=== PATIENT | male | born 1945 | race Caucasian/White ===

== ENCOUNTER 2017-04-04 13:41 | Inpatient (IN) | payer OTHER ==
[~2017-04-04] VITALS: Ht 160 cm; Wt 93.4 kg
--- NOTE | 2017-04-04 14:42 | EMERGENCY ROOM VISIT NOTE ---
History Report prepared by Vishibe: Iris Pal Under the Supervision of: Dr. Chad Hodge D.O. First contact with patient: 14:29 Chief Complaint: WOUND INFECTION Stated Complaint: INFECTION History of Present Illness The patient is a 69 year old male who presents to the Emergency Room with complaints of bilateral foot pain and ulcers. The patient states that he lives alone in [place]. He denies any fever, chest pain, shortness of breath, weakness or abdominal pain. The patient states he does not wear oxygen normally. He denies having a PCP or anyone who checks in on him. He has not been seen by a doctors in over 10 years. The patient has a history of cerebral palsy. Per nursing note, the patient arrived to ED with his pants and underwear soaked with urine and stool. Source of History: patient Position: foot (bilateral) Quality: other (ulers and pain) Modifying Factors (Relieving): other (none) Associated Symptoms: No fevers, No chest pain, No SOB, No abdominal pain, No weakness Review of Systems As above. All other systems reviewed were negative unless otherwise stated in history. At least 10 were reviewed Past Medical & Surgical Medical Problems: (1) Cerebral palsy Old medical records were attempted to be reviewed but there are no old records at this hospital. Nurse's notes were reviewed and I agree with. Social History Housing Status: lives alone Occupation Status: unemployed Current/Historical Medications No Active Prescriptions or Reported Meds Allergies Coded Allergies: No Known Allergies (Unverified , 04/04/17) Physical Exam Vital Signs Date Time Temp Pulse Resp B/P (MAP) Pulse Ox O2 Delivery O2 Flow Rate FiO2 04/04/17 16:03 78 20 133/84 92 Room Air 04/04/17 13:45 37.1 88 20 161/88 98 Room Air Physical Exam General: Non-ill, disheveled appearing older male, on nasal cannula oxygen, in no acute distress. Answers questions appropriately. HEENT: Normal cephalic atraumatic. Baseline disconjugate gaze in right eye. Pupils are equal round and reactive to light. Extraocular movements are intact. Oropharynx is pink with moist mucous membranes. No swelling of the mouth lips or tongue. Neck: Supple with a midline trachea. No meningeal signs or stiffness, no JVD or bruits. No Stridor. Chest: Clear to auscultation bilaterally. No wheezes or rhonchi. No increased work of breathing. Heart: regular rate and rhythm. : Yeast in groin area. Abdomen: Soft nontender, nondistended without rebound guarding or rigidity. Extremities: Significant chronic changes as well as redness and cellulitis to lower extremities. Spine/Back. Non tender to palpation. No CVA tenderness Skin: Good turgor without rashes. Neurologic exam: Cranial nerves two through 12 are intact. Motor and sensation are intact and symmetrical throughout. Medical Decision & Procedures ER Provider Diagnostic Interpretation: Radiology results as stated below per my review and radiologist interpretation: CHEST ONE VIEW PORTABLE FINDINGS: Large hiatus hernia. The heart is borderline enlarged. The lungs are clear. No pleural effusions. No pneumothorax. IMPRESSION: 1. No acute process within the chest. 2. Large hiatus hernia. Electronically signed by: Ted Locke M.D. LEFT FOOT 4 VIEWS CLINICAL HISTORY: Left foot swelling. FINDINGS: 4 portable views of the left foot are obtained. No prior studies are available for comparison at the time of dictation. The examination is degraded by suboptimal positioning. The skeletal structures are osteopenic. No fracture is seen. No bony erosion or periostitis is identified. There is pes planus. A mild hallux valgus is identified with minimal arthritic change at the first metatarsophalangeal joint. Hammertoes are suggested in the second through fifth toes. Soft tissue edema is present throughout the foot, greatest along the dorsal aspect. No subcutaneous gas or radiodense foreign body is seen. IMPRESSION: 1. Diffuse soft tissue swelling with no acute bony abnormality seen in the left foot. 2. Osteopenia, pes planus, mild hallux valgus, and degenerative change as above. Electronically signed by: Wali Hurtado M.D. R FOOT MIN 3 VIEWS ROUTINE CLINICAL HISTORY: Bilateral foot swelling. Redness. COMPARISON STUDY: None. FINDINGS: The bones are osteopenic. This results in suboptimal evaluation. No definite areas of cortical destruction to suggest osteomyelitis. Diffuse soft tissue swelling. No fracture or dislocation. Hallux valgus deformity. Mild osteoarthritis at the first MTP joint. Multiple flexion deformities seen within the second through fifth toes. IMPRESSION: Diffuse soft tissue swelling within the right foot. No definite cortical destruction to suggest osteomyelitis. Electronically signed by: Ted Locke M.D. Laboratory Results 04/04/17 13:45 Red Blood Count 4.46, Mean Corpuscular Volume 92.8, Mean Corpuscular Hemoglobin 29.6, Mean Corpuscular Hemoglobin Concent 31.9, Mean Platelet Volume 10.7, Neutrophils (%) (Auto) 67.5, Lymphocytes (%) (Auto) 13.3, Monocytes (%) (Auto) 11.4, Eosinophils (%) (Auto) 7.4, Basophils (%) (Auto) 0.1, Neutrophils # (Auto ) 6.11, Lymphocytes # (Auto) 1.20, Monocytes # (Auto) 1.03, Eosinophils # (Auto ) 0.67, Basophils # (Auto) 0.01 04/04/17 13:45 Test 04/04/17 13:45 04/04/17 14:10 04/04/17 14:56 04/04/17 15:33 White Blood Count 9.05 K/uL (4.8-10.8) Red Blood Count 4.46 M/uL (4.7-6.1) Hemoglobin 13.2 g/dL (14.0-18.0) Hematocrit 41.4 % (42-52) Mean Corpuscular Volume 92.8 fL (80-100) Mean Corpuscular Hemoglobin 29.6 pg (25-34) Mean Corpuscular Hemoglobin Concent 31.9 g/dl (32-36) Platelet Count 238 K/uL (130-400) Mean Platelet Volume 10.7 fL (7.4-10.4) Neutrophils (%) (Auto) 67.5 % Lymphocytes (%) (Auto) 13.3 % Monocytes (%) (Auto) 11.4 % Eosinophils (%) (Auto) 7.4 % Basophils (%) (Auto) 0.1 % Neutrophils # (Auto) 6.11 K/uL (1.4-6.5) Lymphocytes # (Auto) 1.20 K/uL (1.2-3.4) Monocytes # (Auto) 1.03 K/uL (0.11-0.59) Eosinophils # (Auto) 0.67 K/uL (0-0.5) Basophils # (Auto) 0.01 K/uL (0-0.2) RDW Standard Deviation 50.3 fL (36.4-46.3) RDW Coefficient of Variation 14.9 % (11.5-14.5) Immature Granulocyte % (Auto) 0.3 % Immature Granulocyte # (Auto) 0.03 K/uL (0.00-0.02) Anion Gap 8.0 mmol/L (3-11) Est Creatinine Clear Calc Drug Dose 71.8 ml/min Estimated GFR () 93.5 Estimated GFR (Non- 80.7 BUN/Creatinine Ratio 19.9 (10-20) Calcium Level 9.1 mg/dl (8.5-10.1) Total Bilirubin 0.4 mg/dl (0.2-1) Direct Bilirubin 0.1 mg/dl (0-0.2) Aspartate Amino Transf (AST/SGOT) 16 U/L (15-37) Alanine Aminotransferase (ALT/SGPT) 23 U/L (12-78) Alkaline Phosphatase 137 U/L (45-117) Total Protein 7.5 gm/dl (6.4-8.2) Albumin 3.6 gm/dl (3.4-5.0) Lipase 174 U/L (73-393) Urine Color YELLOW Urine Appearance CLOUDY (CLEAR) Urine pH 5.0 (4.5-7.5) Urine Specific [place] 1.036 (1.000-1.030) Urine Protein NEG (NEG) Urine Glucose (UA) 3+ (NEG) Urine Ketones NEG (NEG) Urine Occult Blood NEG (NEG) Urine Nitrite NEG (NEG) Urine Bilirubin NEG (NEG) Urine Urobilinogen NEG (NEG) Urine Leukocyte Esterase NEG (NEG) Urine WBC (Auto) 1-5 /hpf (0-5) Urine RBC (Auto) 0-4 /hpf (0-4) Urine Hyaline Casts (Auto) 1-5 /lpf (0-5) Urine Epithelial Cells (Auto) 20-30 /lpf (0-5) Urine Bacteria (Auto) NEG (NEG) Urine Crystals CALCIUM OXALATE (NONE Bedside Troponin I < 0.030 ng/ml (0-0.045) Bedside Lactic Acid Venous 1.55 mmol/L (0.90-1.70) Laboratory studies as stated above per my review. Medications Administered Medications (Trade) Dose Ordered Sig/Lee Route Start Time Stop Time Status Last Admin Dose Admin Piperacillin Sod/ Tazobactam Sod (Zosyn Iv) 4.5 gm NOW STAT IV 11/9/17 15:40 04/04/17 15:42 DC 04/04/17 16:05 4.5 GM ECG Indication: other (infection) Rate (beats per minute): 82 Rhythm: normal sinus Findings: no acute ischemic change, no ectopy Comparison ECG Date: no prior available ED Course 1430: Past medical records reviewed. The patient was evaluated in room C8, and a complete history and physical examination were performed. 1540: Zosyn IV 4.5 gm IV. 1542: The patient is resting comfortably. We are going to do a portable x-ray. 1608: Discussed the patient's case with Myrtle Leary. The patient will be evaluated for further management. Medical Decision Differential diagnosis: Cellulitis, osteomyelitis, sepsis, electrolyte or metabolic abnormality. This patient comes in as described above. He is here for evaluation of wounds on his feet. He lives by himself and has not seen a doctor in many years. He has some significant calluses and wound infections of both feet and they look necrotic on the toes. He is very disheveled looking. IV access was established and blood cultures were obtained. X-rays obtained of both feet . chest x-ray, EKG, and an extensive workup was obtained. He was reassessed frequently. He has no white count or elevations lactic acid to suggest severe sepsis. He has no acute electrolyte or abnormalities. EKG does not suggest acute coronary syndrome or arrhythmia. He does not appear to be in overt CHF. X-rays of the feet do not show any definite osteomyelitis however these are limited. I do think he needs to be admitted for IV antibiotics wound care and geriatric social work professor. The office of aging has been contacted is and has been following him apparently as well. I have consulted the [facility] hospitalist to see him in the ER for these measures. Medication Reconcilliation Current Medication List: was personally reviewed by me Blood Pressure Screening Patient's blood pressure: Elevated blood pressure Blood pressure disposition: Referred to PCP (evaluated by hospitalist) Consults Time Called: 1600 Consulting Physician: Myrtle Leary Returned Call: 1608 Discussed the patient's case with Myrtle Leary. The patient will be evaluated for further management. Impression Primary Impression: Lower extremity cellulitis Additional Impression: Total self-care deficit Scribe Attestation The scribe's documentation has been prepared under my direction and personally reviewed by me in its entirety. I confirm that the note above accurately reflects all work, treatment, procedures, and medical decision making performed by me. Departure Information Dispostion Being Evaluated By Hospitalist Prescriptions No Active Prescriptions or Reported Meds Patient Instructions My [facility] Problem Qualifiers
[2017-04-04 14:48] LABS: BASO % 0.1 %; BASO ABS # 0.01 K/uL (0-0.2); COMPLETE YES; EOS % 7.4 %; HEMATOCRIT 41.4 % (42-52); IG% 0.3 %; LYMPH % 13.3 %; MEAN CELL VOLUME 92.8 fL (80-100); MEAN CORPUSCULAR HEMOGLOBIN 29.6 pg (25-34); MEAN CORPUSCULAR HGB CONC 31.9 g/dl (32-36); MEAN PLATELET VOLUME 10.7 fL (7.4-10.4); MONO % 11.4 %; NEUT % 67.5 %; PLATELET COUNT 238 K/uL (130-400); RED BLOOD COUNT 4.46 M/uL (4.7-6.1); WHITE BLOOD COUNT 9.05 K/uL (4.8-10.8)
[2017-04-04 15:09] LABS: BUN/CREATININE RATIO 19.9 (10-20); CALCIUM 9.1 mg/dl (8.5-10.1); CREATININE 0.94 mg/dl (0.60-1.40); POTASSIUM 3.7 mmol/L (3.5-5.1)
[2017-04-04] MEDS ORDERED: PIPERACILLIN/TAZOBACTAM 4.5 GM/100ML D5W IV STA (15:40)
[2017-04-04 15:51] LABS: URINE APPEARANCE CLOUDY (CLEAR); URINE BILIRUBIN NEG (NEG); URINE COLOR YELLOW; URINE EPITHELIAL CELL AUTO 20-30 /lpf (0-5); URINE NITRITE NEG (NEG); URINE SPECIFIC GRAVITY 1.036 (1.000-1.030); UROBILINOGEN NEG (NEG)
[2017-04-04 15:53] LABS: MANUAL MICROSCOPIC REQUIRED? NO; REVIEW REQ? YES
--- NOTE | 2017-04-04 16:08 | DIAGNOSTIC IMAGING REPORT ---
CHEST ONE VIEW PORTABLE HISTORY: Atypical CHEST PAIN COMPARISON: None. FINDINGS: Large hiatus hernia. The heart is borderline enlarged. The lungs are clear. No pleural effusions. No pneumothorax. IMPRESSION: 1. No acute process within the chest. 2. Large hiatus hernia. Electronically signed by: Ted Locke M.D. 04/04/2017 4:07 PM Dictated Date/Time: 04/04/2017 4:06 PM
--- NOTE | 2017-04-04 16:11 | DIAGNOSTIC IMAGING REPORT ---
LEFT FOOT 4 VIEWS CLINICAL HISTORY: Left foot swelling. FINDINGS: 4 portable views of the left foot are obtained. No prior studies are available for comparison at the time of dictation. The examination is degraded by suboptimal positioning. The skeletal structures are osteopenic. No fracture is seen. No bony erosion or periostitis is identified. There is pes planus. A mild hallux valgus is identified with minimal arthritic change at the first metatarsophalangeal joint. Hammertoes are suggested in the second through fifth toes. Soft tissue edema is present throughout the foot, greatest along the dorsal aspect. No subcutaneous gas or radiodense foreign body is seen. IMPRESSION: 1. Diffuse soft tissue swelling with no acute bony abnormality seen in the left foot. 2. Osteopenia, pes planus, mild hallux valgus, and degenerative change as above. Electronically signed by: Wali Hurtado M.D. 04/04/2017 4:09 PM Dictated Date/Time: 04/04/2017 4:07 PM
--- NOTE | 2017-04-04 16:14 | DIAGNOSTIC IMAGING REPORT ---
R FOOT MIN 3 VIEWS ROUTINE CLINICAL HISTORY: Bilateral foot swelling. Redness. COMPARISON STUDY: None. FINDINGS: The bones are osteopenic. This results in suboptimal evaluation. No definite areas of cortical destruction to suggest osteomyelitis. Diffuse soft tissue swelling. No fracture or dislocation. Hallux valgus deformity. Mild osteoarthritis at the first MTP joint. Multiple flexion deformities seen within the second through fifth toes. IMPRESSION: Diffuse soft tissue swelling within the right foot. No definite cortical destruction to suggest osteomyelitis. Electronically signed by: Ted Locke M.D. 04/04/2017 4:13 PM Dictated Date/Time: 04/04/2017 4:10 PM
[2017-04-04] MEDS ORDERED: ONDANSETRON INJ 2 MG/ML 2 ML VIAL IV PRN (17:15)
[2017-04-04] MEDS ORDERED: ACETAMINOPHEN 325 MG TAB PO PRN (17:15)
[2017-04-04] MEDS ORDERED: VANCOMYCIN INJ 2,250 MG in SODIUM CHLORIDE 0.9% 500ML 500 ML IV SCH ×2 (17:30→20:00)
[2017-04-04 17:33] VITALS: BMI 36.5
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
[2017-04-04 20:10] VITALS: O2SAT 94
--- NOTE | 2017-04-04 20:21 | DIAGNOSTIC IMAGING REPORT ---
VENOUS DOPPLER LWR EXT BILA CLINICAL HISTORY: 71 years-old Male presenting with bilat. lower ext cellulitis, wound, necrosis. TECHNIQUE: Real-time grayscale and color and spectral Doppler ultrasound imaging of the veins of the bilateral lower extremities was performed. Compression and augmentation were also utilized. COMPARISON: None. FINDINGS: Right: Common femoral vein: Patent. Femoral vein: Patent. Greater saphenous vein: Patent. Popliteal vein: Patent. Calf veins: Limited visualization. Left: Common femoral vein: Patent. Femoral vein: Patent. Greater saphenous vein: Patent. Popliteal vein: Patent. Calf veins: Limited visualization secondary to subcutaneous edema. Other: None. IMPRESSION: No evidence of deep venous thrombosis. Electronically signed by: Juaquin Gonsalez M.D. 04/04/2017 8:20 PM Dictated Date/Time: 04/04/2017 8:18 PM
--- NOTE | 2017-04-04 20:29 | DIAGNOSTIC IMAGING REPORT ---
ART DOP LOWER EXT BILAT CLINICAL HISTORY: 71 years-old Male presenting with bilat. lower ext cellulitis, wound, necrosis. TECHNIQUE: Real-time grayscale and color and spectral Doppler ultrasound imaging of the bilateral lower extremity arteries was performed. Measurements calculated based on NASCET criteria. COMPARISON: None. FINDINGS: Right: Common femoral artery: Patent. Peak systolic velocity 64 cm/s. Superficial femoral artery: Patent. Waveforms demonstrate a slightly slowed early rise. Peak systolic velocity 96 cm/s. Popliteal artery: Patent although with slowed early rise. Peak systolic velocity 83 cm/s. Anterior tibial artery: Patent. Peak systolic velocity 36 cm/s. Posterior tibial artery: Patent. Peak systolic velocity 39 cm/s. Dorsalis pedis: Patent. Peak systolic velocity 34 cm/s. Peroneal artery: Patent. Peak systolic velocity 41 cm/s. Left: Common femoral artery: Patent. Peak systolic velocity 119 cm/s. Superficial femoral artery: Patent although focal elevated velocity with aliasing of color Doppler flow in the distal SFA. Peak systolic velocity in the distal SFA measures 333 cm/s although more proximally peak systolic velocity measures 113 cm/s. Popliteal artery: Patent although with slowed early rise. Peak systolic velocity 76 cm/s. Anterior tibial artery: Patent. Peak systolic velocity 55 cm/s. Posterior tibial artery: Patent. Peak systolic velocity 61 cm/s. Dorsalis pedis: Patent. Peak systolic velocity 42 cm/s. Peroneal artery: Patent. Peak systolic velocity 35 cm/s. PRESLEY Not performed secondary to lower extremity wounds. IMPRESSION: 1. 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 Electronically signed by: Juaquin Gonsalez M.D. 04/04/2017 8:28 PM Dictated Date/Time: 04/04/2017 8:21 PM
[2017-04-04] MEDS ORDERED: PIPERACILL/TAZOBAC CONSULT ACTIVE PRN (20:45)
[2017-04-04] MEDS ORDERED: VANCOMYCIN CONSULT ACTIVE PRN (20:45)
--- NOTE | 2017-04-04 21:29 | Pharmacy Progress Note ---
Pharmacy Antibiotic Consult Date of Service: Apr 04, 2017. Pharmacy Dosing Scope Pharmacy is consulted to initiate vancomycin and Zosyn IV dosing therapy, order appropriate labs and adjust drug dose/frequency. Subjective The patient is a 71 year old male admitted on Apr 04, 2017 at 17:05. History of cerebral palsy, difficulty walking. Now with bilateral foot pain and ulcers. Objective Height (Feet): 5 Height (Inches): 3.00 Weight (Kilograms): 93.400 Lab Results (24hrs): Test 04/04/17 13:45 04/04/17 14:10 04/04/17 14:56 04/04/17 15:33 White Blood Count 9.05 K/uL (4.8-10.8) Red Blood Count 4.46 M/uL (4.7-6.1) Hemoglobin 13.2 g/dL (14.0-18.0) Hematocrit 41.4 % (42-52) Mean Corpuscular Volume 92.8 fL (80-100) Mean Corpuscular Hemoglobin 29.6 pg (25-34) Mean Corpuscular Hemoglobin Concent 31.9 g/dl (32-36) Platelet Count 238 K/uL (130-400) Mean Platelet Volume 10.7 fL (7.4-10.4) Neutrophils (%) (Auto) 67.5 % Lymphocytes (%) (Auto) 13.3 % Monocytes (%) (Auto) 11.4 % Eosinophils (%) (Auto) 7.4 % Basophils (%) (Auto) 0.1 % Neutrophils # (Auto) 6.11 K/uL (1.4-6.5) Lymphocytes # (Auto) 1.20 K/uL (1.2-3.4) Monocytes # (Auto) 1.03 K/uL (0.11-0.59) Eosinophils # (Auto) 0.67 K/uL (0-0.5) Basophils # (Auto) 0.01 K/uL (0-0.2) RDW Standard Deviation 50.3 fL (36.4-46.3) RDW Coefficient of Variation 14.9 % (11.5-14.5) Immature Granulocyte % (Auto) 0.3 % Immature Granulocyte # (Auto) 0.03 K/uL (0.00-0.02) Sodium Level 141 mmol/L (136-145) Potassium Level 3.7 mmol/L (3.5-5.1) Chloride Level 108 mmol/L (98-107) Carbon Dioxide Level 25 mmol/L (21-32) Anion Gap 8.0 mmol/L (3-11) Blood Urea Nitrogen 19 mg/dl (7-18) Creatinine 0.94 mg/dl (0.60-1.40) Est Creatinine Clear Calc Drug Dose 71.8 ml/min Estimated GFR () 93.5 Estimated GFR (Non- 80.7 BUN/Creatinine Ratio 19.9 (10-20) Random Glucose 190 mg/dl (70-99) Calcium Level 9.1 mg/dl (8.5-10.1) Total Bilirubin 0.4 mg/dl (0.2-1) Direct Bilirubin 0.1 mg/dl (0-0.2) Aspartate Amino Transf (AST/SGOT) 16 U/L (15-37) Alanine Aminotransferase (ALT/SGPT) 23 U/L (12-78) Alkaline Phosphatase 137 U/L (45-117) Total Protein 7.5 gm/dl (6.4-8.2) Albumin 3.6 gm/dl (3.4-5.0) Lipase 174 U/L (73-393) Urine Color YELLOW Urine Appearance CLOUDY (CLEAR) Urine pH 5.0 (4.5-7.5) Urine Specific [place] 1.036 (1.000-1.030) Urine Protein NEG (NEG) Urine Glucose (UA) 3+ (NEG) Urine Ketones NEG (NEG) Urine Occult Blood NEG (NEG) Urine Nitrite NEG (NEG) Urine Bilirubin NEG (NEG) Urine Urobilinogen NEG (NEG) Urine Leukocyte Esterase NEG (NEG) Urine WBC (Auto) 1-5 /hpf (0-5) Urine RBC (Auto) 0-4 /hpf (0-4) Urine Hyaline Casts (Auto) 1-5 /lpf (0-5) Urine Epithelial Cells (Auto) 20-30 /lpf (0-5) Urine Bacteria (Auto) NEG (NEG) Urine Crystals CALCIUM OXALATE (NONE Bedside Troponin I < 0.030 ng/ml (0-0.045) Bedside Lactic Acid Venous 1.55 mmol/L (0.90-1.70) Test 04/04/17 20:47 Micro Results: 04/04 blood x2 pending 04/04 clean catch urine pending Recent Pertinent Medications Item Value Date Time Piperacillin Sod/ 4.5 gm 04/04/17 1540 Tazobactam Sod NOW STAT/IV 04/04/17 1605 (Zosyn Iv) Vancomycin HCl 545 ml @ 200 mls/hr 04/04/17 2000 2250 mg/Sodium TODAY@2000/IV 04/04/17 2101 Chloride Piperacillin Sod/ 120 ml @ 30 mls/hr 04/04/17 2200 Tazobactam Sod Q8/IV 4.5 gm/Dextrose Vancomycin HCl 275 ml @ 125 mls/hr 04/05/17 0400 1250 mg/Sodium Q12H/IV Chloride Assessment & Plan Loading dose: vancomycin 2250 mg IV X 1 dose (~24 mg/kg) then: vancomycin 1250 mg IV every 12 hours. Goal peak level estimate: between 25-40 mcg/mL. Goal trough level estimate: between 15-20 mcg/mL. Trough has been ordered for: 04/06 before 0400 dose. Zosyn 4.5 Gm infused over 30 min loading dose, then 4.5 Gm infused over 4 hr every 8 hr. Pharmacy will continue to follow and will adjust dose/frequency as necessary. Thank you
[2017-04-04 22:25] LABS: PARTIAL THROMBOPLASTIN RATIO 1.1; PROTHROMBIN TIME (PATIENT) 10.4 SECONDS (9.0-12.0)
[2017-04-04 22:50] VITALS: BP 131/69; PULSE 72; TEMP 36.8; O2SAT 94
[2017-04-04] MEDS: PIPERACILL/TAZOBAC IV 4.5 GM in DEXTROSE 5% 100ML 100 ML IV SCH (23:25)
[2017-04-04 23:41] VITALS: BP 130/72; PULSE 74; TEMP 36.8; O2SAT 90
[2017-04-05] MEDS: ENOXAPARIN 40 MG/0.4 ML SYR SC SCH ×2 (00:09→20:17)
[2017-04-05] MEDS: VANCOMYCIN INJ 1,250 MG in SODIUM CHLORIDE 0.9% 250ML 250 ML IV SCH ×2 (03:36→17:04)
[2017-04-05] MEDS: PIPERACILL/TAZOBAC IV 4.5 GM in DEXTROSE 5% 100ML 100 ML IV SCH ×3 (06:17→21:25)
[2017-04-05 07:43] LABS: HEMATOCRIT 37.8 % (42-52); MEAN CELL VOLUME 92.4 fL (80-100); MEAN CORPUSCULAR HEMOGLOBIN 30.3 pg (25-34); MEAN CORPUSCULAR HGB CONC 32.8 g/dl (32-36); MEAN PLATELET VOLUME 10.5 fL (7.4-10.4); PLATELET COUNT 196 K/uL (130-400); RED BLOOD COUNT 4.09 M/uL (4.7-6.1); WHITE BLOOD COUNT 6.77 K/uL (4.8-10.8)
[2017-04-05 08:05] VITALS: BP 141/66; PULSE 69; TEMP 36.8; O2SAT 90
[2017-04-05 08:18] LABS: BUN/CREATININE RATIO 16.3 (10-20); CALCIUM 8.5 mg/dl (8.5-10.1); CREATININE 0.8 mg/dl (0.60-1.40); POTASSIUM 3.7 mmol/L (3.5-5.1)
[2017-04-05 08:25] LABS: CHOLESTEROL/HDL RATIO 4.6; THYROID STIMULATING HORMONE 0.763 uIu/ml (0.300-4.500)
[2017-04-05 08:38] LABS: ESTIMATED AVERAGE GLUCOSE 146 mg/dl; HA1C FLAG Normal (Normal)
--- NOTE | 2017-04-05 11:49 | Surgery Consultation ---
Consultation Date of Service Apr 05, 2017. Chief Complaint BLE PAD with cellulitis History of Present Illness The patient is a 71 year old male with hx of cerebral palsy and no other known medical problems per pt, admitted with BLE cellulitis/ulcerations, seen in consultation today for PAD noted on arterial US. Pt found at home by area agency on aging, soiled with feces and urine, and sent to [facility] for eval of BLE wounds. Pt states unsure when he noticed the redness and ulcers, but feet have been hurting and legs pruritic for past 2 weeks. Pt lives at home and is independent, but does use crutches/walker for ambulation d/t hx of multiple surgeries on BLE as a child from his cerebral palsy. States he ambulates very little outside his apartment, but denies any claudication. Denies SY, fever, chills, chest pain, SOB, abd pain, N/V, rest pain, other complaints. Pt poor historian. Vitals Vital Signs Past 12 Hours Date Time Temp Pulse Resp B/P (MAP) Pulse Ox O2 Delivery O2 Flow Rate FiO2 04/05/17 08:05 36.8 69 20 141/66 (91) 90 04/04/17 23:45 Room Air 04/04/17 23:41 36.8 74 18 130/72 (91) 90 Room Air Allergies Coded Allergies: No Known Allergies (Unverified , 04/04/17) Home Medications No Active Prescriptions or Reported Meds Problem List Medical Problems: (1) Cerebral palsy Surgical / Medical History Hx Cardiac Surgery: No Hx Abdominal Surgery: No Hx Cancer Surgery: No Hx Thoracic Surgery: No Hx Orthopedic: Yes (X 7 on BLE d/t CP) Hx Urinary Tract Surgery: No HX Other Surgery: No Past Medical/Surgical History: Other (cerebral palsy) Family History Diabetes mellitus MOTHER Social History Smoking Status: Former Smoker Hx Tobacco Use In Past Year?: No Hx Alcohol Use - Type & Amnt: No Hx Substance Use -Type & Amnt: No Review of Systems Constitutional: No chills, No fever, No malaise Skin: + change in color Eyes: No visual changes ENMT: No sore throat Respiratory: No cough, No MACKAY, No short of breath Cardiovascular: + edema, No chest pain, No palpitations, No syncope, No intermittent claudication Gastrointestinal: No abdominal pain, No nausea, No vomiting Neurologic: No dizziness, No weakness, No headache, No numbness, No tingling Physical Exam Constitutional: General Apperance: well-nourished, well-developed Level of Distress: NAD, chronically ill Psychiatric: Mental Status: active & alert, normal mood, normal affect Orientation: oriented except where noted, to time, to place, to person Memory: recent memory normal, remote memory normal Head: normocephalic, atraumatic Eyes: EOM: EOMI ENMT: normal ENT inspection, hearing grossly normal Neck: supple, trachea midline Lungs: Respiratory effort: no dyspnea Auscultation: no rales/crackles, no rhonchi, decreased breath sounds Cardiovascular: Apical Impulse: not displaced Heart Auscultation: RRR, no rubs, no gallops Peripheral Pulses: Pulses: full and equal, in all extremities except if noted Bruits: none appreciated Carotid Pulse: normal on the left, normal on the right Brachial Pulses: normal on the left, normal on the right Radial Pulse: normal on the left, normal on the right Femoral Pulse: normal on the left, decreased on the right Posterior Tibialis Pulse: pertinent finding (Nonpalpable, but present with doppler) Dorsalis Pedis Pulse: pertinent finding (Nonpalpable, but present with doppler) Abdomen: Bowel Sounds: normal Inspection & Palpation: soft, non-distended, no tenderness, guarding & rebound Musculoskeletal: normal strength (5/5 throughout), normal tone Extremities: Upper Right: no cyanosis, no edema, no varicosities Upper Left: no cyanosis, no edema, no varicosities Lower Right: no cyanosis, edema, ulcers, pertinent finding (Thickened skin/ lichenification noted of distal leg and foot, with deformed foot/toes and extremely long toenails, yellow crusting.) Lower Left: no cyanosis, edema, ulcers, pertinent finding (Thickened skin/ lichenification noted of distal leg and foot, with deformed foot/toes and extremely long toenails, yellow crusting. Distal leg with erythema and ulcerations, warmth noted, foul odor) Neurologic: Cranial Nerves: grossly intact Sensation: grossly intact Assessment and Plan ASSESSMENT and PLAN: BLE cellulitis/ulcerations PAD Imaging indicates possible proximal disease, so recommend aortoiliac US to be done. Arterial US does not demonstrate occlusions concerning for acute ischemia. Recommend local wound care and abx in meantime. Will reevaluate next week after obtaining aortoiliac US.
--- NOTE | 2017-04-05 14:13 | Wound Consultation: Inpatient ---
Wound Consultation Date of Consultation: Apr 05, 2017. Attending Physician: Karena Vilchis D.O. Reason for Consultation: Multiple ulcerations bilateral feet History of Present Illness Patient was recently admitted for evaluation of ulcerations to both his feet as well as associated cellulitis of the lower extremities. Patient states he does not know when the specific time for these ulcerations to begin. Patient has had chronic problems with his feet being driving cracking. Patient currently denies any increased pain. Patient denies any fever chills or night sweats. Patient denies any chest pain shortness of breath abdominal discomfort nausea or vomiting. As any other systemic complaints at this time. Family History Diabetes mellitus MOTHER Social History Smoking Status: Former Smoker Alcohol Use: none Housing Status: lives alone Occupation Status: unemployed Allergies Coded Allergies: No Known Allergies (Unverified , 04/04/17) Home Medications No Active Prescriptions or Reported Meds Inpatient Medications Current Inpatient Medications Medications (Trade) Dose Ordered Sig/Lee Route Start Time Stop Time Status Last Admin Dose Admin Acetaminophen (Tylenol Tab) 650 mg Q4H PRN PO 04/04/17 17:15 05/04/17 17:14 Ondansetron HCl (Zofran Inj) 4 mg Q6H PRN IV 04/04/17 17:15 05/04/17 17:14 Piperacillin Sod/ Tazobactam Sod 4.5 gm/Dextrose 120 ml @ 30 mls/hr Q8 IV 04/04/17 22:00 04/18/17 21:59 04/05/17 06:17 30 MLS/HR Vancomycin HCl 1250 mg/Sodium Chloride 275 ml @ 125 mls/hr Q12H IV 04/05/17 04:00 04/18/17 20:59 04/05/17 03:36 125 MLS/HR Enoxaparin Sodium (Lovenox Inj) 40 mg DAILY@2200 SC 04/04/17 23:07 05/04/17 23:06 04/05/17 00:09 40 MG Vancomycin HCl (Consult) 1 ea UD PRN N/A 04/04/17 20:45 05/04/17 20:44 Piperacillin Sod/ Tazobactam Sod (Consult) 1 ea UD PRN N/A 04/04/17 20:45 05/04/17 20:44 Physical Exam Date Time Temp Pulse Resp B/P (MAP) Pulse Ox O2 Delivery O2 Flow Rate FiO2 04/05/17 08:05 36.8 69 20 141/66 (91) 90 04/05/17 08:00 Room Air 04/04/17 23:45 Room Air 04/04/17 23:41 36.8 74 18 130/72 (91) 90 Room Air 04/04/17 22:50 36.8 72 18 131/69 (89) 94 Nasal Cannula 2.0 04/04/17 20:10 94 Nasal Cannula 2.0 04/04/17 18:32 77 18 148/67 97 04/04/17 18:00 77 18 148/67 97 Nasal Cannula 2.0 04/04/17 17:33 Nasal Cannula 2.0 04/04/17 16:03 78 20 133/84 92 Room Air General: The patient is lying in a hospital bed in no distress. Alert, cooperative and appropriate to all questions. HEENT: Pupils equal and reactive to light. Sclera clear, EOM intact. Neck: Supple, No JVD noted Chest: CTA in all gonzales. No deformity Heart: RRR without murmurs, S3, S4, thrills, rubs or heaves Extremities: Severe scattered eschar formation on the right foot as well as the ankle region. There are also scattered ulcerations at the dislocation. The area of involvement measures 10 x 4.5 x 0.1 cm. There is no active drainage noted. There is some proximal periwound erythema in the lower extremity proximal to the ankle region. Operable pain or fluctuance present. The left foot shows a few scattered eschar formations on the digits and dorsal aspect of the foot. There is an active eschar formation with ulceration noted measuring 3.4 x 1.6 x 0.1 cm on the lower extremity. No active drainage periwound erythema or odor noted. Neurological: Alert and oriented x3. Laboratory Results Last 24 Hours Test 04/04/17 14:10 04/04/17 14:56 04/04/17 15:33 04/04/17 21:44 Urine Color YELLOW Urine Appearance CLOUDY Urine pH 5.0 Urine Specific [place] 1.036 Urine Protein NEG Urine Glucose (UA) 3+ Urine Ketones NEG Urine Occult Blood NEG Urine Nitrite NEG Urine Bilirubin NEG Urine Urobilinogen NEG Urine Leukocyte Esterase NEG Urine WBC (Auto) 1-5 /hpf Urine RBC (Auto) 0-4 /hpf Urine Hyaline Casts (Auto) 1-5 /lpf Urine Epithelial Cells (Auto) 20-30 /lpf Urine Bacteria (Auto) NEG Urine Crystals CALCIUM OXALATE Bedside Troponin I < 0.030 ng/ml Bedside Lactic Acid Venous 1.55 mmol/L Prothrombin Time 10.4 SECONDS Prothromb Time International Ratio 1.0 Activated Partial Thromboplast Time 29.6 SECONDS Partial Thromboplastin Ratio 1.1 Test 04/05/17 07:10 White Blood Count 6.77 K/uL Red Blood Count 4.09 M/uL Hemoglobin 12.4 g/dL Hematocrit 37.8 % Mean Corpuscular Volume 92.4 fL Mean Corpuscular Hemoglobin 30.3 pg Mean Corpuscular Hemoglobin Concent 32.8 g/dl RDW Standard Deviation 49.8 fL RDW Coefficient of Variation 14.7 % Platelet Count 196 K/uL Mean Platelet Volume 10.5 fL Sodium Level 144 mmol/L Potassium Level 3.7 mmol/L Chloride Level 112 mmol/L Carbon Dioxide Level 25 mmol/L Anion Gap 7.0 mmol/L Blood Urea Nitrogen 13 mg/dl Creatinine 0.80 mg/dl Est Creatinine Clear Calc Drug Dose 84.4 ml/min Estimated GFR () 103.4 Estimated GFR (Non- 89.2 BUN/Creatinine Ratio 16.3 Random Glucose 124 mg/dl Estimated Average Glucose 146 mg/dl Hemoglobin A1c 6.7 % Calcium Level 8.5 mg/dl Triglycerides Level 182 mg/dl Cholesterol Level 180 mg/dl HDL Cholesterol 39 mg/dl LDL Cholesterol, Calculated 105 mg/dl VLDL Cholesterol, Calculated 36 mg/dl Cholesterol/HDL Ratio 4.6 Thyroid Stimulating Hormone (TSH) 0.763 uIu/ml Assessment & Plan Assessment: Cellulitis right lower extremity Multiple scattered ulcerations and eschar formation both feet Ulceration left lower extremity Plan: The sites on the right foot and digits as well as the left lower extremity require debridement with the patient's permission and this was performed with forceps and a #5 curette. Topical Xylocaine 4% was applied to the ulceration left lower extremity prior to debridement. No significant bleeding occurred. Left lower extremity site will be dressed with Aquacel Ag and gauze. Continued application of moisturizing cream will be performed to both feet on a daily basis. Patient will be reevaluated as needed during hospital course and can be following outpatient clinic upon discharge. This represented a non-excisional debridement of both the right foot and left lower extremity of approximately 50 cm. It is also recommended that the patient have a podiatric consultation to manage his nails.
[2017-04-05 15:05] VITALS: BP 147/81; PULSE 71; TEMP 36.7; O2SAT 94
--- NOTE | 2017-04-05 15:38 | DIAGNOSTIC IMAGING REPORT ---
DUPLEX AORTA/IVC/ILIACS COMP CLINICAL HISTORY: 71 years-old Male presenting with aortoiliac disease. TECHNIQUE: Real-time grayscale and color and spectral Doppler ultrasound imaging of the abdominal aorta and iliac arteries was performed. COMPARISON: None. FINDINGS: Proximal aorta: Patent. Peak systolic velocity 132 cm/s. Transverse dimension 1.7 cm. Mid aorta: Patent. Peak systolic velocity 146 cm/s. Transverse dimension 1.6 cm. Distal aorta: Not visualized. Right iliac artery: Patent. Peak systolic velocity 113 cm/s. Transverse dimension 0.6 cm. Left iliac artery: Patent. Peak systolic velocity 124 cm/s. Transverse dimension 0.7 cm. IMPRESSION: 1. No evidence of abdominal aortic aneurysm. Electronically signed by: Juaquin Gonsalez M.D. 04/05/2017 3:37 PM Dictated Date/Time: 04/05/2017 3:35 PM
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
[2017-04-05] MEDS: AMMONIUM LACTATE 12% LOTION 225 GM BTL EXT SCH (21:00)
[2017-04-06] VITALS: O2SAT 94
[2017-04-06 00:41] VITALS: BP 134/71; PULSE 74; TEMP 36.5; O2SAT 94
[2017-04-06] MEDS ORDERED: VANCOMYCIN TROUGH ONE (03:30)
[2017-04-06] MEDS: VANCOMYCIN INJ 1,250 MG in SODIUM CHLORIDE 0.9% 250ML 250 ML IV SCH ×2 (04:51→15:49)
[2017-04-06 07:32] VITALS: BP 161/94; PULSE 62; TEMP 36.7; O2SAT 94
[2017-04-06] MEDS: AMMONIUM LACTATE 12% LOTION 225 GM BTL EXT SCH ×3 (08:42→22:11)
[2017-04-06] MEDS: PIPERACILL/TAZOBAC IV 4.5 GM in DEXTROSE 5% 100ML 100 ML IV SCH ×3 (10:14→22:12)
--- NOTE | 2017-04-06 12:20 | Pharmacy Progress Note ---
Pharmacy Abx Dose Progress Nt Date of Service Apr 06, 2017. Pharmacy Dosing Scope The patient is currently receiving the following antimicrobial agents per Pharmacy consult: Vancomycin 1250 mg IV every 12 hours Zosyn 4.5g IV Q8H extended interval infusion Objective Height (Feet): 5 Height (Inches): 3.00 Weight (Kilograms): 93.400 Vital Signs (Past 12Hrs) Vital Signs Past 12 Hours Date Time Temp Pulse Resp B/P (MAP) Pulse Ox O2 Delivery O2 Flow Rate FiO2 04/06/17 08:30 Room Air 04/06/17 07:32 36.7 62 18 161/94 (116) 94 Room Air 04/06/17 00:41 36.5 74 20 134/71 (92) 94 Room Air Lab Results (24Hrs) Item Value Date Time Vancomycin Level Trough 17.3 mcg/ml 04/06/17 0338 Micro Results Date/Time Source Procedure Growth Status 04/04/17 15:18 Blood Blood Culture - Preliminary NO GROWTH TO DATE. Resulted 04/04/17 15:10 Blood Blood Culture - Preliminary NO GROWTH TO DATE. Resulted 04/04/17 14:10 Urine , Clean Catch Urine Culture - Final THREE TYPES OF ORGANSIMS PRESENT, ALL... Complete Assessment & Plan Assessment 71 year old male receiving IV Vancomycin and Zosyn for treatment of Cellulitis of RLE, multiple scattered ulcerations of LEs, Ulceration of LLE Day # 3 of antimicrobial therapy Plan Vancomycin IV * Trough level of 17.3 mcg/mL is therapeutic * Continue dose of 1250 mg IV every 12 hours * Goal trough level for Cellulitis and ulcerations : 15 to 20 mcg/mL * Trough level ordered for: 04/08/17 * Less than traditional dose selected due to likelihood of drug accumulation in obese patient. Piperacillin/tazobactam * Continue 4.5 g IV extended infusion every 8 hours for CrCl greater than 20 mL/ min Pharmacy will continue to follow and will adjust dose/frequency as necessary. Thank you.
[2017-04-06 15:10] VITALS: BP 143/72; PULSE 74; TEMP 36.8; O2SAT 91
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
[2017-04-06] MEDS: ENOXAPARIN 40 MG/0.4 ML SYR SC SCH (22:13)
[2017-04-07] VITALS: O2SAT 94
[2017-04-07 00:28] VITALS: BP 147/73; PULSE 71; TEMP 36.5; O2SAT 92
[2017-04-07] MEDS: VANCOMYCIN INJ 1,250 MG in SODIUM CHLORIDE 0.9% 250ML 250 ML IV SCH ×2 (05:29→15:39)
[2017-04-07] MEDS: AMMONIUM LACTATE 12% LOTION 225 GM BTL EXT SCH ×3 (07:35→21:10)
[2017-04-07 07:42] VITALS: BP 177/83; PULSE 70; TEMP 36.8; O2SAT 94
[2017-04-07 08:02] LABS: CREATININE 0.92 mg/dl (0.60-1.40)
[2017-04-07] MEDS: PIPERACILL/TAZOBAC IV 4.5 GM in DEXTROSE 5% 100ML 100 ML IV SCH ×3 (08:22→21:09)
[2017-04-07 15:11] VITALS: BP 155/79; PULSE 73; TEMP 36.6; O2SAT 94
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
[2017-04-07] MEDS: NEOMYCIN/POLYMYX/BACITR OINT 15 GM TUBE EXT SCH (21:09)
[2017-04-07] MEDS: ENOXAPARIN 40 MG/0.4 ML SYR SC SCH (21:10)
[2017-04-08] VITALS: BP 132/77; PULSE 68; TEMP 36.8; O2SAT 91
[2017-04-08] MEDS: VANCOMYCIN INJ 1,250 MG in SODIUM CHLORIDE 0.9% 250ML 250 ML IV SCH ×2 (03:21→16:04)
[2017-04-08 03:41] LABS: HEMATOCRIT 42.2 % (42-52); MEAN CELL VOLUME 91.5 fL (80-100); MEAN CORPUSCULAR HEMOGLOBIN 29.9 pg (25-34); MEAN CORPUSCULAR HGB CONC 32.7 g/dl (32-36); MEAN PLATELET VOLUME 9.8 fL (7.4-10.4); PLATELET COUNT 207 K/uL (130-400); RED BLOOD COUNT 4.61 M/uL (4.7-6.1); WHITE BLOOD COUNT 7.88 K/uL (4.8-10.8)
[2017-04-08 04:01] LABS: BUN/CREATININE RATIO 12.2 (10-20); CALCIUM 8.5 mg/dl (8.5-10.1); CREATININE 1.18 mg/dl (0.60-1.40)
[2017-04-08] MEDS: PIPERACILL/TAZOBAC IV 4.5 GM in DEXTROSE 5% 100ML 100 ML IV SCH ×3 (06:06→21:39)
--- NOTE | 2017-04-08 07:13 | CONSULTATION REPORT ---
DATE OF CONSULTATION: 04/07/2017 My office received an answering machine message on Saturday regarding a consultation for this patient. All hospital records have been reviewed including the history and physical, signed on 04/04/2017 by Maggy Adorno as well as consultation of Serena Grady PA-C for Dr. Bowman's service as well as a consultation from Dr. Aldo Allan in the wound clinic. All relevant information has been reviewed and added to this visit as part of data and decision making. HISTORY OF PRESENT ILLNESS: As is well documented in the chart, this patient has lived alone and for the past 20 years, he is in the [facility] unit in [place] (he states he was recently told he is the longest living resident in that facility in terms of years being there). 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 His closest living relative is his brother, whose has recently returned just for this weekend from [place] on a temporary hospital discharge for her illness. The patient states he does not know why currently he "suddenly" developed an infection that he states started on his left lower leg, although hospital records indicate of course bilateral issues being present. He has apparently never been to a teacher adventure education for any care. Around the home, he is usually in socks because otherwise he says his feet would slip more. He states he has a pair of soft sneakers; however, those were bought by a friend from a [employer] store. When he is not in the house, he uses a wheelchair. CHIEF COMPLAINT: Patient's foot care is generally nonexistent from his self-awareness and self-care and is at the very best considered neglected. Consultation has been requested for obvious deformities of skin, nails and callus tissue present, in the presence of his otherwise at risk medical and lower extremity status. VASCULAR EXAM: I am unable to palpate either DP or PT pulses and I am not able to palpate it because of edema present, but rather, they are simply not palpable. Capillary filling time is decreased. There is absent hair on all digits and the dorsum of the foot. NEUROLOGICAL FINDINGS: The patient is actually quite sensate to light touch and is quite ticklish. He also feels pressure or sensitivity during care that is provided today. It would seem that some of his deformities are merely so long-term present that they do not present as an acute problem from his perspective. ORTHOPEDIC FINDINGS: On the very briefest surveys, he has extensive loqwe extremity ( especially knee ) stitches from procedures that began in about the mid 1950s and went through the for his Cerebral Palsey and Lower Extremity sequele. He said he had 7 surgeries, all done at [facility] which included hamstring release and patellar procedures, all of which he deemed as "experimental." The patient is not examined weightbearing as that is a difficult task and he uses crutches for that. 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 DERMATOLOGY: In addition to those documented from wound and admission diagnoses, being cared for otherwise by [facility] staff during this admission, from a specific podiatric consultation perspective, there are calluses on the distal aspects of the left second, third and fourth digits ( due to rigid hammertoes / curled deformities ) ; and right second PIP jointdorsally, left third and fourth digits. There is some general peeling skin ( as edema is resolving ) and lack of good foot hygiene. The right great deformed ingrown nail is over 1.5 cm longer than the extending pulp of the digit; it is deformed in thickness, color , shape and ingrown, but there does not appear to be a localized abscess or infection. All nails are to varying degrees dystrophic and fungal as well as dirty. The nursing staff has been helpful by my call prior to arrival and although unable to immersion soak the feet they were able to put wet cloths on to help soften somewhat the nails; that is not entirely possible however with the right great toe. ASSESSMENT: I spent time chatting with him regarding that, just as someone comes to his [facility]-rise facility to provide cho and other type of care, certainly it is likely there is podiatric care service available in those settings too. I am reminding him that in a general way, this type of palliative care is covered by insurance even on a routine basis on a schedule as defined by Medicare, but which he would surely meet based on the growth pattern that would be anticipated following today's care. I also reviewed that today taking a culture ( fungal ) of the nails ( right hallux ) does not mean he must have treatment. We would all assume clinically that fungus is present; I just felt in this setting being able to identify the organism for the future might be helpful. It does not appear fungus is the pathogen for his cellulitis based on his improvement, but because these nails could have created some iatrogenic lacerations or otherwise introduced fungus into the bloodstream, I think it is useful or at least should always be an awareness of consideration. It certainly would be an option of his primary care provider (if he becomes established with someone) to consider an appropriate course of terbinafine just to make an attempt at clearing some of the nail pathology; that would not necessarily change the dystrophy component, but it would certainly make it easier for all others providing care in the future. TREATMENT AND PLAN: 1. Right great nail removed in toto. 2. All other nails debrided. 3. All distal calluses and dorsal hyperkeratoses debrided as warranted. ORDERS: 1. Fungal culture right great toe, which would be represented of all nails. 2. Order for topical Neosporin applied liberally to all nail beds, distal toes and debrided areas twice a day starting today (I have applied one application) to continue through 04/10/2017. 3. I would ask for photodocumentation of the "after" appearance of care today. I am assuming wound management, on followup can do that or if not someone please contact me. I have post-care pictures that we could arrange to get into the record. Issac Aceves does not appear to have any acute podiatric direct contribution to his admission. X-rays do not show any intra-vessel calcification; nor soft tissue changes. There is osteopenia as well as great and lesser toe deformities with even in a nonweightbearing decreased arch appearance, but no fracture or sign of osteomyelitis. MTDD
[2017-04-08 08:03] VITALS: BP 138/77; PULSE 70; TEMP 36.6; O2SAT 94
[2017-04-08] MEDS: NEOMYCIN/POLYMYX/BACITR OINT 15 GM TUBE EXT SCH ×2 (09:00→21:01)
[2017-04-08] MEDS: AMMONIUM LACTATE 12% LOTION 225 GM BTL EXT SCH ×3 (09:00→21:01)
--- NOTE | 2017-04-08 09:14 | Pharmacy Progress Note ---
Pharmacy Abx Dose Progress Nt Date of Service Apr 08, 2017. Pharmacy Dosing Scope The patient is currently receiving the following antimicrobial agents per Pharmacy consult: Vancomycin and Zosyn 1250 mg IV every 12 hours & extended interval 4.5gm IV every 8 hours respectively. Objective Height (Feet): 5 Height (Inches): 3.00 Weight (Kilograms): 93.400 Vital Signs (Past 12Hrs) Vital Signs Past 12 Hours Date Time Temp Pulse Resp B/P (MAP) Pulse Ox O2 Delivery O2 Flow Rate FiO2 04/08/17 08:03 36.6 70 18 138/77 (97) 94 Room Air 04/08/17 07:45 Room Air 04/08/17 00:00 36.8 68 20 132/77 (95) 91 Room Air 04/08/17 00:00 Room Air Lab Results (24Hrs) Laboratory Tests (24 Hours) Test 04/08/17 03:35 White Blood Count 7.88 K/uL (4.8-10.8) Item Value Date Time Vancomycin Level Trough 17.0 mcg/ml 04/08/17 0335 Micro Results Date/Time Source Procedure Growth Status 04/04/17 15:18 Blood Blood Culture - Preliminary NO GROWTH TO DATE. Resulted 04/04/17 15:10 Blood Blood Culture - Preliminary NO GROWTH TO DATE. Resulted 04/04/17 14:10 Urine , Clean Catch Urine Culture - Final THREE TYPES OF ORGANSIMS PRESENT, ALL... Complete 04/07/17 14:45 Nail Foot Right JOSÉ MANUEL Preparation - Final Resulted 04/07/17 14:45 Nail Foot Right Fungal Culture Pending Resulted Assessment & Plan Assessment 71 year old male receiving Vancomycin and Zosyn for treatment of foot ulcers Day # 5 of antimicrobial therapy Plan Vancomycin IV * Trough level of 17.0 mcg/mL is therapeutic * Continue dose of 1250 mg IV every 12 hours * Goal trough level: 15 to 20 mcg/mL * Patients renal function has declined somewhat in the past 24 hours. Will monitor and possibly reduce concentration if he does not return baseline tomorrow. The combination of Zosyn and Vancomycin could be contributing to this. Piperacillin/tazobactam * Continue 4.5 g IV extended infusion every 8 hours for CrCl greater than 20 mL/ min Pharmacy will continue to follow and will adjust dose/frequency as necessary. Thank you.
--- NOTE | 2017-04-08 09:48 | Progress Note ---
Progress Note Date of Service: Apr 08, 2017. Subjective 71 yo m with hx cerebral palsy, seen in f/u today. Pt denies any new complaints. Problem List Medical Problems: (1) Lower extremity cellulitis Status: Acute (2) Total self-care deficit Status: Acute Objective Vital Signs Vital Signs Past 12 Hours Date Time Temp Pulse Resp B/P (MAP) Pulse Ox O2 Delivery O2 Flow Rate FiO2 04/08/17 08:03 36.6 70 18 138/77 (97) 94 Room Air 04/08/17 07:45 Room Air 04/08/17 00:00 36.8 68 20 132/77 (95) 91 Room Air 04/08/17 00:00 Room Air Exam CONST: A&O x 3, NAD, chronically ill appearing male EXT: BLE edema and erythema improved. Ulcers appear similar. Odor improved. Laboratory and Microbiology Results Past 24 Hours Test 04/07/17 11:14 04/07/17 15:55 04/07/17 20:28 04/08/17 03:35 Range/Units Bedside Glucose 142 133 169 70-99 mg/dl White Blood Count 7.88 4.8-10.8 K/uL Red Blood Count 4.61 4.7-6.1 M/uL Hemoglobin 13.8 14.0-18.0 g/dL Hematocrit 42.2 42-52 % Mean Corpuscular Volume 91.5 80-100 fL Mean Corpuscular Hemoglobin 29.9 25-34 pg Mean Corpuscular Hemoglobin Concent 32.7 32-36 g/dl RDW Standard Deviation 49.0 36.4-46.3 fL RDW Coefficient of Variation 14.7 11.5-14.5 % Platelet Count 207 130-400 K/uL Mean Platelet Volume 9.8 7.4-10.4 fL Sodium Level 141 136-145 mmol/L Potassium Level 4.0 3.5-5.1 mmol/L Chloride Level 107 98-107 mmol/L Carbon Dioxide Level 25 21-32 mmol/L Anion Gap 9.0 3-11 mmol/L Blood Urea Nitrogen 14 7-18 mg/dl Creatinine 1.18 0.60-1.40 mg/dl Est Creatinine Clear Calc Drug Dose 57.2 ml/min Estimated GFR () 71.0 Estimated GFR (Non- 61.3 BUN/Creatinine Ratio 12.2 10-20 Random Glucose 138 70-99 mg/dl Calcium Level 8.5 8.5-10.1 mg/dl Vancomycin Level Trough 17.0 SEE COMMENT mcg/ml Test 04/08/17 07:00 Range/Units Bedside Glucose 126 70-99 mg/dl Microbiology Results 04/07/17 JOSÉ MANUEL Preparation - Final, Resulted 04/07/17 Fungal Culture, Resulted Pending ASSESSMENT and PLAN: BLE ulcers and cellulitis PAD Pt aortoiliac us indicates some proximal disease, however, would not recommend surgical intervention unless wounds are nonhealing with regular care. Will see in office in 1 month to reevaluate. Dressings per wound care instructions. Please call if needed otherwise.
[2017-04-08 11:49] VITALS: Ht 160 cm; Wt 93.4 kg
--- NOTE | 2017-04-08 12:41 | Clinical Documentation Query ---
CLINICAL DOCUMENTATION QUERY Dr. REED, In your clinical opinion is this patient being managed for: ( ) Bilateral LE venous stasis ulcers ( ) Not Agree ( ) Other explanation of clinical findings (Please Explain) ( ) Unable to determine (Please Define) ( ) Need to Discuss The medical record reflects the following clinical findings, treatment, and risk factors. Clinical Indicators: 69 yo male presenting with bilateral foot pain and ulcers. Documentation reflects multiple ulcerations and ulcer LLE. WOCN documentation notes L anterior wood ulcer is a venous leg ulcer. Treatment: WOCN and wound provider consult, nonexcisional debridement, Vascular surgery consult, IV vancomycin, IV zosyn, podiatry consult, Risk Factors: newly diagnosed DM, pt unable to care for self, lives alone Please clarify and document your clinical opinion in the progress notes and discharge summary. Terms such as "probable", "suspected", "likely", "questionable", "possible", or "still to be ruled out" are acceptable. IF IN AGREEMENT, YOU MUST DOCUMENT ABOVE DIAGNOSTIC STATEMENT IN DAILY PROGRESS NOTES AND DISCHARGE SUMMARY. This document is not part of the patient's record. Thank You, Jaquelin Nur RN [phone]
[2017-04-08 15:37] VITALS: BP 164/56; PULSE 64; TEMP 36.7; O2SAT 94
[2017-04-08 16:00] VITALS: O2SAT 94
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
[2017-04-08 18:01] VITALS: BP 143/76; PULSE 71
[2017-04-08] MEDS: hydrOXYzine HCL 25 MG TAB PO PRN (21:15)
[2017-04-08] MEDS: ENOXAPARIN 40 MG/0.4 ML SYR SC SCH (21:39)
[2017-04-08 23:16] VITALS: BP 155/62; PULSE 65; TEMP 36.3; O2SAT 91
[2017-04-09] MEDS: VANCOMYCIN INJ 1,250 MG in SODIUM CHLORIDE 0.9% 250ML 250 ML IV SCH ×2 (04:25→15:48)
[2017-04-09] MEDS: PIPERACILL/TAZOBAC IV 4.5 GM in DEXTROSE 5% 100ML 100 ML IV SCH ×3 (05:56→21:49)
[2017-04-09 07:28] LABS: CREATININE 0.99 mg/dl (0.60-1.40)
[2017-04-09 07:33] VITALS: BP 158/80; PULSE 71; TEMP 36.3; O2SAT 93
[2017-04-09 08:00] VITALS: O2SAT 93
[2017-04-09] MEDS: AMMONIUM LACTATE 12% LOTION 225 GM BTL EXT SCH ×3 (09:00→21:00)
[2017-04-09] MEDS: NEOMYCIN/POLYMYX/BACITR OINT 15 GM TUBE EXT SCH ×2 (13:36→21:48)
--- NOTE | 2017-04-09 14:02 | Progress Note ---
Subjective Date of Service: Apr 09, 2017. Subjective Pt evaluation today including: conversation w/ patient, physical exam, lab review, review of studies, review of inpatient medication list Saw/examined the patient in room 254 He feels pretty good, denies pain +weakness denies any other complaints at this time Problem List Medical Problems: (1) Lower extremity cellulitis Status: Acute (2) Total self-care deficit Status: Acute Review of Systems Constitutional: + weakness, No fever, No chills Respiratory: No shortness of breath Cardiac: No chest pain Abdomen: No pain, No nausea, No vomiting, No diarrhea Musculoskeletal: No joint pain (pain controlled) Objective Vital Signs Date Time Temp Pulse Resp B/P (MAP) Pulse Ox O2 Delivery O2 Flow Rate FiO2 04/09/17 08:00 93 Room Air 2.0 04/09/17 07:33 36.3 71 22 158/80 (106) 93 04/09/17 00:00 Room Air 04/08/17 23:16 36.3 65 18 155/62 (93) 91 Room Air 04/08/17 18:01 71 143/76 (98) 04/08/17 16:00 94 Room Air 04/08/17 15:37 36.7 64 16 164/56 (92) 94 Room Air Physical Exam General Appearance: no apparent distress Respiratory/Chest: lungs clear, normal breath sounds, no respiratory distress, no accessory muscle use Cardiovascular: regular rate, rhythm, no edema, no murmur Abdomen: normal bowel sounds, non tender, soft Extremities: + pertinent finding (+healing wounds on LE b/l, chronic changes of feet anatomy) Laboratory Results Last 24 Hours Test 04/08/17 16:24 04/08/17 20:23 04/09/17 06:47 04/09/17 07:25 Bedside Glucose 103 mg/dl 146 mg/dl 119 mg/dl Creatinine 0.99 mg/dl Est Creatinine Clear Calc Drug Dose 68.2 ml/min Estimated GFR () 87.8 Estimated GFR (Non- 75.8 Test 04/09/17 11:19 Bedside Glucose 168 mg/dl Assessment and Plan This is a 71yo M with a PMH of cerebral palsy presents with bilateral foot pain and ulcers. 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 Allan performed bedside debridement as well -Podiatry consulted, appreciate intervention -Vascular surgery consulted, recommend outpatient follow up in 1 month, no urgent surgical intervention required, monitor for poor wound healing Newly discovered Diabetes: -HbA1C: 6.7%, random BSG 190 on admission -consult diabetes education -check BSG while in hospital -patient agreeable to attempt lifestyle changes upon discharge but would not want medication at this point human services case manager/disposition: -Patient lives alone, concern for neglect -Evaluation at home by [facility]ging instructed the patient to come to hospital for evaluation -Ability to care for himself severely limited by physical stature; self care and hygiene are poor as evidenced by patient condition -human services case manager consult -PT/OT consulted, recommend SNF with ongoing therapy
[2017-04-09 15:59] VITALS: BP 169/81; PULSE 69; TEMP 36.3; O2SAT 90
[2017-04-09 16:00] VITALS: O2SAT 90
[2017-04-09] MEDS: ENOXAPARIN 40 MG/0.4 ML SYR SC SCH (21:49)
[2017-04-09 23:04] VITALS: BP 149/73; PULSE 68; TEMP 36.3; O2SAT 92
[2017-04-10] MEDS: VANCOMYCIN INJ 1,250 MG in SODIUM CHLORIDE 0.9% 250ML 250 ML IV SCH (04:08)
[2017-04-10] MEDS: PIPERACILL/TAZOBAC IV 4.5 GM in DEXTROSE 5% 100ML 100 ML IV SCH (05:44)
[2017-04-10 07:48] VITALS: BP 140/72; PULSE 74; TEMP 36.6; O2SAT 94
[2017-04-10 08:00] VITALS: O2SAT 94
[2017-04-10 09:01] LABS: HEMATOCRIT 42.5 % (42-52); MEAN CELL VOLUME 92.6 fL (80-100); MEAN CORPUSCULAR HEMOGLOBIN 29.8 pg (25-34); MEAN CORPUSCULAR HGB CONC 32.2 g/dl (32-36); MEAN PLATELET VOLUME 10.1 fL (7.4-10.4); PLATELET COUNT 201 K/uL (130-400); RED BLOOD COUNT 4.59 M/uL (4.7-6.1); WHITE BLOOD COUNT 7.48 K/uL (4.8-10.8)
--- NOTE | 2017-04-10 09:14 | Progress Note ---
Subjective Date of Service: Apr 10, 2017. Subjective Pt evaluation today including: conversation w/ patient, physical exam, lab review, review of studies, review of inpatient medication list Saw/examined the patient in room 254 No problems/issues to note - he feels fine, just weak Good PO intake intermittent diarrhea, no nausea/vomiting, no abdominal pain, no GI bleed Problem List Medical Problems: (1) Lower extremity cellulitis Status: Acute (2) Total self-care deficit Status: Acute Review of Systems Constitutional: + weakness, No fever, No chills Respiratory: No cough, No sputum, No shortness of breath Cardiac: No chest pain Abdomen: + diarrhea, No pain, No nausea, No vomiting, No constipation, No GI bleeding Medications Current Inpatient Medications Medications (Trade) Dose Ordered Sig/Lee Route Start Time Stop Time Status Last Admin Dose Admin Acetaminophen (Tylenol Tab) 650 mg Q4H PRN PO 04/04/17 17:15 05/04/17 17:14 Ondansetron HCl (Zofran Inj) 4 mg Q6H PRN IV 04/04/17 17:15 05/04/17 17:14 Enoxaparin Sodium (Lovenox Inj) 40 mg DAILY@2200 SC 04/04/17 23:07 05/04/17 23:06 04/09/17 21:49 40 MG Ammonium Lactate (Lac-Hydrin) 1 appl TID EXT 04/05/17 21:00 05/05/17 20:59 04/09/17 21:00 1 APPL Neomycin/ Polymyxin/ Bacitracin (Neosporin Oint) 1 appln BID EXT 04/07/17 21:00 04/10/17 23:59 04/09/17 21:48 1 APPLN Hydroxyzine HCl (Vistaril Tab) 25 mg Q8 PRN PO 04/08/17 18:00 05/08/17 17:59 04/08/17 21:15 25 MG Doxycycline Hyclate (Vibramycin Cap) 100 mg BID PO 04/10/17 09:00 04/20/17 08:59 UNV Objective Vital Signs Date Time Temp Pulse Resp B/P (MAP) Pulse Ox O2 Delivery O2 Flow Rate FiO2 04/10/17 07:48 36.6 74 16 140/72 (94) 94 Room Air 04/10/17 00:00 Room Air 04/09/17 23:04 36.3 68 18 149/73 (98) 92 Room Air 04/09/17 16:00 90 Room Air 04/09/17 15:59 36.3 69 20 169/81 (110) 90 Room Air Physical Exam General Appearance: no apparent distress Respiratory/Chest: lungs clear, normal breath sounds, no respiratory distress, no accessory muscle use Cardiovascular: regular rate, rhythm, no edema, no murmur Laboratory Results Last 24 Hours Test 04/09/17 11:19 04/09/17 16:20 04/09/17 20:14 04/10/17 07:35 Bedside Glucose 168 mg/dl 115 mg/dl 155 mg/dl 122 mg/dl Test 04/10/17 08:43 White Blood Count 7.48 K/uL Red Blood Count 4.59 M/uL Hemoglobin 13.7 g/dL Hematocrit 42.5 % Mean Corpuscular Volume 92.6 fL Mean Corpuscular Hemoglobin 29.8 pg Mean Corpuscular Hemoglobin Concent 32.2 g/dl RDW Standard Deviation 50.5 fL RDW Coefficient of Variation 14.9 % Platelet Count 201 K/uL Mean Platelet Volume 10.1 fL Assessment and Plan This is a 71yo M with a PMH of cerebral palsy presents with bilateral foot pain and ulcers. 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 Allan performed bedside debridement as well -Podiatry consulted, appreciate intervention -Vascular surgery consulted, recommend outpatient follow up in 1 month, no urgent surgical intervention required, monitor for poor wound healing Newly discovered Diabetes: -HbA1C: 6.7%, random BSG 190 on admission -consult diabetes education -check BSG while in hospital -patient agreeable to attempt lifestyle changes upon discharge but would not want medication at this point business services associate/disposition: -Patient lives alone, concern for neglect -Evaluation at home by [facility]ging instructed the patient to come to hospital for evaluation -Ability to care for himself severely limited by physical stature; self care and hygiene are poor as evidenced by patient condition -business services associate consult -PT/OT consulted, recommend SNF with ongoing therapy
[2017-04-10] MEDS: NEOMYCIN/POLYMYX/BACITR OINT 15 GM TUBE EXT SCH ×2 (09:19→21:22)
[2017-04-10] MEDS: AMMONIUM LACTATE 12% LOTION 225 GM BTL EXT SCH ×3 (09:21→21:22)
[2017-04-10 09:26] LABS: BUN/CREATININE RATIO 9.9 (10-20); CALCIUM 8.7 mg/dl (8.5-10.1); CREATININE 1.22 mg/dl (0.60-1.40); POTASSIUM 3.7 mmol/L (3.5-5.1)
[2017-04-10] MEDS: DOXYCYCLINE HYCLATE 100 MG CAP PO SCH ×2 (09:41→21:22)
[2017-04-10 15:16] VITALS: BP 146/74; PULSE 74; TEMP 36.9; O2SAT 92
[2017-04-10 16:00] VITALS: O2SAT 92
[2017-04-10] MEDS: ENOXAPARIN 40 MG/0.4 ML SYR SC SCH (21:23)
[2017-04-10 23:10] VITALS: BP 147/85; PULSE 71; TEMP 37.1; O2SAT 95
[2017-04-11] VITALS (7 sets, daily range): BP systolic 100–178; BP diastolic 64–80; PULSE 65–75; TEMP 36.3–37; O2SAT 90–96
[2017-04-11 07:36] LABS: CREATININE 1.02 mg/dl (0.60-1.40)
[2017-04-11] MEDS: DOXYCYCLINE HYCLATE 100 MG CAP PO SCH ×2 (08:25→20:51)
[2017-04-11] MEDS: AMMONIUM LACTATE 12% LOTION 225 GM BTL EXT SCH ×3 (08:26→20:51)
--- NOTE | 2017-04-11 15:03 | Progress Note ---
Subjective Date of Service: Apr 11, 2017. Subjective Pt evaluation today including: conversation w/ patient, physical exam, lab review, review of studies, review of inpatient medication list Saw/examined the patient in room 254 He's agitated this morning due to not being discharged yet After speaking with him, he calmed down No other issues to note at this time. Problem List Medical Problems: (1) Lower extremity cellulitis Status: Acute (2) Total self-care deficit Status: Acute Review of Systems Constitutional: No fever, No chills, No weakness Eyes: No worsening of vision Respiratory: No cough, No sputum, No shortness of breath Cardiac: No chest pain, No edema Abdomen: No pain, No nausea, No vomiting, No diarrhea Psychiatric: No depression symptoms Heme: No abnormal bleeding/bruising Objective Vital Signs Date Time Temp Pulse Resp B/P (MAP) Pulse Ox O2 Delivery O2 Flow Rate FiO2 04/11/17 08:00 90 Room Air 04/11/17 07:03 37.0 65 18 152/77 (102) 90 Room Air 04/11/17 00:00 Room Air 04/10/17 23:10 37.1 71 18 147/85 (105) 95 Room Air 04/10/17 16:00 92 Room Air 04/10/17 15:16 36.9 74 16 146/74 (98) 92 Room Air Physical Exam Respiratory/Chest: lungs clear, normal breath sounds, no respiratory distress, no accessory muscle use Cardiovascular: regular rate, rhythm, no edema, no gallop, no JVD, no murmur Extremities: + pertinent finding (healing ulcerations, no longer erythematous) Laboratory Results Last 24 Hours Test 04/10/17 16:04 04/10/17 19:44 04/11/17 06:49 04/11/17 07:06 Bedside Glucose 121 mg/dl 138 mg/dl 111 mg/dl Creatinine 1.02 mg/dl Est Creatinine Clear Calc Drug Dose 66.2 ml/min Estimated GFR () 84.7 Estimated GFR (Non- 73.1 Test 04/11/17 11:20 Bedside Glucose 331 mg/dl Assessment and Plan This is a 71yo M with a PMH of cerebral palsy presents with bilateral foot pain and ulcers. 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 Allan performed bedside debridement as well -Podiatry consulted, appreciate intervention -Vascular surgery consulted, recommend outpatient follow up in 1 month, no urgent surgical intervention required, monitor for poor wound healing Newly discovered Diabetes: 04/11 sugars are >300 states he is stress and anxious monitor does not want any medications on discharge; will try lifestyle modifications -HbA1C: 6.7%, random BSG 190 on admission -consult diabetes education -check BSG while in hospital -patient agreeable to attempt lifestyle changes upon discharge but would not want medication at this point mountain services manager/disposition: -Patient lives alone, concern for neglect -Evaluation at home by [facility] Aging instructed the patient to come to hospital for evaluation -Ability to care for himself severely limited by physical stature; self care and hygiene are poor as evidenced by patient condition -mountain services manager consult -PT/OT consulted, recommend SNF with ongoing therapy
[2017-04-11] MEDS: ENOXAPARIN 40 MG/0.4 ML SYR SC SCH (20:52)
[2017-04-12] MEDS: hydrOXYzine HCL 25 MG TAB PO PRN (01:13)
[2017-04-12 07:02] VITALS: BP 157/77; PULSE 69; TEMP 36.5; O2SAT 91
[2017-04-12 07:24] LABS: HEMATOCRIT 42.1 % (42-52); MEAN CELL VOLUME 92.5 fL (80-100); MEAN CORPUSCULAR HEMOGLOBIN 30.1 pg (25-34); MEAN CORPUSCULAR HGB CONC 32.5 g/dl (32-36); MEAN PLATELET VOLUME 10.3 fL (7.4-10.4); PLATELET COUNT 205 K/uL (130-400); RED BLOOD COUNT 4.55 M/uL (4.7-6.1); WHITE BLOOD COUNT 7.11 K/uL (4.8-10.8)
[2017-04-12 07:54] LABS: BUN/CREATININE RATIO 20.2 (10-20); CALCIUM 9.1 mg/dl (8.5-10.1); CREATININE 0.98 mg/dl (0.60-1.40); POTASSIUM 3.8 mmol/L (3.5-5.1)
[2017-04-12 08:00] VITALS: O2SAT 91
[2017-04-12] MEDS: DOXYCYCLINE HYCLATE 100 MG CAP PO SCH ×2 (08:29→21:31)
[2017-04-12] MEDS: AMMONIUM LACTATE 12% LOTION 225 GM BTL EXT SCH ×3 (08:30→21:00)
[2017-04-12 14:40] VITALS: BP 135/74; PULSE 88; TEMP 36.7; O2SAT 96
[2017-04-12 16:00] VITALS: O2SAT 96
--- NOTE | 2017-04-12 18:26 | Progress Note ---
Medicine Progress Note Date & Time of Visit: Apr 12, 2017 at 18:12. Subjective Pt was seen and examined Lying in bed with no distress Pt said that he feels fine He said that the wound in his leg look better Denies any chest pain palpitation, dizziness and SOB Objective Last 8 Hrs Date Time Temp Pulse Resp B/P (MAP) Pulse Ox O2 Delivery O2 Flow Rate FiO2 04/12/17 14:40 36.7 88 20 135/74 (94) 96 Physical Exam: General- No acute distress Head- atraumatic Eyes- PERRL, EOMI ENT- oropharynx clear Neck- supple, no JVD Lungs- clear to auscultation Heart- regular rhythm; no murmur Abdomen- normal bowel sounds, soft Extremities- no calf tenderness, healing legs ulcer Neuro- alert, oriented, PERRL, EOMI Skin- warm & dry Laboratory Results: Last 24 Hours Test 04/11/17 20:15 04/12/17 07:00 04/12/17 07:46 04/12/17 11:01 Bedside Glucose 126 mg/dl 173 mg/dl 125 mg/dl White Blood Count 7.11 K/uL Red Blood Count 4.55 M/uL Hemoglobin 13.7 g/dL Hematocrit 42.1 % Mean Corpuscular Volume 92.5 fL Mean Corpuscular Hemoglobin 30.1 pg Mean Corpuscular Hemoglobin Concent 32.5 g/dl RDW Standard Deviation 50.7 fL RDW Coefficient of Variation 15.0 % Platelet Count 205 K/uL Mean Platelet Volume 10.3 fL Sodium Level 142 mmol/L Potassium Level 3.8 mmol/L Chloride Level 108 mmol/L Carbon Dioxide Level 25 mmol/L Anion Gap 9.0 mmol/L Blood Urea Nitrogen 20 mg/dl Creatinine 0.98 mg/dl Est Creatinine Clear Calc Drug Dose 68.9 ml/min Estimated GFR () 88.9 Estimated GFR (Non- 76.7 BUN/Creatinine Ratio 20.2 Random Glucose 115 mg/dl Calcium Level 9.1 mg/dl Test 04/12/17 16:37 Bedside Glucose 157 mg/dl Assessment & Plan This is a 71yo M with a PMH of cerebral palsy presents with bilateral foot pain and ulcers. Bilateral lower extremity cellulitis/with multiple wounds Received 5 days course of IV Vanco and Zosyn Abx changed to PO Doxy Blood cx negative Wound care on board Had bedside debridement by wound care physician Vascular surgery consulted, recommend outpatient follow up in 1 month, No urgent surgical intervention required, monitor for poor wound healing Continue daily wound care stable New Onset Diabetes Glucose on admission 190 HbA1C: 6.7% does not want any medications on discharge agree to try lifestyle modifications Continue monitor BS Diabetic education consulted DVT px on Lovenox subq CODE STATUS FULL CODE family services specialist/disposition Evaluation at home by Office of Aging instructed the patient to come to hospital for evaluation Ability to care for himself severely limited by physical stature; self care and hygiene are poor as evidenced by patient condition Waiting for approval to discharge to [facility] Consultants: Wound care vascular surgery Podiatry Current Inpatient Medications: Current Inpatient Medications Medications (Trade) Dose Ordered Sig/Lee Route Start Time Stop Time Status Last Admin Dose Admin Acetaminophen (Tylenol Tab) 650 mg Q4H PRN PO 04/04/17 17:15 05/04/17 17:14 Ondansetron HCl (Zofran Inj) 4 mg Q6H PRN IV 04/04/17 17:15 05/04/17 17:14 Enoxaparin Sodium (Lovenox Inj) 40 mg DAILY@2200 SC 04/04/17 23:07 05/04/17 23:06 04/11/17 20:52 40 MG Ammonium Lactate (Lac-Hydrin) 1 appl TID EXT 04/05/17 21:00 05/05/17 20:59 04/12/17 14:00 1 APPL Hydroxyzine HCl (Vistaril Tab) 25 mg Q8 PRN PO 04/08/17 18:00 05/08/17 17:59 04/12/17 01:13 25 MG Doxycycline Hyclate (Vibramycin Cap) 100 mg BID PO 04/10/17 09:45 04/20/17 09:44 04/12/17 08:29 100 MG
[2017-04-12] MEDS: ENOXAPARIN 40 MG/0.4 ML SYR SC SCH (21:32)
[2017-04-12 23:27] VITALS: BP 133/61; PULSE 64; TEMP 36.6; O2SAT 92
[2017-04-13 07:07] VITALS: BP 179/70; PULSE 64; TEMP 36.8; O2SAT 94
[2017-04-13] MEDS: AMMONIUM LACTATE 12% LOTION 225 GM BTL EXT SCH ×3 (09:26→21:30)
[2017-04-13] MEDS: DOXYCYCLINE HYCLATE 100 MG CAP PO SCH ×2 (09:26→21:30)
[2017-04-13 15:19] VITALS: BP 129/74; PULSE 79; TEMP 36.3; O2SAT 92
[2017-04-13] MEDS: ENOXAPARIN 40 MG/0.4 ML SYR SC SCH (21:30)
[2017-04-13 23:30] VITALS: BP 113/66; PULSE 75; TEMP 36.9; O2SAT 95
[2017-04-14 07:04] VITALS: BP 121/75; PULSE 64; TEMP 36.4; O2SAT 91
[2017-04-14] MEDS: DOXYCYCLINE HYCLATE 100 MG CAP PO SCH ×2 (08:29→20:57)
[2017-04-14] MEDS: AMMONIUM LACTATE 12% LOTION 225 GM BTL EXT SCH ×3 (08:31→20:56)
[2017-04-14 14:38] VITALS: BP 160/73; PULSE 70; TEMP 36.7; O2SAT 92
--- NOTE | 2017-04-14 16:40 | Progress Note ---
Medicine Progress Note Date & Time of Visit: Apr 13, 2017 at 09:00. Subjective Late entry Pt was seen yesterday Lying in bed with no distress Pt said that he feels fine He said that the leg starting to look better Denies any chest pain, palpitation, dizziness and SOB Objective Last 8 Hrs Date Time Temp Pulse Resp B/P (MAP) Pulse Ox O2 Delivery O2 Flow Rate FiO2 04/14/17 14:38 36.7 70 18 160/73 (102) 92 Room Air Physical Exam: General- No acute distress Head- atraumatic Eyes- PERRL, EOMI ENT- oropharynx clear Neck- supple, no JVD Lungs- clear to auscultation Heart- regular rhythm; no murmur Abdomen- normal bowel sounds, soft Extremities- no calf tenderness, healing legs ulcer Neuro- alert, oriented, PERRL, EOMI Skin- warm & dry Laboratory Results: Last 24 Hours Test 04/13/17 20:04 04/14/17 07:07 04/14/17 11:18 04/14/17 16:10 Bedside Glucose 183 mg/dl 124 mg/dl 102 mg/dl 97 mg/dl Assessment & Plan This is a 71yo M with a PMH of cerebral palsy presents with bilateral foot pain and ulcers. Bilateral lower extremity cellulitis/with multiple wounds Received 5 days course of IV Vanco and Zosyn Abx changed to PO Doxy Blood cx negative Wound care on board Had bedside debridement by wound care physician Vascular surgery consulted, recommend outpatient follow up in 1 month, No urgent surgical intervention required, monitor for poor wound healing Continue daily wound care stable New Onset Diabetes Glucose on admission 190 HbA1C: 6.7% does not want any medications on discharge agree to try lifestyle modifications Continue monitor BS Diabetic education consulted Stable DVT px on Lovenox subq CODE STATUS FULL CODE guest services associate/disposition Evaluation at home by Office of Aging instructed the patient to come to hospital for evaluation Ability to care for himself severely limited by physical stature; self care and hygiene are poor as evidenced by patient condition Waiting for approval to discharge to [facility] Consultants: Wound care vascular surgery Podiatry Current Inpatient Medications: Current Inpatient Medications Medications (Trade) Dose Ordered Sig/Lee Route Start Time Stop Time Status Last Admin Dose Admin Acetaminophen (Tylenol Tab) 650 mg Q4H PRN PO 04/04/17 17:15 05/04/17 17:14 Ondansetron HCl (Zofran Inj) 4 mg Q6H PRN IV 04/04/17 17:15 05/04/17 17:14 Enoxaparin Sodium (Lovenox Inj) 40 mg DAILY@2200 SC 04/04/17 23:07 05/04/17 23:06 04/13/17 21:30 40 MG Ammonium Lactate (Lac-Hydrin) 1 appl TID EXT 04/05/17 21:00 05/05/17 20:59 04/14/17 14:33 1 APPL Hydroxyzine HCl (Vistaril Tab) 25 mg Q8 PRN PO 04/08/17 18:00 05/08/17 17:59 04/12/17 01:13 25 MG Doxycycline Hyclate (Vibramycin Cap) 100 mg BID PO 04/10/17 09:45 04/20/17 09:44 04/14/17 08:29 100 MG
--- NOTE | 2017-04-14 18:12 | Progress Note ---
Medicine Progress Note Date & Time of Visit: Apr 14, 2017 at 11:47. Subjective Pt was seen and examined Lying in bed with no distress denies any chest pain, palpitation, dizziness and SOB Objective Last 8 Hrs Date Time Temp Pulse Resp B/P (MAP) Pulse Ox O2 Delivery O2 Flow Rate FiO2 04/14/17 14:38 36.7 70 18 160/73 (102) 92 Room Air Physical Exam: General- No acute distress Head- atraumatic Eyes- PERRL, EOMI ENT- oropharynx clear Neck- supple, no JVD Lungs- clear to auscultation Heart- regular rhythm; no murmur Abdomen- normal bowel sounds, soft Extremities- no calf tenderness, healing legs ulcer Neuro- alert, oriented, PERRL, EOMI Skin- warm & dry Laboratory Results: Last 24 Hours Test 04/13/17 20:04 04/14/17 07:07 04/14/17 11:18 04/14/17 16:10 Bedside Glucose 183 mg/dl 124 mg/dl 102 mg/dl 97 mg/dl Assessment & Plan This is a 71yo M with a PMH of cerebral palsy presents with bilateral foot pain and ulcers. Bilateral lower extremity cellulitis/with multiple wounds Received 5 days course of IV Vanco and Zosyn Abx changed to PO Doxy Blood cx negative Wound care on board Had bedside debridement by wound care physician Vascular surgery consulted, recommend outpatient follow up in 1 month, No urgent surgical intervention required, monitor for poor wound healing Continue daily wound care Waiting for approval to transfer to SNF stable New Onset Diabetes Glucose on admission 190 HbA1C: 6.7% does not want any medications on discharge agree to try lifestyle modifications Continue monitor BS Diabetic education consulted Stable DVT px on Lovenox subq CODE STATUS FULL CODE legal services manager/disposition Evaluation at home by [facility] instructed the patient to come to hospital for evaluation Ability to care for himself severely limited by physical stature; self care and hygiene are poor as evidenced by patient condition Waiting for approval to discharge to [facility] Consultants: Wound care vascular surgery Podiatry Current Inpatient Medications: Current Inpatient Medications Medications (Trade) Dose Ordered Sig/Lee Route Start Time Stop Time Status Last Admin Dose Admin Acetaminophen (Tylenol Tab) 650 mg Q4H PRN PO 04/04/17 17:15 05/04/17 17:14 Ondansetron HCl (Zofran Inj) 4 mg Q6H PRN IV 04/04/17 17:15 05/04/17 17:14 Enoxaparin Sodium (Lovenox Inj) 40 mg DAILY@2200 SC 04/04/17 23:07 05/04/17 23:06 04/13/17 21:30 40 MG Ammonium Lactate (Lac-Hydrin) 1 appl TID EXT 04/05/17 21:00 05/05/17 20:59 04/14/17 14:33 1 APPL Hydroxyzine HCl (Vistaril Tab) 25 mg Q8 PRN PO 04/08/17 18:00 05/08/17 17:59 04/12/17 01:13 25 MG Doxycycline Hyclate (Vibramycin Cap) 100 mg BID PO 04/10/17 09:45 04/20/17 09:44 04/14/17 08:29 100 MG
[2017-04-14] MEDS: ENOXAPARIN 40 MG/0.4 ML SYR SC SCH (20:57)
[2017-04-14] MEDS: hydrOXYzine HCL 25 MG TAB PO PRN (23:04)
[2017-04-14 23:37] VITALS: BP 138/86; PULSE 67; TEMP 36.5; O2SAT 91
[2017-04-15 07:33] VITALS: BP 171/76; PULSE 62; TEMP 36.9; O2SAT 93
[2017-04-15] MEDS: AMMONIUM LACTATE 12% LOTION 225 GM BTL EXT SCH ×3 (08:07→21:39)
[2017-04-15] MEDS: DOXYCYCLINE HYCLATE 100 MG CAP PO SCH ×2 (09:47→21:40)
[2017-04-15 15:08] VITALS: BP 148/73; PULSE 72; TEMP 36.8; O2SAT 92
--- NOTE | 2017-04-15 17:22 | Progress Note ---
Medicine Progress Note Date & Time of Visit: Apr 15, 2017 at 17:07. Subjective Pt was seen and examined Lying in bed comfortable with no distress Pt said that he feels bored He would like be discharged before thanksgiving Denies any chest pain, palpitation, dizziness and SOB Objective Last 8 Hrs Date Time Temp Pulse Resp B/P (MAP) Pulse Ox O2 Delivery O2 Flow Rate FiO2 04/15/17 15:08 36.8 72 20 148/73 (98) 92 Room Air Physical Exam: General- No acute distress Head- atraumatic Eyes- PERRL, EOMI ENT- oropharynx clear Neck- supple, no JVD Lungs- clear to auscultation Heart- regular rhythm; no murmur Abdomen- normal bowel sounds, soft Extremities- no calf tenderness, healing legs ulcer Neuro- alert, oriented, PERRL, EOMI Skin- warm & dry Laboratory Results: Last 24 Hours Test 04/14/17 20:21 04/15/17 07:06 04/15/17 11:32 04/15/17 16:20 Bedside Glucose 137 mg/dl 101 mg/dl 101 mg/dl 95 mg/dl Assessment & Plan This is a 71yo M with a PMH of cerebral palsy presents with bilateral foot pain and ulcers. Bilateral lower extremity cellulitis/with multiple wounds Received 5 days course of IV Vanco and Zosyn Abx changed to PO Doxy Blood cx negative Wound care on board Had bedside debridement by wound care physician Vascular surgery consulted, recommend outpatient follow up in 1 month, No urgent surgical intervention required, monitor for poor wound healing Continue daily wound care Waiting for approval to transfer to SNF Continue PO doxycycline day #6 stable New Onset Diabetes Glucose on admission 190 HbA1C: 6.7% does not want any medications on discharge agree to try lifestyle modifications Continue monitor BS Diabetic education consulted Stable DVT px on Lovenox subq CODE STATUS FULL CODE volunteer services coordinator/disposition Evaluation at home by [facility] instructed the patient to come to hospital for evaluation Ability to care for himself severely limited by physical stature; self care and hygiene are poor as evidenced by patient condition Waiting for approval to discharge to [facility] Consultants: Wound care vascular surgery Podiatry Current Inpatient Medications: Current Inpatient Medications Medications (Trade) Dose Ordered Sig/Lee Route Start Time Stop Time Status Last Admin Dose Admin Acetaminophen (Tylenol Tab) 650 mg Q4H PRN PO 04/04/17 17:15 12/9/17 17:14 Ondansetron HCl (Zofran Inj) 4 mg Q6H PRN IV 04/04/17 17:15 05/04/17 17:14 Enoxaparin Sodium (Lovenox Inj) 40 mg DAILY@2200 SC 04/04/17 23:07 05/04/17 23:06 04/14/17 20:57 40 MG Ammonium Lactate (Lac-Hydrin) 1 appl TID EXT 04/05/17 21:00 05/05/17 20:59 04/15/17 13:26 1 APPL Hydroxyzine HCl (Vistaril Tab) 25 mg Q8 PRN PO 04/08/17 18:00 05/08/17 17:59 04/14/17 23:04 25 MG Doxycycline Hyclate (Vibramycin Cap) 100 mg BID PO 04/10/17 09:45 04/20/17 09:44 04/15/17 09:47 100 MG
[2017-04-15] MEDS: ENOXAPARIN 40 MG/0.4 ML SYR SC SCH (21:40)
[2017-04-15 23:50] VITALS: BP 144/74; PULSE 66; TEMP 36.9; O2SAT 90
[2017-04-16] MEDS: hydrOXYzine HCL 25 MG TAB PO PRN ×2 (03:04→21:52)
[2017-04-16 07:55] VITALS: BP 147/76; PULSE 62; TEMP 36.5; O2SAT 91
[2017-04-16] MEDS: DOXYCYCLINE HYCLATE 100 MG CAP PO SCH ×2 (08:21→20:28)
[2017-04-16] MEDS: AMMONIUM LACTATE 12% LOTION 225 GM BTL EXT SCH ×3 (08:22→20:28)
[2017-04-16 15:42] VITALS: BP 127/82; PULSE 76; TEMP 36.6; O2SAT 93
--- NOTE | 2017-04-16 19:43 | Progress Note ---
Medicine Progress Note Date & Time of Visit: Apr 16, 2017 at 15:41. Subjective Pt was seen and examined Still waiting for target to go to [facility] Denies any chest pain, palpitation Objective Last 8 Hrs Date Time Temp Pulse Resp B/P (MAP) Pulse Ox O2 Delivery O2 Flow Rate FiO2 04/16/17 16:05 Room Air 04/16/17 15:42 36.6 76 18 127/82 (97) 93 Room Air Physical Exam: General- No acute distress Head- atraumatic Eyes- PERRL, EOMI ENT- oropharynx clear Neck- supple, no JVD Lungs- clear to auscultation Heart- regular rhythm; no murmur Abdomen- normal bowel sounds, soft Extremities- no calf tenderness, healing legs ulcer Neuro- alert, oriented, PERRL, EOMI Skin- warm & dry Laboratory Results: Last 24 Hours Test 04/15/17 20:08 04/16/17 07:35 04/16/17 11:32 04/16/17 16:22 Bedside Glucose 111 mg/dl 106 mg/dl 107 mg/dl 101 mg/dl Assessment & Plan This is a 71yo M with a PMH of cerebral palsy presents with bilateral foot pain and ulcers. Bilateral lower extremity cellulitis/with multiple wounds Received 5 days course of IV Vanco and Zosyn Abx changed to PO Doxy Blood cx negative Wound care on board Had bedside debridement by wound care physician Vascular surgery consulted, recommend outpatient follow up in 1 month, No urgent surgical intervention required, monitor for poor wound healing Continue daily wound care Waiting for approval to transfer to SNF Continue PO doxycycline day #6 stable New Onset Diabetes Glucose on admission 190 HbA1C: 6.7% does not want any medications on discharge agree to try lifestyle modifications Continue monitor BS Diabetic education consulted Stable DVT px on Lovenox subq CODE STATUS FULL CODE phlebotomy services technician/disposition Evaluation at home by [facility] instructed the patient to come to hospital for evaluation Ability to care for himself severely limited by physical stature; self care and hygiene are poor as evidenced by patient condition Waiting for approval to discharge to [facility] Consultants: Wound care vascular surgery Podiatry Current Inpatient Medications: Current Inpatient Medications Medications (Trade) Dose Ordered Sig/Lee Route Start Time Stop Time Status Last Admin Dose Admin Acetaminophen (Tylenol Tab) 650 mg Q4H PRN PO 04/04/17 17:15 05/04/17 17:14 Ondansetron HCl (Zofran Inj) 4 mg Q6H PRN IV 04/04/17 17:15 05/04/17 17:14 Enoxaparin Sodium (Lovenox Inj) 40 mg DAILY@2200 SC 04/04/17 23:07 05/04/17 23:06 04/15/17 21:40 40 MG Ammonium Lactate (Lac-Hydrin) 1 appl TID EXT 04/05/17 21:00 05/05/17 20:59 04/16/17 13:28 1 APPL Hydroxyzine HCl (Vistaril Tab) 25 mg Q8 PRN PO 04/08/17 18:00 05/08/17 17:59 04/16/17 03:04 25 MG Doxycycline Hyclate (Vibramycin Cap) 100 mg BID PO 04/10/17 09:45 04/20/17 09:44 04/16/17 08:21 100 MG
[2017-04-16] MEDS: ENOXAPARIN 40 MG/0.4 ML SYR SC SCH (21:46)
[2017-04-16 23:45] VITALS: BP 120/73; PULSE 73; TEMP 37.2; O2SAT 97
[2017-04-17 07:34] VITALS: BP 138/80; PULSE 67; TEMP 36.4; O2SAT 92
[2017-04-17] MEDS: DOXYCYCLINE HYCLATE 100 MG CAP PO SCH ×2 (08:25→21:40)
[2017-04-17] MEDS: AMMONIUM LACTATE 12% LOTION 225 GM BTL EXT SCH ×3 (08:25→21:40)
[2017-04-17 15:37] VITALS: BP 125/73; PULSE 76; TEMP 36.4; O2SAT 96
--- NOTE | 2017-04-17 19:51 | Progress Note ---
Medicine Progress Note Date & Time of Visit: Apr 17, 2017 at 16:49. Subjective Pt was seen and examined Lying in bed with no distress Denies any chest pain, palpitation, dizziness and SOB Objective Last 8 Hrs Date Time Temp Pulse Resp B/P (MAP) Pulse Ox O2 Delivery O2 Flow Rate FiO2 04/17/17 15:50 Room Air 04/17/17 15:37 36.4 76 18 125/73 (90) 96 Room Air Physical Exam: General- No acute distress Head- atraumatic Eyes- PERRL, EOMI ENT- oropharynx clear Neck- supple, no JVD Lungs- clear to auscultation Heart- regular rhythm; no murmur Abdomen- normal bowel sounds, soft Extremities- no calf tenderness, healing legs ulcer Neuro- alert, oriented, PERRL, EOMI Skin- warm & dry Laboratory Results: Last 24 Hours Test 04/16/17 20:21 04/17/17 07:27 04/17/17 11:10 04/17/17 16:22 Bedside Glucose 131 mg/dl 107 mg/dl 134 mg/dl 210 mg/dl Assessment & Plan This is a 71yo M with a PMH of cerebral palsy presents with bilateral foot pain and ulcers. Bilateral lower extremity cellulitis/with multiple wounds Received 5 days course of IV Vanco and Zosyn Abx changed to PO Doxy Blood cx negative Wound care on board Had bedside debridement by wound care physician Vascular surgery consulted, recommend outpatient follow up in 1 month, No urgent surgical intervention required, monitor for poor wound healing Continue daily wound care Waiting for approval to transfer to SNF Continue PO doxycycline day #7 stable New Onset Diabetes Glucose on admission 190 HbA1C: 6.7% does not want any medications on discharge agree to try lifestyle modifications Continue monitor BS Diabetic education consulted Stable DVT px on Lovenox subq CODE STATUS FULL CODE social services director/disposition Evaluation at home by [facility] instructed the patient to come to hospital for evaluation Ability to care for himself severely limited by physical stature; self care and hygiene are poor as evidenced by patient condition Waiting for approval to discharge to [facility] Consultants: Wound care vascular surgery Podiatry Current Inpatient Medications: Current Inpatient Medications Medications (Trade) Dose Ordered Sig/Lee Route Start Time Stop Time Status Last Admin Dose Admin Acetaminophen (Tylenol Tab) 650 mg Q4H PRN PO 04/04/17 17:15 05/04/17 17:14 Ondansetron HCl (Zofran Inj) 4 mg Q6H PRN IV 04/04/17 17:15 05/04/17 17:14 Enoxaparin Sodium (Lovenox Inj) 40 mg DAILY@2200 SC 04/04/17 23:07 05/04/17 23:06 04/16/17 21:46 40 MG Ammonium Lactate (Lac-Hydrin) 1 appl TID EXT 04/05/17 21:00 05/05/17 20:59 04/17/17 13:26 1 APPL Hydroxyzine HCl (Vistaril Tab) 25 mg Q8 PRN PO 04/08/17 18:00 05/08/17 17:59 04/16/17 21:52 25 MG Doxycycline Hyclate (Vibramycin Cap) 100 mg BID PO 04/10/17 09:45 04/20/17 09:44 04/17/17 08:25 100 MG
[2017-04-17] MEDS: ENOXAPARIN 40 MG/0.4 ML SYR SC SCH (21:41)
[2017-04-18] MEDS: hydrOXYzine HCL 25 MG TAB PO PRN (00:13)
[2017-04-18 01:12] VITALS: BP 116/72; PULSE 78; TEMP 36.7; O2SAT 93
[2017-04-18 07:59] VITALS: BP 113/73; PULSE 64; TEMP 36.6; O2SAT 96
[2017-04-18] MEDS: DOXYCYCLINE HYCLATE 100 MG CAP PO SCH ×2 (08:10→21:38)
[2017-04-18] MEDS: AMMONIUM LACTATE 12% LOTION 225 GM BTL EXT SCH ×3 (08:12→21:00)
[2017-04-18 16:00] VITALS: O2SAT 96
[2017-04-18 16:09] VITALS: BP 123/73; PULSE 73; TEMP 36.5; O2SAT 91
--- NOTE | 2017-04-18 18:45 | Progress Note ---
Medicine Progress Note Date & Time of Visit: Apr 18, 2017 at 15:44. Subjective Pt was seen and examined Lying in bed with no distress Pt said that he feels fine continue waiting for target Denies any chest pain, palpitation, dizziness and SOB Objective Last 8 Hrs Date Time Temp Pulse Resp B/P (MAP) Pulse Ox O2 Delivery O2 Flow Rate FiO2 04/18/17 16:09 36.5 73 18 123/73 (90) 91 Room Air 04/18/17 16:00 96 Room Air Physical Exam: General- No acute distress Head- atraumatic Eyes- PERRL, EOMI ENT- oropharynx clear Neck- supple, no JVD Lungs- clear to auscultation Heart- regular rhythm; no murmur Abdomen- normal bowel sounds, soft Extremities- no calf tenderness, healing legs ulcer Neuro- alert, oriented, PERRL, EOMI Skin- warm & dry Laboratory Results: Last 24 Hours Test 04/17/17 19:49 04/18/17 07:46 04/18/17 11:22 04/18/17 16:47 Bedside Glucose 152 mg/dl 115 mg/dl 270 mg/dl 104 mg/dl Assessment & Plan This is a 71yo M with a PMH of cerebral palsy presents with bilateral foot pain and ulcers. Bilateral lower extremity cellulitis/with multiple wounds Received 5 days course of IV Vanco and Zosyn Abx changed to PO Doxy Blood cx negative Wound care on board Had bedside debridement by wound care physician Vascular surgery consulted, recommend outpatient follow up in 1 month, No urgent surgical intervention required, monitor for poor wound healing Continue daily wound care Waiting for approval to transfer to SNF Continue PO doxycycline day #8 stable New Onset Diabetes Glucose on admission 190 HbA1C: 6.7% does not want any medications on discharge agree to try lifestyle modifications Continue monitor BS Diabetic education consulted Stable DVT px on Lovenox subq CODE STATUS FULL CODE government services professional/disposition Evaluation at home by [facility]ging instructed the patient to come to hospital for evaluation Ability to care for himself severely limited by physical stature; self care and hygiene are poor as evidenced by patient condition Waiting for approval to discharge to [facility] Consultants: Wound care vascular surgery Podiatry Current Inpatient Medications: Current Inpatient Medications Medications (Trade) Dose Ordered Sig/Lee Route Start Time Stop Time Status Last Admin Dose Admin Acetaminophen (Tylenol Tab) 650 mg Q4H PRN PO 04/04/17 17:15 05/04/17 17:14 Ondansetron HCl (Zofran Inj) 4 mg Q6H PRN IV 04/04/17 17:15 05/04/17 17:14 Enoxaparin Sodium (Lovenox Inj) 40 mg DAILY@2200 SC 04/04/17 23:07 05/04/17 23:06 04/17/17 21:41 40 MG Ammonium Lactate (Lac-Hydrin) 1 appl TID EXT 04/05/17 21:00 05/05/17 20:59 04/18/17 14:13 1 APPL Hydroxyzine HCl (Vistaril Tab) 25 mg Q8 PRN PO 04/08/17 18:00 05/08/17 17:59 04/18/17 00:13 25 MG Doxycycline Hyclate (Vibramycin Cap) 100 mg BID PO 04/10/17 09:45 04/20/17 09:44 04/18/17 08:10 100 MG
[2017-04-18] MEDS: ENOXAPARIN 40 MG/0.4 ML SYR SC SCH (21:38)
[2017-04-19 00:26] VITALS: BP 123/78; PULSE 71; TEMP 36.8; O2SAT 91
[2017-04-19] MEDS: DOXYCYCLINE HYCLATE 100 MG CAP PO SCH ×2 (07:45→21:04)
[2017-04-19] MEDS: AMMONIUM LACTATE 12% LOTION 225 GM BTL EXT SCH ×3 (07:45→21:04)
[2017-04-19 07:55] VITALS: BP 109/74; PULSE 64; TEMP 36.9; O2SAT 90
[2017-04-19 15:10] VITALS: BP 145/93; PULSE 83; TEMP 36.6; O2SAT 94
--- NOTE | 2017-04-19 19:13 | Progress Note ---
Medicine Progress Note Date & Time of Visit: Apr 19, 2017 at 14:11. Subjective Pt was seen and examined Lying in bed with no distress Pt said that he feels fine He is get annoyed for being in the hospital Denies any chest pain, palpitation, dizziness and SOB Objective Last 8 Hrs Date Time Temp Pulse Resp B/P (MAP) Pulse Ox O2 Delivery O2 Flow Rate FiO2 04/19/17 16:26 Room Air 04/19/17 15:10 36.6 83 18 145/93 (110) 94 Physical Exam: General- No acute distress Head- atraumatic Eyes- PERRL, EOMI ENT- oropharynx clear Neck- supple, no JVD Lungs- clear to auscultation Heart- regular rhythm; no murmur Abdomen- normal bowel sounds, soft Extremities- no calf tenderness, healing legs ulcer Neuro- alert, oriented, PERRL, EOMI Skin- warm & dry Laboratory Results: Last 24 Hours Test 04/18/17 20:06 04/19/17 11:38 04/19/17 16:26 Bedside Glucose 224 mg/dl 109 mg/dl 112 mg/dl Assessment & Plan This is a 71yo M with a PMH of cerebral palsy presents with bilateral foot pain and ulcers. Bilateral lower extremity cellulitis/with multiple wounds Received 5 days course of IV Vanco and Zosyn Abx changed to PO Doxy Blood cx negative Wound care on board Had bedside debridement by wound care physician Vascular surgery consulted, recommend outpatient follow up in 1 month, No urgent surgical intervention required, monitor for poor wound healing Continue daily wound care Waiting for approval to transfer to SNF Continue PO doxycycline day #9 stable New Onset Diabetes Glucose on admission 190 HbA1C: 6.7% does not want any medications on discharge agree to try lifestyle modifications Continue monitor BS Diabetic education consulted Stable DVT px on Lovenox subq CODE STATUS FULL CODE clinical services professional/disposition Evaluation at home by [facility] of Aging instructed the patient to come to hospital for evaluation Ability to care for himself severely limited by physical stature; self care and hygiene are poor as evidenced by patient condition Waiting for approval to discharge to [facility] Consultants: Wound care vascular surgery Podiatry Current Inpatient Medications: Current Inpatient Medications Medications (Trade) Dose Ordered Sig/Lee Route Start Time Stop Time Status Last Admin Dose Admin Acetaminophen (Tylenol Tab) 650 mg Q4H PRN PO 04/04/17 17:15 05/04/17 17:14 Ondansetron HCl (Zofran Inj) 4 mg Q6H PRN IV 04/04/17 17:15 05/04/17 17:14 Enoxaparin Sodium (Lovenox Inj) 40 mg DAILY@2200 SC 04/04/17 23:07 05/04/17 23:06 04/18/17 21:38 40 MG Ammonium Lactate (Lac-Hydrin) 1 appl TID EXT 04/05/17 21:00 05/05/17 20:59 04/19/17 13:53 1 APPL Hydroxyzine HCl (Vistaril Tab) 25 mg Q8 PRN PO 04/08/17 18:00 05/08/17 17:59 04/18/17 00:13 25 MG Doxycycline Hyclate (Vibramycin Cap) 100 mg BID PO 04/10/17 09:45 04/20/17 09:44 04/19/17 07:45 100 MG
[2017-04-19] MEDS: ENOXAPARIN 40 MG/0.4 ML SYR SC SCH (21:05)
[2017-04-19 23:13] VITALS: BP 130/73; PULSE 74; TEMP 37; O2SAT 91
[2017-04-20 08:00] VITALS: O2SAT 91
[2017-04-20 08:43] VITALS: BP 151/80; PULSE 61; TEMP 37.1; O2SAT 93
[2017-04-20] MEDS: DOXYCYCLINE HYCLATE 100 MG CAP PO SCH (08:52)
[2017-04-20] MEDS: AMMONIUM LACTATE 12% LOTION 225 GM BTL EXT SCH ×3 (08:52→20:52)
[2017-04-20 15:48] VITALS: BP 126/76; PULSE 80; TEMP 36.5; O2SAT 96
[2017-04-20 16:08] VITALS: O2SAT 96
--- NOTE | 2017-04-20 19:54 | Progress Note ---
Medicine Progress Note Date & Time of Visit: Apr 20, 2017 at 16:52. Subjective Pt was seen and examined Lying in bed comfortable with no distress denies any chest pain, palpitation dizziness and SOB Objective Last 8 Hrs Date Time Temp Pulse Resp B/P (MAP) Pulse Ox O2 Delivery O2 Flow Rate FiO2 04/20/17 15:48 36.5 80 18 126/76 (93) 96 Room Air Physical Exam: General- No acute distress Head- atraumatic Eyes- PERRL, EOMI ENT- oropharynx clear Neck- supple, no JVD Lungs- clear to auscultation Heart- regular rhythm; no murmur Abdomen- normal bowel sounds, soft Extremities- no calf tenderness, healing legs ulcer Neuro- alert, oriented, PERRL, EOMI Skin- warm & dry Assessment & Plan This is a 71yo M with a PMH of cerebral palsy presents with bilateral foot pain and ulcers. Bilateral lower extremity cellulitis/with multiple wounds Received 5 days course of IV Vanco and Zosyn Abx changed to PO Doxy Blood cx negative Wound care on board Had bedside debridement by wound care physician Vascular surgery consulted, recommend outpatient follow up in 1 month, No urgent surgical intervention required, monitor for poor wound healing Continue daily wound care Waiting for approval to transfer to SNF Completed doxycycline d10 days course stable New Onset Diabetes Glucose on admission 190 HbA1C: 6.7% does not want any medications on discharge agree to try lifestyle modifications Continue monitor BS Diabetic education consulted Stable DVT px on Lovenox subq CODE STATUS FULL CODE career services director/disposition Evaluation at home by [facility]ging instructed the patient to come to hospital for evaluation Ability to care for himself severely limited by physical stature; self care and hygiene are poor as evidenced by patient condition Waiting for approval to discharge to [facility] Consultants: Wound care vascular surgery Podiatry Current Inpatient Medications: Current Inpatient Medications Medications (Trade) Dose Ordered Sig/Lee Route Start Time Stop Time Status Last Admin Dose Admin Acetaminophen (Tylenol Tab) 650 mg Q4H PRN PO 04/04/17 17:15 05/04/17 17:14 Ondansetron HCl (Zofran Inj) 4 mg Q6H PRN IV 04/04/17 17:15 05/04/17 17:14 Enoxaparin Sodium (Lovenox Inj) 40 mg DAILY@2200 SC 04/04/17 23:07 05/04/17 23:06 04/19/17 21:05 40 MG Ammonium Lactate (Lac-Hydrin) 1 appl TID EXT 04/05/17 21:00 05/05/17 20:59 04/20/17 13:58 1 APPL Hydroxyzine HCl (Vistaril Tab) 25 mg Q8 PRN PO 04/08/17 18:00 05/08/17 17:59 04/18/17 00:13 25 MG
[2017-04-20] MEDS: ENOXAPARIN 40 MG/0.4 ML SYR SC SCH (20:52)
[2017-04-20 23:42] VITALS: BP 119/66; PULSE 79; TEMP 36.7; O2SAT 90
[2017-04-21 07:04] VITALS: BP 138/74; PULSE 67; TEMP 36.7; O2SAT 90
[2017-04-21 08:00] VITALS: O2SAT 90
[2017-04-21] MEDS: AMMONIUM LACTATE 12% LOTION 225 GM BTL EXT SCH ×3 (09:00→21:45)
[2017-04-21 15:26] VITALS: BP 135/80; PULSE 77; TEMP 36.4; O2SAT 90
[2017-04-21 16:00] VITALS: O2SAT 90
--- NOTE | 2017-04-21 17:43 | Progress Note ---
Medicine Progress Note Date & Time of Visit: Apr 21, 2017 at 14:42. Subjective Pt was seen and examined Lying in bed with no distress Pt wants to be discharge from the hospital denies any chest pain, palpitation, dizziness and sob Objective Last 8 Hrs Date Time Temp Pulse Resp B/P (MAP) Pulse Ox O2 Delivery O2 Flow Rate FiO2 04/21/17 15:26 36.4 77 20 135/80 (98) 90 Room Air Physical Exam: General- No acute distress Head- atraumatic Eyes- PERRL, EOMI ENT- oropharynx clear Neck- supple, no JVD Lungs- clear to auscultation Heart- regular rhythm; no murmur Abdomen- normal bowel sounds, soft Extremities- no calf tenderness, healing legs ulcer Neuro- alert, oriented, PERRL, EOMI Skin- warm & dry Assessment & Plan This is a 71yo M with a PMH of cerebral palsy presents with bilateral foot pain and ulcers. Bilateral lower extremity cellulitis/with multiple wounds Received 5 days course of IV Vanco and Zosyn Abx changed to PO Doxy Blood cx negative Wound care on board Had bedside debridement by wound care physician Vascular surgery consulted, recommend outpatient follow up in 1 month, No urgent surgical intervention required, monitor for poor wound healing Continue daily wound care Waiting for approval to transfer to SNF Completed doxycycline 10 days course stable New Onset Diabetes Glucose on admission 190 HbA1C: 6.7% does not want any medications on discharge agree to try lifestyle modifications Continue monitor BS Diabetic education consulted Stable DVT px on Lovenox subq CODE STATUS FULL CODE rn patient services/disposition Evaluation at home by [facility] of Aging instructed the patient to come to hospital for evaluation Ability to care for himself severely limited by physical stature; self care and hygiene are poor as evidenced by patient condition Waiting for approval to discharge to [facility] Consultants: Wound care vascular surgery Podiatry Current Inpatient Medications: Current Inpatient Medications Medications (Trade) Dose Ordered Sig/Lee Route Start Time Stop Time Status Last Admin Dose Admin Acetaminophen (Tylenol Tab) 650 mg Q4H PRN PO 04/04/17 17:15 05/04/17 17:14 Ondansetron HCl (Zofran Inj) 4 mg Q6H PRN IV 04/04/17 17:15 05/04/17 17:14 Enoxaparin Sodium (Lovenox Inj) 40 mg DAILY@2200 SC 04/04/17 23:07 05/04/17 23:06 04/20/17 20:52 40 MG Ammonium Lactate (Lac-Hydrin) 1 appl TID EXT 04/05/17 21:00 05/05/17 20:59 04/21/17 13:49 1 APPL Hydroxyzine HCl (Vistaril Tab) 25 mg Q8 PRN PO 04/08/17 18:00 05/08/17 17:59 04/18/17 00:13 25 MG
[2017-04-21 19:22] VITALS: O2SAT 96
[2017-04-21] MEDS: ENOXAPARIN 40 MG/0.4 ML SYR SC SCH (21:45)
[2017-04-21 23:10] VITALS: BP 131/52; PULSE 83; TEMP 36.6; O2SAT 92
[2017-04-22 07:31] VITALS: BP 116/69; PULSE 58; TEMP 36.6; O2SAT 92
[2017-04-22] MEDS: AMMONIUM LACTATE 12% LOTION 225 GM BTL EXT SCH ×3 (09:43→21:08)
[2017-04-22 15:39] VITALS: BP 146/82; PULSE 84; TEMP 37; O2SAT 94
[2017-04-22 16:00] VITALS: O2SAT 94
--- NOTE | 2017-04-22 18:20 | Progress Note ---
Medicine Progress Note Date & Time of Visit: Apr 22, 2017 at 11:17. Subjective Pt was seen and examined Lying in bed with no distress Pt is getting agitated because he is being waiting for target He denies any complaint Objective Last 8 Hrs Date Time Temp Pulse Resp B/P (MAP) Pulse Ox O2 Delivery O2 Flow Rate FiO2 04/22/17 16:00 94 Room Air 04/22/17 15:39 37.0 84 20 146/82 (103) 94 Room Air Physical Exam: General- No acute distress Head- atraumatic Eyes- PERRL, EOMI ENT- oropharynx clear Neck- supple, no JVD Lungs- clear to auscultation Heart- regular rhythm; no murmur Abdomen- normal bowel sounds, soft Extremities- no calf tenderness, healing legs ulcer Neuro- alert, oriented, PERRL, EOMI Skin- warm & dry Assessment & Plan This is a 71yo M with a PMH of cerebral palsy presents with bilateral foot pain and ulcers. Bilateral lower extremity cellulitis/with multiple wounds Received 5 days course of IV Vanco and Zosyn Abx changed to PO Doxy Blood cx negative Wound care on board Had bedside debridement by wound care physician Vascular surgery consulted, recommend outpatient follow up in 1 month, No urgent surgical intervention required, monitor for poor wound healing Continue daily wound care Waiting for approval to transfer to [facility] Completed doxycycline 10 days course stable New Onset Diabetes Glucose on admission 190 HbA1C: 6.7% does not want any medications on discharge agree to try lifestyle modifications Continue monitor BS Diabetic education consulted Stable DVT px on Lovenox subq CODE STATUS FULL CODE technical services coordinator/disposition Evaluation at home by Office of Aging instructed the patient to come to hospital for evaluation Ability to care for himself severely limited by physical stature; self care and hygiene are poor as evidenced by patient condition Waiting for approval to discharge to [facility] Will encourage the nurse to help him move in the hallway with a wheelchair Consultants: Wound care vascular surgery Podiatry Current Inpatient Medications: Current Inpatient Medications Medications (Trade) Dose Ordered Sig/Lee Route Start Time Stop Time Status Last Admin Dose Admin Acetaminophen (Tylenol Tab) 650 mg Q4H PRN PO 04/04/17 17:15 05/04/17 17:14 Ondansetron HCl (Zofran Inj) 4 mg Q6H PRN IV 04/04/17 17:15 05/04/17 17:14 Enoxaparin Sodium (Lovenox Inj) 40 mg DAILY@2200 SC 04/04/17 23:07 05/04/17 23:06 04/21/17 21:45 40 MG Ammonium Lactate (Lac-Hydrin) 1 appl TID EXT 04/05/17 21:00 05/05/17 20:59 04/22/17 14:28 1 APPL Hydroxyzine HCl (Vistaril Tab) 25 mg Q8 PRN PO 04/08/17 18:00 05/08/17 17:59 04/18/17 00:13 25 MG
[2017-04-22] MEDS: ENOXAPARIN 40 MG/0.4 ML SYR SC SCH (21:08)
[2017-04-22 23:00] VITALS: BP 135/76; PULSE 67; TEMP 36.6; O2SAT 95
[2017-04-23 07:12] VITALS: BP 135/79; PULSE 61; TEMP 36.6; O2SAT 90
[2017-04-23 08:00] VITALS: O2SAT 90
[2017-04-23] MEDS: AMMONIUM LACTATE 12% LOTION 225 GM BTL EXT SCH ×3 (08:59→21:04)
[2017-04-23] MEDS ORDERED: LACT1LOT3 EXT (10:09)
[2017-04-23] MEDS ORDERED: ATR25 PO (10:09)
[2017-04-23] MEDS ORDERED: ACET-1047 PO (10:09)
--- NOTE | 2017-04-23 13:15 | Discharge Instructions ---
Discharge Instructions Date of Service Apr 23, 2017. Admission Reason for Admission: Lower Extremity Cellulitis,Total Self Care Deficit Discharge Discharge Diagnosis / Problem: BILATERAL LOWER EXTREMITY CELLULITIS WITH MULTIPLE WOUNDS Discharge Goals Goal(s): Decrease discomfort, Improve function, Increase independence, Improve disease control, Diagnostic testing, Therapeutic intervention Activity Recommendations Activity Level: Assistance Required Therapies: Physical Therapy, Occupational Therapy . Additional Information Patient informed of condition: Yes Advance Directives: No DNR: No Level of Care: Skilled Communicable Disease: No Prognosis: Stable Harrington Catheter: No Instructions / Follow-Up Instructions / Follow-Up CONTINUE LOCAL SKIN CARE -APPLY AMMONIUM LACTATE LOTION TWICE DAILY OFF LOAD HEELS NEEDS SPACED BETWEEN TOES TO BE CLEANED ONCE A WEEK OR EARLIER IF NEEDED TO PREVENT INFECTION Current Hospital Diet Patient's current hospital diet: Regular Diet Discharge Diet Recommended Diet: Regular Diet Pending Studies Studies pending at discharge: no Laboratory Results Hemoglobin A1c Test 04/05/17 07:10 Range/Units Estimated Average Glucose 146 mg/dl Hemoglobin A1c 6.7 H 4.5-5.6 % Lipid Panel Test 04/05/17 07:10 Range/Units Triglycerides Level 182 H 0-150 mg/dl Cholesterol Level 180 0-200 mg/dl HDL Cholesterol 39 mg/dl Cholesterol/HDL Ratio 4.6 LDL Cholesterol, Calculated 105 mg/dl Medical Emergencies . Who to Call and When: Medical Emergencies: If at any time you feel your situation is an emergency, please call 911 immediately. . Non-Emergent Contact Non-Emergency issues call your: Primary Care Provider . . "Provider Documentation" section prepared by Batool Jesus. . Core Measure Problem Core Measures: None
[2017-04-23 14:00] VITALS: BP 135/79; PULSE 61; TEMP 36.6; O2SAT 90
--- NOTE | 2017-04-23 14:01 | Progress Note ---
Internal Med Progress Note Date of Service: Apr 23, 2017. Provider Documentation: SUBJECTIVE: offers no complain, no fever or chills eager to be discharged form hospital OBJECTIVE: Vital Signs-as noted below Exam: General-no sign of distress , chronically ill appearing Eyes-sclera non icteric , PERRLA/EOMI ENT-moist oral mucosa Neck-no thyromegaly , trachea midline Lungs-clear to auscultate ,no wheeze or rales Heart-regular S1/S2 Abdomen-soft, non tender Extremities-bilateral lower ext atrophic, chronic skin changes noted on both lower leg , no open wound noted, toes are contracted in both feet , with foul smelling drainage Neuro-no focal deficit , AAO X3 Lab data as noted below. ASSESSMENT & PLAN: This is a 71yo M with a PMH of cerebral palsy presents with bilateral foot pain and ulcers. Bilateral lower extremity cellulitis/with multiple wounds Received 5 days course of IV Vanco and Zosyn Abx changed to PO Doxy-Completed doxycycline 10 days course Blood cx negative Wound care on board-appreciate input Had bedside debridement by wound care physician-Dr Allan marked improvement of lower ext wounds no further debridement of dressing changed required Vascular surgery consulted, for PVD /poor wound healing No urgent surgical intervention required,recommend outpatient follow up in 1 month, DVT px on Lovenox subq CODE STATUS FULL CODE DISPOSITION will need Rehab referral placed to [facility] for rehab Vital Signs: Date Time Temp Pulse Resp B/P (MAP) Pulse Ox O2 Delivery O2 Flow Rate FiO2 04/23/17 16:00 93 Room Air 04/23/17 15:33 36.3 77 20 163/79 (107) 93 Room Air 04/23/17 14:00 36.6 61 18 90 Room Air 04/23/17 08:00 90 Room Air 04/23/17 07:12 36.6 61 18 135/79 (97) 90 04/23/17 00:00 Room Air 04/22/17 23:00 36.6 67 18 135/76 (95) 95 Room Air Lab Results:
[2017-04-23 15:33] VITALS: BP 163/79; PULSE 77; TEMP 36.3; O2SAT 93
[2017-04-23 16:00] VITALS: O2SAT 93
[2017-04-23] MEDS: ENOXAPARIN 40 MG/0.4 ML SYR SC SCH (21:05)
[2017-04-24 00:01] VITALS: BP 130/76; PULSE 77; TEMP 36.5; O2SAT 90
[2017-04-24 07:46] VITALS: BP 129/85; PULSE 71; TEMP 35.6; O2SAT 96
[2017-04-24 08:00] VITALS: O2SAT 96
[2017-04-24] MEDS: AMMONIUM LACTATE 12% LOTION 225 GM BTL EXT SCH ×2 (09:21→14:11)
--- NOTE | 2017-04-24 13:53 | Progress Note ---
Internal Med Progress Note Date of Service: Apr 24, 2017. Provider Documentation: SUBJECTIVE: offers no complain, no fever or chills eager to be discharged form hospital OBJECTIVE: Vital Signs-as noted below Exam: General-no sign of distress , chronically ill appearing Eyes-sclera non icteric , PERRLA/EOMI ENT-moist oral mucosa Neck-no thyromegaly , trachea midline Lungs-clear to auscultate ,no wheeze or rales Heart-regular S1/S2 Abdomen-soft, non tender Extremities-bilateral lower ext atrophic, chronic skin changes noted on both lower leg , no open wound noted, toes are contracted in both feet , with foul smelling drainage Neuro-no focal deficit , AAO X3 Lab data as noted below. ASSESSMENT & PLAN: This is a 71yo M with a PMH of cerebral palsy presents with bilateral foot pain and ulcers. Bilateral lower extremity cellulitis/with multiple wounds Received 5 days course of IV Vanco and Zosyn Abx changed to PO Doxy-Completed doxycycline 10 days course Blood cx negative Wound care on board-appreciate input Had bedside debridement by wound care physician-Dr Allan marked improvement of lower ext wounds no further debridement of dressing changed required Vascular surgery consulted, for PVD /poor wound healing No urgent surgical intervention required,recommend outpatient follow up in 1 month, DVT px on Lovenox subq CODE STATUS FULL CODE DISPOSITION will need Rehab referral placed to [facility] for rehab Vital Signs: Date Time Temp Pulse Resp B/P (MAP) Pulse Ox O2 Delivery O2 Flow Rate FiO2 04/24/17 08:00 96 Room Air 04/24/17 07:46 35.6 71 18 129/85 (100) 96 Room Air 04/24/17 00:01 36.5 77 20 130/76 (94) 90 Room Air 04/24/17 00:00 Room Air 04/23/17 16:00 93 Room Air 04/23/17 15:33 36.3 77 20 163/79 (107) 93 Room Air
--- NOTE | 2017-04-24 14:43 | Discharge Summary ---
Discharge Summary Date of Service Apr 24, 2017. Discharge Summary Admission Date: Apr 04, 2017 at 17:05 Discharge Date: Apr 24, 2017 Discharge Disposition: Rehab Principal Diagnosis: BILATERAL LOWER EXTREMITY CELLULITIS WITH MULTIPLE WOUNDS Procedures: AORTIC USG : IMPRESSION: 1. No evidence of abdominal aortic aneurysm. Consultations: Wound care vascular surgery Podiatry Medication Reconciliation New Medications: Acetaminophen (Mapap) 325 Mg Tab 650 MG PO Q4H PRN for Pain or Fever, #30 TAB Hydroxyzine HCl (Hydroxyzine HCl) 25 Mg Tab 25 MG PO Q8 PRN for Itching, #30 TAB Lactic Acid (Ammonium Lactate) (Amlactin) 12 % Lot 1 APPL EXT TID for 30 Days Admission Information HPI (per Admitting provider): This is a 71yo M with a PMH of cerebral palsy presents with bilateral foot pain and ulcers. This patient lives alone in [place] and was evaluated by [facility] this week. It was determined that the patient required medical evaluation of his feet, which he reluctantly agreed to and presented to the ER by ambulance. Patient has had multiple surgeries on his legs since childhood and ambulates with crutches and wheelchair. States that he is able to cook, bathe and toilet himself without help. Patient has not seen a physician in over 6 years. Denies any other medical problems besides cerebral palsy. Is unsure when the skin on his feet started to loly and develop wounds, but knows that they have hurt "for a long time". States that he has full feeling in them and is able to wear sneakers. Admits to not changing his socks very often due to his physical limitations. Denies fever , chills, lightheadedness, cough, sore throat, nasal congestion, CP, SOB, abdominal pain, dysuria, constipation/diarrhea. Per nursing note, patient's underwear and pants were soaked in urine and feces upon arrival. Presence of feces on his shoes as well. When asked about urinary or fecal incontinence, patient said that he does not have a problem controlling his bowel or bladder but struggles to transfer/ambulate to the toilet sometimes. Physical Exam (per Admitting): General Appearance: WD/WN, no apparent distress Head: normocephalic, atraumatic Eyes: sclerae normal, + pertinent finding (disconjugate R gaze ) ENT: hearing grossly normal, pharynx normal, + pertinent finding (Poor dentition. Has lost all upper teeth and has a few remaining bottom teeth.) Neck: supple, no JVD, trachea midline Respiratory/Chest: chest non-tender, lungs clear, normal breath sounds, no respiratory distress, no accessory muscle use Cardiovascular: regular rate, rhythm, no murmur Abdomen/GI: normal bowel sounds, non tender, soft, no organomegaly Genitourinary - Male: + pertinent finding (Redness in gluteal skin folds, groin area. No skin breakdown.) Extremities/Musculoskelatal: no calf tenderness, non-tender, + pertinent finding (Chronic deformities to feet and toes bilaterally. Erythema and edema bilaterally to knee with thickened, scaly yellow skin from ankle to toes. Presence of black, malodorous tissue on L toes. Ulcerated skin present on bilateral feet and shins. Sensation intact. Difficult to assess DP/PT pulses 2/ 2 thickened skin. Decreased ROM bilaterally.) Neurologic/Psych: alert, normal mood/affect, oriented x 3 Skin: normal color, warm/dry, no rash Hospital Course This is a 71yo M with a PMH of cerebral palsy presents with bilateral foot pain and ulcers. Bilateral lower extremity cellulitis/with multiple wounds Received 5 days course of IV Vanco and Zosyn Abx changed to PO Doxy-Completed doxycycline 10 days course Blood cx negative Wound care on board-appreciate input Had bedside debridement by wound care physician-Dr Allan marked improvement of lower ext wounds no further debridement of dressing changed required Vascular surgery consulted, for PVD /poor wound healing No urgent surgical intervention required,recommend outpatient follow up in 1 month, DVT px on Lovenox subq CODE STATUS FULL CODE DISPOSITION will need Rehab referral placed to [facility] for rehab Total time spent on discharge = 40 MINS This includes examination of the patient, discharge planning, medication reconciliation, and communication with other providers. Discharge Instructions Discharge Instructions Date of Service Apr 23, 2017. Admission Reason for Admission: Lower Extremity Cellulitis,Total Self Care Deficit Discharge Discharge Diagnosis / Problem: BILATERAL LOWER EXTREMITY CELLULITIS WITH MULTIPLE WOUNDS Discharge Goals Goal(s): Decrease discomfort, Improve function, Increase independence, Improve disease control, Diagnostic testing, Therapeutic intervention Activity Recommendations Activity Level: Assistance Required Therapies: Physical Therapy, Occupational Therapy . Additional Information Patient informed of condition: Yes Advance Directives: No DNR: No Level of Care: Skilled Communicable Disease: No Prognosis: Stable Harrington Catheter: No Instructions / Follow-Up Instructions / Follow-Up CONTINUE LOCAL SKIN CARE -APPLY AMMONIUM LACTATE LOTION TWICE DAILY OFF LOAD HEELS NEEDS SPACED BETWEEN TOES TO BE CLEANED ONCE A WEEK OR EARLIER IF NEEDED TO PREVENT INFECTION Current Hospital Diet Patient's current hospital diet: Regular Diet Discharge Diet Recommended Diet: Regular Diet Pending Studies Studies pending at discharge: no Laboratory Results Hemoglobin A1c Test 04/05/17 07:10 Range/Units Estimated Average Glucose 146 mg/dl Hemoglobin A1c 6.7 H 4.5-5.6 % Lipid Panel Test 04/05/17 07:10 Range/Units Triglycerides Level 182 H 0-150 mg/dl Cholesterol Level 180 0-200 mg/dl HDL Cholesterol 39 mg/dl Cholesterol/HDL Ratio 4.6 LDL Cholesterol, Calculated 105 mg/dl Medical Emergencies . Who to Call and When: Medical Emergencies: If at any time you feel your situation is an emergency, please call 911 immediately. . Non-Emergent Contact Non-Emergency issues call your: Primary Care Provider . . "Provider Documentation" section prepared by Batool Jesus. . Core Measure Problem Core Measures: None
[2017-04-24 15:42] VITALS: BP 129/81; PULSE 70; TEMP 36.6; O2SAT 97
[2017-04-24 15:44] VITALS: O2SAT 97
== END 2017-04-24 17:30 | DRG 300 ==
LOC: EDBD 13:44 → C.EDC 13:44 → C.MS2W 17:05 → EDBEDREQ 17:10 → ENRESERV 17:22 → CANRESERV 17:45 → ENRESERV 17:45
PROVIDERS: ADMIT Family Medicine; ATTEND Hospitalist
PROC: 0HDNXZZ Extraction of Left Foot Skin, External Approach (ICD-10-PCS; principal; 2017-04-05)
PROC: 0HDMXZZ Extraction of Right Foot Skin, External Approach (ICD-10-PCS; principal; 2017-04-05)
PROC: 0HTRXZZ Resection of Toe Nail, External Approach (ICD-10-PCS; 2017-04-07)
PROC: 0HDMXZZ Extraction of Right Foot Skin, External Approach (ICD-10-PCS; 2017-04-07)
PROC: 0HDRXZZ Extraction of Toe Nail, External Approach (ICD-10-PCS; 2017-04-07)
PROC: 0HDNXZZ Extraction of Left Foot Skin, External Approach (ICD-10-PCS; 2017-04-07)
DX: I73.9 Peripheral vascular disease, unspecified (principal); L03.115 Cellulitis of right lower limb; L03.116 Cellulitis of left lower limb; L97.819 Non-pressure chronic ulcer of other part of right lower leg with unspecified severity; L97.829 Non-pressure chronic ulcer of other part of left lower leg with unspecified severity; E11.621 Type 2 diabetes mellitus with foot ulcer; E11.622 Type 2 diabetes mellitus with other skin ulcer; L97.519 Non-pressure chronic ulcer of other part of right foot with unspecified severity; L97.529 Non-pressure chronic ulcer of other part of left foot with unspecified severity; M20.42 Other hammer toe(s) (acquired), left foot; M20.11 Hallux valgus (acquired), right foot; L84 Corns and callosities; L60.0 Ingrowing nail; L60.3 Nail dystrophy; B37.2 Candidiasis of skin and nail; G80.9 Cerebral palsy, unspecified; R46.0 Very low level of personal hygiene; Z87.891 Personal history of nicotine dependence; Z83.3 Family history of diabetes mellitus

== ENCOUNTER 2018-08-19 11:25 | Inpatient (IN) ==
[2018-08-19] MEDS ORDERED: ONDANSETRON INJ 2 MG/ML 2 ML VIAL IV STA (11:32)
[2018-08-19] MEDS ORDERED: BUPIVACAINE 0.25% 30 ML VIAL INFIL ONE (11:32)
--- NOTE | 2018-08-19 12:01 | Emergency Department Note ---
Entered by Compa Alonzo acting as a scribe for Jluis Medrano DO History of Present Illness General Chief complaint: Leg Injury/Pain Stated complaint: fall/ L leg pain Time Seen by Provider: 08/19/18 11:28 Source: patient and EMS Limitations: no limitations History of Present Illness Provider complaint: Fall from toilet, left leg pain Onset (ago): minute(s) Location: lower extremity and left Pain Consistency: + constant and + other (single fall) Quality: + other (fall, left leg pain) Treatments prior to arrival: none The patient is a 72 year old male who presents to the Emergency Room via EMS following a falling episode that occurred shortly prior to arrival. EMS state that the patient was attempting to use the restroom when he fell from the toilet to the ground. He hit his left hip/leg off of the toilet and fell to the ground. The patient is now complaining of pain to the left lower extremity. He has no other complains. The patient notes that his left ankle is rotated and shortened at baseline. Home Medications Home Medications Medication Instructions Recorded Confirmed Type atorvastatin 10 mg PO DAILY 08/19/18 08/19/18 History clopidogrel 75 mg PO DAILY 08/19/18 08/19/18 History Allergies Allergy/AdvReac Type Severity Reaction Status Date / Time No Known Allergies Allergy Unverified 08/20/18 12:52 Past Med/Surg History Medical History History of tobacco abuse (Chronic) Cerebral palsy (Chronic) T2DM (type 2 diabetes mellitus) (Chronic) Peripheral vascular disease (Chronic) b/l SFA > 70%, follows Dr. 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 and A total of 10 systems reviewed and were otherwise negative Physical Exam Vital Signs Vital Signs - 24 hr 08/20/18 12:54 08/20/18 13:04 08/20/18 16:40 Temperature 36.8 C 36.0 C L Temperature Source Oral Temporal Artery Scan Pulse Rate Pulse Rate [Apical] 81 Pulse Rate [Right Finger] 75 73 Pulse Rhythm [Apical] Regular Pulse Rhythm [Right Finger] Regular Pulse Strength [Right Finger] Normal Respiratory Rate 20 18 16 Respiratory Effort / Characteristics Non-Labored Spontaneous Spontaneous Non-Labored Spontaneous Respiratory Depth Normal Normal Respiratory Pattern Regular Regular Blood Pressure [Left Arm] 144/80 H Blood Pressure [Left Radial Artery] Blood Pressure [Right Arm] 183/81 H Blood Pressure Mean [Left Arm] 101 Blood Pressure Mean [Left Radial Artery] Blood Pressure Mean [Right Arm] 115 Blood Pressure Position [Left Arm] Sitting Blood Pressure Position [Left Radial Artery] Blood Pressure Position [Right Arm] Pulse Oximetry 90 92 95 Oxygen Delivery Method Room Air Nasal Cannula Oxymask Oxygen Flow Rate 2 10 08/20/18 16:50 08/20/18 17:00 08/20/18 17:10 Temperature Temperature Source Pulse Rate Pulse Rate [Apical] 69 78 71 Pulse Rate [Right Finger] Pulse Rhythm [Apical] Regular Regular Regular Pulse Rhythm [Right Finger] Pulse Strength [Right Finger] Respiratory Rate 18 17 12 Respiratory Effort / Characteristics Non-Labored Spontaneous Non-Labored Spontaneous Non-Labored Spontaneous Respiratory Depth Normal Normal Normal Respiratory Pattern Regular Regular Regular Blood Pressure [Left Arm] Blood Pressure [Left Radial Artery] Blood Pressure [Right Arm] 170/79 H 185/88 H 137/87 Blood Pressure Mean [Left Arm] Blood Pressure Mean [Left Radial Artery] Blood Pressure Mean [Right Arm] 109 120 103 Blood Pressure Position [Left Arm] Blood Pressure Position [Left Radial Artery] Blood Pressure Position [Right Arm] Pulse Oximetry 90 95 96 Oxygen Delivery Method Oxymask Oxymask Oxymask Oxygen Flow Rate 10 10 10 08/20/18 17:20 08/20/18 17:30 08/20/18 17:40 Temperature 37.1 C Temperature Source Temporal Artery Scan Pulse Rate Pulse Rate [Apical] 75 82 84 Pulse Rate [Right Finger] Pulse Rhythm [Apical] Regular Regular Regular Pulse Rhythm [Right Finger] Pulse Strength [Right Finger] Respiratory Rate 15 14 18 Respiratory Effort / Characteristics Non-Labored Spontaneous Non-Labored Spontaneous Non-Labored Spontaneous Respiratory Depth Normal Normal Normal Respiratory Pattern Regular Regular Regular Blood Pressure [Left Arm] Blood Pressure [Left Radial Artery] Blood Pressure [Right Arm] 163/86 H 139/96 129/69 Blood Pressure Mean [Left Arm] Blood Pressure Mean [Left Radial Artery] Blood Pressure Mean [Right Arm] 111 110 89 Blood Pressure Position [Left Arm] Blood Pressure Position [Left Radial Artery] Blood Pressure Position [Right Arm] Pulse Oximetry 92 93 94 Oxygen Delivery Method Nasal Cannula Nasal Cannula Nasal Cannula Oxygen Flow Rate 3 3 3 08/20/18 17:50 08/20/18 18:14 08/20/18 19:00 Temperature 36.7 C Temperature Source Oral Pulse Rate 95 H Pulse Rate [Apical] 72 75 Pulse Rate [Right Finger] Pulse Rhythm [Apical] Regular Pulse Rhythm [Right Finger] Pulse Strength [Right Finger] Respiratory Rate 16 18 Respiratory Effort / Characteristics Non-Labored Spontaneous Respiratory Depth Normal Respiratory Pattern Regular Blood Pressure [Left Arm] Blood Pressure [Left Radial Artery] Blood Pressure [Right Arm] 127/66 136/75 Blood Pressure Mean [Left Arm] Blood Pressure Mean [Left Radial Artery] Blood Pressure Mean [Right Arm] 86 95 Blood Pressure Position [Left Arm] Blood Pressure Position [Left Radial Artery] Blood Pressure Position [Right Arm] Lying Pulse Oximetry 97 93 Oxygen Delivery Method Nasal Cannula Nasal Cannula Oxygen Flow Rate 3 3 08/20/18 19:23 08/20/18 20:00 08/20/18 23:05 Temperature 36.6 C 36.4 C L Temperature Source Oral Oral Pulse Rate Pulse Rate [Apical] 86 80 Pulse Rate [Right Finger] Pulse Rhythm [Apical] Pulse Rhythm [Right Finger] Pulse Strength [Right Finger] Respiratory Rate 18 20 Respiratory Effort / Characteristics Respiratory Depth Respiratory Pattern Blood Pressure [Left Arm] Blood Pressure [Left Radial Artery] Blood Pressure [Right Arm] 126/76 121/74 Blood Pressure Mean [Left Arm] Blood Pressure Mean [Left Radial Artery] Blood Pressure Mean [Right Arm] 92 89 Blood Pressure Position [Left Arm] Blood Pressure Position [Left Radial Artery] Blood Pressure Position [Right Arm] Lying Pulse Oximetry 93 94 Oxygen Delivery Method Nasal Cannula Nasal Cannula Oxygen Flow Rate 3 4 08/20/18 23:30 08/21/18 04:00 08/21/18 07:29 Temperature 36.4 C L 36.4 C L Temperature Source Oral Oral Pulse Rate Pulse Rate [Apical] 74 72 Pulse Rate [Right Finger] Pulse Rhythm [Apical] Pulse Rhythm [Right Finger] Pulse Strength [Right Finger] Respiratory Rate 20 20 Respiratory Effort / Characteristics Respiratory Depth Normal Respiratory Pattern Regular Blood Pressure [Left Arm] Blood Pressure [Left Radial Artery] 135/70 114/65 Blood Pressure [Right Arm] Blood Pressure Mean [Left Arm] Blood Pressure Mean [Left Radial Artery] 91 81 Blood Pressure Mean [Right Arm] Blood Pressure Position [Left Arm] Blood Pressure Position [Left Radial Artery] Lying Blood Pressure Position [Right Arm] Pulse Oximetry 96 92 Oxygen Delivery Method Nasal Cannula Nasal Cannula Nasal Cannula Oxygen Flow Rate 3 4 GENERAL: Patient is awake and alert. He is very anxious and uncomfortable appearing. He appears to be in significant pain. EYES: The conjunctivae are clear. The pupils are round and reactive. EARS, NOSE, MOUTH AND THROAT: The nose is without any evidence of any deformity. Mucous membranes are moist tongue is midline NECK: The neck is nontender and supple. RESPIRATORY: Normal respiratory effort is noted there is no evidence of wheezing rhonchi or rales CARDIOVASCULAR: Regular rate and rhythm noted there no murmurs rubs or gallops normal S1 normal S2 GASTROINTESTINAL: The abdomen is soft. Bowel sounds are present in all quadr ants. Abdomen is nontender MUSCULOSKELETAL/EXTREMITIES: There is chronic deformity to the left ankle which is not tender. There is severe tenderness to the left upper thigh with deformity and pain to palpation as well as range of motion testing. SKIN: There is no obvious evidence of any rash. There are no petechiae, pallor or cyanosis noted. NEUROLOGIC: Patient is awake alert and oriented x3 Procedures Nerve Block Nerve Block 1: Time out performed: Yes Local Anesthetic: bupivacaine 0.25% Amount of anesthesia used (mL): 25 Side: left Nerve Blocks: femoral (Left femoral nerve sheath) Procedure Successful: Yes Patient Tolerated Procedure: well Complications: none Course 1127: Past medical records reviewed. The patient was evaluated in room A10, and a complete history and physical examination were performed. 1326: I reviewed the patient's case with Katrin Leary Hospitalist DANA. She will evaluate the patient for further management. 1406: I discussed the case with [facility]. They will see the patient in consult. Administered Medications Acetaminophen (Tylenol) 500 mg PO Q8 [facility] Stop: 09/19/18 21:59 Last Admin: 08/21/18 05:44 Dose: 500 mg Documented by: [id number] Admin: 08/20/18 21:14 Dose: 500 mg Documented by: [id number] Dextrose/Sodium Chloride (D5w And Nss) 1,000 mls @ 80 mls/hr IV .[id number] [facility] Stop: 09/19/18 00:00 Last Admin: 08/21/18 06:22 Dose: 80 mls/hr Documented by: [id number] Infusion: 08/21/18 00:08 Dose: 80 mls/hr Documented by: [id number] Admin: 08/20/18 11:38 Dose: 80 mls/hr Documented by: [id number] Infusion: 08/20/18 11:38 Dose: 80 mls/hr Documented by: [id number] Admin: 08/19/18 23:27 Dose: 80 mls/hr Documented by: [id number] Ceftriaxone Sodium 1,000 mg/ (Dextrose) 60 mls @ 100 mls/hr IV DAILY@1800 [facility] Stop: 08/24/18 17:59 Last Infusion: 08/20/18 19:29 Dose: 0 mls/hr Documented by: [id number] Admin: 08/20/18 18:44 Dose: 100 mls/hr Documented by: [id number] Infusion: 08/19/18 18:39 Dose: 0 mls/hr Documented by: [id number] Admin: 08/19/18 18:03 Dose: 100 mls/hr Documented by: [id number] Insulin Aspart (Novolog Flexpen) 0 units SC ACHS [facility] Stop: 09/19/18 17:59 Last Admin: 08/21/18 08:50 Dose: 3 units Documented by: [id number] Cosigned by: [id number] Admin: 08/20/18 21:15 Dose: 3 units Documented by: [id number] Cosigned by: [id number] Admin: 08/20/18 18:42 Dose: Not Given Documented by: [id number] Cosigned by: [id number] Insulin Glargine (Lantus Solostar Pen) 0 units SC Q12 [facility]; Protocol Stop: 09/19/18 20:59 Last Admin: 08/21/18 08:51 Dose: 10 units Documented by: [id number] Cosigned by: [id number] Admin: 08/20/18 21:14 Dose: 15 units Documented by: [id number] Cosigned by: [id number] Ioversol (Optiray 320 125ml) 100 ml IV ONCE PRN PRN Reason: Interaction Checking Stop: 08/23/18 16:43 Last Admin: 08/19/18 16:44 Dose: 100 ml Documented by: [id number] Morphine Sulfate (Morphine Sulfate) 2 mg IV Q2H PRN PRN Reason: moderate pain (scale 4-6) Stop: 09/02/18 16:54 Last Admin: 08/21/18 08:55 Dose: 2 mg Documented by: [id number] Admin: 08/20/18 23:32 Dose: 2 mg Documented by: [id number] Admin: 08/20/18 12:18 Dose: 2 mg Documented by: [id number] Admin: 08/20/18 08:02 Dose: 2 mg Documented by: [id number] Admin: 08/19/18 18:29 Dose: 2 mg Documented by: [id number] Oxycodone HCl (Roxicodone Immediate Rel) 5 mg PO Q4H PRN PRN Reason: Moderate Pain (Scale 4,5,6) Stop: 09/03/18 18:12 Last Admin: 08/20/18 20:21 Dose: 5 mg Documented by: [id number] Senna/Docusate Sodium (Senokot S) 2 tab PO HS KEVIN Stop: 09/18/18 20:59 Last Admin: 08/20/18 20:22 Dose: Not Given Documented by: [id number] Admin: 08/19/18 19:57 Dose: Not Given Documented by: [id number] Discontinued Medications Albuterol (Duoneb) 3 ml NEB NOW STA Stop: 08/20/18 12:49 Last Admin: 08/20/18 13:03 Dose: 3 ml Documented by: [id number] Bupivacaine HCl (Sensorcaine 0.25% Inj) 30 ml INFIL NOW ONE Stop: 08/19/18 11:33 Last Admin: 08/19/18 15:17 Dose: 25 ml Documented by: [id number] Bupivacaine HCl (Sensorcaine 0.25% Inj) Confirm Administered Dose 30 ml .ROUTE .STK-MED ONE Stop: 08/19/18 15:02 Last Admin: 08/19/18 15:18 Dose: Not Given Documented by: [id number] Bupivacaine HCl/Epinephrine Bitart (Sensorcaine/Epinephrine 0.5% Mpf 1:200,000) Confirm Administered Dose 30 ml .ROUTE .STK-MED ONE Stop: 08/20/18 15:03 Last Admin: 08/20/18 16:07 Dose: 30 ml Documented by: [id number] Fentanyl Citrate (Fentanyl Citrate) 25 mcg IV Q5M PRN PRN Reason: PACU Use Only-Pain Stop: 08/20/18 18:04 Last Admin: 08/20/18 17:25 Dose: 25 mcg Documented by: [id number] Admin: 08/20/18 17:17 Dose: 25 mcg Documented by: [id number] Admin: 08/20/18 17:15 Dose: 25 mcg Documented by: [id number] Admin: 08/20/18 17:05 Dose: 25 mcg Documented by: [id number] Heparin Sodium (Porcine) (Heparin Sodium (Porcine)) 5,000 units SQ Q8 [facility] Stop: 09/18/18 21:59 Last Admin: 08/20/18 14:31 Dose: Not Given Documented by: [id number] Admin: 08/19/18 23:58 Dose: Not Given Documented by: [id number] Admin: 08/19/18 21:11 Dose: 5,000 units Documented by: [id number] Cosigned by: [id number] Dextrose/Sodium Chloride (D5w And Nss) 1,000 mls @ 80 mls/hr IV .[id number] [facility] Stop: 09/18/18 14:19 Last Admin: 08/19/18 16:58 Dose: Not Given Documented by: [id number] Cefazolin Sodium (Ancef 2000mg) 2,000 mg in 15 mls @ 3.75 mls/min IV PREOP KEVIN; Protocol Stop: 08/21/18 05:59 Last Admin: 08/20/18 14:05 Dose: 3.75 mls/min Documented by: [id number] Sodium Chloride (Nss) 500 mls @ 80 mls/hr IV .[id number] [facility] Stop: 08/19/18 23:09 Last Infusion: 08/19/18 23:28 Dose: 0 mls/hr Documented by: [id number] Admin: 08/19/18 17:53 Dose: 80 mls/hr Documented by: [id number] Lactated Ringer's (Lr) 1,000 mls @ 60 mls/hr IV .[id number] [facility] Stop: 08/20/18 23:59 Last Infusion: 08/20/18 14:04 Dose: 0 mls/hr Documented by: [id number] Admin: 08/20/18 13:11 Dose: 60 mls/hr Documented by: [id number] Insulin Aspart (Novolog Flexpen) 0 units SC ACHS [facility] Stop: 09/18/18 17:29 Last Admin: 08/20/18 08:52 Dose: Not Given Documented by: [id number] Cosigned by: [id number] Admin: 08/19/18 21:09 Dose: Not Given Documented by: [id number] Cosigned by: [id number] Admin: 08/19/18 18:28 Dose: 3 units Documented by: [id number] Cosigned by: [id number] Insulin Aspart (Novolog Flexpen) 0 units SC Q6 [facility] Stop: 09/19/18 07:29 Last Admin: 08/20/18 12:19 Dose: Not Given Documented by: [id number] Cosigned by: [id number] Admin: 08/20/18 07:53 Dose: Not Given Documented by: [id number] Cosigned by: [id number] Insulin Glargine (Lantus Solostar Pen) 10 units SC Q12 [facility] Stop: 09/18/18 20:59 Last Admin: 08/19/18 21:10 Dose: 10 units Documented by: [id number] Cosigned by: [id number] Insulin Glargine (Lantus Solostar Pen) 5 units SC QAM [facility] Stop: 08/20/18 11:00 Last Admin: 08/20/18 07:53 Dose: 5 units Documented by: [id number] Cosigned by: [id number] Miscellaneous Information (Consult Glycemic Management Pharmacy) 1 ea N/A NOW STA; Protocol Stop: 08/19/18 14:21 Last Admin: 08/19/18 16:57 Dose: Not Given Documented by: [id number] Morphine Sulfate (Morphine Sulfate) 4 mg IV Q15M PRN PRN Reason: Pain Stop: 09/02/18 11:31 Last Admin: 08/19/18 14:05 Dose: 4 mg Documented by: [id number] Admin: 08/19/18 12:19 Dose: 4 mg Documented by: [id number] Ondansetron HCl (Zofran) 4 mg IV NOW STA Stop: 08/19/18 11:33 Last Admin: 08/19/18 12:19 Dose: 4 mg Documented by: [id number] Medical Decision Making Differential Diagnosis Differential diagnosis: Etiologies such as fracture, dislocation, neurovascular compromise, compartment syndrome, soft tissue injury, as well as others were entertained. Medical Records Attestation: I reviewed the patient's medical records. Home Medications Current Medication List: was personally reviewed by me Laboratory Data Attestation: I reviewed the patient's lab results. Result diagrams: 08/21/18 07:10 08/21/18 07:10 Lab Results 08/19/18 08/19/18 08/19/18 Range/Units 12:02 12:15 12:15 WBC 6.06 (4.8-10.8) K/uL RBC 4.91 (4.7-6.1) M/uL Hgb 15.6 (14.0-18.0) g/dL Hct 45.4 (42-52) % MCV 92.5 (80-100) fL MCH 31.8 (25-34) pg MCHC 34.4 (32-36) g/dL RDW Std Deviation 47.5 H (36.4-46.3) fL RDW Coeff of Suraj 14.0 (11.5-14.5) % Plt Count 162 (130-400) K/uL MPV 10.2 (7.4-10.4) fL Immature Gran % (Auto) 0.2 % Neut % (Auto) 87.8 % Lymph % (Auto) 7.4 % Crawford % (Auto) 4.6 % Eos % (Auto) 0.0 % Baso % (Auto) 0.0 % Immature Gran # (Auto) 0.01 (0.00-0.02) K/uL Neut # (Auto) 5.32 (1.4-6.5) K/uL Lymph # (Auto) 0.45 L (1.2-3.4) K/uL Crawford # (Auto) 0.28 (0.11-0.59) K/uL Eos # (Auto) 0.00 (0-0.5) K/uL Baso # (Auto) 0.00 (0-0.2) K/uL PT 10.7 (9.0-12.0) Seconds INR 1.0 (0.9-1.1) APTT 26.9 (21.0-31.0) Seconds PTT Ratio 1.0 Sodium (136-145) mmol/L Potassium (3.5-5.1) mmol/L Chloride (98-107) mmol/L Carbon Dioxide (21-32) mmol/L Anion Gap (3-11) BUN (7-18) mg/dl Creatinine (0.6-1.4) mg/dl Est Cr Clr Drug Dosing ml/min Est GFR ( Amer) Est GFR (Non-Af Amer) BUN/Creatinine Ratio (10-20) Glucose (70-99) mg/dl POC Glucose (70-99) Estimat Average Glucose mg/dl Hemoglobin A1c (4.5-5.6) % Calcium (8.5-10.1) mg/dl Magnesium (1.8-2.4) mg/dl Total Bilirubin (0.2-1) mg/dl Direct Bilirubin (0-0.2) mg/dl AST (15-37) U/L ALT (12-78) U/L Alkaline Phosphatase (45-117) U/L Troponin I (0-0.045) ng/ml Total Protein (6.4-8.2) gm/dl Albumin (3.4-5.0) gm/dl 25-OH Vitamin D Total (30-100) ng/ml Urine Color Urine Appearance (Clear) Urine pH (4.5-7.5) Ur Specific [place] (1.000-1.030) Urine Protein (Negative) Urine Glucose (UA) (Negative) Urine Ketones (Negative) Urine Blood (Negative) Urine Nitrite (Negative) Urine Bilirubin (Negative) Urine Urobilinogen (Negative) Ur Leukocyte Esterase (Negative) Urine WBC (Auto) (0-5) /hpf Urine RBC (Auto) (0-4) /hpf U Hyaline Cast (Auto) (0-5) /lpf U Epithel Cells (Auto) (0-5) /lpf Urine Bacteria (Auto) (Negative) Nasal Screen MRSA (PCR) (Negative) Blood Type O Positive Antibody Screen NEGATIVE 08/19/18 08/19/18 08/19/18 Range/Units 12:15 14:20 16:58 WBC (4.8-10.8) K/uL RBC (4.7-6.1) M/uL Hgb (14.0-18.0) g/dL Hct (42-52) % MCV (80-100) fL MCH (25-34) pg MCHC (32-36) g/dL RDW Std Deviation (36.4-46.3) fL RDW Coeff of Suraj (11.5-14.5) % Plt Count (130-400) K/uL MPV (7.4-10.4) fL Immature Gran % (Auto) % Neut % (Auto) % Lymph % (Auto) % Crawford % (Auto) % Eos % (Auto) % Baso % (Auto) % Immature Gran # (Auto) (0.00-0.02) K/uL Neut # (Auto) (1.4-6.5) K/uL Lymph # (Auto) (1.2-3.4) K/uL Crawford # (Auto) (0.11-0.59) K/uL Eos # (Auto) (0-0.5) K/uL Baso # (Auto) (0-0.2) K/uL PT (9.0-12.0) Seconds INR (0.9-1.1) APTT (21.0-31.0) Seconds PTT Ratio Sodium 139 (136-145) mmol/L Potassium 3.6 (3.5-5.1) mmol/L Chloride 108 H (98-107) mmol/L Carbon Dioxide 23 (21-32) mmol/L Anion Gap 8.0 (3-11) BUN 24 H (7-18) mg/dl Creatinine 1.20 (0.6-1.4) mg/dl Est Cr Clr Drug Dosing 59.9 ml/min Est GFR ( Amer) 69.1 Est GFR (Non-Af Amer) 59.6 BUN/Creatinine Ratio 20.1 H (10-20) Glucose 215 H (70-99) mg/dl POC Glucose 165 H (70-99) Estimat Average Glucose mg/dl Hemoglobin A1c (4.5-5.6) % Calcium 8.3 L (8.5-10.1) mg/dl Magnesium (1.8-2.4) mg/dl Total Bilirubin 1.2 H (0.2-1) mg/dl Direct Bilirubin 0.3 H (0-0.2) mg/dl AST 17 (15-37) U/L ALT 20 (12-78) U/L Alkaline Phosphatase 123 H (45-117) U/L Troponin I < 0.015 (0-0.045) ng/ml Total Protein 7.1 (6.4-8.2) gm/dl Albumin 3.5 (3.4-5.0) gm/dl 25-OH Vitamin D Total (30-100) ng/ml Urine Color Dark Yellow Urine Appearance Clear (Clear) Urine pH 5.0 (4.5-7.5) Ur Specific [place] 1.029 (1.000-1.030) Urine Protein 1+ H (Negative) Urine Glucose (UA) 1+ H (Negative) Urine Ketones 1+ H (Negative) Urine Blood Trace H (Negative) Urine Nitrite Negative (Negative) Urine Bilirubin Negative (Negative) Urine Urobilinogen Negative (Negative) Ur Leukocyte Esterase Negative (Negative) Urine WBC (Auto) 1-5 (0-5) /hpf Urine RBC (Auto) 5-10 H (0-4) /hpf U Hyaline Cast (Auto) 10-30 H (0-5) /lpf U Epithel Cells (Auto) 20-30 H (0-5) /lpf Urine Bacteria (Auto) Negative (Negative) Nasal Screen MRSA (PCR) (Negative) Blood Type Antibody Screen 08/19/18 08/19/18 08/20/18 Range/Units 20:10 23:36 01:56 WBC (4.8-10.8) K/uL RBC (4.7-6.1) M/uL Hgb (14.0-18.0) g/dL Hct (42-52) % MCV (80-100) fL MCH (25-34) pg MCHC (32-36) g/dL RDW Std Deviation (36.4-46.3) fL RDW Coeff of Suraj (11.5-14.5) % Plt Count (130-400) K/uL MPV (7.4-10.4) fL Immature Gran % (Auto) % Neut % (Auto) % Lymph % (Auto) % Crawford % (Auto) % Eos % (Auto) % Baso % (Auto) % Immature Gran # (Auto) (0.00-0.02) K/uL Neut # (Auto) (1.4-6.5) K/uL Lymph # (Auto) (1.2-3.4) K/uL Crawford # (Auto) (0.11-0.59) K/uL Eos # (Auto) (0-0.5) K/uL Baso # (Auto) (0-0.2) K/uL PT (9.0-12.0) Seconds INR (0.9-1.1) APTT (21.0-31.0) Seconds PTT Ratio Sodium (136-145) mmol/L Potassium (3.5-5.1) mmol/L Chloride (98-107) mmol/L Carbon Dioxide (21-32) mmol/L Anion Gap (3-11) BUN (7-18) mg/dl Creatinine (0.6-1.4) mg/dl Est Cr Clr Drug Dosing ml/min Est GFR ( Amer) Est GFR (Non-Af Amer) BUN/Creatinine Ratio (10-20) Glucose (70-99) mg/dl POC Glucose 147 H 136 H (70-99) Estimat Average Glucose mg/dl Hemoglobin A1c (4.5-5.6) % Calcium (8.5-10.1) mg/dl Magnesium (1.8-2.4) mg/dl Total Bilirubin (0.2-1) mg/dl Direct Bilirubin (0-0.2) mg/dl AST (15-37) U/L ALT (12-78) U/L Alkaline Phosphatase (45-117) U/L Troponin I (0-0.045) ng/ml Total Protein (6.4-8.2) gm/dl Albumin (3.4-5.0) gm/dl 25-OH Vitamin D Total (30-100) ng/ml Urine Color Urine Appearance (Clear) Urine pH (4.5-7.5) Ur Specific [place] (1.000-1.030) Urine Protein (Negative) Urine Glucose (UA) (Negative) Urine Ketones (Negative) Urine Blood (Negative) Urine Nitrite (Negative) Urine Bilirubin (Negative) Urine Urobilinogen (Negative) Ur Leukocyte Esterase (Negative) Urine WBC (Auto) (0-5) /hpf Urine RBC (Auto) (0-4) /hpf U Hyaline Cast (Auto) (0-5) /lpf U Epithel Cells (Auto) (0-5) /lpf Urine Bacteria (Auto) (Negative) Nasal Screen MRSA (PCR) Negative (Negative) Blood Type Antibody Screen 08/20/18 08/20/18 08/20/18 Range/Units 05:55 05:55 05:55 WBC 5.66 (4.8-10.8) K/uL RBC 4.33 L (4.7-6.1) M/uL Hgb 13.4 L (14.0-18.0) g/dL Hct 39.3 L (42-52) % MCV 90.8 (80-100) fL MCH 30.9 (25-34) pg MCHC 34.1 (32-36) g/dL RDW Std Deviation 48.1 H (36.4-46.3) fL RDW Coeff of Suraj 14.4 (11.5-14.5) % Plt Count 144 (130-400) K/uL MPV 10.0 (7.4-10.4) fL Immature Gran % (Auto) 0.2 % Neut % (Auto) 71.3 % Lymph % (Auto) 13.8 % Crawford % (Auto) 14.3 % Eos % (Auto) 0.2 % Baso % (Auto) 0.2 % Immature Gran # (Auto) 0.01 (0.00-0.02) K/uL Neut # (Auto) 4.04 (1.4-6.5) K/uL Lymph # (Auto) 0.78 L (1.2-3.4) K/uL Crawford # (Auto) 0.81 H (0.11-0.59) K/uL Eos # (Auto) 0.01 (0-0.5) K/uL Baso # (Auto) 0.01 (0-0.2) K/uL PT (9.0-12.0) Seconds INR (0.9-1.1) APTT (21.0-31.0) Seconds PTT Ratio Sodium 136 (136-145) mmol/L Potassium 3.6 (3.5-5.1) mmol/L Chloride 107 (98-107) mmol/L Carbon Dioxide 23 (21-32) mmol/L Anion Gap 6.0 (3-11) BUN 23 H (7-18) mg/dl Creatinine 0.91 (0.6-1.4) mg/dl Est Cr Clr Drug Dosing 79.0 ml/min Est GFR ( Amer) 96.6 Est GFR (Non-Af Amer) 83.3 BUN/Creatinine Ratio 25.1 H (10-20) Glucose 137 H (70-99) mg/dl POC Glucose (70-99) Estimat Average Glucose 137 mg/dl Hemoglobin A1c 6.4 H (4.5-5.6) % Calcium 7.9 L (8.5-10.1) mg/dl Magnesium (1.8-2.4) mg/dl Total Bilirubin (0.2-1) mg/dl Direct Bilirubin (0-0.2) mg/dl AST (15-37) U/L ALT (12-78) U/L Alkaline Phosphatase (45-117) U/L Troponin I (0-0.045) ng/ml Total Protein (6.4-8.2) gm/dl Albumin (3.4-5.0) gm/dl 25-OH Vitamin D Total (30-100) ng/ml Urine Color Urine Appearance (Clear) Urine pH (4.5-7.5) Ur Specific [place] (1.000-1.030) Urine Protein (Negative) Urine Glucose (UA) (Negative) Urine Ketones (Negative) Urine Blood (Negative) Urine Nitrite (Negative) Urine Bilirubin (Negative) Urine Urobilinogen (Negative) Ur Leukocyte Esterase (Negative) Urine WBC (Auto) (0-5) /hpf Urine RBC (Auto) (0-4) /hpf U Hyaline Cast (Auto) (0-5) /lpf U Epithel Cells (Auto) (0-5) /lpf Urine Bacteria (Auto) (Negative) Nasal Screen MRSA (PCR) (Negative) Blood Type Antibody Screen 08/20/18 08/20/18 08/20/18 Range/Units 05:55 07:38 11:54 WBC (4.8-10.8) K/uL RBC (4.7-6.1) M/uL Hgb (14.0-18.0) g/dL Hct (42-52) % MCV (80-100) fL MCH (25-34) pg MCHC (32-36) g/dL RDW Std Deviation (36.4-46.3) fL RDW Coeff of Suraj (11.5-14.5) % Plt Count (130-400) K/uL MPV (7.4-10.4) fL Immature Gran % (Auto) % Neut % (Auto) % Lymph % (Auto) % Crawford % (Auto) % Eos % (Auto) % Baso % (Auto) % Immature Gran # (Auto) (0.00-0.02) K/uL Neut # (Auto) (1.4-6.5) K/uL Lymph # (Auto) (1.2-3.4) K/uL [place] # (Auto) (0.11-0.59) K/uL Eos # (Auto) (0-0.5) K/uL Baso # (Auto) (0-0.2) K/uL PT (9.0-12.0) Seconds INR (0.9-1.1) APTT (21.0-31.0) Seconds PTT Ratio Sodium (136-145) mmol/L Potassium (3.5-5.1) mmol/L Chloride (98-107) mmol/L Carbon Dioxide (21-32) mmol/L Anion Gap (3-11) BUN (7-18) mg/dl Creatinine (0.6-1.4) mg/dl Est Cr Clr Drug Dosing ml/min Est GFR ( Amer) Est GFR (Non-Af Amer) BUN/Creatinine Ratio (10-20) Glucose (70-99) mg/dl POC Glucose 124 H 128 H (70-99) Estimat Average Glucose mg/dl Hemoglobin A1c (4.5-5.6) % Calcium (8.5-10.1) mg/dl Magnesium (1.8-2.4) mg/dl Total Bilirubin (0.2-1) mg/dl Direct Bilirubin (0-0.2) mg/dl AST (15-37) U/L ALT (12-78) U/L Alkaline Phosphatase (45-117) U/L Troponin I (0-0.045) ng/ml Total Protein (6.4-8.2) gm/dl Albumin (3.4-5.0) gm/dl 25-OH Vitamin D Total 9.8 L (30-100) ng/ml Urine Color Urine Appearance (Clear) Urine pH (4.5-7.5) Ur Specific [place] (1.000-1.030) Urine Protein (Negative) Urine Glucose (UA) (Negative) Urine Ketones (Negative) Urine Blood (Negative) Urine Nitrite (Negative) Urine Bilirubin (Negative) Urine Urobilinogen (Negative) Ur Leukocyte Esterase (Negative) Urine WBC (Auto) (0-5) /hpf Urine RBC (Auto) (0-4) /hpf U Hyaline Cast (Auto) (0-5) /lpf U Epithel Cells (Auto) (0-5) /lpf Urine Bacteria (Auto) (Negative) Nasal Screen MRSA (PCR) (Negative) Blood Type Antibody Screen 08/20/18 08/20/18 08/21/18 Range/Units 16:47 20:06 07:10 WBC 5.27 (4.8-10.8) K/uL RBC 3.65 L (4.7-6.1) M/uL Hgb 11.3 L (14.0-18.0) g/dL Hct 33.2 L (42-52) % MCV 91.0 (80-100) fL MCH 31.0 (25-34) pg MCHC 34.0 (32-36) g/dL RDW Std Deviation 47.7 H (36.4-46.3) fL RDW Coeff of Suraj 14.3 (11.5-14.5) % Plt Count 143 (130-400) K/uL MPV 10.2 (7.4-10.4) fL Immature Gran % (Auto) 0.4 % Neut % (Auto) 68.9 % Lymph % (Auto) 14.0 % Crawford % (Auto) 16.3 % Eos % (Auto) 0.4 % Baso % (Auto) 0.0 % Immature Gran # (Auto) 0.02 (0.00-0.02) K/uL Neut # (Auto) 3.63 (1.4-6.5) K/uL Lymph # (Auto) 0.74 L (1.2-3.4) K/uL Crawford # (Auto) 0.86 H (0.11-0.59) K/uL Eos # (Auto) 0.02 (0-0.5) K/uL Baso # (Auto) 0.00 (0-0.2) K/uL PT (9.0-12.0) Seconds INR (0.9-1.1) APTT (21.0-31.0) Seconds PTT Ratio Sodium (136-145) mmol/L Potassium (3.5-5.1) mmol/L Chloride (98-107) mmol/L Carbon Dioxide (21-32) mmol/L Anion Gap (3-11) BUN (7-18) mg/dl Creatinine (0.6-1.4) mg/dl Est Cr Clr Drug Dosing ml/min Est GFR ( Amer) Est GFR (Non-Af Amer) BUN/Creatinine Ratio (10-20) Glucose (70-99) mg/dl POC Glucose 104 H 194 H (70-99) Estimat Average Glucose mg/dl Hemoglobin A1c (4.5-5.6) % Calcium (8.5-10.1) mg/dl Magnesium (1.8-2.4) mg/dl Total Bilirubin (0.2-1) mg/dl Direct Bilirubin (0-0.2) mg/dl AST (15-37) U/L ALT (12-78) U/L Alkaline Phosphatase (45-117) U/L Troponin I (0-0.045) ng/ml Total Protein (6.4-8.2) gm/dl Albumin (3.4-5.0) gm/dl 25-OH Vitamin D Total (30-100) ng/ml Urine Color Urine Appearance (Clear) Urine pH (4.5-7.5) Ur Specific [place] (1.000-1.030) Urine Protein (Negative) Urine Glucose (UA) (Negative) Urine Ketones (Negative) Urine Blood (Negative) Urine Nitrite (Negative) Urine Bilirubin (Negative) Urine Urobilinogen (Negative) Ur Leukocyte Esterase (Negative) Urine WBC (Auto) (0-5) /hpf Urine RBC (Auto) (0-4) /hpf U Hyaline Cast (Auto) (0-5) /lpf U Epithel Cells (Auto) (0-5) /lpf Urine Bacteria (Auto) (Negative) Nasal Screen MRSA (PCR) (Negative) Blood Type Antibody Screen 08/21/18 08/21/18 Range/Units 07:10 07:57 WBC (4.8-10.8) K/uL RBC (4.7-6.1) M/uL Hgb (14.0-18.0) g/dL Hct (42-52) % MCV (80-100) fL MCH (25-34) pg MCHC (32-36) g/dL RDW Std Deviation (36.4-46.3) fL RDW Coeff of Suraj (11.5-14.5) % Plt Count (130-400) K/uL MPV (7.4-10.4) fL Immature Gran % (Auto) % Neut % (Auto) % Lymph % (Auto) % Crawford % (Auto) % Eos % (Auto) % Baso % (Auto) % Immature Gran # (Auto) (0.00-0.02) K/uL Neut # (Auto) (1.4-6.5) K/uL Lymph # (Auto) (1.2-3.4) K/uL Crawford # (Auto) (0.11-0.59) K/uL Eos # (Auto) (0-0.5) K/uL Baso # (Auto) (0-0.2) K/uL PT (9.0-12.0) Seconds INR (0.9-1.1) APTT (21.0-31.0) Seconds PTT Ratio Sodium 138 (136-145) mmol/L Potassium 3.5 (3.5-5.1) mmol/L Chloride 108 H (98-107) mmol/L Carbon Dioxide 25 (21-32) mmol/L Anion Gap 5.0 (3-11) BUN 15 (7-18) mg/dl Creatinine 0.81 (0.6-1.4) mg/dl Est Cr Clr Drug Dosing 92.8 ml/min Est GFR ( Amer) 102.2 Est GFR (Non-Af Amer) 88.2 BUN/Creatinine Ratio 18.1 (10-20) Glucose 157 H (70-99) mg/dl POC Glucose 160 H (70-99) Estimat Average Glucose mg/dl Hemoglobin A1c (4.5-5.6) % Calcium 7.9 L (8.5-10.1) mg/dl Magnesium 2.0 (1.8-2.4) mg/dl Total Bilirubin (0.2-1) mg/dl Direct Bilirubin (0-0.2) mg/dl AST (15-37) U/L ALT (12-78) U/L Alkaline Phosphatase (45-117) U/L Troponin I (0-0.045) ng/ml Total Protein (6.4-8.2) gm/dl Albumin (3.4-5.0) gm/dl 25-OH Vitamin D Total (30-100) ng/ml Urine Color Urine Appearance (Clear) Urine pH (4.5-7.5) Ur Specific [place] (1.000-1.030) Urine Protein (Negative) Urine Glucose (UA) (Negative) Urine Ketones (Negative) Urine Blood (Negative) Urine Nitrite (Negative) Urine Bilirubin (Negative) Urine Urobilinogen (Negative) Ur Leukocyte Esterase (Negative) Urine WBC (Auto) (0-5) /hpf Urine RBC (Auto) (0-4) /hpf U Hyaline Cast (Auto) (0-5) /lpf U Epithel Cells (Auto) (0-5) /lpf Urine Bacteria (Auto) (Negative) Nasal Screen MRSA (PCR) (Negative) Blood Type Antibody Screen Imaging Data Attestation: I personally reviewed and interpreted this imaging study as follows: Radiologist's Impression: XR hip LT 2-3V w pelvis HISTORY: 72 years-old Male fall acute left hip and thigh pain status post fall COMPARISON: None available TECHNIQUE: Single AP view of the pelvis with 2 views of the left hip FINDINGS: 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 No acute pelvic fracture identified. There is an acute obliquely oriented complete fracture of the proximal diaphyseal left femur which demonstrates 4.9 cm foreshortening, 3.9 cm lateral displacement, 13 degrees apex medial and 13 degrees apex volar angulation. 12 mm posterior displacement. Moderate associated soft tissue swelling of the thigh. IMPRESSION: Acute displaced, foreshortened and angulated fracture of the proximal diaphyseal left femur with moderate associated soft tissue swelling. The above report was generated using voice recognition software. It may contain grammatical, syntax or spelling errors. Electronically signed by: Jay Cavazos M.D. 08/19/2018 12:53 PM XR chest 1V portable CLINICAL HISTORY: fall trauma COMPARISON STUDY: 04/04/2017 FINDINGS: The bones soft tissues and hemidiaphragms are normal. The cardi omediastinal silhouette is normal. The lungs are clear. The pulmonary vasculature is normal. IMPRESSION: Negative chest. The above report was generated using voice recognition software. It may contain grammatical, syntax or spelling errors. Electronically signed by: Aldo Henderson M.D. 08/19/2018 12:49 PM ECG Data Attestation: I personally reviewed and interpreted this ECG as follows: Indication: other (trauma) Rate (beats per minute): 101 Rhythm: sinus tachycardia Findings: no ST depression, no ST elevation and no ectopy Comparison ECG Date: from (04/04/2017) Change: the following changes noted (increased rate) Blood Pressure Blood Pressure Findings: Elevated blood pressure Blood Pressure Disposition: further management by hospitalist MDM Narrative The patient is a 72-year-old male who presented to the emergency department for an evaluation after a fall. The patient had severe left leg pain upon arrival. The patient was treated with IV pain medication in the emergency department. He was reevaluated multiple times. The patient had a fracture of his left hip on physical exam as well as radiographically. I discussed his case with the on- call [facility] hospitalist group. I also discussed his case with the on-call orthopedic group. They have agreed to evaluate the patient in the emergency department for further management and disposition. The patient is a history of COPD and had multiple episodes of hypoxia after receiving narcotics. For this reason a femoral nerve block was done. The patient was reevaluated after the block and had some degree of improvement of his symptoms and required less narcotics. The patient will also require extensive medical clearance prior to surgical intervention. He was agreeable to inpatient management. Impression & Plan Closed left hip fracture, Fall Discharge Plan Visit Data *Final* Discharge Date/Time: 08/19/18 17:25 Chief Complaint: Leg Injury/Pain Stated Complaint: fall/ L leg pain ED Provider: Jluis Medrano Discharge Problem: Closed left hip fracture, Fall Patient Disposition: Admitted As Inpatient Discharge Instructions Interventions: ED Discharge Assessment Last Done: 08/19/18 17:25 Discharge Problem: Closed left hip fracture Qualifiers: Encounter type: initial encounter Qualified Code(s): S72.002A - Fracture of unspecified part of neck of left femur, initial encounter for closed fracture Fall Qualifiers: Encounter type: initial encounter Qualified Code(s): W19.XXXA - Unspecified fall, initial encounter The scribe's documentation has been prepared under my direction and personally reviewed by me in its entirety. I confirm that the note above accurately reflects all work, treatment, procedures, and medical decision making performed by me.
[2018-08-19 12:17] LABS: Hematocrit (blood only) 45.4 % (42-52); Hemoglobin 15.6 g/dL (14.0-18.0); Immature Granulocytes # (auto) 0.01 K/uL (0.00-0.02); Immature Granulocytes % (auto) 0.2 %; Lymphocytes # (auto) 0.45 K/uL (1.2-3.4); Lymphocytes % (auto) 7.4 %; Mean Corpuscular Hgb Conc 34.4 g/dL (32-36); Mean Corpuscular Volume 92.5 fL (80-100); Mean Platelet Volume 10.2 fL (7.4-10.4); Monocytes # (auto) 0.28 K/uL (0.11-0.59); Monocytes % (auto) 4.6 %; Neutrophils # (auto) 5.32 K/uL (1.4-6.5); Neutrophils % (auto) 87.8 %; Platelet Count 162 K/uL (130-400); RDW Standard Deviation 47.5 fL (36.4-46.3); Red Blood Count 4.91 M/uL (4.7-6.1); White Blood Count 6.06 K/uL (4.8-10.8)
[2018-08-19] MEDS: MoRPHine SULFATE 4 MG/ML 1 ML CARP\\VIAL IV PRN ×2 (12:19→14:05)
[2018-08-19 12:32] LABS: Alanine Aminotransferase 20 U/L (12-78); Albumin Level 3.5 gm/dl (3.4-5.0); Aspartate Aminotransferase 17 U/L (15-37); BUN Creatinine Ratio 20.1 (10-20); Bilirubin Direct 0.3 mg/dl (0-0.2); Blood Urea Nitrogen 24 mg/dl (7-18); Calcium 8.3 mg/dl (8.5-10.1); Carbon Dioxide 23 mmol/L (21-32); Chloride 108 mmol/L (98-107); Creatinine Clr Calc Pharmacy 59.9 ml/min; Est GFR (African American) 69.1; Est GFR (Non-African American) 59.6; Glucose 215 mg/dl (70-99); Partial Thromboplastin Time 26.9 Seconds (21.0-31.0); Potassium 3.6 mmol/L (3.5-5.1); Prothrombin Time 10.7 Seconds (9.0-12.0); Sodium 139 mmol/L (136-145)
[2018-08-19 12:37] LABS: Alkaline Phosphatase 123 U/L (45-117); Bilirubin,Total 1.2 mg/dl (0.2-1); Total Protein 7.1 gm/dl (6.4-8.2); Troponin I < 0.015 ng/ml (0-0.045)
--- NOTE | 2018-08-19 12:50 | XRay Report ---
XR chest 1V portable CLINICAL HISTORY: fall trauma COMPARISON STUDY: 04/04/2017 FINDINGS: The bones soft tissues and hemidiaphragms are normal. The cardiomediastinal silhouette is n ormal. The lungs are clear. The pulmonary vasculature is normal. IMPRESSION: Negative chest. The above report was generated using voice recognition software. It may contain grammatical, syntax or spelling errors. Electronically signed by: Aldo Henderson M.D. 08/19/2018 12:49 PM
--- NOTE | 2018-08-19 12:54 | XRay Report ---
XR hip LT 2-3V w pelvis HISTORY: 72 years-old Male fall acute left hip and thigh pain status post fall COMPARISON: None available TECHNIQUE: Single AP view of the pelvis with 2 views of the left hip FINDINGS: 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 No acute pelvic fracture identifie d. There is an acute obliquely oriented complete fracture of the proximal diaphyseal left femur which demonstrates 4.9 cm foreshortening, 3.9 cm lateral displacement, 13 degrees apex medial and 13 degre es apex volar angulation. 12 mm posterior displacement. Moderate associated soft tissue swelling of t he thigh. IMPRESSION: Acute displaced, foreshortened and angulated fracture of the proximal diaphyseal left fem ur with moderate associated soft tissue swelling. The above report was generated using voice recognition software. It may contain grammatical, syntax o r spelling errors. Electronically signed by: Jay Cavazos M.D. 08/19/2018 12:53 PM
[2018-08-19] MEDS ORDERED: D5W AND NSS 1,000 ML IV SCH (14:20)
[2018-08-19] MEDS ORDERED: PHARMACY GLYCEMIC MGMT CONSULT STA (14:20)
[2018-08-19 14:32] LABS: Appearance Urine Clear (Clear); Bacteria Urine Automated Negative (Negative); Blood Urine Trace (Negative); Color Urine Dark Yellow; Epithelial Cell Urine Auto 20-30 /lpf (0-5); Glucose Urine UA 1+ (Negative); Ketones Urine 1+ (Negative); Leukocyte Esterase Urine Negative (Negative); Nitrite Urine Negative (Negative); Protein Urine 1+ (Negative); Specific Gravity Urine 1.029 (1.000-1.030); Urobilinogen Urine Negative (Negative)
[2018-08-19 14:36] LABS: Bilirubin Urine Negative (Negative); Ictotest Urine Negative (Negative)
[2018-08-19] MEDS ORDERED: BUPIVACAINE 0.25% 30 ML VIAL ONE (15:01)
--- NOTE | 2018-08-19 15:07 | History & Physical Report ---
Date of Service August 19, 2018 Assessment & Plan (1) Fall: (2) Closed left hip fracture: This is a 72-year-old male who has a significant past medical history of cerebral palsy, peripheral arterial disease, history of tobacco abuse, T2 DM who presents to [facility] secondary to mechanical fall he suffered earlier this morning. In ED L hip/pelvis Xray noted Acute displaced, foreshortened and angulated fracture of the proximal diaphyseal left femur with moderate associated soft tissue swelling. Further work up revealed Acute Hypoxia, CXR negative for active disease, troponin WNL. Placed on supplemental O2 to maintain o2 saturation ECG revealed new t wave inversions anterolateral compared to prior tracing in 2017 -admit to med/surg telemetry for pre op clearance to likely undergo surgical intervention -consult orthopedics Dr. Lord -orthopedic order set -Stat CT for PE given hypoxia to r/o embolism -continue supplemental O2 -echocardiogram given new t wave inversions -consult cardiology for further assistance in cardiac clearance, especially given patient on plavix and statin -Diabetic Diet and NPO after midnight -500ml IVF 80 cc/hr x 1 bag given slight renal insufficiency and dry on examination -NPO after midnight so will place on IV D5 1/2ns while NPO -1g Rocephin q24hrs given cellulitis appearance to RLE (3) Acute respiratory failure with hypoxia: -plan as above, etiology unclear at this point but will need further work up prior to undergoing surgical fixation -CT for PE to r/o embolism -continue supplemental o2 -echocardiogram (4) Cellulitis of right lower extremity: -mild RLE cellulitis -1g rocephin daily -MRSA screen -consult wound nurse skin skin tear to RLE -monitor cbc (5) Renal insufficiency, mild: -no hx of CKD per records -baseline cr 0.9-1.0 -Cr today 1.20, mild pre renal -IVF NS 80cc/hr x 500ml -repeat lab in a.m. (6) T2DM (type 2 diabetes mellitus): -last A1C noted to be 9.2 10/02/17 -not on any oral hypoglycemics -check A1C in a.m. -place on Lantus/novolg per protocol -consult glycemic pharmacist for further assistance, appreciate their input (7) Peripheral vascular disease: - > 70% stenosis to SFA b/l -on plavix and statin -follows Dr Bowman, no need for surgical intervention at this time (8) Cerebral palsy: -supportive measures (9) DVT prophylaxis: -heparin 5,000 units SQ q8 hrs, will need to discontinue prior to surgery -avoid scds for now given PVD/PAD and concurrent RLE mild cellulitis Disposition: to be determined Follow up: PCP SOILA Sagastume Patient was seen and examined in collaboration with Dr. Bell, please see addendum Starting 08/20/18 patient will be under the care of Dr. Morrow History of Present Illness Chief Complaint: Mechanical Fall Primary Care Provider: Marivel Mayer This is a 72-year-old male who has a significant past medical history of cerebral palsy, peripheral arterial disease, history of tobacco abuse, T2 DM who presents to [facility] secondary to mechanical fall he smith ffered earlier this morning. Patient states he was going into bathroom, legs and feet got very heavy, "got into the wrong position and could not move feet." He states feet were sticking to floor and ended up falling on left lower extremity. Was unable to get up and caregiver was unable to assist him therefore EMS was summoned. He complained of immediate left lower extremity pain in the region of hip. He denies any current fever, chills, sweats, lightheadedness, dizziness, syncope or presyncope, chest pain, shortness of breath, hemoptysis, nausea, vomiting, diarrhea, change in bowel or bladder habits. Appetite has otherwise been stable. According to nursing staff on arrival patient was noted to be significantly hypoxic at 80% for about 20 minutes. They were able to improve him to 89% on room air but ultimately required O2 for oxygen supplementation. He was also noted to be covered in stool. Patient states he has no prior history of coronary artery disease, NH, CHF, PE, diabetes. Records indicate he does have diabetes as well as peripheral arterial disease specifically bilateral lower extremity SFA greater than 70%. He is currently on Plavix and statin. He states he has had numerous prior surgeries in the past specifically his bilateral lower extremities secondary to cerebral palsy. He recognizes approximately 7 surgeries to help improve function of lower extremities. He denies any prior cardiac or GI procedures. He lives alone at home but does have a caregiver that comes in to help him. He denies any current smoking or alcohol use but does elicit to prior tobacco use in the past. He follows with PCP SOILA Sagastume in [place]. Allergies Allergy/AdvReac Type Severity Reaction Status Date / Time No Known Allergies Allergy Unverified 08/19/18 12:25 Home Medications Home Medications Medication Instructions Recorded Confirmed Type atorvastatin 10 mg PO DAILY 08/19/18 08/19/18 History clopidogrel 75 mg PO DAILY 08/19/18 08/19/18 History Past Med/Surg History Medical History History of tobacco abuse (Chronic) Cerebral palsy (Chronic) T2DM (type 2 diabetes mellitus) (Chronic) Peripheral vascular disease (Chronic) b/l SFA > 70%, follows Dr. Bowman, not surgical candidate at this point Surgical History History of surgery on extremity (Chronic) history of multiple lower extremity surgerys due to Cerebral palsy Family History Other Family history non-contributory Social History Preferred Language: Portuguese Communication Ability: Effective Optical Glass Silverer Required: No Beliefs That Will Affect Care: None Current Living Situation: Alone Current Living Situation Comment: Lives at home alone but has size tester current occupational status: retired Other Information That Helps Us Care for You: No Feels Safe at Home: Yes Safety Concerns: Feels Safe At This Time Smoking Status: Former smoker Hx Alcohol Use: No Hx Substance Use: No Review of Systems All systems reviewed & are unremarkable except as noted in HPI & below Physical Exam Vital Signs (Past 24 Hours): Last Vital Signs Temp 36.6 C 08/19/18 11:35 Pulse 91 H 08/19/18 14:01 Resp 16 08/19/18 14:01 BP 142/77 H 08/19/18 14:01 Pulse Ox 93 08/19/18 14:01 Physical Exam: Gen: WD/WN, unkempt, M, NAD, lying flat in bed, pleasant, conversing easily Head: Normocephalic, Atraumatic Eyes: Sclera normal, no conjunctival injection, PERRLA, EOMI ENT: Gross hearing intact, normal pharynx, mucous membranes dry, poor dentition Neck: supple, no adenopathy, No JVD, no bruit, Resp: Clear to auscultation b/l, no wheeze, rales, rhonchi. Normal insp/exp effort, no accessory muscle use CV: Regular rate, regular rhythm, no murmur, rub, gallop, or ectopy Abd: +BS x 4, soft, nontender, nondistended Musculoskeletal: moves extremities active rom x 3, did not assess LLE given acute fracture, +leg length discrepancy with LLE inversion, good chief technician x ray strength Extremities: Trace RLE edema, b/l venous stasis changes, RLE lateral tibal skin tear with surrounding soft tissue erythema and warmth, palpable pedal pulses +1 and equal b/l. Skin: warm, moist, mild turgor, cap refill < 2sec Neuro: Alert and oriented x 3, speech normal, good mood/affect, cran nerve 2-12 intact grossly : deferred Results & Data Laboratory Results Short CBC 08/19/18 Range/Units 12:15 WBC 6.06 (4.8-10.8) K/uL Hgb 15.6 (14.0-18.0) g/dL Hct 45.4 (42-52) % Plt Count 162 (130-400) K/uL BMP 08/19/18 12:15 Sodium 139 Potassium 3.6 Chloride 108 H Carbon Dioxide 23 BUN 24 H Creatinine 1.20 Glucose 215 H Calcium 8.3 L Cardiac Enzymes 08/19/18 Range/Units 12:15 Troponin I < 0.015 (0-0.045) ng/ml Liver Function 08/19/18 Range/Units 12:15 Total Bilirubin 1.2 H (0.2-1) mg/dl Direct Bilirubin 0.3 H (0-0.2) mg/dl AST 17 (15-37) U/L ALT 20 (12-78) U/L Alkaline Phosphatase 123 H (45-117) U/L Albumin 3.5 (3.4-5.0) gm/dl Urine 08/19/18 Range/Units 14:20 Urine Color Dark Yellow Urine Appearance Clear (Clear) Urine pH 5.0 (4.5-7.5) Ur Specific [place] 1.029 (1.000-1.030) Urine Protein 1+ H (Negative) Urine Glucose (UA) 1+ H (Negative) Diagnostic Findings CXR: FINDINGS: The bones soft tissues and hemidiaphragms are normal. The cardiomediastinal silhouette is normal. The lungs are clear. The pulmonary vasculature is normal. IMPRESSION: Negative chest. Hip/Pelvis Xray: FINDINGS: 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 No acute pelvic fracture identified. There is an acute obliquely oriented complete fracture of the proximal diaphyseal left femur which demonstrates 4.9 cm foreshortening, 3.9 cm lateral displacement, 13 degrees apex medial and 13 degrees apex volar angulation. 12 mm posterior displacement. Moderate associated soft tissue swelling of the thigh. IMPRESSION: Acute displaced, foreshortened and angulated fracture of the proximal diaphyseal left femur with moderate associated soft tissue swelling. Medications Administered Morphine Sulfate (Morphine Sulfate) 4 mg IV Q15M PRN PRN Reason: Pain Stop: 09/02/18 11:31 Last Admin: 08/19/18 14:05 Dose: 4 mg Documented by: [id number] Admin: 08/19/18 12:19 Dose: 4 mg Documented by: [id number] Discontinued Medications Ondansetron HCl (Zofran) 4 mg IV NOW STA Stop: 08/19/18 11:33 Last Admin: 08/19/18 12:19 Dose: 4 mg Documented by: [id number] ECG Rate (beats per minute): 101 Rhythm: sinus tachycardia Findings: + nonspecific-ST abn Change: the following changes noted Additional Comments: Anterolateral t wave inversions Code Status & VTE Plan Code Status DNR VTE Prophylaxis Plan VTE Prophylaxis will be ordered: Yes Supervising Physician Co-Signing Physician Notes I have seen and examined the patient and have discussed the case with the provider above. I agree with the assessment and plan as stated. 72 yo M with fall at home and no LOC. Currently mentating well and denies recently illnesses, issues with chest pain or SOB despite the need for supplemental oxygen today. CT PE is negative for thromboembolism. Fat embolism less likely in the absence of acute respiratory failure but is possible. Atelectasis seen on CT imaging today, more likely related. Echo pending. ACS not present. Appreciate both Cardiology and Pulmonary recommendations pre-operatively. Pt reports only supplement use is Osteo BiFlex on occasion. No known CO exposure. No tachypnea or conversational dyspnea on exam. Lungs are CTAB with good air movement to the bases. Heart exan WNL. Abdomen soft and nontender. Agree with acute area consistent with cellulitis around a small wound on lateral lower right leg. Consult wound care and cont Rocephin empirically. DO Ray (1) T2DM (type 2 diabetes mellitus) Diabetes mellitus complication detail: with peripheral angiopathy without gangrene Diabetes mellitus complication status: with circulatory complication Diabetes mellitus alf insulin use: without alf use Qualified Code(s): E11.51 - Type 2 diabetes mellitus 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 (3) Fall Encounter type: initial encounter Qualified Code(s): W19.XXXA - Unspecified fall, initial encounter (4) Closed left hip fracture Encounter type: initial encounter Qualified Code(s): S72.002A - Fracture of unspecified part of neck of left femur, initial encounter for closed fracture
--- NOTE | 2018-08-19 15:42 | Cardiology Consultation ---
Date of Consultation August 19, 2018 Assessment & Plan (1) Closed left hip fracture: (2) Cerebral palsy: (3) T2DM (type 2 diabetes mellitus): (4) Cellulitis of right lower extremity: (5) Acute respiratory failure with hypoxia: The patient will have a work-up including CT of the chest to rule out pulmonary emboli. (6) Fall: (7) Renal insufficiency, mild: (8) Preop cardiovascular exam: By the Mike criteria this patient should be low risk for this surgery. He is hemodynamically stable. He has a cellulitis of the extremity that will be treated with antibiotics. CT of the chest will be performed to rule out a pulmonary emboli. He is not a current smoker. I will also review his echocardiogram when it is complete and have further recommendations. History of Present Illness History of Present Illness This is a 72-year-old male patient with a history of diabetes, peripheral vascular disease, and cerebral palsy. He sustained a mechanical fall today fracturing his hip. He has had no recent significant past medical history but on presentation to the emergency department he was noted to be hypoxic. According to our records through [facility], the hospital as well as the patient he has no prior history of heart disease. He denies chest pain or progressive shortness of breath. He has had no heart palpitations or tachycardia. Allergies Allergy/AdvReac Type Severity Reaction Status Date / Time No Known Allergies Allergy Unverified 08/19/18 12:25 Home Medications Home Medications Medication Instructions Recorded Confirmed Type atorvastatin 10 mg PO DAILY 08/19/18 08/19/18 History clopidogrel 75 mg PO DAILY 08/19/18 08/19/18 History Patient History Medical History History of tobacco abuse (Chronic) Cerebral palsy (Chronic) T2DM (type 2 diabetes mellitus) (Chronic) Peripheral vascular disease (Chronic) b/l SFA > 70%, follows Dr. 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 All other 10 point review of systems are negative. Physical Exam Vital Signs (Past 24 Hours): Last Vital Signs Temp 36.6 C 08/19/18 11:35 Pulse 94 H 08/19/18 15:01 Resp 16 08/19/18 15:01 BP 121/68 08/19/18 15:01 Pulse Ox 93 08/19/18 15:01 Physical Exam: General: no acute distress and stated age Head: normocephalic, no masses, lesions, tenderness or abnormalities Eyes: conjunctiva are pink and non-injected, sclera clear Neck: supple, no adenopathy, no bruits, normal jugular venous pulse, no hepatojugular reflux Chest: normal shape and normal respiratory effort Lungs: clear to auscultation and percussion Cardiac Exam: - regular rate & rhythm, no murmurs gallops or rubs - normal S1, normal S2 Pulses: 2(+) throughout Abdomen: abdomen soft, non-tender, no abnormal masses and no hepatosplenomegaly Musculoskeletal: no gait disturbance, no joint inflammation, no deforming arthr itis Extremities: Lower extremities are underdeveloped due to cerebral palsy Neuro: grossly normal exam Results & Data Laboratory Results Laboratory Results - last 24 hr 08/19/18 08/19/18 08/19/18 12:02 12:15 12:15 WBC 6.06 RBC 4.91 Hgb 15.6 Hct 45.4 MCV 92.5 MCH 31.8 MCHC 34.4 RDW Std Deviation 47.5 H RDW Coeff of Suraj 14.0 Plt Count 162 MPV 10.2 Immature Gran % (Auto) 0.2 Neut % (Auto) 87.8 Lymph % (Auto) 7.4 [place] % (Auto) 4.6 Eos % (Auto) 0.0 Baso % (Auto) 0.0 Immature Gran # (Auto) 0.01 Neut # (Auto) 5.32 Lymph # (Auto) 0.45 L [place] # (Auto) 0.28 Eos # (Auto) 0.00 Baso # (Auto) 0.00 PT 10.7 INR 1.0 APTT 26.9 PTT Ratio 1.0 Sodium Potassium Chloride Carbon Dioxide Anion Gap BUN Creatinine Est Cr Clr Drug Dosing Est GFR ( Amer) Est GFR (Non-Af Amer) BUN/Creatinine Ratio Glucose Calcium Total Bilirubin Direct Bilirubin AST ALT Alkaline Phosphatase Troponin I Total Protein Albumin Urine Color Urine Appearance Urine pH Ur Specific [place] Urine Protein Urine Glucose (UA) Urine Ketones Urine Blood Urine Nitrite Urine Bilirubin Urine Urobilinogen Ur Leukocyte Esterase Urine WBC (Auto) Urine RBC (Auto) U Hyaline Cast (Auto) U Epithel Cells (Auto) Urine Bacteria (Auto) Blood Type O Positive Antibody Screen NEGATIVE 08/19/18 08/19/18 12:15 14:20 WBC RBC Hgb Hct MCV MCH MCHC RDW Std Deviation RDW Coeff of Suraj Plt Count MPV Immature Gran % (Auto) Neut % (Auto) Lymph % (Auto) [place] % (Auto) Eos % (Auto) Baso % (Auto) Immature Gran # (Auto) Neut # (Auto) Lymph # (Auto) [place] # (Auto) Eos # (Auto) Baso # (Auto) PT INR APTT PTT Ratio Sodium 139 Potassium 3.6 Chloride 108 H Carbon Dioxide 23 Anion Gap 8.0 BUN 24 H Creatinine 1.20 Est Cr Clr Drug Dosing 59.9 Est GFR ( Amer) 69.1 Est GFR (Non-Af Amer) 59.6 BUN/Creatinine Ratio 20.1 H Glucose 215 H Calcium 8.3 L Total Bilirubin 1.2 H Direct Bilirubin 0.3 H AST 17 ALT 20 Alkaline Phosphatase 123 H Troponin I < 0.015 Total Protein 7.1 Albumin 3.5 Urine Color Dark Yellow Urine Appearance Clear Urine pH 5.0 Ur Specific [place] 1.029 Urine Protein 1+ H Urine Glucose (UA) 1+ H Urine Ketones 1+ H Urine Blood Trace H Urine Nitrite Negative Urine Bilirubin Negative Urine Urobilinogen Negative Ur Leukocyte Esterase Negative Urine WBC (Auto) 1-5 Urine RBC (Auto) 5-10 H U Hyaline Cast (Auto) 10-30 H U Epithel Cells (Auto) 20-30 H Urine Bacteria (Auto) Negative Blood Type Antibody Screen Medications Administered Current Inpatient Medications Morphine Sulfate (Morphine Sulfate) 4 mg IV Q15M PRN PRN Reason: Pain Stop: 09/02/18 11:31 Last Admin: 08/19/18 14:05 Dose: 4 mg Documented by: (1) T2DM (type 2 diabetes mellitus) Diabetes mellitus complication detail: with peripheral angiopathy without gangrene Diabetes mellitus complication status: with circulatory complication Diabetes mellitus half-way insulin use: without half-way use Qualified Code(s): E11.51 - Type 2 diabetes mellitus 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 (3) Fall Encounter type: initial encounter Qualified Code(s): W19.XXXA - Unspecified fall, initial encounter (4) Closed left hip fracture Encounter type: initial encounter Qualified Code(s): S72.002A - Fracture of unspecified part of neck of left femur, initial encounter for closed fracture
--- NOTE | 2018-08-19 15:53 | Orthopedic Consultation ---
Date of Consultation August 19, 2018 Assessment & Plan (1) Closed left subtrochanteric femur fracture: Patient is being admitted by [facility] service. They are currently doing a workup and no clearance has been given yet for surgery. Patient will require IM rodding of the femur fracture. He is currently on Plavix which has been held. Medicine service will continue heparin subq 3 times daily until nearing the time of surgery. Heparin will need to be discontinued 6-8 hours prior to procedure time. I will discussed the case with the on-call physician and plan for surgery accordingly in the near future. History of Present Illness Reason for Consultation: Left Subtrochanteric Femur Fracture History of Present Illness Patient is a 72-year-old white male who states that while using his restroom, he lost his footing and fell to the floor. Patient states that he does have a caregiver trying to help him. He apparently got into a bad position on the to ilet and as he tried to adjust his position and stand up he ended up going down onto his left side. He tried to get back up on his own but was unable to and could not get back up with the help of his caregiver. When trying to move the left lower extremity he did have discomfort and noticed that something was different. They called for an ambulance and he was brought to the emergency room. X-rays were taken and found that he had a subtrochanteric left femur fracture. He denies any loss of consciousness at the time and denies any shortness of breath or chest pain or lightheadedness prior to or after the fall. We have been asked to see him for this fracture. Allergies Allergy/AdvReac Type Severity Reaction Status Date / Time No Known Allergies Allergy Unverified 08/20/18 12:52 Home Medications Home Medications Medication Instructions Recorded Confirmed Type atorvastatin 10 mg PO DAILY 08/19/18 08/19/18 History clopidogrel 75 mg PO DAILY 08/19/18 08/19/18 History Patient History Medical History History of tobacco abuse (Chronic) Cerebral palsy (Chronic) T2DM (type 2 diabetes mellitus) (Chronic) Peripheral vascular disease (Chronic) b/l SFA > 70%, follows Dr. 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 No flu or cold-like symptoms. No increased cough or sputum production, no increased shortness of breath on exertion or at rest. No chest pain, chest pressure, irregular heartbeat. Denies hemoptysis. Denies abdominal pain, nausea, vomiting, diarrhea, melena. He states he is urinating normally at home and denies any hematuria ,pyuria, dysuria. History of cerebral palsy. Denies history of CVA, migraine headache. Physical Exam Vital Signs (Past 24 Hours): Last Vital Signs Temp 36.6 C 08/19/18 11:35 Pulse 94 H 08/19/18 15:01 Resp 16 08/19/18 15:01 BP 121/68 08/19/18 15:01 Pulse Ox 93 08/19/18 15:01 Physical Exam: Focusing exam of the left lower extremity, the left lower extremity is placed on a pillow that is positioned lengthwise under the extremity centered at the knee. This is the most comfortable position for the patient. He is able to move his left ankle somewhat without discomfort. Left knee range of motion is deferred due to femur fracture. He has no pain on palpation of the left knee and has multiple scars from previous surgeries. Scars are noted on the right knee as well. He states he has had multiple orthopedic surgeries on his legs due to his cerebral palsy. He has swelling in the mid to proximal thigh on the left lower extremity. He has mild pain on palpation. There is a mild deformity noted. He denies pain in the right lower extremity or the upper extremities at this time. Noted scars on the right knee from previous surgeries as well. He does have an area on the right lower extremity just proximal to the ankle that is erythematous. He has a small Band- Aid over the area that covers 2 small open wounds. No foul odor. Minuscule amount of drainage. Upper extremities are benign and are nontender at the shoulders elbows and wrists. He denies any neck pain on palpation and has decent range of motion at this time. Denies pain in the thoracic or low back area. Venous stasis changes noted on the lower extremities. Capillary refill is less than 2 seconds. Results & Data Laboratory Results 08/19/18 08/19/18 08/19/18 Range/Units 14:20 12:15 12:15 WBC (4.8-10.8) K/uL RBC (4.7-6.1) M/uL Hgb (14.0-18.0) g/dL Hct (42-52) % MCV (80-100) fL MCH (25-34) pg MCHC (32-36) g/dL RDW Std Deviation (36.4-46.3) fL RDW Coeff of Suraj (11.5-14.5) % Plt Count (130-400) K/uL MPV (7.4-10.4) fL Immature Gran % (Auto) % Neut % (Auto) % Lymph % (Auto) % [place] % (Auto) % Eos % (Auto) % Baso % (Auto) % Immature Gran # (Auto) (0.00-0.02) K/uL Neut # (Auto) (1.4-6.5) K/uL Lymph # (Auto) (1.2-3.4) K/uL [place] # (Auto) (0.11-0.59) K/uL Eos # (Auto) (0-0.5) K/uL Baso # (Auto) (0-0.2) K/uL PT 10.7 (9.0-12.0) Seconds INR 1.0 (0.9-1.1) APTT 26.9 (21.0-31.0) Seconds PTT Ratio 1.0 Sodium 139 (136-145) mmol/L Potassium 3.6 (3.5-5.1) mmol/L Chloride 108 H (98-107) mmol/L Carbon Dioxide 23 (21-32) mmol/L Anion Gap 8.0 (3-11) BUN 24 H (7-18) mg/dl Creatinine 1.20 (0.6-1.4) mg/dl Est Cr Clr Drug Dosing 59.9 ml/min Est GFR ( Amer) 69.1 Est GFR (Non-Af Amer) 59.6 BUN/Creatinine Ratio 20.1 H (10-20) Glucose 215 H (70-99) mg/dl Calcium 8.3 L (8.5-10.1) mg/dl Total Bilirubin 1.2 H (0.2-1) mg/dl Direct Bilirubin 0.3 H (0-0.2) mg/dl AST 17 (15-37) U/L ALT 20 (12-78) U/L Alkaline Phosphatase 123 H (45-117) U/L Troponin I < 0.015 (0-0.045) ng/ml Total Protein 7.1 (6.4-8.2) gm/dl Albumin 3.5 (3.4-5.0) gm/dl Urine Color Dark Yellow Urine Appearance Clear (Clear) Urine pH 5.0 (4.5-7.5) Ur Specific [place] 1.029 (1.000-1.030) Urine Protein 1+ H (Negative) Urine Glucose (UA) 1+ H (Negative) Urine Ketones 1+ H (Negative) Urine Blood Trace H (Negative) Urine Nitrite Negative (Negative) Urine Bilirubin Negative (Negative) Urine Urobilinogen Negative (Negative) Ur Leukocyte Esterase Negative (Negative) Urine WBC (Auto) 1-5 (0-5) /hpf Urine RBC (Auto) 5-10 H (0-4) /hpf U Hyaline Cast (Auto) 10-30 H (0-5) /lpf U Epithel Cells (Auto) 20-30 H (0-5) /lpf Urine Bacteria (Auto) Negative (Negative) Blood Type Antibody Screen 08/19/18 08/19/18 Range/Units 12:15 12:02 WBC 6.06 (4.8-10.8) K/uL RBC 4.91 (4.7-6.1) M/uL Hgb 15.6 (14.0-18.0) g/dL Hct 45.4 (42-52) % MCV 92.5 (80-100) fL MCH 31.8 (25-34) pg MCHC 34.4 (32-36) g/dL RDW Std Deviation 47.5 H (36.4-46.3) fL RDW Coeff of Suraj 14.0 (11.5-14.5) % Plt Count 162 (130-400) K/uL MPV 10.2 (7.4-10.4) fL Immature Gran % (Auto) 0.2 % Neut % (Auto) 87.8 % Lymph % (Auto) 7.4 % [place] % (Auto) 4.6 % Eos % (Auto) 0.0 % Baso % (Auto) 0.0 % Immature Gran # (Auto) 0.01 (0.00-0.02) K/uL Neut # (Auto) 5.32 (1.4-6.5) K/uL Lymph # (Auto) 0.45 L (1.2-3.4) K/uL [place] # (Auto) 0.28 (0.11-0.59) K/uL Eos # (Auto) 0.00 (0-0.5) K/uL Baso # (Auto) 0.00 (0-0.2) K/uL PT (9.0-12.0) Seconds INR (0.9-1.1) APTT (21.0-31.0) Seconds PTT Ratio Sodium (136-145) mmol/L Potassium (3.5-5.1) mmol/L Chloride (98-107) mmol/L Carbon Dioxide (21-32) mmol/L Anion Gap (3-11) BUN (7-18) mg/dl Creatinine (0.6-1.4) mg/dl Est Cr Clr Drug Dosing ml/min Est GFR ( Amer) Est GFR (Non-Af Amer) BUN/Creatinine Ratio (10-20) Glucose (70-99) mg/dl Calcium (8.5-10.1) mg/dl Total Bilirubin (0.2-1) mg/dl Direct Bilirubin (0-0.2) mg/dl AST (15-37) U/L ALT (12-78) U/L Alkaline Phosphatase (45-117) U/L Troponin I (0-0.045) ng/ml Total Protein (6.4-8.2) gm/dl Albumin (3.4-5.0) gm/dl Urine Color Urine Appearance (Clear) Urine pH (4.5-7.5) Ur Specific [place] (1.000-1.030) Urine Protein (Negative) Urine Glucose (UA) (Negative) Urine Ketones (Negative) Urine Blood (Negative) Urine Nitrite (Negative) Urine Bilirubin (Negative) Urine Urobilinogen (Negative) Ur Leukocyte Esterase (Negative) Urine WBC (Auto) (0-5) /hpf Urine RBC (Auto) (0-4) /hpf U Hyaline Cast (Auto) (0-5) /lpf U Epithel Cells (Auto) (0-5) /lpf Urine Bacteria (Auto) (Negative) Blood Type O Positive Antibody Screen NEGATIVE Diagnostic Findings [place], [place] [phone] XRay Report Patient: Christian CANELA Date: 08/19/18 MR#: [id number]: [address] Acct ID:[id number]: Date: [address] [place] [address] Zip: [place] [address] Age: 72Location: ED Sex: M Room/Bed: Att Phy: Diagnosis: fall/ L leg pain Mariama Phy: Marivel MayerService Date: 08/19/18 Fam Phy: Interpreting Phy: Erick Cavazos Admit Phy: Ordering Phy: Jluis Medrano DO cc: ~ XR hip LT 2-3V w pelvis HISTORY: 72 years-old Male fall acute left hip and thigh pain status post fall COMPARISON: None available TECHNIQUE: Single AP view of the pelvis with 2 views of the left hip FINDINGS: 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 No acute pelvic fracture identified. There is an acute obliquely oriented complete fracture of the proximal diaphyseal left femur which demonstrates 4.9 cm foreshortening, 3.9 cm lateral displacement, 13 degrees apex medial and 13 degrees apex volar angulation. 12 mm posterior displacement. Moderate associated soft tissue swelling of the thigh. IMPRESSION: Acute displaced, foreshortened and angulated fracture of the proximal diaphyseal left femur with moderate associated soft tissue swelling.
[2018-08-19] MEDS ORDERED: OPTIRAY 320 125ml IV PRN (16:44)
[2018-08-19] MEDS ORDERED: GLUCOSE 10 TABS/TUBE PO PRN (16:55)
[2018-08-19] MEDS ORDERED: ALUMINUM/MAGNESIUM SUSP 30 ML UDC PO PRN (16:55)
[2018-08-19] MEDS ORDERED: BISACODYL 10 MG SUPP PR PRN (16:55)
[2018-08-19] MEDS ORDERED: ACETAMINOPHEN 325 MG TAB PO PRN (16:55)
[2018-08-19] MEDS ORDERED: NALOXONE HCL 0.4 MG/1 ML VIAL/CARP IV PRN (16:55)
[2018-08-19] MEDS ORDERED: GLUCAGON FOR INJ 1 MG VIAL SQ PRN (16:55)
[2018-08-19] MEDS ORDERED: MAGNESIUM HYDROXIDE SUSP 30 ML UDC PO PRN ×2 (16:55)
[2018-08-19] MEDS ORDERED: CARBOHYDRATES FOR HYPOGLYCEMIA PO PRN (16:55)
[2018-08-19] MEDS ORDERED: ONDANSETRON INJ 2 MG/ML 2 ML VIAL IV PRN (16:55)
[2018-08-19] MEDS ORDERED: SOD PHOSPHATE/SOD BIPHOSPHATE ENEMA 132 ML BTL PR PRN (16:55)
[2018-08-19] MEDS ORDERED: POLYETHYLENE (MIRALAX) 17 GM PACK PO PRN (16:55)
[2018-08-19] MEDS ORDERED: GLUCOSE 40% GEL 15 GM TUBE PO PRN (16:55)
[2018-08-19] MEDS ORDERED: DEXTROSE 50% 50 ML SYRINGE IV PRN (16:55)
[2018-08-19] MEDS ORDERED: SODIUM CHLORIDE 0.9% 500 ML IV SCH (16:55)
--- NOTE | 2018-08-19 17:03 | CT Scan Report ---
CHEST CTA for PULMONARY ARTERIES CT DOSE: 439.70 mGy.cm HISTORY: Short of breath. TECHNIQUE: Multiaxial CT images of the chest were performed following the intravenous administration of contrast to evaluate the pulmonary arteries. Maximal intensity projection images were also obtaine d. A dose lowering technique was utilized adhering to the principles of ALARA. COMPARISON STUDY: None. FINDINGS: Normal caliber thoracic aorta with no evidence for dissection. Respiratory motion artifact results in suboptimal evaluation of the segmental and subsegmental pulmonary arteries. However, no de finite filling defects within the pulmonary arteries to suggest pulmonary embolus. No mediastinal or hilar lymphadenopathy. The heart is normal in size. A 2.1 cm hypodense lesion within the liver favors a cyst. Spleen is unremarkable. Large hiatus hernia containing the majority of the stomach and the p ancreatic tail. No suspicious lytic or blastic osseous lesions. The central airways appear patent. No pneumothorax. Patchy and linear densities within the lungs posteriorly favor atelectasis. Otherwise, no focal lung consolidations to suggest pneumonia. IMPRESSION: 1. No definite evidence for pulmonary embolus with limitations as described above. 2. Large hiatus hernia. 3. Patchy and linear densities within the lung bases posteriorly favor atelectasis. Electronically signed by: Ted Locke M.D. 08/19/2018 5:02 PM
[2018-08-19] MEDS ORDERED: PHARMACY GLYCEMIC MGMT CONSULT PRN (17:23)
[2018-08-19] MEDS: cefTRIAXone SODIUM 1,000 MG in DEXTROSE 5% 50 ML IV SCH (18:03)
[2018-08-19] MEDS: INSULIN ASPART 100 UNITS/ML 3 ML PEN SC SCH ×2 (18:28→21:09)
[2018-08-19] MEDS: MoRPHine SULFATE 2 MG/ML CARP IV PRN (18:29)
--- NOTE | 2018-08-19 18:47 | Pharmacy Report ---
PHA: Glycemic Control AP - Date of Service August 19, 2018 - Assessment & Plan Pharmacy glycemic service consulted to manage a type 2 diabetic not on any antidiabetes meds at home. Ordered: * Basal insulin: Lantus 10 units every 12 hours * Correctional Insulin: Novolog Correction per scale ACHS Goal Range: Low 120 mg/dL - High 160 mg/dL Correction Factor: 30 mg/dL/unit * Prandial insulin: Per carb ratio of 1 unit per 10 grams CHO consumed Pharmacy will continue to monitor patient daily and write orders per [facility] inpatient glycemic control protocol. Thanks. * Please note that the plan above was derived based on current level of insulin resistance and hospital stress. These recommendations are appropriate for inpatient admission only. Plan of care upon discharge will need to be reassessed to avoid potential outpatient hypo/hyperglycemia.
--- NOTE | 2018-08-19 18:50 | Anesthesiology Consultation ---
Date of Service August 19, 2018 Assessment & Plan (1) Encounter for pre-operative examination: Chart Review Chart Review: Pending: Refer to Additional Notes / Consult section (Patient is pending clearance from medicine/cardiology, echo results pending) History Surgery Operation Date: 08/20/18 08:20 Proposed Procedures p Left Troch Nail - Robbie Lord DO Height/Weight Height: 5 ft 9 in Weight: 87 kg Allergies Allergy/AdvReac Type Severity Reaction Status Date / Time No Known Allergies Allergy Unverified 08/19/18 12:25 Medications Home Medications Medication Instructions Recorded Confirmed Last Taken atorvastatin 10 mg PO DAILY 08/19/18 08/19/18 Unknown clopidogrel 75 mg PO DAILY 08/19/18 08/19/18 Unknown Active Medications Generic Name Dose Route Start Last Admin Trade Name Freq PRN Reason Stop Dose Admin Ceftriaxone Sodium 1,000 mg/ 60 mls @ 100 mls/hr 08/19/18 18:00 08/19/18 18:03 Dextrose IV 08/24/18 17:59 100 mls/hr DAILY@1800 KEVIN Administration Sodium Chloride 500 mls @ 80 mls/hr 08/19/18 16:55 08/19/18 17:53 Nss IV 08/19/18 23:09 80 mls/hr .[id number] KEVIN Administration Insulin Aspart 0 units 08/19/18 17:30 08/19/18 18:28 Novolog Flexpen SC 09/18/18 17:29 3 units ACHS KEVIN Administration Ioversol 100 ml 08/19/18 16:44 08/19/18 16:44 Optiray 320 125ml IV 08/23/18 16:43 100 ml ONCE PRN Administration Interaction Checking Morphine Sulfate 2 mg 08/19/18 16:55 08/19/18 18:29 Morphine Sulfate IV 09/02/18 16:54 2 mg Q2H PRN Administration moderate pain (scale 4-6) Past Medical History Medical History History of tobacco abuse (Chronic) Cerebral palsy (Chronic) T2DM (type 2 diabetes mellitus) (Chronic) Peripheral vascular disease (Chronic) b/l SFA > 70%, follows Dr. Bowman, not surgical candidate at this point Past Family History Family History Other Family history non-contributory Past Surgical History Surgical History History of surgery on extremity (Chronic) history of multiple lower extremity surgerys due to Cerebral palsy Social History Smoking Status: Former smoker tobacco type: cigarettes Do You Dip or Chew Tobacco: No Hx Alcohol Use: No Hx Substance Use: No Exercise / Class Metabolic Activity III < 4 Walking/Shop/Light housework (With crutches) Physical Exam Vital Signs Last Vital Signs Temp 98.8 F 08/19/18 16:59 Pulse 87 08/19/18 17:58 Resp 20 08/19/18 16:59 BP 159/81 H 08/19/18 16:59 Pulse Ox 94 08/19/18 16:59 ENMT Mouth: no dentition abnormality Thyromental Distance: > or= 3.5 Finger Breadths Mallampati Class: I Respiratory normal respiratory effort Auscultation: lungs clear to auscultation bilaterally Cardiovascular Rate/Rhythm: regular rate and regular rhythm Testing Electrocardiogram Date: 08/19/18 Sinus tachycardia, rate 101 bpm Nonspecific T wave abnormality When compared with ECG of 04-APR-2017 15:17, Nonspecific T wave abnormality now evident in Anterolateral leads Other Testing Chest CTA 08/19/18 IMPRESSION: 1. No definite evidence for pulmonary embolus with limitations as described above. 2. Large hiatus hernia. 3. Patchy and linear densities within the lung bases posteriorly favor atelectasis. Laboratory Results 08/19/18 12:15 08/19/18 12:15 Blood Type O Positive 08/19/18 12:02 Antibody Screen NEGATIVE 08/19/18 12:02 PT 10.7 Seconds (9.0-12.0) 08/19/18 12:15 INR 1.0 (0.9-1.1) 08/19/18 12:15 APTT 26.9 Seconds (21.0-31.0) 08/19/18 12:15 Urine Color Dark Yellow 08/19/18 14:20 Urine Appearance Clear (Clear) 08/19/18 14:20 Urine pH 5.0 (4.5-7.5) 08/19/18 14:20 Ur Specific [place] 1.029 (1.000-1.030) 08/19/18 14:20 Urine Protein 1+ (Negative) H 08/19/18 14:20 Urine Glucose (UA) 1+ (Negative) H 08/19/18 14:20 Urine Ketones 1+ (Negative) H 08/19/18 14:20 Urine Nitrite Negative (Negative) 08/19/18 14:20 Ur Leukocyte Esterase Negative (Negative) 08/19/18 14:20 Urine WBC (Auto) 1-5 /hpf (0-5) 08/19/18 14:20 Urine RBC (Auto) 5-10 /hpf (0-4) H 08/19/18 14:20 U Hyaline Cast (Auto) 10-30 /lpf (0-5) H 08/19/18 14:20 U Epithel Cells (Auto) 20-30 /lpf (0-5) H 08/19/18 14:20 Urine Bacteria (Auto) Negative (Negative) 08/19/18 14:20 08/19/18 16:58 POC Glucose 165 H
[2018-08-19] MEDS: DOCUSATE SODIUM/SENNA 50/8.6MG TAB PO SCH (19:57)
[2018-08-19] MEDS ORDERED: INSULIN GLARGINE SOLOSTAR 100 UNITS/ML 3 ML PEN SC SCH (21:00)
[2018-08-19] MEDS: HEPARIN SOD 5,000 UNIT/0.5 ML VIAL SQ SCH ×2 (21:11→23:58)
[2018-08-19] MEDS: D5W AND NSS 1,000 ML IV SCH (23:27)
--- NOTE | 2018-08-20 01:49 | Consultation Report ---
DATE OF CONSULTATION: 08/19/2018 REPORT OF CONSULTATION: The patient was seen in room 288, bed #2. He is a 72-year-old male who is being seen because of hypoxia. The patient lives alone, but he has a caregiver. Early this morning, he apparently suffered a fall and fractured his left femur. The patient tells me that he did not actually fall, but that he could get his feet straightened out. He was in the bathroom and trying to get turned around. Apparently, he had had some diarrhea overnight time. He states his caregiver was not strong enough to help support him up. He would say that he sat down, but he must have fallen in order to create the fracture. The patient admits to having some shortness of breath when it first happened, but he states that he thought it was normal to be short of breath at that time. He states the shortness of breath lasted very transiently. Ultimately, 911 was called and he was transported to the Emergency Room. Reportedly, his oxygen saturations initially were 80% on room air. It was unknown if this was in the Emergency Room or perhaps during transport. He has been on some low-flow oxygen since that time. The patient denies any shortness of breath at present. He denies any cough or sputum production and he states he does not usually cough. He denies any chest pains, chills, fevers or sweats. I am not entirely certain that he is a good historian. The patient denies as noted ever having had asthma, emphysema, pneumonia, pleurisy or COPD. He is a former smoker. He smoked from age 15 until age 63, approximately 1 pack per day. This would be 48-pack years. He did quit smoking 9 years ago. He states he does not drink alcohol. 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 PAST SURGICAL HISTORY: He had a total of 7 surgeries on his lower extremities secondary to cerebral palsy. He denies other surgeries. PAST MEDICAL HISTORY: 1. Cerebral palsy. 2. Type 2 diabetes -- this was noted in his chart, although patient denies diabetes. 3. Peripheral vascular disease. FAMILY HISTORY: Both parents at an older age from Alzheimer disease. Mother was 79. The patient did not know all that much about his father. REVIEW OF SYSTEMS: The patient denies any loss of consciousness. He denies headache or dizziness. Denies difficulty swallowing. Denies heartburn. This is despite the fact he has a huge hiatal hernia, found on CAT scan. He admits to having some loose stools last evening. Denies any weight loss. He does have difficulty ambulating. He states he uses crutches. Denies difficulty urinating, though he currently has a Harrington catheter in place. Remainder of review of systems is negative. Ten systems reviewed. MEDICATIONS: As an outpatient, 1. Atorvastatin 10 mg daily. 2. Clopidogrel 75 mg daily. PHYSICAL EXAMINATION: GENERAL: The patient is a 72-year-old male who was cooperative, alert and oriented. He did not appear in distress. Weight is listed at 87 kg with a BMI of 28.3. HEENT: There was disconjugate gaze. I could not tell with certainty if the patient could see with both eyes. He states he can, but he has strabismus. It seemed to me that he likely had difficulty with the right eye. Mouth exam shows a large tongue. Pharynx was a Mallampati grade 3. The patient has no idea if he snores. NECK: Palpation of the neck reveals no lymph nodes. HEART: Cardiac rate was 73 per minute. Rhythm was regular. Blood pressure 148/87. Temperature was 36.5. Lung gonzales were clear bilaterally. Breath sounds were well heard. Saturation was 96% on 2 L nasal cannula at the time of my exam. ABDOMEN: Seems mildly distended. Bowel sounds were present. There was mild tympany to percussion. No masses palpable. EXTREMITIES: The patient has some erythema in the right lower extremity, which apparently is a cellulitis. The pulses seem diminished. His fingers were cool to touch, especially on the left. There were scars in the lower extremities from prior surgeries. LABORATORY DATA: Chest x-ray was clear. CT angio of the chest showed no evidence of pulmonary embolism. There was a very large hiatal hernia with the majority of the stomach and the pancreatic tail in the chest area. There was increased opacities at the lung bases that would appear to be due to atelectasis. White count was 6.06, hemoglobin 15.6, platelets 162,000. Coags were normal. Electrolytes show sodium 139, potassium 3.6, chloride 108, bicarbonate 23. BUN 24 with a creatinine of 1.2. Glucose was elevated at 215. Bilirubin was slightly elevated at 1.2. Alkaline phosphatase slightly elevated at 123 with normal AST and ALT. Troponins were negative. Urinalysis showed +1 protein, +1 glucose, +1 ketones, 5-10 rbc's and 10-30 hyalin casts. EKG showed a sinus rhythm at 100. Nonspecific T-wave changes were seen especially in the anterolateral leads. IMPRESSION: 1. Left hip fracture. 2. Hypoxia. 3. Atelectasis both lung bases. 4. Hiatal hernia -- large. 5. Probable chronic obstructive pulmonary disease -- suggested by subtle changes on CAT scan. RECOMMENDATIONS: The patient would be cleared for surgery from a pulmonary perspective. He has good oxygenation with minimal supplemental oxygen. Lungs are clear. CAT scan shows mild atelectasis. He should have incentive spirometry pre and post op. The timing of the procedure will be deferred to ortho. It is notable the patient had been on clopidogrel. If the patient would have any postoperative hypoxia, more aggressive pulmonary toilet would be indicated. Aspiration precautions are advised in light of the very large hiatal hernia. As of now, however, he seems very stable. Thank you for asking me to assist in his care. VINCENZO
[2018-08-20] MEDS ORDERED: CEFAZOLIN 2000MG 2,000 MG/15 ML SYR IV SCH (06:00)
[2018-08-20 06:10] LABS: Basophils # (auto) 0.01 K/uL (0-0.2); Basophils % (auto) 0.2 %; Eosinophils # (auto) 0.01 K/uL (0-0.5); Eosinophils % (auto) 0.2 %; Hematocrit (blood only) 39.3 % (42-52); Hemoglobin 13.4 g/dL (14.0-18.0); Immature Granulocytes # (auto) 0.01 K/uL (0.00-0.02); Immature Granulocytes % (auto) 0.2 %; Lymphocytes # (auto) 0.78 K/uL (1.2-3.4); Lymphocytes % (auto) 13.8 %; Mean Corpuscular Hgb Conc 34.1 g/dL (32-36); Mean Corpuscular Volume 90.8 fL (80-100); Monocytes # (auto) 0.81 K/uL (0.11-0.59); Monocytes % (auto) 14.3 %; Neutrophils # (auto) 4.04 K/uL (1.4-6.5); Neutrophils % (auto) 71.3 %; Platelet Count 144 K/uL (130-400); RDW Coefficient of Variation 14.4 % (11.5-14.5); RDW Standard Deviation 48.1 fL (36.4-46.3); Red Blood Count 4.33 M/uL (4.7-6.1); White Blood Count 5.66 K/uL (4.8-10.8)
[2018-08-20 06:42] LABS: Estimated Average Glucose 137 mg/dl; Hemoglobin A1C 6.4 % (4.5-5.6)
[2018-08-20 06:46] LABS: BUN Creatinine Ratio 25.1 (10-20); Calcium 7.9 mg/dl (8.5-10.1); Est GFR (African American) 96.6; Est GFR (Non-African American) 83.3; Potassium 3.6 mmol/L (3.5-5.1)
[2018-08-20] MEDS: INSULIN ASPART 100 UNITS/ML 3 ML PEN SC SCH ×5 (07:53→21:15)
[2018-08-20] MEDS: MoRPHine SULFATE 2 MG/ML CARP IV PRN ×3 (08:02→23:32)
--- NOTE | 2018-08-20 08:30 | XRay Report ---
XR femur LT 2V routine CLINICAL HISTORY: Fracture fracture COMPARISON: The 2018 DISCUSSION: Increase in overlap and fracture distraction compared to the prior study. Angulation has also increased to 22 degrees. IMPRESSION: Moderate increase in overlap and fracture distraction. The fracture of the proximal femor al shaft is again noted. Angulation has increased to 22 degrees. The above report was generated using voice recognition software. It may contain grammatical, syntax or spelling errors. Electronically signed by: Aldo Henderson M.D. 08/20/2018 8:29 AM
[2018-08-20] MEDS ORDERED: INSULIN GLARGINE SOLOSTAR 100 UNITS/ML 3 ML PEN SC SCH (09:00)
--- NOTE | 2018-08-20 09:36 | Pharmacy Report ---
Pharmacy Glycemic Short Note 2 - Date of Service August 20, 2018 - Glycemic Short BSG Results (Last 24 hours): 08/19/18 08/19/18 08/19/18 12:15 16:58 20:10 Glucose 215 H POC Glucose 165 H 147 H 08/20/18 08/20/18 08/20/18 01:56 05:55 07:38 Glucose 137 H POC Glucose 136 H 124 H OUTPATIENT ANTIDIABETIC REGIMEN: * n/a * A1c 6.4% (08/20/18) ASSESSMENT: * 72 yr old T2DM male admitted with left hip fracture. He is not on any antidiabetic agents as an outpatient. * Patient is NPO for upcoming surgery. He is currently on D5NS @ 80 ml/hr. * He was given a dose of Lantus 10 units last evening and started on Novolog per CF/CR. * I will decrease Lantus dose by 50% this AM due to NPO status. PLAN FOR INPATIENT GLYCEMIC CONTROL: * Basal insulin * Lantus 5 units SQ this am, then per scale BID: * 0 units for BSG < 120 * 5 units for BSG 120-180 * 10 units for BSG > 180 * Bolus insulin * NovoLog per scale ACHS or Q6hrs while NPO * Goal Range: Low 120 mg/dL - High 160 mg/dL * Correction Factor: 30 mg/dL/unit * Nutritional / Prandial insulin per carb ratio of 1 unit per 10 grams CHO consumed Patient may go to the OR this afternoon for hip fracture repair -> if given intra-operative steroids, doses will require adjustment: * recommend changing Novolog CF/CR to 20/7 * Lantus 17 units SQ x [address] of above scale PLAN FOR DISCHARGE: * A1c meets diagnosis of pre-diabetes * Consider lifestyle/dietary modification and the addition of metformin 500 mg ER daily with dinner
[2018-08-20] MEDS: D5W AND NSS 1,000 ML IV SCH (11:38)
--- NOTE | 2018-08-20 11:49 | Orthopedic Progress Note ---
Date of Service August 20, 2018 Assessment & Plan (1) Closed left subtrochanteric femur fracture: Cleared by Med service/Pulm/Cards for surgery. Plan for Trochanteric nail for L femur fx today. I personally saw the patient, I have indicated them for left long cephalo- medullary nail, open versus closed for left displaced sub-trochanteric femur fracture. The risk benefits and comp occasions the procedure were explained to the patient detail which include however not limited to infections, blood clots, acute blood loss, injury to surrounding nerves, bone, vessels, soft tissue, arthrofibrosis, chronic pain, failure of the implants, malunion, nonunion, need for additional surgery, cardiac and pulmonary events and . The patient wished to proceed with surgical intervention at this time and informed consent was obtained. Subjective Lying in bed, awake, alert. Having some muscle spasms off and on. Otherwise, pain is controlled. No new complaints. Physical Exam Vital Signs (Past 24 Hours): Last Vital Signs Temp 36.8 C 08/20/18 07:53 Pulse 76 08/20/18 07:53 Resp 18 08/20/18 07:53 BP 121/72 08/20/18 07:53 Pulse Ox 91 08/20/18 07:53 Physical Exam: [place] txn in place. Erythema lessened on the RLE. L thigh with swelling but soft. Calves soft,NT. Toes mobile. Patient has limited range of motion active and passive to left lower extremity, ankle and toes secondary to history of cerebral palsy. Sensory intact grossly. Compartment soft nontender. Constitutional: WD/WN, vitals as above
[2018-08-20] MEDS ORDERED: fentaNYL citrate 100 MCG/2 ML VIAL ONE ×2 (11:56→14:59)
--- NOTE | 2018-08-20 12:07 | Hospitalist Progress Note ---
Date of Service August 20, 2018 Assessment & Plan (1) Fall: (2) Closed left hip fracture: This is a 72-year-old male who has a significant past medical history of cerebral palsy, peripheral arterial disease, history of tobacco abuse, T2 DM who presents to [facility] secondary to mechanical fall he suffered earlier this morning. -Complaints of some pain in the left hip -Appreciate Ortho input and recommendation. He will be taken to or this morning -Appreciate cardiology input and recommendation -NPO after midnight so will place on IV D5 1/2ns while NPO -1g Rocephin q24hrs given cellulitis appearance to RLE -No contraindication for proposed surgery (3) Acute respiratory failure with hypoxia: -plan as above, etiology unclear at this point but will need further work up prior to undergoing surgical fixation -No evidence of pulmonary embolism -continue supplemental o2 -echocardiogram ; mild concentric left medical hypertrophy, EF is 65-70%, right ventricular systolic function is normal, no significant valvular pathology -Denies any cardiac symptoms (4) Cellulitis of right lower extremity: -mild RLE cellulitis -1g rocephin daily -MRSA screen -consult wound nurse skin skin tear to RLE (5) Renal insufficiency, mild: -no hx of CKD per records -baseline cr 0.9-1.0 -Cr today 1.20, mild pre renal -IVF NS 80cc/hr x 500ml -Renal function is normal (6) T2DM (type 2 diabetes mellitus): -last A1C noted to be 9.2 10/02/17 -not on any oral hypoglycemics -check A1C in a.m.-6.4 on 08/20 -place on Lantus/novolg per protocol -consult glycemic pharmacist for further assistance, appreciate their input (7) Peripheral vascular disease: - > 70% stenosis to SFA b/l -on plavix and statin -follows Dr Bowman, no need for surgical intervention at this time (8) Cerebral palsy: -supportive measures (9) DVT prophylaxis: -heparin 5,000 units SQ q8 hrs, will need to discontinue prior to surgery -avoid scds for now given PVD/PAD and concurrent RLE mild cellulitis Disposition: to be determined Follow up: PCP SOILA Sagastume Subjective 08/20 The patient was seen and examined the medical telemetry unit This is a 72-year-old male who has a significant past medical history of cerebral palsy, peripheral arterial disease, history of tobacco abuse, T2 DM who presents to [facility] secondary to mechanical fall he suffered earlier this morning Denies any symptoms of chest pain, palpitation or shortness of breath He complains today of some pain in the left leg at the fracture site Physical Exam Vital Signs (Past 24 Hours): Last Vital Signs Temp 36.8 C 08/20/18 07:53 Pulse 76 08/20/18 07:53 Resp 18 08/20/18 07:53 BP 121/72 08/20/18 07:53 Pulse Ox 91 08/20/18 07:53 Physical Exam: No apparent distress at rest and lying in bed comfortably Constitutional: WD/WN, vitals as above Eyes: PERRL, conjunctivae normal, anicteric sclerae ENMT: external ear and nose normal, oropharynx normal Mouth: no dentition abnormality Mallampati Class: I Respiratory: normal respiratory effort Auscultation: lungs clear to auscultation bilaterally Cardiovascular: Rate/Rhythm: regular rate and regular rhythm Gastrointestinal (Abdomen): Inspection/Auscultation: abdomen normal to inspection and normal bowel sounds Neurologic: Alert awake and oriented. No focal neuro deficit Results & Data Laboratory Results Short CBC 08/19/18 08/20/18 Range/Units 12:15 05:55 WBC 6.06 5.66 (4.8-10.8) K/uL Hgb 15.6 13.4 L (14.0-18.0) g/dL Hct 45.4 39.3 L (42-52) % Plt Count 162 144 (130-400) K/uL BMP 08/19/18 08/20/18 12:15 05:55 Sodium 139 136 Potassium 3.6 3.6 Chloride 108 H 107 Carbon Dioxide 23 23 BUN 24 H 23 H Creatinine 1.20 0.91 Glucose 215 H 137 H Calcium 8.3 L 7.9 L Cardiac Enzymes 08/19/18 Range/Units 12:15 Troponin I < 0.015 (0-0.045) ng/ml Liver Function 08/19/18 Range/Units 12:15 Total Bilirubin 1.2 H (0.2-1) mg/dl Direct Bilirubin 0.3 H (0-0.2) mg/dl AST 17 (15-37) U/L ALT 20 (12-78) U/L Alkaline Phosphatase 123 H (45-117) U/L Albumin 3.5 (3.4-5.0) gm/dl Urine 08/19/18 Range/Units 14:20 Urine Color Dark Yellow Urine Appearance Clear (Clear) Urine pH 5.0 (4.5-7.5) Ur Specific [place] 1.029 (1.000-1.030) Urine Protein 1+ H (Negative) Urine Glucose (UA) 1+ H (Negative) Medications Administered Current Inpatient Medications Acetaminophen (Tylenol) 650 mg PO Q4H PRN PRN Reason: Pain or Fever Stop: 09/18/18 16:54 Al Hydrox/Mg Hydrox/Simethicone (Maalox) 15 ml PO Q4H PRN PRN Reason: Dyspepsia Stop: 09/18/18 16:54 Bisacodyl (Dulcolax) 10 mg DC DAILY PRN PRN Reason: Constipation Stop: 09/18/18 16:54 Dextrose (Dextrose 50%) 25 - 50 ml IV UD PRN; Protocol PRN Reason: Hypoglycemia Protocol Stop: 09/18/18 16:54 Glucagon (Glucagen) 1 mg SQ UD PRN; Protocol PRN Reason: Hypoglycemia Protocol Stop: 09/18/18 16:54 Glucose (Glucose 40%) 15 - 30 gm PO UD PRN; Protocol PRN Reason: Hypoglycemia Protocol Stop: 09/18/18 16:54 Glucose (Dex4 Glucose) 4 - 8 tabs PO UD PRN; Protocol PRN Reason: Hypoglycemia Protocol Stop: 09/18/18 16:54 Heparin Sodium (Porcine) (Heparin Sodium (Porcine)) 5,000 units SQ Q8 KEVIN Stop: 09/18/18 21:59 Last Admin: 08/19/18 23:58 Dose: Not Given Documented by: Cefazolin Sodium (Ancef 2000mg) 2,000 mg in 15 mls @ 3.75 mls/min IV PREOP KEVIN; Protocol Stop: 08/21/18 05:59 Dextrose/Sodium Chloride (D5w And Nss) 1,000 mls @ 80 mls/hr IV .[id number] KEVIN Stop: 09/19/18 00:00 Last Admin: 08/20/18 11:38 Dose: 80 mls/hr Documented by: Ceftriaxone Sodium 1,000 mg/ (Dextrose) 60 mls @ 100 mls/hr IV DAILY@1800 [facility] Stop: 08/24/18 17:59 Last Infusion: 08/19/18 18:39 Dose: Infused Documented by: Insulin Aspart (Novolog Flexpen) 0 units SC Q6 KEVIN Stop: 09/19/18 07:29 Last Admin: 08/20/18 07:53 Dose: Not Given Documented by: Insulin Glargine (Lantus Solostar Pen) 10 units SC Q12 KEVIN Stop: 09/18/18 20:59 Last Admin: 08/19/18 21:10 Dose: 10 units Documented by: Ioversol (Optiray 320 125ml) 100 ml IV ONCE PRN PRN Reason: Interaction Checking Stop: 08/23/18 16:43 Last Admin: 08/19/18 16:44 Dose: 100 ml Documented by: Magnesium Hydroxide (Milk Of Magnesia) 30 ml PO Q12H PRN PRN Reason: Constipation Stop: 09/18/18 16:54 Miscellaneous (Carbohydrates For Hypoglycemia) 15 - 30 gm PO UD PRN PRN Reason: Hypoglycemia Treatment Stop: 09/18/18 16:54 Miscellaneous Information (Consult Glycemic Management Pharmacy) 1 ea N/A UD PRN; Protocol PRN Reason: Consult Stop: 09/18/18 17:22 Morphine Sulfate (Morphine Sulfate) 2 mg IV Q2H PRN PRN Reason: moderate pain (scale 4-6) Stop: 09/02/18 16:54 Last Admin: 08/20/18 08:02 Dose: 2 mg Documented by: Naloxone HCl (Narcan) 0.1 mg IV UD PRN PRN Reason: opiate overdose Stop: 09/18/18 16:54 Ondansetron HCl (Zofran) 4 mg IV Q6H PRN PRN Reason: Nausea Stop: 09/18/18 16:54 Polyethylene Glycol (Miralax Powder Packet) 17 gm PO DAILY PRN PRN Reason: Constipation Stop: 09/18/18 16:54 Senna/Docusate Sodium (Senokot S) 2 tab PO HS [facility] Stop: 09/18/18 20:59 Last Admin: 08/19/18 19:57 Dose: Not Given Documented by: Sodium Biphosphate/Sodium Phosphate (Fleet Enema) 132 ml DC DAILY PRN PRN Reason: Constipation Stop: 09/18/18 16:54 (1) Fall Encounter type: initial encounter Qualified Code(s): W19.XXXA - Unspecified fall, initial encounter (2) Closed left hip fracture Encounter type: initial encounter Qualified Code(s): S72.002A - Fracture of unspecified part of neck of left femur, initial encounter for closed fracture (3) T2DM (type 2 diabetes mellitus) Diabetes mellitus penitentiary insulin use: without penitentiary use Diabetes mellitus complication status: with circulatory complication Diabetes mellitus complication detail: with peripheral angiopathy without gangrene Qualified Code(s): E11.51 - Type 2 diabetes mellitus with diabetic peripheral angiopathy without gangrene (4) Cerebral palsy Cerebral palsy type: other type Qualified Code(s): G80.8 - Other cerebral palsy
[2018-08-20] MEDS ORDERED: fentaNYL citrate 100 MCG/2 ML VIAL IV PRN (12:48)
[2018-08-20] MEDS ORDERED: ALBUT/IPRATROP 3MG/0.5MG NEB 3 ML VIAL NEB STA (12:48)
[2018-08-20] MEDS ORDERED: ONDANSETRON INJ 2 MG/ML 2 ML VIAL IV PRN ×2 (12:48→13:04)
[2018-08-20] MEDS ORDERED: ATROPINE SULFATE 0.1 MG/ML 10ML SYR IV PRN ×2 (12:48→13:04)
[2018-08-20] MEDS ORDERED: ePHEDrine sulfate 50 MG/ML AMP IV PRN ×2 (12:48→13:04)
[2018-08-20] MEDS ORDERED: LACTATED RINGER'S 1,000 ML IV SCH (13:15)
--- NOTE | 2018-08-20 13:52 | History & Physical Bridge Note ---
Date of Service August 20, 2018 History & Physical Bridge Note I have examined the patient, reviewed the History & Physical and in the interval since the performance of the History & Physical I have noted the following changes of clinical significance: no changes noted
[2018-08-20] MEDS: HEPARIN SOD 5,000 UNIT/0.5 ML VIAL SQ SCH (14:31)
[2018-08-20] MEDS ORDERED: ONDANSETRON INJ 2 MG/ML 2 ML VIAL ONE (14:46)
[2018-08-20] MEDS ORDERED: DEXAMETHASONE SOD INJ 4 MG/ML VIAL ONE (14:46)
[2018-08-20] MEDS ORDERED: PROPOFOL IV EMULSION 10 MG/ML 20 ML VIAL IV ONE (14:46)
[2018-08-20] MEDS ORDERED: LIDOCAINE HCL 2% 2 ML VIAL/AMP(20MG/ML) INFIL ONE (14:46)
[2018-08-20] MEDS ORDERED: ROCURONIUM BROMIDE 10 MG/ML 5 ML VIAL ONE (14:46)
[2018-08-20] MEDS ORDERED: BUPIVACAINE/EPINEPHRINE 0.5% MPF 1:200,000 30 ML VIAL ONE (15:02)
--- NOTE | 2018-08-20 16:29 | Fluoroscopy Report ---
FL femur LT 2V CLINICAL HISTORY: LT TROCH NAIL COMPARISON STUDY: Left femur 08/20/2018. FLUOROSCOPY TIME: 3 minutes and 14 seconds. FINDINGS: 6 fluoroscopic spot images of the left femur demonstrate an intramedullary rip and interloc lamont femoral neck pin traversing the proximal femoral fracture. The hardware appears intact. The alig nment is near-anatomic. IMPRESSION: Fluoroscopy provided for internal fixation of a left femoral fracture. The hardware appea rs intact. Electronically signed by: Ted Locke M.D. 08/20/2018 4:28 PM
--- NOTE | 2018-08-20 16:29 | Post Operative Brief Note ---
Immediate Post Op Note v1 Date of Surgery August 20, 2018 Pre & Post Diagnosis Operation Date: 08/20/18 08:20 Pre-Op Diagnosis: Left Hip Fracture Post-Op Diagnosis: Left Hip Fracture Procedure Operation Date: 08/20/18 08:20 Actual Procedures p Left femur long cephalomedullary nail(Left) - Oli Mcmanus DO Surgeon Oli Mcmanus DO Accessories Repairer none Estimated Blood Loss 75 Findings Consistent with Post-Op Diagnosis Fluids 1000 cc LR Anesthesia Type General Complications none Disposition Disposition: Recovery Room Overlapping Procedure I was present for: the critical portions of procedure. I was immediately available: during the entire case. Back up surgeon: was not required during procedure.
[2018-08-20] MEDS ORDERED: GLYCOPYRROLATE 0.2 MG/ML VIAL ONE (16:47)
[2018-08-20] MEDS ORDERED: NEOSTIGMINE METHYLSULFATE 5 MG/5 ML SYR ONE (16:47)
[2018-08-20] MEDS: fentaNYL citrate 100 MCG/2 ML VIAL IV PRN ×4 (17:05→17:25)
--- NOTE | 2018-08-20 17:05 | Orthopedic Progress Note ---
Date of Service August 20, 2018 Assessment & Plan (1) Closed left subtrochanteric femur fracture: Status post left femur long cephalo-medullary nail -Ancef x24 -DVT prophylaxis will restart heparin on postoperative day #1, will defer to medical service -Partial weightbearing left lower extremely -PT/OT when medically stable -Postoperative x-rays pending -A.m. labs Subjective Patient seen in PACU, comfortable, still awakening from general anesthesia. Pain well controlled no complaints at this time. Physical Exam Vital Signs (Past 24 Hours): Last Vital Signs Temp 36.0 C L 08/20/18 16:40 Pulse 81 08/20/18 16:40 Resp 16 08/20/18 16:40 BP 183/81 H 08/20/18 16:40 Pulse Ox 95 08/20/18 16:40 Physical Exam: Physical exam limited, patient spontaneously wiggling left ankle. At baseline does not move toes. Has a history of cerebral palsy. +2 dorsalis pedis pulse, compartment soft nontender, dressing clean dry and intact.
--- NOTE | 2018-08-20 17:11 | Operative Report ---
Post Operative Report Pre & Post Diagnosis Operation Date: 08/20/18 08:20 Pre-Op Diagnosis: Left Hip Fracture Post-Op Diagnosis: Left Hip Fracture Procedure Operation Date: 08/20/18 08:20 Actual Procedures p Left femur long cephalomedullary nail(Left) - Oli Mcmanus DO Surgeon Oli Mcmanus DO Manufacturing Technology Analyst none Estimated Blood Loss 75 Findings Consistent with Post-Op Diagnosis Specimens None Anesthesia Type General Complications none Disposition Disposition: Recovery Room Indications The patient is a 72 yo male with displaced sub-trochanteric hip fracture sustained after a fall from standing height. The patient was medically stabilized on 08/20/18. I indicated the patient for left hip long cephalomedullary nail. The patient was informed of the risks and benefits of surgery, which include but not limited to infection, bleeding, blood clots, damage to nerves, vessels, bone and soft tissue, dislocation, leg length discrepancy, malunion, nonunion, failure of the implants, need for additional surgery and . The patient chose to proceed with surgical intervention and informed consent was obtained. Description of Procedure Following induction of adequate general anesthesia, the patient was placed on the fracture table. The right leg was placed in the well leg jang and the left leg in the traction leg jang. All bony prominences were protected. Utilizing c-arm fluoroscopy closed reduction of the fracture was performed utilizing tension and internal/external rotation. Once satisfied with fracture reduction the left hip and thigh was prepped and draped in the usual sterile manner. A time out was performed, patient identified and site montez confirmed. The incision was made from the tip of the greater trochanter proximally. Subcutaneous tissue was sharply dissected to the tip of the greater trochanter, electrocautery used for hemostasis. Under fluoroscopic guidance the drill tipped guidewire was inserted at the tip of the greater trochanter and advanced into the intramedullary canal. Utilizing the intramedullary drill the guidewire was overdrilled with tissue protector attached. All instruments were removed. Next a long ball-tipped guidewire was passed through the proximal opening intramedullary beyond the fracture site to the proximal pole of the patella. Guidewire position was confirmed utilizing C-arm fluoroscopy. Guidewire was measured at this time to determine length of the nail at 380 mm. An x-ray approximately was performed to verify ruler was found to bone. Next utilizing flexible reamers sequental reaming was performed in .5mm increments, a final 12.5 mm reamer was passed the length of the canal. Care was taken to protect soft tissue proximally. A 11 by 360 mm long Synthes TFN was inserted and impacted into position and confirmed by c-arm fluoroscopy. Next the aiming arm was attached to the insertion handle. A incision was made and carried down through subcutaneous tissues to bone. The blade guide sleeve was inserted and secured down to bone. The guide wire was passed across the fracture site to the tip of the femoral head, position was confirmed in the AP and lateral planes utilizing c-arm fluoroscopy. The guide pin was measured and the 11.0mm drill bit passed over the guide pin to open lateral cortex followed by a 6.0mm/10.0mm cannulated reamer to a depth of 95 mm. Next the helical blade was inserted and locked proximally. Confirmation of helical plate positioning was performed at this time with C-arm fluoroscopy. We did note comminution and mild displacement of the lateral cortex between the entry site of the helical blade and the fracture. This did not have any bearing on implant positioning, fracture reduction or alignment. Next position the C arm in anticipation for perfect three affiliated technique, care was taken to insure sterility was maintained. Distally a stab incision was made in the skin and carried down to bone. Utilizing the radiolucent drill with a 4.0mm drill bit, both cortices were drilled through the proximal static hole. The nail was locked distally using a single 4.9mm x 38 mm locking bolt. Next utilizing perfect three affiliated technique a distal stab incision was made overlying the dynamic hole. Blunt dissection was carried down to bone. Utilizing the radiolucent drill with a 4.0 mm drill bit both cortices were drilled through the distal aspect of the dynamic hole. A s doc 4.9 mm x 46 mm locking bolt was placed through the dynamic hole. The aiming guide was removed at this time and final radiographs were obtained utilizing c-arm fluoroscopy to confirm overall position and fracture reduction. Incisions were irrigated with copious amounts of sterile saline solution. Subcutaneous tissue were injected utilizing 0.5% Marcaine with epi. Deep closure was performed using #1 Vicryl followed by 2-0 Vicryl for subcutaneous tissues and jennifer in the skin. Sterile dressing, Xeroform gauze, 4x4s and Tegaderm were applied. The patient tolerated the procedure well and was transported to the PACU in stable condition. I attest to the content of the Intraoperative Record and any orders documented therein. Any exceptions are noted below.
--- NOTE | 2018-08-20 17:14 | XRay Report ---
XR femur LT 2V routine CLINICAL HISTORY: Post op films in PACU COMPARISON STUDY: Left femur 08/20/2018. FINDINGS: Status post internal fixation of a proximal left femoral fracture with an intramedullary ro d, interlocking femoral neck pin, and distal screws. The hardware appears intact. The alignment is ne ar-anatomic. Skin jennifer are noted. There appears be a small bony fragment adjacent to the greater t rochanter at the entry site of the femoral neck pin. This is concerning for a small fracture. This is new from the prior study. IMPRESSION: 1. Status post internal fixation of a left femoral proximal shaft fracture. The hardware appears inta ct. Alignment is near-anatomic. 2. There appears be a small bony fragment adjacent to the greater trochanter at the entry site of the femoral neck pin. This is concerning for a small fracture. This is new from the prior study.. 3. These findings were called/faxed to the referring physician following dictation. Electronically signed by: Ted Locke M.D. 08/20/2018 5:12 PM
--- NOTE | 2018-08-20 17:55 | Anesthesiology Progress Note ---
Date of Service August 20, 2018 Anesthesia Post Procedure Vital Signs Vital Signs: Temp Pulse Pulse Pulse Pulse Pulse Resp 08/20/18 17:40 84 18 08/20/18 17:30 37.1 C 82 14 08/20/18 17:20 75 15 08/20/18 17:10 71 12 08/20/18 17:00 78 17 08/20/18 16:50 69 18 08/20/18 16:40 36.0 C L 81 16 08/20/18 13:04 73 18 08/20/18 12:54 36.8 C 75 20 08/20/18 07:53 36.8 C 76 18 08/20/18 04:00 37 C 78 18 08/20/18 00:00 87 08/19/18 23:06 36.7 C 85 19 08/19/18 19:19 36.5 C 73 16 08/19/18 17:58 87 BP BP Pulse Ox Pulse Ox 08/20/18 17:40 129/69 94 08/20/18 17:30 139/96 93 08/20/18 17:20 163/86 H 92 08/20/18 17:10 137/87 96 08/20/18 17:00 185/88 H 95 08/20/18 16:50 170/79 H 90 08/20/18 16:40 183/81 H 95 08/20/18 13:04 92 08/20/18 12:54 144/80 H 90 08/20/18 07:53 121/72 91 08/20/18 04:00 141/78 H 94 94 08/20/18 00:00 08/19/18 23:06 152/81 H 93 08/19/18 19:19 148/87 H 95 08/19/18 17:58 Pain Intensity Left Leg: Pain Intensity: 4 Notes Mental Status: alert / awake / arousable and participated in evaluation Nausea / Vomiting: adequately controlled Pain: adequately controlled Airway Patency, RR, SpO2: stable & adequate BP & HR: stable & adequate Hydration State: stable & adequate Anesthetic Complications: no major complications apparent and Pt Satisfied with anesthetic care
[2018-08-20] MEDS ORDERED: Nursing to Pharmacy Communication ONE (18:32)
[2018-08-20] MEDS: cefTRIAXone SODIUM 1,000 MG in DEXTROSE 5% 50 ML IV SCH (18:44)
[2018-08-20] MEDS: OXYCODONE HCL IR 5 MG TAB (IMMEDIATE RELEASE) PO PRN (20:21)
[2018-08-20] MEDS: DOCUSATE SODIUM/SENNA 50/8.6MG TAB PO SCH (20:22)
[2018-08-20] MEDS: ACETAMINOPHEN 500 MG TAB PO SCH (21:14)
[2018-08-20] MEDS: INSULIN GLARGINE SOLOSTAR 100 UNITS/ML 3 ML PEN SC SCH (21:14)
[2018-08-21] MEDS ORDERED: Nursing to Pharmacy Communication ONE (01:54)
[2018-08-21] MEDS: ACETAMINOPHEN 500 MG TAB PO SCH ×3 (05:44→21:18)
[2018-08-21] MEDS: D5W AND NSS 1,000 ML IV SCH (06:22)
[2018-08-21 07:33] LABS: Eosinophils # (auto) 0.02 K/uL (0-0.5); Eosinophils % (auto) 0.4 %; Hematocrit (blood only) 33.2 % (42-52); Hemoglobin 11.3 g/dL (14.0-18.0); Immature Granulocytes # (auto) 0.02 K/uL (0.00-0.02); Immature Granulocytes % (auto) 0.4 %; Lymphocytes # (auto) 0.74 K/uL (1.2-3.4); Mean Platelet Volume 10.2 fL (7.4-10.4); Monocytes # (auto) 0.86 K/uL (0.11-0.59); Monocytes % (auto) 16.3 %; Neutrophils # (auto) 3.63 K/uL (1.4-6.5); Neutrophils % (auto) 68.9 %; Platelet Count 143 K/uL (130-400); RDW Coefficient of Variation 14.3 % (11.5-14.5); RDW Standard Deviation 47.7 fL (36.4-46.3); Red Blood Count 3.65 M/uL (4.7-6.1); White Blood Count 5.27 K/uL (4.8-10.8)
[2018-08-21 08:09] LABS: BUN Creatinine Ratio 18.1 (10-20); Calcium 7.9 mg/dl (8.5-10.1); Creatinine Clr Calc Pharmacy 92.8 ml/min; Est GFR (African American) 102.2; Est GFR (Non-African American) 88.2; Potassium 3.5 mmol/L (3.5-5.1)
--- NOTE | 2018-08-21 08:45 | Orthopedic Progress Note ---
Date of Service August 21, 2018 Assessment & Plan (1) Closed left subtrochanteric femur fracture: Status post left femur long cephalo-medullary nail POD#1 -Ancef x24 -DVT prophylaxis x 4 weeks will restart heparin on postoperative day #1, will defer to medical service -Partial weightbearing left lower extremely -PT/OT when medically stable -Postoperative x-rays well aligned well fixed orthopedic implants, anatomic alignment fracture site, lateral wall comminution noted at the location of the helical blade extending to the fracture site. -A.m. labs - 11.3 Subjective Post Operative Progress Note Patient seen sitting up in bed, comfortable, denies complaints, pain well controlled, no acute issues. Physical Exam Vital Signs (Past 24 Hours): Last Vital Signs Temp 36.4 C L 08/21/18 07:29 Pulse 72 08/21/18 07:29 Resp 20 08/21/18 07:29 BP 114/65 08/21/18 07:29 Pulse Ox 92 08/21/18 07:29 Physical Exam: LLE NVSI patient has minimal motion of toes and ankle at baseline secondary to history of CP. comartments soft NT, dressing CDI Constitutional: WD/WN, vitals as above
[2018-08-21] MEDS: INSULIN ASPART 100 UNITS/ML 3 ML PEN SC SCH ×4 (08:50→21:19)
[2018-08-21] MEDS: INSULIN GLARGINE SOLOSTAR 100 UNITS/ML 3 ML PEN SC SCH (08:51)
[2018-08-21] MEDS: MoRPHine SULFATE 2 MG/ML CARP IV PRN (08:55)
--- NOTE | 2018-08-21 12:19 | Hospitalist Progress Note ---
Date of Service August 21, 2018 Assessment & Plan (1) Fall: (2) Closed left hip fracture: This is a 72-year-old male who has a significant past medical history of cerebral palsy, peripheral arterial disease, history of tobacco abuse, T2 DM who presents to [facility] secondary to mechanical fall he suffered earlier this morning. -Complaints of some pain in the left hip -Appreciate Ortho input and recommendation. He will be taken to or this morning -Appreciate cardiology input and recommendation -NPO after midnight so will place on IV D5 1/2ns while NPO -1g Rocephin q24hrs given cellulitis appearance to RLE -No contraindication for proposed surgery -Status post left femur long cephalo-medullary nail POD#1 Appreciate Ortho input and recommendation Likely will need rehab Acute blood loss anemia Hemoglobin dropped from 15 to around 11 No blood transfusion indicated (3) Acute respiratory failure with hypoxia: -plan as above, etiology unclear at this point but will need further work up prior to undergoing surgical fixation -No evidence of pulmonary embolism -continue supplemental o2 -echocardiogram ; mild concentric left medical hypertrophy, EF is 65-70%, right ventricular systolic function is normal, no significant valvular pathology -Denies any cardiac symptoms -Symptomatically a lot better and denies any shortness of breath at rest (4) Cellulitis of right lower extremity: -mild RLE cellulitis -1g rocephin daily -MRSA screen -consult wound nurse skin skin tear to RLE -Rocephin will cover possible UTI as well (5) Renal insufficiency, mild: -no hx of CKD per records -baseline cr 0.9-1.0 -Cr today 1.20, mild pre renal -IVF NS 80cc/hr x 500ml -Renal function is normal (6) T2DM (type 2 diabetes mellitus): -last A1C noted to be 9.2 10/02/17 -not on any oral hypoglycemics -check A1C in a.m.-6.4 on 08/20 -place on Lantus/novolg per protocol -consult glycemic pharmacist for further assistance, appreciate their input (7) Peripheral vascular disease: - > 70% stenosis to SFA b/l -on plavix and statin -follows Dr Bowman, no need for surgical intervention at this time (8) Cerebral palsy: -supportive measures (9) DVT prophylaxis: -heparin 5,000 units SQ q8 hrs, will need to discontinue prior to surgery -avoid scds for now given PVD/PAD and concurrent RLE mild cellulitis Disposition: to be determined Follow up: PCP SOILA Sagastume Subjective 08/20 The patient was seen and examined the medical telemetry unit This is a 72-year-old male who has a significant past medical history of cerebral palsy, peripheral arterial disease, history of tobacco abuse, T2 DM who presents to [facility] secondary to mechanical fall he suffered earlier this morning Denies any symptoms of chest pain, palpitation or shortness of breath He complains today of some pain in the left leg at the fracture site 08/21 Denies any symptoms except pain at the operation site Denies any chest pain, shortness of breath, palpitation, any abdominal pain nausea and/or vomiting Physical Exam Vital Signs (Past 24 Hours): Last Vital Signs Temp 36.8 C 08/21/18 11:28 Pulse 77 08/21/18 11:28 Resp 20 08/21/18 11:28 BP 137/80 08/21/18 11:28 Pulse Ox 96 08/21/18 11:28 Physical Exam: No apparent distress at rest Constitutional: WD/WN, vitals as above Eyes: PERRL, conjunctivae normal, anicteric sclerae ENMT: external ear and nose normal, oropharynx normal Mouth: no dentition abnormality Mallampati Class: I Respiratory: normal respiratory effort Auscultation: lungs clear to auscultation bilaterally Cardiovascular: Rate/Rhythm: regular rate and regular rhythm Gastrointestinal (Abdomen): Inspection/Auscultation: abdomen normal to inspection and normal bowel sounds Neurologic: Alert, awake and oriented x3 Results & Data Laboratory Results Short CBC 08/21/18 Range/Units 07:10 WBC 5.27 (4.8-10.8) K/uL Hgb 11.3 L (14.0-18.0) g/dL Hct 33.2 L (42-52) % Plt Count 143 (130-400) K/uL BMP 08/21/18 07:10 Sodium 138 Potassium 3.5 Chloride 108 H Carbon Dioxide 25 BUN 15 Creatinine 0.81 Glucose 157 H Calcium 7.9 L Medications Administered Current Inpatient Medications Acetaminophen (Tylenol) 500 mg PO Q8 KEVIN Stop: 09/19/18 21:59 Last Admin: 08/21/18 13:37 Dose: Not Given Documented by: Al Hydrox/Mg Hydrox/Simethicone (Maalox) 15 ml PO Q4H PRN PRN Reason: Dyspepsia Stop: 09/18/18 16:54 Bisacodyl (Dulcolax) 10 mg ME DAILY PRN PRN Reason: Constipation Stop: 09/18/18 16:54 Dextrose (Dextrose 50%) 25 - 50 ml IV UD PRN; Protocol PRN Reason: Hypoglycemia Protocol Stop: 09/18/18 16:54 Glucagon (Glucagen) 1 mg SQ UD PRN; Protocol PRN Reason: Hypoglycemia Protocol Stop: 09/18/18 16:54 Glucose (Glucose 40%) 15 - 30 gm PO UD PRN; Protocol PRN Reason: Hypoglycemia Protocol Stop: 09/18/18 16:54 Glucose (Dex4 Glucose) 4 - 8 tabs PO UD PRN; Protocol PRN Reason: Hypoglycemia Protocol Stop: 09/18/18 16:54 Heparin Sodium (Porcine) (Heparin Sodium (Porcine)) 5,000 units SQ Q8 KEVIN Stop: 09/20/18 16:59 Dextrose/Sodium Chloride (D5w And Nss) 1,000 mls @ 80 mls/hr IV .[id number] KEVIN Stop: 09/19/18 00:00 Last Admin: 08/21/18 06:22 Dose: 80 mls/hr Documented by: Ceftriaxone Sodium 1,000 mg/ (Dextrose) 60 mls @ 100 mls/hr IV DAILY@1800 KEVIN Stop: 08/24/18 17:59 Last Infusion: 08/20/18 19:29 Dose: Infused Documented by: Insulin Aspart (Novolog Flexpen) 0 units SC ACHS KEVIN Stop: 09/19/18 17:59 Last Admin: 08/21/18 12:48 Dose: 2 units Documented by: Insulin Glargine (Lantus Solostar Pen) 0 units SC Q12 KEVIN; Protocol Stop: 09/19/18 20:59 Last Admin: 08/21/18 08:51 Dose: 10 units Documented by: Ioversol (Optiray 320 125ml) 100 ml IV ONCE PRN PRN Reason: Interaction Checking Stop: 08/23/18 16:43 Last Admin: 08/19/18 16:44 Dose: 100 ml Documented by: Magnesium Hydroxide (Milk Of Magnesia) 30 ml PO Q12H PRN PRN Reason: Constipation Stop: 09/18/18 16:54 Miscellaneous (Carbohydrates For Hypoglycemia) 15 - 30 gm PO UD PRN PRN Reason: Hypoglycemia Treatment Stop: 09/18/18 16:54 Miscellaneous Information (Consult Glycemic Management Pharmacy) 1 ea N/A UD PRN; Protocol PRN Reason: Consult Stop: 09/18/18 17:22 Morphine Sulfate (Morphine Sulfate) 2 mg IV Q2H PRN PRN Reason: moderate pain (scale 4-6) Stop: 09/02/18 16:54 Last Admin: 08/21/18 08:55 Dose: 2 mg Documented by: Naloxone HCl (Narcan) 0.1 mg IV UD PRN PRN Reason: opiate overdose Stop: 09/18/18 16:54 Ondansetron HCl (Zofran) 4 mg IV Q6H PRN PRN Reason: Nausea Stop: 09/18/18 16:54 Oxycodone HCl (Roxicodone Immediate Rel) 5 mg PO Q4H PRN PRN Reason: Moderate Pain (Scale 4,5,6) Stop: 09/03/18 18:12 Last Admin: 08/21/18 13:28 Dose: 5 mg Documented by: Polyethylene Glycol (Miralax Powder Packet) 17 gm PO DAILY PRN PRN Reason: Constipation Stop: 09/18/18 16:54 Senna/Docusate Sodium (Senokot S) 2 tab PO HS KEVIN Stop: 09/18/18 20:59 Last Admin: 08/20/18 20:22 Dose: Not Given Documented by: Sodium Biphosphate/Sodium Phosphate (Fleet Enema) 132 ml ME DAILY PRN PRN Reason: Constipation Stop: 09/18/18 16:54 (1) T2DM (type 2 diabetes mellitus) Diabetes mellitus complication detail: with peripheral angiopathy without gangrene Diabetes mellitus complication status: with circulatory complication Diabetes mellitus fpc insulin use: without fpc use Qualified Code(s): E11.51 - Type 2 diabetes mellitus 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 (3) Fall Encounter type: initial encounter Qualified Code(s): W19.XXXA - Unspecified fall, initial encounter (4) Closed left hip fracture Encounter type: initial encounter Qualified Code(s): S72.002A - Fracture of unspecified part of neck of left femur, initial encounter for closed fracture
[2018-08-21] MEDS: OXYCODONE HCL IR 5 MG TAB (IMMEDIATE RELEASE) PO PRN ×2 (13:28→17:28)
--- NOTE | 2018-08-21 14:17 | Pharmacy Report ---
Pharmacy Glycemic Short Note 2 - Date of Service August 21, 2018 - Glycemic Short BSG Results (Last 24 hours): 08/20/18 08/20/18 08/21/18 16:47 20:06 07:10 Glucose 157 H POC Glucose 104 H 194 H 08/21/18 08/21/18 07:57 11:59 Glucose POC Glucose 160 H 134 H OUTPATIENT ANTIDIABETIC REGIMEN: * n/a * A1c 6.4% (08/20/18) ASSESSMENT: * Patient received a total of 23 units of insulin yesterday, of which 20 units were basal (Lantus). * All of patient's BSGs were within goal except for the bedtime value at 194 but this is most likely d/t the Dexamethasone 4 mg IV x 1 he received in the OR. * Fasting BSG this AM was 160. * Dexamethasone dose from yesterday should be wearing off tonight. I expect BSGs to be again within goal. So Lantus is no longer ordered for tonight. * CF and CR were loosened with lunch today in anticipation of better BSGs tonight. PLAN FOR INPATIENT GLYCEMIC CONTROL: * Basal insulin: decreased * Lantus 10 units SQ given this am, then stopped. * Bolus insulin: loosened * NovoLog per scale ACHS or Q6hrs while NPO * Goal Range: Low 110 mg/dL - High 140 mg/dL * Correction Factor: 30 mg/dL/unit * Nutritional / Prandial insulin per carb ratio of 1 unit per 10 grams CHO consumed PLAN FOR DISCHARGE: * A1c meets diagnosis of pre-diabetes * Consider lifestyle/dietary modification and the addition of metformin 500 mg ER daily with dinner
[2018-08-21] MEDS: HEPARIN SOD 5,000 UNIT/0.5 ML VIAL SQ SCH (17:30)
[2018-08-21] MEDS: cefTRIAXone SODIUM 1,000 MG in DEXTROSE 5% 50 ML IV SCH (17:33)
[2018-08-21] MEDS: DOCUSATE SODIUM/SENNA 50/8.6MG TAB PO SCH (21:14)
[2018-08-22] MEDS: HEPARIN SOD 5,000 UNIT/0.5 ML VIAL SQ SCH ×4 (00:11→20:35)
[2018-08-22] MEDS: OXYCODONE HCL IR 5 MG TAB (IMMEDIATE RELEASE) PO PRN ×3 (00:17→20:31)
[2018-08-22] MEDS: ACETAMINOPHEN 500 MG TAB PO SCH ×3 (05:36→20:31)
[2018-08-22 06:28] LABS: Basophils # (auto) 0.01 K/uL (0-0.2); Basophils % (auto) 0.2 %; Eosinophils % (auto) 1.9 %; Hematocrit (blood only) 30.2 % (42-52); Hemoglobin 10.4 g/dL (14.0-18.0); Immature Granulocytes # (auto) 0.01 K/uL (0.00-0.02); Immature Granulocytes % (auto) 0.2 %; Lymphocytes # (auto) 0.92 K/uL (1.2-3.4); Lymphocytes % (auto) 17.7 %; Mean Corpuscular Hgb Conc 34.4 g/dL (32-36); Mean Corpuscular Volume 91.2 fL (80-100); Monocytes # (auto) 0.91 K/uL (0.11-0.59); Monocytes % (auto) 17.5 %; Neutrophils # (auto) 3.26 K/uL (1.4-6.5); Neutrophils % (auto) 62.5 %; Platelet Count 137 K/uL (130-400); RDW Coefficient of Variation 14.2 % (11.5-14.5); RDW Standard Deviation 47.2 fL (36.4-46.3); Red Blood Count 3.31 M/uL (4.7-6.1); White Blood Count 5.21 K/uL (4.8-10.8)
[2018-08-22 06:55] LABS: BUN Creatinine Ratio 15.1 (10-20); Est GFR (African American) 106.7; Magnesium 1.8 mg/dl (1.8-2.4); Potassium 3.2 mmol/L (3.5-5.1)
[2018-08-22] MEDS: INSULIN ASPART 100 UNITS/ML 3 ML PEN SC SCH ×4 (08:28→20:36)
[2018-08-22] MEDS ORDERED: POTASSIUM CHLORIDE 20 MEQ TABCR PO ONE (10:00)
--- NOTE | 2018-08-22 12:43 | Orthopedic Progress Note ---
Date of Service August 22, 2018 Assessment & Plan (1) Closed left subtrochanteric femur fracture: Status post left femur long cephalo-medullary nail POD#2 -DVT prophylaxis x 4 weeks will restart heparin on postoperative day #1, will defer to medical service -Partial weightbearing left lower extremely -PT/OT when medically stable -Postoperative x-rays well aligned well fixed orthopedic implants, anatomic alignment fracture site, lateral wall comminution noted at the location of the helical blade extending to the fracture site. -D/C planning--[facility] vs. [facility] when medically stable and accepted to the facility. Subjective Post Operative Progress Note Patient lying in bed, comfortable, denies complaints, pain well controlled, no acute issues. Physical Exam Vital Signs (Past 24 Hours): Last Vital Signs Temp 36.6 C 08/22/18 12:31 Pulse 70 08/22/18 12:31 Resp 18 08/22/18 12:31 BP 120/73 08/22/18 12:31 Pulse Ox 95 08/22/18 12:31 Constitutional: WD/WN, vitals as above well developed and well nourished; no acute distress Musculoskeletal: Hip: + ecchymosis (mild left hip ecchymosis. Thigh and lat eral hip soft.) and + surgical incision (left hip and upper leg: dressings clean/dry/intact.); hip normal to inspection, no deformity, no skin erythema and log roll test negative
[2018-08-22] MEDS: cefTRIAXone SODIUM 1,000 MG in DEXTROSE 5% 50 ML IV SCH (17:33)
--- NOTE | 2018-08-22 18:29 | Hospitalist Progress Note ---
Date of Service August 22, 2018 Assessment & Plan (1) Fall: (2) Closed left hip fracture: This is a 72-year-old male who has a significant past medical history of cerebral palsy, peripheral arterial disease, history of tobacco abuse, T2 DM who presents to [facility] secondary to mechanical fall he suffered earlier this morning. -Complaints of some pain in the left hip -Appreciate Ortho input and recommendation. He will be taken to or this morning -Appreciate cardiology input and recommendation -NPO after midnight so will place on IV D5 1/2ns while NPO -1g Rocephin q24hrs given cellulitis appearance to RLE -No contraindication for proposed surgery -Status post left femur long cephalo-medullary nail POD#2 Appreciate Ortho input and recommendation Remains stable with some pain at the left hip joint Awaiting placement for short-term rehab Likely will need rehab Acute blood loss anemia Hemoglobin dropped from 15 to around 11 No blood transfusion indicated (3) Acute respiratory failure with hypoxia: -plan as above, etiology unclear at this point but will need further work up prior to undergoing surgical fixation -No evidence of pulmonary embolism -continue supplemental o2 -echocardiogram ; mild concentric left medical hypertrophy, EF is 65-70%, right ventricular systolic function is normal, no significant valvular pathology -Denies any cardiac symptoms -Symptomatically a lot better and denies any shortness of breath at rest (4) Cellulitis of right lower extremity: -mild RLE cellulitis -1g rocephin daily -MRSA screen -consult wound nurse skin skin tear to RLE -Rocephin will cover possible UTI as well -Urine culture was not sent -Can be given Keflex for cellulitis total of 7-10 days (5) Renal insufficiency, mild: -no hx of CKD per records -baseline cr 0.9-1.0 -Cr today 1.20, mild pre renal -IVF NS 80cc/hr x 500ml -Renal function is normal (6) T2DM (type 2 diabetes mellitus): -last A1C noted to be 9.2 10/02/17 -not on any oral hypoglycemics -check A1C in a.m.-6.4 on 08/20 -place on Lantus/novolg per protocol -consult glycemic pharmacist for further assistance, appreciate their input (7) Peripheral vascular disease: - > 70% stenosis to SFA b/l -on plavix and statin -follows Dr Bowman, no need for surgical intervention at this time (8) Cerebral palsy: -supportive measures (9) DVT prophylaxis: -heparin 5,000 units SQ q8 hrs, will need to discontinue prior to surgery -avoid scds for now given PVD/PAD and concurrent RLE mild cellulitis Heparin 5000 units subcu q. 8 hourly restarted Most likely to have Lovenox on discharge for a total of 4 weeks as per Ortho Disposition: to be determined Follow up: PCP SOILA Sagastume Subjective 08/20 The patient was seen and examined the medical telemetry unit This is a 72-year-old male who has a significant past medical history of cerebral palsy, peripheral arterial disease, history of tobacco abuse, T2 DM who presents to [facility] secondary to mechanical fall he suffered earlier this morning Denies any symptoms of chest pain, palpitation or shortness of breath He complains today of some pain in the left leg at the fracture site 08/21 Denies any symptoms except pain at the operation site Denies any chest pain, shortness of breath, palpitation, any abdominal pain nausea and/or vomiting 08/22 The patient was seen and examined in medical telemetry unit He has been feeling a lot better and the pain in the left leg is improved Eyes any other symptoms Physical Exam Vital Signs (Past 24 Hours): Last Vital Signs Temp 36.6 C 08/22/18 15:31 Pulse 75 08/22/18 16:09 Resp 22 08/22/18 15:31 BP 110/60 08/22/18 15:31 Pulse Ox 91 08/22/18 15:31 Physical Exam: No apparent distress at rest Constitutional: WD/WN, vitals as above Eyes: PERRL, conjunctivae normal, anicteric sclerae ENMT: external ear and nose normal, oropharynx normal Mouth: no dentition abnormality Mallampati Class: I Respiratory: normal respiratory effort Auscultation: lungs clear to auscultation bilaterally Cardiovascular: Rate/Rhythm: regular rate and regular rhythm Gastrointestinal (Abdomen): Inspection/Auscultation: abdomen normal to inspection and normal bowel sounds Musculoskeletal: Extremities: + lower leg abnormality (Left lower extremity pain on movement especially the hip) Left Neurologic: Alert, awake and oriented x3. Generally weak Results & Data Laboratory Results Short CBC 08/22/18 Range/Units 06:13 WBC 5.21 (4.8-10.8) K/uL Hgb 10.4 L (14.0-18.0) g/dL Hct 30.2 L (42-52) % Plt Count 137 (130-400) K/uL BMP 08/22/18 06:13 Sodium 141 Potassium 3.2 L Chloride 108 H Carbon Dioxide 28 BUN 11 Creatinine 0.73 Glucose 114 H Calcium 8.0 L Medications Administered Current Inpatient Medications Acetaminophen (Tylenol) 500 mg PO Q8 KEVIN Stop: 09/19/18 21:59 Last Admin: 08/22/18 13:45 Dose: 500 mg Documented by: Al Hydrox/Mg Hydrox/Simethicone (Maalox) 15 ml PO Q4H PRN PRN Reason: Dyspepsia Stop: 09/18/18 16:54 Bisacodyl (Dulcolax) 10 mg WA DAILY PRN PRN Reason: Constipation Stop: 09/18/18 16:54 Dextrose (Dextrose 50%) 25 - 50 ml IV UD PRN; Protocol PRN Reason: Hypoglycemia Protocol Stop: 09/18/18 16:54 Glucagon (Glucagen) 1 mg SQ UD PRN; Protocol PRN Reason: Hypoglycemia Protocol Stop: 09/18/18 16:54 Glucose (Glucose 40%) 15 - 30 gm PO UD PRN; Protocol PRN Reason: Hypoglycemia Protocol Stop: 09/18/18 16:54 Glucose (Dex4 Glucose) 4 - 8 tabs PO UD PRN; Protocol PRN Reason: Hypoglycemia Protocol Stop: 09/18/18 16:54 Heparin Sodium (Porcine) (Heparin Sodium (Porcine)) 5,000 units SQ Q8 KEVIN Stop: 09/20/18 16:59 Last Admin: 08/22/18 13:45 Dose: 5,000 units Documented by: Ceftriaxone Sodium 1,000 mg/ (Dextrose) 60 mls @ 100 mls/hr IV DAILY@1800 KEVIN Stop: 08/24/18 17:59 Last Infusion: 08/22/18 18:11 Dose: Infused Documented by: Insulin Aspart (Novolog Flexpen) 0 units SC ACHS KEVIN Stop: 09/19/18 17:59 Last Admin: 08/22/18 17:35 Dose: 3 units Documented by: Ioversol (Optiray 320 125ml) 100 ml IV ONCE PRN PRN Reason: Interaction Checking Stop: 08/23/18 16:43 Last Admin: 08/19/18 16:44 Dose: 100 ml Documented by: Magnesium Hydroxide (Milk Of Magnesia) 30 ml PO Q12H PRN PRN Reason: Constipation Stop: 09/18/18 16:54 Miscellaneous (Carbohydrates For Hypoglycemia) 15 - 30 gm PO UD PRN PRN Reason: Hypoglycemia Treatment Stop: 09/18/18 16:54 Miscellaneous Information (Consult Glycemic Management Pharmacy) 1 ea N/A UD PRN; Protocol PRN Reason: Consult Stop: 09/18/18 17:22 Morphine Sulfate (Morphine Sulfate) 2 mg IV Q2H PRN PRN Reason: moderate pain (scale 4-6) Stop: 09/02/18 16:54 Last Admin: 08/21/18 08:55 Dose: 2 mg Documented by: Naloxone HCl (Narcan) 0.1 mg IV UD PRN PRN Reason: opiate overdose Stop: 09/18/18 16:54 Ondansetron HCl (Zofran) 4 mg IV Q6H PRN PRN Reason: Nausea Stop: 09/18/18 16:54 Oxycodone HCl (Roxicodone Immediate Rel) 5 mg PO Q4H PRN PRN Reason: Moderate Pain (Scale 4,5,6) Stop: 09/03/18 18:12 Last Admin: 08/22/18 08:29 Dose: 5 mg Documented by: Polyethylene Glycol (Miralax Powder Packet) 17 gm PO DAILY PRN PRN Reason: Constipation Stop: 09/18/18 16:54 Senna/Docusate Sodium (Senokot S) 2 tab PO HS KEVIN Stop: 09/18/18 20:59 Last Admin: 08/21/18 21:14 Dose: 1 tab Documented by: Sodium Biphosphate/Sodium Phosphate (Fleet Enema) 132 ml WA DAILY PRN PRN Reason: Constipation Stop: 09/18/18 16:54 (1) Fall Encounter type: initial encounter Qualified Code(s): W19.XXXA - Unspecified fall, initial encounter (2) Closed left hip fracture Encounter type: initial encounter Qualified Code(s): S72.002A - Fracture of unspecified part of neck of left femur, initial encounter for closed fracture (3) T2DM (type 2 diabetes mellitus) Diabetes mellitus group home insulin use: without predatory animal exterminator use Diabetes mellitus complication status: with circulatory complication Diabetes mellitus complication detail: with peripheral angiopathy without gangrene Qualified Code(s): E11.51 - Type 2 diabetes mellitus with diabetic peripheral angiopathy without gangrene (4) Cerebral palsy Cerebral palsy type: other type Qualified Code(s): G80.8 - Other cerebral palsy
[2018-08-22] MEDS: DOCUSATE SODIUM/SENNA 50/8.6MG TAB PO SCH (20:31)
[2018-08-23] MEDS: ACETAMINOPHEN 500 MG TAB PO SCH ×3 (06:04→20:25)
[2018-08-23] MEDS: HEPARIN SOD 5,000 UNIT/0.5 ML VIAL SQ SCH ×3 (06:04→20:25)
--- NOTE | 2018-08-23 07:17 | Orthopedic Progress Note ---
Date of Service August 23, 2018 Assessment & Plan (1) Closed left subtrochanteric femur fracture: Status post left femur long cephalo-medullary nail POD#3 -DVT prophylaxis x 4 weeks will restart heparin on postoperative day #1, will defer to medical service -Partial weightbearing left lower extremely -PT/OT when medically stable -Postoperative x-rays well aligned well fixed orthopedic implants, anatomic alignment fracture site, lateral wall comminution noted at the location of the helical blade extending to the fracture site. -D/C planning--[facility] when medically stable and accepted to the facility. -Ortho to sign off today. Follow up with Dr. Mcmanus as in the discharge instructions. Subjective Post Operative Progress Note Patient lying in bed, comfortable, denies complaints, pain well controlled, no acute issues. States he didn't sleep well last night so he is feeling exhausted this morning. States pain is better today than it has been each day. Physical Exam Vital Signs (Past 24 Hours): Last Vital Signs Temp 36.9 C 08/23/18 03:35 Pulse 76 08/23/18 03:35 Resp 18 08/23/18 03:35 BP 158/79 H 08/23/18 03:35 Pulse Ox 94 08/23/18 03:35 Constitutional: WD/WN, vitals as above well developed and well nourished; no acute distress Musculoskeletal: Hip: + ecchymosis (mild left hip ecchymosis. Thigh and lateral hip soft.) and + surgical incision (left hip and upper leg: dressings clean/dry/intact.); hip normal to inspection, no deformity, no skin erythema and log roll test negative
[2018-08-23] MEDS: INSULIN ASPART 100 UNITS/ML 3 ML PEN SC SCH ×4 (08:54→20:24)
[2018-08-23] MEDS: OXYCODONE HCL IR 5 MG TAB (IMMEDIATE RELEASE) PO PRN ×2 (08:57→20:27)
--- NOTE | 2018-08-23 13:52 | Hospitalist Progress Note ---
Date of Service August 23, 2018 Assessment & Plan (1) Fall: (2) Closed left hip fracture: stable overall continue pain management PT/OT awaiting to transition to Rehab Acute blood loss anemia Hg stable (3) Acute respiratory failure with hypoxia: -plan as above, etiology unclear at this point -No evidence of pulmonary embolism -echocardiogram ; mild concentric left medical hypertrophy, EF is 65-70%, right ventricular systolic function is normal, no significant valvular pathology - resolved continue incentive spirometry (4) Cellulitis of right lower extremity: on Ceftriaxone plan to transition to Keflex ondischarge (5) Renal insufficiency, mild: -no hx of CKD per records -baseline cr 0.9-1.0 crea stable (6) T2DM (type 2 diabetes mellitus): -last A1C noted to be 9.2 10/02/17 -not on any oral hypoglycemics -check A1C in a.m.-6.4 on 08/20 -place on Lantus/novolg per protocol -consult glycemic pharmacist for further assistance, appreciate their input (7) Peripheral vascular disease: - > 70% stenosis to SFA b/l -on plavix and statin -follows Dr Bowman, no need for surgical intervention at this time (8) Cerebral palsy: -supportive measures (9) DVT prophylaxis: Heparin SC Disposition: to be determined Follow up: PCP SOILA Sagastume Subjective ff up for s/p hip surgery seen resting in bed, comfortable states he feels fine overall except for discomfort on the left hip surgical site- improving denies chest pain, dyspnea no other symptoms Physical Exam Vital Signs (Past 24 Hours): Last Vital Signs Temp 36.8 C 08/23/18 12:00 Pulse 70 08/23/18 12:00 Resp 18 08/23/18 12:00 BP 134/72 08/23/18 12:00 Pulse Ox 93 08/23/18 12:00 Physical Exam: General- oriented x 3, not in distress, speaks in sentences with no effort or accessory muscle use Eyes- anicteric Neck- no JVD Lungs- clear breath sounds bilaterally, no rales/wheezes Heart- normal rate, regular rhythm; no murmurs Abdomen- normal bowel sounds, nondistended, soft, nontender Extremities-left hip: dressing in place, no bleeding no pretibial edema, no calf tenderness Neuro- alert, oriented x 3; no gross focal neurologic deficits Skin- warm & dry Results & Data Laboratory Results Laboratory Results - last 24 hr 08/22/18 08/23/18 08/23/18 20:05 07:20 11:38 Sodium Potassium Chloride Carbon Dioxide Anion Gap BUN Creatinine Est Cr Clr Drug Dosing Est GFR ( Amer) Est GFR (Non-Af Amer) BUN/Creatinine Ratio Glucose POC Glucose 119 H 111 H 95 Calcium 08/23/18 08/23/18 14:12 16:49 Sodium 141 Potassium 3.2 L Chloride 106 Carbon Dioxide 30 Anion Gap 5.0 BUN 12 Creatinine 0.70 Est Cr Clr Drug Dosing 106.6 Est GFR ( Amer) 108.5 Est GFR (Non-Af Amer) 93.6 BUN/Creatinine Ratio 16.8 Glucose 126 H POC Glucose 144 H Calcium 8.3 L (1) T2DM (type 2 diabetes mellitus) Diabetes mellitus complication detail: with peripheral angiopathy without gangrene Diabetes mellitus complication status: with circulatory complication Diabetes mellitus nursing home insulin use: without terminal operations manager use Qualified Code(s): E11.51 - Type 2 diabetes mellitus 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 (3) Fall Encounter type: initial encounter Qualified Code(s): W19.XXXA - Unspecified fall, initial encounter (4) Closed left hip fracture Encounter type: initial encounter Qualified Code(s): S72.002A - Fracture of unspecified part of neck of left femur, initial encounter for closed fracture
[2018-08-23 14:45] LABS: BUN Creatinine Ratio 16.8 (10-20); Calcium 8.3 mg/dl (8.5-10.1); Creatinine Clr Calc Pharmacy 106.6 ml/min; Est GFR (African American) 108.5; Est GFR (Non-African American) 93.6; Potassium 3.2 mmol/L (3.5-5.1)
[2018-08-23] MEDS ORDERED: POTASSIUM CHLORIDE 10 MEQ TABCR PO STA (16:10)
[2018-08-23] MEDS: cefTRIAXone SODIUM 1,000 MG in DEXTROSE 5% 50 ML IV SCH (17:18)
[2018-08-23] MEDS: DOCUSATE SODIUM/SENNA 50/8.6MG TAB PO SCH (20:26)
[2018-08-24] MEDS: ACETAMINOPHEN 500 MG TAB PO SCH ×3 (05:35→21:19)
[2018-08-24] MEDS: HEPARIN SOD 5,000 UNIT/0.5 ML VIAL SQ SCH ×3 (05:35→21:19)
[2018-08-24] MEDS: INSULIN ASPART 100 UNITS/ML 3 ML PEN SC SCH ×4 (08:40→21:19)
[2018-08-24] MEDS: OXYCODONE HCL IR 5 MG TAB (IMMEDIATE RELEASE) PO PRN ×2 (08:40→22:01)
--- NOTE | 2018-08-24 09:48 | Pharmacy Report ---
Pharmacy Glycemic Short Note 2 - Date of Service August 24, 2018 - Glycemic Short BSG Results (Last 24 hours): 08/23/18 08/23/18 08/23/18 11:38 14:12 16:49 Glucose 126 H POC Glucose 95 144 H 08/23/18 08/24/18 20:21 07:49 Glucose POC Glucose 122 H 112 H OUTPATIENT ANTIDIABETIC REGIMEN: * n/a * A1c 6.4% (08/20/18) ASSESSMENT: * Pt received 11 units of insulin yesterday, 08/23/18. BSGs euglycemic. Continue with standing insulin orders. PLAN FOR INPATIENT GLYCEMIC CONTROL: * Basal insulin: none indicated at this time * Bolus insulin: loosened * NovoLog per scale ACHS or Q6hrs while NPO * Goal Range: Low 110 mg/dL - High 140 mg/dL * Correction Factor: 30 mg/dL/unit * Nutritional / Prandial insulin per carb ratio of 1 unit per 10 grams CHO c onsumed PLAN FOR DISCHARGE: * A1c meets diagnosis of pre-diabetes * Consider lifestyle/dietary modification and the addition of metformin 500 mg ER daily with dinner
[2018-08-24] MEDS: DOCUSATE SODIUM/SENNA 50/8.6MG TAB PO SCH (21:18)
[2018-08-25] MEDS: ACETAMINOPHEN 500 MG TAB PO SCH ×2 (06:07→13:20)
[2018-08-25] MEDS: HEPARIN SOD 5,000 UNIT/0.5 ML VIAL SQ SCH ×2 (06:07→13:20)
--- NOTE | 2018-08-25 07:33 | Hospitalist Progress Note ---
Date of Service August 25, 2018 delayed entry date of service 08/24/18 Assessment & Plan (1) Fall: (2) Closed left hip fracture: remains stable overall continue pain management PT/OT anticipate d/c on Saturday Acute blood loss anemia Hg stable (3) Acute respiratory failure with hypoxia: -No evidence of pulmonary embolism -echocardiogram ; mild concentric left medical hypertrophy, EF is 65-70%, right ventricular systolic function is normal, no significant valvular pathology - resolved - continue incentive spirometry (4) Cellulitis of right lower extremity: on Ceftriaxone plan to transition to Keflex on discharge (5) Renal insufficiency, mild: -no hx of CKD per records -baseline cr 0.9-1.0 crea stable (6) T2DM (type 2 diabetes mellitus): -last A1C noted to be 9.2 10/02/17 -not on any oral hypoglycemics -A1c.-6.4 on 08/20 -place on Lantus/novolg per protocol -consult glycemic pharmacist for further assistance, appreciate their input (7) Peripheral vascular disease: - > 70% stenosis to SFA b/l -on plavix and statin -follows Dr Bowman, no need for surgical intervention at this time (8) Cerebral palsy: -supportive measures (9) DVT prophylaxis: Heparin SC Disposition: anticipate d/c to rehab Saturday Follow up: PCP SOILA Sagastume Subjective ff up for s/p hip surgery resting in bed, comfortable in good spirits hip pain improving no chest pain, dyspnea, palpitaitons, dizziness feels somewhat tired, requesting for d/c Saturday Physical Exam Vital Signs (Past 24 Hours): Last Vital Signs Temp 36.7 C 08/25/18 07:27 Pulse 69 08/25/18 07:27 Resp 16 08/25/18 07:27 BP 147/72 H 08/25/18 07:27 Pulse Ox 91 08/25/18 07:27 Physical Exam: General- oriented x 2, not in distress, speaks in sentences with no effort or accessory muscle use Eyes- anicteric Neck- no JVD Lungs- clear BS BL Heart- normal rate, regular rhythm; no murmurs Abdomen- normal bowel sounds, nondistended, soft, nontender Extremities- left hip: (+) dressing in place- no bleeding, no discharge; no pretibial edema, no calf tenderness Neuro- alert, oriented x 3; no gross focal neurologic deficits Skin- warm & dry Results & Data Laboratory Results noted (1) Fall Encounter type: initial encounter Qualified Code(s): W19.XXXA - Unspecified fall, initial encounter (2) Closed left hip fracture Encounter type: initial encounter Qualified Code(s): S72.002A - Fracture of unspecified part of neck of left femur, initial encounter for closed fracture (3) T2DM (type 2 diabetes mellitus) Diabetes mellitus snf insulin use: without bus assistant use Diabetes mellitus complication status: with circulatory complication Diabetes mellitus complication detail: with peripheral angiopathy without gangrene Qualified Code(s): E11.51 - Type 2 diabetes mellitus with diabetic peripheral angiopathy without gangrene (4) Cerebral palsy Cerebral palsy type: other type Qualified Code(s): G80.8 - Other cerebral palsy
[2018-08-25] MEDS: INSULIN ASPART 100 UNITS/ML 3 ML PEN SC SCH ×2 (09:02→12:36)
--- NOTE | 2018-08-25 14:18 | Hospitalist Progress Note ---
Date of Service August 25, 2018 Assessment & Plan (1) Fall: (2) Closed left hip fracture: Status post left femur long cephalo-medullary nail by Dr. Mcmanus 08/20/18 remained stable post op per Ortho: -DVT prophylaxis x 4 weeks with Heparin SC TID -Partial weightbearing left lower extremely -Postoperative x-rays well aligned well fixed orthopedic implants, anatomic alignment fracture site, lateral wall comminution noted at the location of the helical blade extending to the fracture site. - ff up with Orthopedic [facility] Dr. Mcmanus in 2 weeks Acute blood loss anemia Hg stable around 10 (3) Acute respiratory failure with hypoxia: -No evidence of pulmonary embolism -echocardiogram ; mild concentric left medical hypertrophy, EF is 65-70%, right ventricular systolic function is normal, no significant valvular pathology - resolved - continue incentive spirometry (4) Cellulitis of right lower extremity: improved on Ceftriaxone x 5 days transition to Keflex x 2 more days (5) Renal insufficiency, mild: -no hx of CKD per records -baseline cr 0.9-1.0 crea stable (6) T2DM (type 2 diabetes mellitus): -last A1C noted to be 9.2 10/02/17 -not on any oral hypoglycemics -A1c.-6.4 on 08/20 -place on Lantus/novolg per protocol (7) Peripheral vascular disease: - > 70% stenosis to SFA b/l -on plavix and statin -follows Dr Bowman, no need for surgical intervention at this time (8) Cerebral palsy: -supportive measures (9) DVT prophylaxis: Heparin SC Disposition: d/c to rehab ff up with Ortho Dr. Mcmanus in 2 weeks ff up with PCP 1 week after discharge from Rehab Subjective ff up for s/p hip surgery seen resting in bed, comfortable states he feels fine overall hip pain well controlled denies chest pain, dyspnea, dizziness, nausea states he is ready and is agreeable for discharge Physical Exam Vital Signs (Past 24 Hours): Last Vital Signs Temp 36.8 C 08/25/18 11:23 Pulse 69 08/25/18 11:23 Resp 16 08/25/18 11:23 BP 128/72 08/25/18 11:23 Pulse Ox 91 08/25/18 11:23 Physical Exam: General- oriented x 3, not in distress, speaks in sentences with no effort or accessory muscle use Eyes- anicteric Neck- no JVD Lungs- clear breath sounds bilaterally, no wheezing, no crackles Heart- normal rate, regular rhythm; no murmurs Abdomen- normal bowel sounds, nondistended, soft, nontender Extremities- mild edema of right thigh, dressing in place- no bleeding/discharge right legno pretibial edema, no calf tenderness Neuro- alert, oriented x 3; no gross focal neurologic deficits Skin- warm & dry Results & Data Laboratory Results Laboratory Results - last 24 hr 08/24/18 08/24/18 08/25/18 16:42 20:34 07:38 POC Glucose 134 H 116 H 106 H 08/25/18 11:50 POC Glucose 116 H (1) Fall Encounter type: initial encounter Qualified Code(s): W19.XXXA - Unspecified fall, initial encounter (2) Closed left hip fracture Encounter type: initial encounter Qualified Code(s): S72.002A - Fracture of unspecified part of neck of left femur, initial encounter for closed fracture (3) T2DM (type 2 diabetes mellitus) Diabetes mellitus correction insulin use: without termite control servicer use Diabetes mellitus complication status: with circulatory complication Diabetes mellitus complication detail: with peripheral angiopathy without gangrene Qualified Code(s): E11.51 - Type 2 diabetes mellitus with diabetic peripheral angiopathy without gangrene (4) Cerebral palsy Cerebral palsy type: other type Qualified Code(s): G80.8 - Other cerebral palsy
--- NOTE | 2018-08-25 14:34 | Discharge Summary ---
Date of Service August 25, 2018 Admission HPI Per Admitting Provider This is a 72-year-old male who has a significant past medical history of cerebral palsy, peripheral arterial disease, history of tobacco abuse, T2 DM who presents to [facility] secondary to mechanical fall he suffered earlier this morning. Patient states he was going into bathroom, legs and feet got very heavy, "got into the wrong position and could not move feet." He states feet were sticking to floor and ended up falling on left lower extremity. Was unable to get up and caregiver was unable to assist him therefore EMS was summoned. He complained of immediate left lower extremity pain in the region of hip. He denies any current fever, chills, sweats, lightheadedness, dizziness, syncope or presyncope, chest pain, shortness of breath, hemoptysis, nausea, vomiting, diarrhea, change in bowel or bladder habits. Appetite has otherwise been stable. According to nursing staff on arrival patient was noted to be significantly hypoxic at 80% for about 20 minutes. They were able to improve him to 89% on room air but ultimately required O2 for oxygen supplementation. He was also noted to be covered in stool. Patient states he has no prior history of coronary artery disease, DC, CHF, PE, diabetes. Records indicate he does have diabetes as well as peripheral arterial disease specifically bilateral lower extremity SFA greater than 70%. He is currently on Plavix and statin. He states he has had numerous prior surgeries in the past specifically his bilateral lower extremities secondary to cerebral palsy. He recognizes approximately 7 surgeries to help improve function of lower extremities. He denies any prior cardiac or GI procedures. He lives alone at home but does have a caregiver that comes in to help him. He denies any current smoking or alcohol use but does elicit to prior tobacco use in the past. He follows with PCP SOILA Sagastume in [place]. Admission Exam Per Admitting Provider Vital Signs (Past 24 Hours): Last Vital Signs Temp 36.6 C 08/19/18 11:35 Pulse 91 H 08/19/18 14:01 Resp 16 08/19/18 14:01 BP 142/77 H 08/19/18 14:01 Pulse Ox 93 08/19/18 14:01 Physical Exam: Gen: WD/WN, unkempt, M, NAD, lying flat in bed, pleasant, conversing easily Head: Normocephalic, Atraumatic Eyes: Sclera normal, no conjunctival injection, PERRLA, EOMI ENT: Gross hearing intact, normal pharynx, mucous membranes dry, poor dentition Neck: supple, no adenopathy, No JVD, no bruit, Resp: Clear to auscultation b/l, no wheeze, rales, rhonchi. Normal insp/exp effort, no accessory muscle use CV: Regular rate, regular rhythm, no murmur, rub, gallop, or ectopy Abd: +BS x 4, soft, nontender, nondistended Musculoskeletal: moves extremities active rom x 3, did not assess LLE given acute fracture, +leg length discrepancy with LLE inversion, good floor supervisor strength Extremities: Trace RLE edema, b/l venous stasis changes, RLE lateral tibal skin tear with surrounding soft tissue erythema and warmth, palpable pedal pulses +1 and equal b/l. Skin: warm, moist, mild turgor, cap refill < 2sec Neuro: Alert and oriented x 3, speech normal, good mood/affect, cran nerve 2-12 intact grossly : deferred Principal Diagnosis Closed left subtrochanteric femur fracture: Status post left femur long cephalo- medullary nail Discharge Exam Vital Signs (Past 24 Hours): Last Vital Signs Temp 36.8 C 08/25/18 11:23 Pulse 69 08/25/18 11:23 Resp 16 08/25/18 11:23 BP 128/72 08/25/18 11:23 Pulse Ox 91 08/25/18 11:23 Physical Exam: General- oriented x 3, not in distress, speaks in sentences with no effort or accessory muscle use Eyes- anicteric Neck- no JVD Lungs- clear breath sounds bilaterally, no wheezing, no crackles Heart- normal rate, regular rhythm; no murmurs Abdomen- normal bowel sounds, nondistended, soft, nontender Extremities- mild edema of right thigh, dressing in place- no bleeding/discharge right legno pretibial edema, no calf tenderness Neuro- alert, oriented x 3; no gross focal neurologic deficits Skin- warm & dry Discharge Data Allergies Allergy/AdvReac Type Severity Reaction Status Date / Time No Known Allergies Allergy Unverified 08/20/18 12:52 Consultations 08/19/18 11:33 Consult Case Management - Discharge Planning Routine 08/19/18 13:26 ED Decision to Admit Stat 08/19/18 13:42 Consult Orthopedic Surgery Stat 08/19/18 14:20 Consult Anesthesiology Routine Consult Orthopedic Surgery Routine 08/19/18 14:43 Consult Cardiology Routine 08/19/18 16:55 Consult Case Management - Discharge Planning Routine 08/19/18 17:25 Consult Pulmonology Routine Procedures Performed Operation Date: 08/20/18 08:20 Actual Procedures p Left femur long cephalomedullary nail(Left) - Oli Mcmanus DO Ordered Studies 08/19/18 14:23 CT angio chest PE protocol Stat CHEST CTA for PULMONARY ARTERIES CT DOSE: 439.70 mGy.cm HISTORY: Short of breath. TECHNIQUE: Multiaxial CT images of the chest were performed following the intravenous administration of contrast to evaluate the pulmonary arteries. Maximal intensity projection images were also obtained. A dose lowering technique was utilized adhering to the principles of ALARA. COMPARISON STUDY: None. FINDINGS: Normal caliber thoracic aorta with no evidence for dissection. Respiratory motion artifact results in suboptimal evaluation of the segmental and subsegmental pulmonary arteries. However, no definite filling defects within the pulmonary arteries to suggest pulmonary embolus. No mediastinal or hilar lymphadenopathy. The heart is normal in size. A 2.1 cm hypodense lesion within the liver favors a cyst. Spleen is unremarkable. Large hiatus hernia containing the majority of the stomach and the pancreatic tail. No suspicious lytic or blastic osseous lesions. The central airways appear patent. No pneumothorax. Patchy and linear densities within the lungs posteriorly favor atelectasis. Otherwise, no focal lung consolidations to suggest pneumonia. IMPRESSION: 1. No definite evidence for pulmonary embolus with limitations as described above. 2. Large hiatus hernia. 3. Patchy and linear densities within the lung bases posteriorly favor atelectasis. 08/20/18 16:00 FL femur LT 2V Routine FL fluoroscopy <1hr Routine Hospital Course (1) Fall: (2) Closed left hip fracture: Status post left femur long cephalo-medullary nail by Dr. Mcmanus 08/20/18 remained stable post op continue pain management, PT/OT, Incentive Spirometry per Ortho: -DVT prophylaxis x 4 weeks with Heparin SC TID -Partial weightbearing left lower extremely -Postoperative x-rays well aligned well fixed orthopedic implants, anatomic alignment fracture site, lateral wall comminution noted at the location of the helical blade extending to the fracture site. - ff up with Orthopedic [facility] Dr. Mcmanus in 2 weeks Acute blood loss anemia Hg stable around 10 (3) Acute respiratory failure with hypoxia: -No evidence of pulmonary embolism -echocardiogram ; mild concentric left medical hypertrophy, EF is 65-70%, right ventricular systolic function is normal, no significant valvular pathology - resolved - continue incentive spirometry (4) Cellulitis of right lower extremity: improved on Ceftriaxone x 5 days transition to Keflex x 2 more days (5) Renal insufficiency, mild: -no hx of CKD per records -baseline cr 0.9-1.0 crea stable (6) T2DM (type 2 diabetes mellitus): -last A1C noted to be 9.2 10/02/17 -not on any oral hypoglycemics -A1c.-6.4 on 08/20 -place on Lantus/novolg per protocol monitor BSGs (7) Peripheral vascular disease: - > 70% stenosis to SFA b/l -on plavix and statin -follows Dr Bowman, no need for surgical intervention at this time (8) Cerebral palsy: -supportive measures Large Hiatal Hernia - found in CT chest ff up as outpatient (9) DVT prophylaxis: Heparin SC TID x 3 weeks Disposition: d/c to rehab ff up with Ortho Dr. Mcmanus in 2 weeks ff up with PCP 1 week after discharge from Rehab Total Time Total Time Spent Total Time Spent (In Minutes): 40 minutes Discharge Plan Discharge Items Patient Disposition: Transfer Inpatient Rehab Fac Reason For Visit: LT HIP FRACTURE Discharge Diagnosis: Closed left subtrochanteric femur fracture: Status post left femur long cephalo-medullary nail Condition: Good Discharge Goals: Diagnostic testing and Therapeutic intervention Activity: As commented below Activity Comment: partial weight bearing left leg; fall precautions Lifting: Wait until after follow-up appointment Driving/Machine Use Comment: No driving Weightbearing: Left partial Non-emergency contact: Primary Care Provider and Surgeon Call non-emergency contact if: you have any medication questions, your symptoms worsen, your pain is not controlled, your pain is worsening, your pain is unusual for you, your pain is concerning for you, you have a fever, your wound has increased redness, your wound has increased drainage and your wound pain has increased Follow-up/Referrals: Oli Mcmanus DO [Physician] - (Call to follow up with Dr. Mcmanus in 4 weeks.) Marivel Mayer C.R.N.P. [Primary Care Provider] - Diet: Carb Consistent or DM2 and Heart Healthy Addtl Provider Instructions: PLEASE REFER TO ACCOMPANYING HOSPITAL DISCHARGE SUMMARY FOR FURTHER DETAILS. [facility] DISCHARGE INSTRUCTIONS: HIP FRACTURE SELF CARE INSTRUCTIONS: A. You are to ambulate with a walker or crutches for approximately 6 weeks. B. You are PARTIAL WEIGHT BEARING on your operative lower extremity for at least 6 weeks. C. Wear low heeled shoes with non-slip soles D. Be sure that your floors are free of things that could trip you throw rugs, electrical cords, and small objects. Avoid wet and waxed floors, especially with crutches/walker/cane. E. Try to walk several times a day with rest periods between. F. You may shower 48 hours after surgery and get the incision area wet, but DO NOT soak or submerge incision area in water. (No baths, swimming pools, hot tubs) G. You may have a large, band-aid like dressing over your incision (Aquacel). This will remain on your incision for 7 days, and then can be removed. You CAN shower with this on. If incision is leaking through the dressing, please call the office . H. Do NOT apply soap or any ointment/lotions directly over incision. I. You may use ice as needed to operative site. SPECIAL CARE INSTRUCTIONS: VERY IMPORTANT TO READ AND REVIEW A. You may be at risk for phlebitis or blood clots. a. Wear surgical stockings (SHANTAL hose) for 2 weeks after surgery to improve circulation and reduce swelling. b. Take your home does Clopidogrel and EC Aspirin 325mg twice daily for 4 weeks or as directed. This is your blood thinner. c. If you are on Coumadin- you will have daily/weekly blood work to monitor your levels. This will be done by either your family physician/cooking instructor (if you are on Coumadin chronically) versus your orthopedic surgeon. Expect a phone call the day of or the day after your blood work is drawn to adjust your dose accordingly. B. There are a few signs you need to watch for after you are home. Call [facility] [employer] at [phone] if you experience any of the following: a. If you have a temperature of 101.5 degrees or higher. b. Sudden increase in pain in your hip not relieved by rest or pain medication. c. Any fluid or drainage from the incision; redness of the incision. d. Shortness of breath or chest pain. B. Please call [facility] at [phone] if you have any questions or concerns about your operation or recovery. C. Call your physician if: a. Temperature is greater than 101.5 degrees (F). b. Pain is not relieved by prescribed pain medications. c. Increase drainage or redness from incision. d. Unanswered questions or concerns. D. Pain Medication: a. You will be prescribed pain medication upon discharge that should last till your first post-operative appointment. b. If you experience nausea and/or skin rash, discontinue this medication and contact our office for an alternative medication. c. Caution- narcotic pain medication can cause constip ation. FOLLOW UP VISIT: Please call [facility] at [phone] to schedule a follow up appointment 4 weeks from the date of your surgery date. Prescriptions: New sennosides-docusate sodium [Senna with Docusate Sodium] 8.6-50 mg Tablet 2 tab PO HS 7 Days Qty: 14 RF: 0 acetaminophen [Pain Reliever] 500 mg Tablet 500 mg PO Q8 PRN (Reason: Pain) 7 Days Qty: 21 RF: 0 Novolog Flexpen U-100 Insulin 100 unit/mL (3 mL) Insulin Pen 1 units SC ACHS 14 Days Qty: 0.14 RF: 0 heparin, porcine (PF) 5,000 unit/0.5 mL Syringe 5,000 unit subcut Q8 21 Days Qty: 31.5 RF: 0 cephalexin 500 mg capsule 500 mg PO QID 2 Days Qty: 8 RF: 0 Continued atorvastatin 10 mg tablet 10 mg PO DAILY RF: 0 clopidogrel 75 mg tablet 75 mg PO DAILY RF: 0 Stand-Alone Forms: [facility] Discharge Orders: Discharge Order (Routine); Ordered 08/25/18 Ordered By: Te Grant Skilled Items Patient informed of condition?: Yes DNR: Yes Discharge Level of Care: Acute rehab Communicable Disease: No Discharge Prognosis: Stable Admission Data Admit Date/Time: 08/19/18 14:20 Attending Provider: Te Grant Admit Provider: Kalpana Bell Primary Care Provider: Marivel Mayer Other Providers: Robbie Lord ; Russel Michael ; Cornelius Dinh ; Sander Mckeon ; Kalpana Bell ; Juan David Morrow Service: Telemetry
[2018-08-25] MEDS ORDERED: INSULIN ASPART 100 UNITS/ML 3 ML PEN SC SCH (16:30)
== END 2018-08-25 15:16 | DRG 480 ==
LOC: ED 11:25 → SUATTDRO 14:20 → 2N 14:20
DX: G80.9 Cerebral palsy, unspecified; N28.9 Disorder of kidney and ureter, unspecified; D62 Acute posthemorrhagic anemia; Z87.891 Personal history of nicotine dependence; L03.115 Cellulitis of right lower limb; J44.1 Chronic obstructive pulmonary disease with (acute) exacerbation; W19.XXXA Unspecified fall, initial encounter; K44.9 Diaphragmatic hernia without obstruction or gangrene; S72.22XA Displaced subtrochanteric fracture of left femur, initial encounter for closed fracture; E11.9 Type 2 diabetes mellitus without complications; J96.01 Acute respiratory failure with hypoxia

== ENCOUNTER 2020-05-06 21:31 | Inpatient (IN) ==
--- NOTE | 2020-05-06 22:02 | Emergency Department Note ---
History of Present Illness General Chief complaint: Referred by Doctor Stated complaint: AGITATION Time Seen by Provider: 05/06/20 21:43 Source: patient, EMS, RN notes reviewed and old records reviewed Mode of arrival: ambulatory Limitations: no limitations History of Present Illness Provider complaint: Agitation Onset (ago): hour(s) less than 1 This 74-year-old male sent in by his home health nurse over concerns that the patient became very agitated with home health nursing today. The patient was supposed to start at [facility] today for her rehabilitation stay however when he found out tonight that [facility] was not taking him tonight he became agitated. He then called office of aging who told the patient to come to the emergency department. The patient was picked up by EMS. EMS reports that the patient's agitation became much better when the home health nurse left. Upon a rrival to the emergency department patient has no complaints he just wants a ride to [facility]. Home Medications Medication Instructions Recorded Confirmed Type No Known Home Medications 03/19/20 05/07/20 History Allergies Allergy/AdvReac Type Severity Reaction Status Date / Time No Known Allergies Allergy Unverified 05/07/20 00:30 Past Med/Surg History Medical History (Updated 05/08/20 @ 00:20 by Chad Chen MD) Cerebral palsy History of tobacco abuse Peripheral vascular disease b/l SFA > 70%, follows Dr. Bowman, not surgical candidate at this point T2DM (type 2 diabetes mellitus) Surgical History History of surgery on extremity history of multiple lower extremity surgerys due to Cerebral palsy Family History Other Family history non-contributory Social History Smoking Status: Former smoker Cigarettes Per Day: 0; Smoking End Date: 20 yrs ago; Second Hand Exposure: No; Do You Dip or Chew Tobacco: No; Hx Alcohol Use: No Hx Substance Use: No Preferred Language: Maori Communication Ability: Effective Supervising Librarian Required: No Beliefs That Will Affect Care: None marital status: Single Current Living Situation: Alone Current Living Situation Comment: with paid caregivers current occupational status: retired How many Children do You have: 0 Other Information That Helps Us Care for You: No Feels Safe at Home: Yes Safety Concerns: Feels Safe At This Time Assistive Devices: Wheelchair Review of Systems A total of 10 systems reviewed and were otherwise negative Physical Exam Vital Signs Vital Signs - 24 hr 05/06/20 21:31 Temperature 37.2 C Temperature Source Oral Pulse Rate 94 H Pulse Rhythm Regular Respiratory Rate 18 Respiratory Effort / Characteristics Non-Labored Spontaneous Respiratory Depth Normal Respiratory Pattern Regular Blood Pressure 145/98 H Blood Pressure Mean 113 Pulse Oximetry 94 Oxygen Delivery Method Room Air Sepsis Recent Fever Within 48 Hours No Sepsis New/Unexplained Change in Mental Status No Sepsis Action Taken by Nursing No Action Required VITAL SIGNS - Vital signs and nursing notes were reviewed. GENERAL - 74-year-old male appearing stated age who is in no acute distress. Communicates well with provider and answers questions appropriately. SKIN - Without rashes. HEAD - NC/AT. EYES - PERRL with EOMI bilaterally. Sclera anicteric. Palpebral conjunctiva pin k and moist with no injection noted. EARS - No deformities of external structures noted on gross examination bilaterally. No pain elicited with palpation of the tragus bilaterally. External auditory canals without discharge or otorrhea. Tympanic membranes pearly mckeon without retraction or bulging. No fluid or purulent material visualized behind the TM. Handle of malleus, umbo, cone of light, pars tensa/flaccid all easily visualized. NOSE - Midline and without cyanosis. No epistaxis or purulent drainage noted. Septum midline without deviation or septal hematoma noted. MOUTH/OROPHARYNX - Without perioral cyanosis. Buccal mucosa pink and moist and without leukoplakia. Tongue midline with equal elevation of palate bilaterally. No tonsillar hypertrophy, erythema, or exudates noted. dentition noted. NECK - Neck with FROM. Supple to palpation. lymphadenopathy noted. No nuchal rigidity. LUNGS - Chest wall symmetric without accessory muscle use, intercostals retractions, or central cyanosis. Normal vesicular breath sounds CTA B/L. No wheezes, rales, or rhonchi appreciated. CARDIAC - RRR with S1/S2. No murmur, rubs, or gallops appreciated. ABDOMEN - Abdominal contour without pulsations or visible masses. BS normoactive all four quadrants. No tenderness, palpable masses, hepatosp lenomegaly, or ascites noted. EXTREMITIES - No clubbing or peripheral cyanosis. No pretibial edema present. +3/5 radial, posterior tibial, and dorsalis pedis pulses palpated throughout. +5/5 strength noted in UE/LE bilaterally. NEUROLOGIC - Cranial nerves II through XII grossly intact. Sensory intact to light touch throughout. Patellar reflexes +2/4. PSYCH - A&Ox3 and cooperates fully with examiner. Pt is very pleasant and interacts well with examiner. Course Administered Medications Enoxaparin Sodium (Enoxaparin Inj 40 Mg/0.4 Ml Syr) 40 mg SQ Q24H KEVIN Stop: 06/06/20 08:59 Last Admin: 05/07/20 08:55 Dose: 40 mg Documented by: [id number] Insulin Aspart (Insulin Aspart 100 Units/Ml 3 Ml Pen) 0 units SC ACHS KEVIN Stop: 06/06/20 07:29 Last Admin: 05/07/20 20:52 Dose: Not Given Documented by: [id number] Cosigned by: [id number] Admin: 05/07/20 17:42 Dose: 7 units Documented by: [id number] Cosigned by: [id number] Admin: 05/07/20 12:45 Dose: 8 units Documented by: [id number] Cosigned by: [id number] Admin: 05/07/20 08:51 Dose: 6 units Documented by: [id number] Cosigned by: [id number] Medical Decision Making Differential Diagnosis Infection, dehydration, metabolic abnormality, hypo/hyperglycemia, electrolyte disturbance, anemia, hypoxia, cardiac sources, intracerebral event, toxicologic, neurologic, as well as other pathologies. Medical Records Attestation: I reviewed the patient's medical records. Home Medications Current Medication List: was personally reviewed by me Laboratory Data Attestation: I reviewed the patient's lab results. Result diagrams: 05/06/20 22:21 05/06/20 22:21 Lab Results 05/06/20 05/06/20 05/06/20 Range/Units 22:00 22:00 22:21 WBC 7.66 (4.8-10.8) K/uL RBC 4.94 (4.7-6.1) M/uL Hgb 15.3 (14.0-18.0) g/dL Hct 45.6 (42-52) % MCV 92.3 (80-100) fL MCH 31.0 (25-34) pg MCHC 33.6 (32-36) g/dL RDW Std Deviation 48.0 H (36.4-46.3) fL RDW Coeff of Suraj 14.2 (11.5-14.5) % Plt Count 272 (130-400) K/uL MPV 10.7 H (7.4-10.4) fL Immature Gran % (Auto) 0.1 % Neut % (Auto) 75.3 % Lymph % (Auto) 14.5 % Bennett % (Auto) 8.7 % Eos % (Auto) 1.3 % Baso % (Auto) 0.1 % Neut # (Auto) 5.76 (1.4-6.5) K/uL Lymph # (Auto) 1.11 L (1.2-3.4) K/uL Bennett # (Auto) 0.67 H (0.11-0.59) K/uL Eos # (Auto) 0.10 (0-0.5) K/uL Baso # (Auto) 0.01 (0-0.2) K/uL Immature Gran # (Auto) 0.01 (0.00-0.02) K/uL Sodium (136-145) mmol/L Potassium (3.5-5.1) mmol/L Chloride (98-107) mmol/L Carbon Dioxide (21-32) mmol/L Anion Gap (3-11) BUN (7-18) mg/dl Creatinine (0.6-1.4) mg/dl Est Cr Clr Drug Dosing ml/min Est GFR ( Amer) Est GFR (Non-Af Amer) BUN/Creatinine Ratio (10-20) Glucose (70-99) mg/dl Calcium (8.5-10.1) mg/dl Total Bilirubin (0.2-1) mg/dl AST (15-37) U/L ALT (12-78) U/L Alkaline Phosphatase (45-117) U/L Total Protein (6.4-8.2) gm/dl Albumin (3.4-5.0) gm/dl Globulin (2.5-4.0) gm/dl Albumin/Globulin Ratio (0.9-2) TSH (0.300-4.500) uIu/ml Urine Color Yellow Urine Appearance Clear (Clear) Urine pH 7.5 (4.5-7.5) Ur Specific Derry 1.030 (1.000-1.030) Urine Protein Negative (Negative) Urine Glucose (UA) 3+ H (Negative) Urine Ketones Negative (Negative) Urine Blood Negative (Negative) Urine Nitrite Negative (Negative) Urine Bilirubin Negative (Negative) Urine Urobilinogen Negative (Negative) Ur Leukocyte Esterase Negative (Negative) Salicylates (2.8-20) mg/dl Urine Opiates Screen Neg (Neg) Ur Methadone, Qual Neg (Neg) Acetaminophen (10-30) ug/ml Urine Barbiturates Neg (Neg) Ur Phencyclidine (PCP) Neg (Neg) U Amphetamin/Meth Scrn Neg (Neg) MDMA (Ecstasy) Screen Neg (Neg) U Benzodiazepines Scrn Neg (Neg) Ur Cocaine Metabolite Neg (Neg) U Marijuana (THC) Screen Neg (Neg) Ethyl Alcohol mg/dL (0-3) mg/dl SARS-CoV-2 Ag (Rapid) (Negative) 05/06/20 05/06/20 05/06/20 Range/Units 22:21 22:21 22:21 WBC (4.8-10.8) K/uL RBC (4.7-6.1) M/uL Hgb (14.0-18.0) g/dL Hct (42-52) % MCV (80-100) fL MCH (25-34) pg MCHC (32-36) g/dL RDW Std Deviation (36.4-46.3) fL RDW Coeff of Suraj (11.5-14.5) % Plt Count (130-400) K/uL MPV (7.4-10.4) fL Immature Gran % (Auto) % Neut % (Auto) % Lymph % (Auto) % Bennett % (Auto) % Eos % (Auto) % Baso % (Auto) % Neut # (Auto) (1.4-6.5) K/uL Lymph # (Auto) (1.2-3.4) K/uL Bennett # (Auto) (0.11-0.59) K/uL Eos # (Auto) (0-0.5) K/uL Baso # (Auto) (0-0.2) K/uL Immature Gran # (Auto) (0.00-0.02) K/uL Sodium 141 (136-145) mmol/L Potassium 4.1 (3.5-5.1) mmol/L Chloride 111 H (98-107) mmol/L Carbon Dioxide 25 (21-32) mmol/L Anion Gap 4.0 (3-11) BUN 22 H (7-18) mg/dl Creatinine 0.94 (0.6-1.4) mg/dl Est Cr Clr Drug Dosing 66.8 ml/min Est GFR ( Amer) 91.6 Est GFR (Non-Af Amer) 79.0 BUN/Creatinine Ratio 23.0 H (10-20) Glucose 252 H (70-99) mg/dl Calcium 9.5 (8.5-10.1) mg/dl Total Bilirubin 0.6 (0.2-1) mg/dl AST 11 L (15-37) U/L ALT 19 (12-78) U/L Alkaline Phosphatase 151 H (45-117) U/L Total Protein 7.2 (6.4-8.2) gm/dl Albumin 3.6 (3.4-5.0) gm/dl Globulin 3.6 (2.5-4.0) gm/dl Albumin/Globulin Ratio 1.0 (0.9-2) TSH 1.960 (0.300-4.500) uIu/ml Urine Color Urine Appearance (Clear) Urine pH (4.5-7.5) Ur Specific Derry (1.000-1.030) Urine Protein (Negative) Urine Glucose (UA) (Negative) Urine Ketones (Negative) Urine Blood (Negative) Urine Nitrite (Negative) Urine Bilirubin (Negative) Urine Urobilinogen (Negative) Ur Leukocyte Esterase (Negative) Salicylates < 1.7 L (2.8-20) mg/dl Urine Opiates Screen (Neg) Ur Methadone, Qual (Neg) Acetaminophen < 2 L (10-30) ug/ml Urine Barbiturates (Neg) Ur Phencyclidine (PCP) (Neg) U Amphetamin/Meth Scrn (Neg) MDMA (Ecstasy) Screen (Neg) U Benzodiazepines Scrn (Neg) Ur Cocaine Metabolite (Neg) U Marijuana (THC) Screen (Neg) Ethyl Alcohol mg/dL < 3.0 (0-3) mg/dl SARS-CoV-2 Ag (Rapid) (Negative) 05/06/20 Range/Units Unknown WBC (4.8-10.8) K/uL RBC (4.7-6.1) M/uL Hgb (14.0-18.0) g/dL Hct (42-52) % MCV (80-100) fL MCH (25-34) pg MCHC (32-36) g/dL RDW Std Deviation (36.4-46.3) fL RDW Coeff of Suraj (11.5-14.5) % Plt Count (130-400) K/uL MPV (7.4-10.4) fL Immature Gran % (Auto) % Neut % (Auto) % Lymph % (Auto) % Bennett % (Auto) % Eos % (Auto) % Baso % (Auto) % Neut # (Auto) (1.4-6.5) K/uL Lymph # (Auto) (1.2-3.4) K/uL Bennett # (Auto) (0.11-0.59) K/uL Eos # (Auto) (0-0.5) K/uL Baso # (Auto) (0-0.2) K/uL Immature Gran # (Auto) (0.00-0.02) K/uL Sodium (136-145) mmol/L Potassium (3.5-5.1) mmol/L Chloride (98-107) mmol/L Carbon Dioxide (21-32) mmol/L Anion Gap (3-11) BUN (7-18) mg/dl Creatinine (0.6-1.4) mg/dl Est Cr Clr Drug Dosing ml/min Est GFR ( Amer) Est GFR (Non-Af Amer) BUN/Creatinine Ratio (10-20) Glucose (70-99) mg/dl Calcium (8.5-10.1) mg/dl Total Bilirubin (0.2-1) mg/dl AST (15-37) U/L ALT (12-78) U/L Alkaline Phosphatase (45-117) U/L Total Protein (6.4-8.2) gm/dl Albumin (3.4-5.0) gm/dl Globulin (2.5-4.0) gm/dl Albumin/Globulin Ratio (0.9-2) TSH (0.300-4.500) uIu/ml Urine Color Urine Appearance (Clear) Urine pH (4.5-7.5) Ur Specific Derry (1.000-1.030) Urine Protein (Negative) Urine Glucose (UA) (Negative) Urine Ketones (Negative) Urine Blood (Negative) Urine Nitrite (Negative) Urine Bilirubin (Negative) Urine Urobilinogen (Negative) Ur Leukocyte Esterase (Negative) Salicylates (2.8-20) mg/dl Urine Opiates Screen (Neg) Ur Methadone, Qual (Neg) Acetaminophen (10-30) ug/ml Urine Barbiturates (Neg) Ur Phencyclidine (PCP) (Neg) U Amphetamin/Meth Scrn (Neg) MDMA (Ecstasy) Screen (Neg) U Benzodiazepines Scrn (Neg) Ur Cocaine Metabolite (Neg) U Marijuana (THC) Screen (Neg) Ethyl Alcohol mg/dL (0-3) mg/dl SARS-CoV-2 Ag (Rapid) Negative (Negative) MDM Narrative Patient was seen and evaluated as above in room A5. Review was performed of nursing notes and vital signs. I did review pertinent previous visits and patient history. After obtaining a thorough history and physical examination the above work up was performed. This 74-year-old male who is unable to walk and normally has his care via home health nurse. Due to agency shortages it sounds like the patient has lost his home health nurse. I did discuss the case with case management who felt that the patient should be admitted to the hospital with referral to [facility]. Patient is in agreement with the treatment plan. The patient was evaluated during a period of high volume and high acuity while the hospital was at overcapacity during the global COVID-19 pandemic, and that diagnosis was suspected/considered upon their initial presentation. Their evaluation, treatment and testing was consistent with current guidelines for patients who present with complaints or symptoms that may be related to COVID- 19. Impression & Plan Agitation Discharge Plan Visit Data Chief Complaint: Referred by Doctor Stated Complaint: AGITATION ED Provider: Chad Chen Discharge Problem: Agitation Patient Disposition: Admitted As Inpatient Discharge Instructions Interventions: ED Discharge Assessment Last Done: 05/07/20 01:24
[2020-05-06 22:10] LABS: Appearance Urine Clear (Clear); Bilirubin Urine Negative (Negative); Blood Urine Negative (Negative); Color Urine Yellow; Glucose Urine UA 3+ (Negative); Ketones Urine Negative (Negative); Leukocyte Esterase Urine Negative (Negative); Nitrite Urine Negative (Negative); Protein Urine Negative (Negative); Urobilinogen Urine Negative (Negative); pH Urine 7.5 (4.5-7.5)
[2020-05-06 22:29] LABS: Amphetamines+Metham, Urine Neg (Neg); Barbiturates, Urine Neg (Neg); Benzodiazepine, Urine Neg (Neg); Cocaine, Urine Neg (Neg); MDMA (Ecstacy), Urine Neg (Neg); Methadone, Urine Neg (Neg); Opiate, Urine Neg (Neg); Phencyclidine, Urine Neg (Neg)
[2020-05-06 22:42] LABS: Basophils # (auto) 0.01 K/uL (0-0.2); Basophils % (auto) 0.1 %; Eosinophils % (auto) 1.3 %; Hematocrit (blood only) 45.6 % (42-52); Hemoglobin 15.3 g/dL (14.0-18.0); Immature Granulocytes # (auto) 0.01 K/uL (0.00-0.02); Immature Granulocytes % (auto) 0.1 %; Lymphocytes # (auto) 1.11 K/uL (1.2-3.4); Lymphocytes % (auto) 14.5 %; Mean Corpuscular Hgb Conc 33.6 g/dL (32-36); Mean Corpuscular Volume 92.3 fL (80-100); Mean Platelet Volume 10.7 fL (7.4-10.4); Monocytes # (auto) 0.67 K/uL (0.11-0.59); Monocytes % (auto) 8.7 %; Neutrophils # (auto) 5.76 K/uL (1.4-6.5); Neutrophils % (auto) 75.3 %; Platelet Count 272 K/uL (130-400); RDW Coefficient of Variation 14.2 % (11.5-14.5); Red Blood Count 4.94 M/uL (4.7-6.1); White Blood Count 7.66 K/uL (4.8-10.8)
[2020-05-06 22:58] LABS: Albumin Level 3.6 gm/dl (3.4-5.0); Calcium 9.5 mg/dl (8.5-10.1); Creatinine Clr Calc Pharmacy 66.8 ml/min; Est GFR (African American) 91.6; Potassium 4.1 mmol/L (3.5-5.1)
[2020-05-06 23:09] LABS: Bilirubin,Total 0.6 mg/dl (0.2-1); Globulin 3.6 gm/dl (2.5-4.0); Thyroid Stimulating Hormone 1.96 uIu/ml (0.300-4.500); Total Protein 7.2 gm/dl (6.4-8.2)
[2020-05-06 23:14] LABS: Salicylate < 1.7 mg/dl (2.8-20)
[2020-05-06 23:15] LABS: Acetaminophen < 2 ug/ml (10-30)
--- NOTE | 2020-05-06 23:57 | History & Physical Report ---
Date of Service May 06, 2020 Assessment & Plan (1) Cerebral palsy: Mr. Aceves is a 74 year old man here because his home health services lapsed today and his admission plan to [facility] fell through Placement Patient not safe at home secondary to ambulatory dysfunction from deconditioning and cerebral palsy Will need likely SNF/Rehab placement as his home services have stopped Case management consulted DMII Placed on BSG checks and sliding scale insulin A1C ordered F/E/N: DMII Diet DVT PPx: Lovenox Dispo: Admit to Obs pending placement (2) T2DM (type 2 diabetes mellitus): History of Present Illness Chief Complaint: Unable to cope at home Primary Care Provider: Yousif Fried Get Donovan is a 74 year old man with cerebral palsy who is here today looking for placement. Mr. Aceves had a hip fracture last year and has been getting physical therapy and home health services ever since. Today his home health services have lapsed and he was under the impression from his pillowcase turner that he would be going to [facility] but because he could not get placement should come to the ED to organize transport to [facility]. Unfortunately when the ED here contacted [facility] they had no record or bed reserved for him. He has no current complaints other than the fact that without his home services he cannot manage at home. He denies all acute symptoms on review of systems. Does not take any medications and is unable to tell me any diseases that he has other than cerebral palsy. ON presentation to ED patient is doing well, vital signs slightly hypertensive but patient is upset. Labwork significant for significant hyperglycemia >250. Not on any home diabetes regimen. Allergies Allergy/AdvReac Type Severity Reaction Status Date / Time No Known Allergies Allergy Unverified 05/07/20 00:30 Home Medications Medication Instructions Recorded Confirmed Type No Known Home Medications 03/19/20 05/07/20 History Past Med/Surg History Medical History (Updated 05/08/20 @ 00:20 by Chad Chen MD) Cerebral palsy History of tobacco abuse Peripheral vascular disease b/l SFA > 70%, follows Dr. Bowman, not surgical candidate at this point T2DM (type 2 diabetes mellitus) Surgical History History of surgery on extremity history of multiple lower extremity surgerys due to Cerebral palsy Family History Other Family history non-contributory Social History Smoking Status: Former smoker Cigarettes Per Day: 0; Smoking End Date: 20 yrs ago; Second Hand Exposure: No; Do You Dip or Chew Tobacco: No; Hx Alcohol Use: No Hx Substance Use: No Preferred Language: Ukrainian Communication Ability: Effective Casino Gaming Inspector Required: No Beliefs That Will Affect Care: None marital status: Single Current Living Situation: Alone Current Living Situation Comment: with paid caregivers current occupational status: retired How many Children do You have: 0 Other Information That Helps Us Care for You: No Feels Safe at Home: Yes Safety Concerns: Feels Safe At This Time Assistive Devices: Wheelchair Review of Systems Review of Systems: All systems reviewed & are unremarkable except as noted in HPI & below Physical Exam Constitutional: + well hydrated, cooperative and comfortable; no acute distress and no altered mental status Eyes: PERRL, conjunctivae normal, anicteric sclerae ENMT: external ear and nose normal, oropharynx normal Respiratory: normal respiratory effort, lungs clear to auscultation Cardiovascular: RRR, no murmur, no edema Gastrointestinal (Abdomen): normal bowel sounds, soft, nontender, no hepatosplenomegaly Musculoskeletal: Lower limbs weak, cachectivc appearing strength 4/5 b/l lower extremities able to lift only against gravity Skin: no rashes, warm and dry Results & Data Results & Data ([facility]) Vital Signs (Past 12 Hours) Vital Signs Temp Pulse Resp BP Pulse Ox 05/06/20 21:31 37.2 C 94 H 18 145/98 H 94 Supervising Physician Co-Signing Physician Notes Attending addendum: I have physically seen this patient, have supervised the medical residents activities, and agree with the H&P unless as otherwise noted. Assessment and Plan: Inability to care for self/cerebral palsy- Consult community mental health social worker regarding placement services available, SNF versus rehab placement. Patient's present serves as a run out, and is no place to go at this time. No acute issues going on at this time. Admit for assessment for placement. Resident Activity Tracking Resident Involvement: Resident Care Provided Care Provided: Adult Hospital Medicine (1) T2DM (type 2 diabetes mellitus) Diabetes mellitus complication detail: with peripheral angiopathy without gangrene Diabetes mellitus complication status: with circulatory complication Diabetes mellitus long term care pharmacist insulin use: without long term care pharmacist use Qualified Code(s): E11.51 - Type 2 diabetes mellitus 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
[2020-05-07] MEDS ORDERED: GLUCAGON FOR INJ 1 MG VIAL SQ PRN (01:59)
[2020-05-07] MEDS ORDERED: CARBOHYDRATES FOR HYPOGLYCEMIA PO PRN (01:59)
[2020-05-07] MEDS ORDERED: GLUCOSE 40% GEL 15 GM TUBE PO PRN (01:59)
[2020-05-07] MEDS ORDERED: GLUCOSE 10 TABS/TUBE PO PRN (01:59)
[2020-05-07] MEDS ORDERED: ACETAMINOPHEN 325 MG TAB PO PRN (01:59)
[2020-05-07] MEDS ORDERED: DEXTROSE 50% 50 ML SYRINGE IV PRN (01:59)
[2020-05-07] MEDS ORDERED: ONDANSETRON INJ 2 MG/ML 2 ML VIAL IV PRN (01:59)
[2020-05-07] MEDS ORDERED: POLYETHYLENE (MIRALAX) 17 GM PACK PO PRN (01:59)
[2020-05-07 07:50] LABS: Estimated Average Glucose 200 mg/dl; Hemoglobin A1C 8.6 % (4.5-5.6)
[2020-05-07 07:51] LABS: Prothrombin Time 10.4 Seconds (9.0-12.0)
[2020-05-07] MEDS: INSULIN ASPART 100 UNITS/ML 3 ML PEN SC SCH ×4 (08:51→20:52)
[2020-05-07] MEDS: ENOXAPARIN INJ 40 MG/0.4 ML SYR SQ SCH (08:55)
--- NOTE | 2020-05-07 12:22 | Hospitalist Progress Note ---
Date of Service May 07, 2020 Assessment & Plan (1) Cerebral palsy: Mr. Aceves is a 74 year old man here because his home health services lapsed today and his admission plan to [facility] fell through Placement Patient not safe at home secondary to ambulatory dysfunction from deconditioning and cerebral palsy Will need likely SNF/Rehab placement as his home services have stopped, per pt they were to be resumed next week with a different service so his placement to [facility] was only temporary Case management consulted DMII Placed on BSG checks and sliding scale insulin A1C ordered F/E/N: DMII Diet DVT PPx: Lovenox Dispo: Admit to Obs pending placement (2) T2DM (type 2 diabetes mellitus): Admission and Anticipated Discharge Date Admission Date: May 07, 2020 Subjective Pt is without concerns. Tolerating PO. Pt denies fever, SOB, chest pain, abd pain, n/v/c/d, LE pain or swelling. Review of Systems Review of Systems: Pertinent positives and negatives reviewed in HPI--all others negative Physical Exam Constitutional: WD/WN, vitals as above Eyes: normal visual gonzales by confrontation and + anicteric sclerae Neck: normal visual inspection and trachea midline Respiratory: normal respiratory effort, lungs clear to auscultation Cardiovascular: Rate/Rhythm: regular rate and regular rhythm Gastrointestinal (Abdomen): Inspection/Auscultation: abdomen not distended Percussion/Palpation: abdomen soft; abdomen nontender Musculoskeletal: Head/Neck/Chest: normocephalic and head atraumatic negative for edema, peripheral pulses intact Skin: no rashes, warm and dry Neurologic: awake; not confused Speech / Cognition: normal speech Psychiatric: A+Ox3, euthymic affect Results & Data Results & Data ([facility]) Vital Signs (Past 12 Hours) Vital Signs Temp Pulse Pulse Resp BP BP Pulse Ox 05/07/20 07:10 36.5 C 55 L 16 131/71 94 05/07/20 02:04 36.3 C L 69 16 150/89 H 93 05/07/20 01:24 74 18 143/88 H 94 PG Care Time/CCT Total # of Minutes Spent Total Time Spent with Patient: Total time spent is greater than 50% in coordination of care (as documented) at patient's floor/unit and/or counseling p atient: Coding Level of Care Code 15832 Subseq Obs Care Lvl 2 Diagnoses Cerebral palsy G80.8 Cerebral palsy type: other type T2DM (type 2 diabetes mellitus) E11.51 Diabetes mellitus termite technician insulin use: without termite technician use Diabetes mellitus complication status: with circulatory complication Diabetes mellitus complication detail: with peripheral angiopathy without gangrene (1) Cerebral palsy Cerebral palsy type: other type Qualified Code(s): G80.8 - Other cerebral palsy (2) T2DM (type 2 diabetes mellitus) Diabetes mellitus termite technician insulin use: without termite technician use Diabetes mellitus complication status: with circulatory complication Diabetes mellitus complication detail: with peripheral angiopathy without gangrene Qualified Code(s): E11.51 - Type 2 diabetes mellitus with diabetic peripheral angiopathy without gangrene
--- NOTE | 2020-05-08 06:41 | Billing Data ---
Date of Service May 08, 2020 Coding Level of Care Code 97241 OBS Care - Level 2
[2020-05-08] MEDS: ENOXAPARIN INJ 40 MG/0.4 ML SYR SQ SCH (09:13)
[2020-05-08] MEDS: INSULIN ASPART 100 UNITS/ML 3 ML PEN SC SCH ×4 (09:14→21:25)
--- NOTE | 2020-05-08 13:40 | Hospitalist Progress Note ---
Date of Service May 08, 2020 Assessment & Plan (1) Cerebral palsy: Mr. Aceves is a 74 year old man here because his home health services lapsed today and his admission plan to [facility] fell through Placement Patient not safe at home secondary to ambulatory dysfunction from deconditioning and cerebral palsy Will need likely SNF/Rehab placement as his home services have stopped, per pt they were to be resumed next week with a different service so his placement to [facility] was only temporary Case management consulted DMII Placed on BSG checks and sliding scale insulin A1C ordered F/E/N: DMII Diet DVT PPx: Lovenox Dispo: Admit to Obs pending placement (2) T2DM (type 2 diabetes mellitus): Admission and Anticipated Discharge Date Admission Date: May 07, 2020 Subjective No new concerns. Tolerating PO. Pt denies fever, SOB, chest pain, abd pain, n/v/c/d, LE pain or swelling. Review of Systems Review of Systems: Pertinent positives and negatives reviewed in HPI--all others negative Physical Exam Constitutional: WD/WN, vitals as above Eyes: normal visual gonzales by confrontation and + anicteric sclerae Respiratory: no respiratory distress Musculoskeletal: Head/Neck/Chest: normocephalic and head atraumatic Skin: no rashes, warm and dry Neurologic: awake; not confused Speech / Cognition: normal speech Psychiatric: A+Ox3, euthymic affect Results & Data Results & Data ([facility]) Vital Signs (Past 12 Hours) Vital Signs Temp Pulse Resp BP Pulse Ox 05/08/20 07:54 36.7 C 60 16 133/72 97 PG Care Time/CCT Total # of Minutes Spent Total Time Spent with Patient: Total time spent is greater than 50% in coordination of care (as documented) at patient's floor/unit and/or counseling patient: Coding Level of Care Code 07241 Subseq Obs Care Lvl 1 Diagnoses Cerebral palsy G80.8 Cerebral palsy type: other type T2DM (type 2 diabetes mellitus) E11.51 Diabetes mellitus long wall shear operator insulin use: without long wall shear operator use Diabetes mellitus complication status: with circulatory complication Diabetes mellitus complication detail: with peripheral angiopathy without gangrene (1) Cerebral palsy Cerebral palsy type: other type Qualified Code(s): G80.8 - Other cerebral palsy (2) T2DM (type 2 diabetes mellitus) Diabetes mellitus fpc insulin use: without fpc use Diabetes mellitus complication status: with circulatory complication Diabetes mellitus complication detail: with peripheral angiopathy without gangrene Qualified C ode(s): E11.51 - Type 2 diabetes mellitus with diabetic peripheral angiopathy without gangrene
--- NOTE | 2020-05-09 07:30 | Hospitalist Progress Note ---
Date of Service May 09, 2020 Assessment & Plan (1) Ambulatory dysfunction: Mr. Aceves is a 74 year old man presenting initially due to his home health services lapsing on day of admission and his plan to [facility] falling through. Due to patients ambulatory dysfunction requires inpatient stay while outpatient services vs. [facility] placement are requested. Ambulatory Dysfunction -Patient unsafe for return home without home services secondary to ambulatory dysfunction from deconditioning and history of Cerebral palsy. -Will require SNF/Rehab services until home services are resumed -Case management consulted, reaching out to [facility]. -Will order for PT/OT evaluations while patient is inpatient. DMII -Patient with history of DMII, however, not on outpatient pharmacotherapy -He notes that "I've been told I have diabetes and also that I haven't." -HgbA1C 8.6 this admission -Will cover patient with Basal and SSI while inpatient F/E/N: DMII Diet DVT PPx: Lovenox 40mg q24h Dispo: Med/Surg, awaiting placement (2) Cerebral palsy: (3) T2DM (type 2 diabetes mellitus): Admission and Anticipated Discharge Date Admission Date: May 07, 2020 Supervising Physician Co-Signing Physician Notes Resident Physician Supervision Note: I independently interviewed and examined the patient and verified the miller history and physical, reviewed labs and image studies, discussed the case with the resident Dr. Rodgers and agree with the findings and care plan. Subjective Patient evaluated at the bedside this morning. Patient noting that he was feeling well, only wishing that he could "get some more shut-eye, everyone keeps coming in." No other complaints at this time. He does note that he was only supposed to go to [facility] for a short duration while his home health services were switched. Review of Systems Constitutional: no fever, no chills, no body aches, no fatigue and no weakness Eyes: no worsening vision Respiratory: no cough, no dyspnea, no dyspnea on exertion and no pain on inspiration Cardiovascular: no chest pain, no dyspnea on exertion and no palpitations Gastrointestinal: no abdominal pain, no nausea, no vomiting, no constipation and no diarrhea/loose stools Genitourinary: no dysuria Physical Exam Constitutional: WD/WN, vitals as above + well hydrated, cooperative and comfortable; no acute distress and no altered mental status Eyes: PERRL, conjunctivae normal, anicteric sclerae normal visual gonzales by confrontation and + anicteric sclerae ENMT: external ear and nose normal, oropharynx normal Neck: normal visual inspection and trachea midline Respiratory: normal respiratory effort, lungs clear to auscultation no respiratory distress Cardiovascular: RRR, no murmur, no edema Rate/Rhythm: regular rate and regular rhythm Gastrointestinal (Abdomen): normal bowel sounds, soft, nontender, no hepatosplenomegaly Musculoskeletal: Head/Neck/Chest: normocephalic and head atraumatic Skin: no rashes, warm and dry Neurologic: awake; not confused Speech / Cognition: normal speech Psychiatric: A+Ox3, euthymic affect Results & Data Results & Data ([facility]) Vital Signs (Past 12 Hours) Vital Signs Temp Pulse Resp BP BP Pulse Ox 05/09/20 06:48 36.3 C L 58 L 16 164/74 H 93 05/08/20 23:38 36.5 C 53 L 17 127/72 93 Resident Activity Tracking Resident Involvement: Resident Care Provided Care Provided: Adult Hospital Medicine (1) T2DM (type 2 diabetes mellitus) Diabetes mellitus complication detail: with peripheral angiopathy without gangrene Diabetes mellitus complication status: with circulatory complication Diabetes mellitus roasterman insulin use: without roasterman use Qualified Code(s): E11.51 - Type 2 diabetes mellitus 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
[2020-05-09] MEDS: ENOXAPARIN INJ 40 MG/0.4 ML SYR SQ SCH (09:11)
[2020-05-09] MEDS: INSULIN ASPART 100 UNITS/ML 3 ML PEN SC SCH ×5 (09:14→21:31)
--- NOTE | 2020-05-10 07:04 | Hospitalist Progress Note ---
Date of Service May 10, 2020 Assessment & Plan (1) Ambulatory dysfunction: Mr. Aceves is a 74 year old man presenting initially due to his home health services lapsing on day of admission and his plan to [facility] falling through. Due to patients ambulatory dysfunction requires inpatient stay while outpatient services vs. [facility] placement are requested. Ambulatory Dysfunction -Patient unsafe for return home without home services secondary to ambulatory dysfunction from deconditioning and history of Cerebral palsy. -Will require SNF/Rehab services until home services are resumed -Case management consulted, reaching out to [facility]. -Continue PT/OT while inpatient. DMII -Patient with history of DMII, however, not on outpatient pharmacotherapy -He notes that "I've been told I have diabetes and also that I haven't." -HgbA1C 8.6 this admission -Will cover patient with Basal and SSI while inpatient F/E/N: DMII Diet DVT PPx: Lovenox 40mg q24h Dispo: Med/Surg, awaiting placement (2) Cerebral palsy: (3) T2DM (type 2 diabetes mellitus): Admission and Anticipated Discharge Date Admission Date: May 09, 2020 Supervising Physician Co-Signing Physician Notes Resident Physician Supervision Note: I independently interviewed and examined the patient and verified the miller history and physical, reviewed labs and image studies, discussed the case with the resident Dr. Rodgers and agree with the findings and care plan. Subjective Patient evaluated at the bedside. States he feels well, no concerns at this time. Denies chest pain, SOB, fever, chills, abdominal pain. Review of Systems Constitutional: no fever, no chills, no body aches, no fatigue and no weakness Eyes: no worsening vision Respiratory: no cough, no dyspnea, no dyspnea on exertion and no pain on inspiration Cardiovascular: no chest pain, no dyspnea on exertion and no palpitations Gastrointestinal: no abdominal pain, no nausea, no vomiting, no constipation and no diarrhea/loose stools Genitourinary: no dysuria Physical Exam Constitutional: WD/WN, vitals as above + well hydrated, cooperative and comfortable; no acute distress and no altered mental status Eyes: PERRL, conjunctivae normal, anicteric sclerae normal visual gonzales by confrontation and + anicteric sclerae ENMT: external ear and nose normal, oropharynx normal Neck: normal visual inspection and trachea midline Respiratory: normal respiratory effort, lungs clear to auscultation no respiratory distress Cardiovascular: RRR, no murmur, no edema Rate/Rhythm: regular rate and regular rhythm Gastrointestinal (Abdomen): normal bowel sounds, soft, nontender, no hepatosplenomegaly Musculoskeletal: Head/Neck/Chest: normocephalic and head atraumatic Skin: no rashes, warm and dry Neurologic: awake; not confused Speech / Cognition: normal speech Psychiatric: A+Ox3, euthymic affect Results & Data Results & Data ([facility]) Vital Signs (Past 12 Hours) Vital Signs Temp Pulse Resp BP Pulse Ox 05/09/20 23:14 36.6 C 60 18 119/74 93 Resident Activity Tracking Resident Involvement: Resident Care Provided Care Provided: Adult Hospital Medicine (1) T2DM (type 2 diabetes mellitus) Diabetes mellitus complication detail: with peripheral angiopathy without gangrene Diabetes mellitus complication status: with circulatory complication Diabetes mellitus longwall machine operator helper insulin use: without care home use Qualified Code(s): E11.51 - Type 2 diabetes mellitus 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
[2020-05-10] MEDS: ENOXAPARIN INJ 40 MG/0.4 ML SYR SQ SCH (08:46)
[2020-05-10] MEDS: INSULIN ASPART 100 UNITS/ML 3 ML PEN SC SCH ×4 (08:46→21:29)
--- NOTE | 2020-05-11 06:49 | Hospitalist Progress Note ---
Date of Service May 11, 2020 Assessment & Plan (1) Ambulatory dysfunction: Mr. Aceves is a 74 year old man presenting initially due to his home health services lapsing on day of admission and his plan to [facility] falling through. Due to patients ambulatory dysfunction requires inpatient stay while outpatient services vs. [facility] placement are requested. Ambulatory Dysfunction -Patient unsafe for return home without home services secondary to ambulatory dysfunction from deconditioning and history of Cerebral palsy. -Will require SNF/Rehab services until home services are resumed -Case management consulted, reaching out to [facility]. Possible return to home with health services, awaiting return calls. -Continue PT/OT while inpatient. DMII -Patient with history of DMII, however, not on outpatient pharmacotherapy -He notes that "I've been told I have diabetes and also that I haven't." -HgbA1C 8.6 this admission -Will cover patient with Basal and SSI while inpatient F/E/N: DMII Diet DVT PPx: Lovenox 40mg q24h Dispo: Med/Surg, awaiting placement (2) Cerebral palsy: (3) T2DM (type 2 diabetes mellitus): Admission and Anticipated Discharge Date Admission Date: May 09, 2020 Supervising Physician Co-Signing Physician Notes Resident Physician Supervision Note: I independently interviewed and examined the patient and verified the miller history and physical, reviewed labs and image studies, discussed the case with the resident Dr. Rodgers and agree with the findings and care plan. Subjective Patient evaluated at the bedside this AM. Patient without complaints at this time, feeling well. States he is hoping for a decision to be made in regards to either going back home or to [facility]. Review of Systems Constitutional: no fever, no chills, no body aches, no fatigue and no weakness Eyes: no worsening vision Respiratory: no cough, no dyspnea, no dyspnea on exertion and no pain on inspiration Cardiovascular: no chest pain, no dyspnea on exertion and no palpitations Gastrointestinal: no abdominal pain, no nausea, no vomiting, no constipation and no diarrhea/loose stools Genitourinary: no dysuria Physical Exam Constitutional: WD/WN, vitals as above + well hydrated, cooperative and comfortable; no acute distress and no altered mental status Eyes: PERRL, conjunctivae normal, anicteric sclerae normal visual gonzales by confrontation and + anicteric sclerae ENMT: external ear and nose normal, oropharynx normal Neck: normal visual inspection and trachea midline Respiratory: normal respiratory effort, lungs clear to auscultation no respiratory distress Cardiovascular: RRR, no murmur, no edema Rate/Rhythm: regular rate and regular rhythm Gastrointestinal (Abdomen): normal bowel sounds, soft, nontender, no hepatosplenomegaly Musculoskeletal: Head/Neck/Chest: normocephalic and head atraumatic Skin: no rashes, warm and dry Neurologic: awake; not confused Speech / Cognition: normal speech Psychiatric: A+Ox3, euthymic affect Results & Data Results & Data ([facility]) Vital Signs (Past 12 Hours) Vital Signs Temp Pulse Resp BP Pulse Ox 05/10/20 23:58 36.7 C 64 18 140/78 93 Resident Activity Tracking Resident Involvement: Resident Care Provided Care Provided: Adult Hospital Medicine (1) T2DM (type 2 diabetes mellitus) Diabetes mellitus complication detail: with peripheral angiopathy without gangrene Diabetes mellitus complication status: with circulatory complication Diabetes mellitus longterm insulin use: without longterm use Qualified Code(s): E11.51 - Type 2 diabetes mellitus 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
[2020-05-11] MEDS: INSULIN ASPART 100 UNITS/ML 3 ML PEN SC SCH ×4 (09:24→21:04)
[2020-05-11] MEDS: ENOXAPARIN INJ 40 MG/0.4 ML SYR SQ SCH (09:26)
--- NOTE | 2020-05-12 07:08 | Hospitalist Progress Note ---
Date of Service May 12, 2020 Assessment & Plan (1) Ambulatory dysfunction: Mr. Aceves is a 74 year old man presenting initially due to his home health services lapsing on day of admission and his plan to [facility] falling through. Due to patients ambulatory dysfunction requires inpatient stay while outpatient services vs. [facility] placement are requested. Ambulatory Dysfunction -Patient unsafe for return home without home services secondary to ambulatory dysfunction from deconditioning and history of Cerebral palsy. -Will require SNF/Rehab services until home services are resumed -Case management consulted, plan for discharge to [facility] tomorrow -Continue PT/OT while inpatient. -COVID-19 test pending, requested for transfer to [facility]. DMII -Patient with history of DMII, however, not on outpatient pharmacotherapy -He notes that "I've been told I have diabetes and also that I haven't." -HgbA1C 8.6 this admission -Will cover patient with Basal and SSI while inpatient F/E/N: DMII Diet DVT PPx: Lovenox 40mg q24h Dispo: Med/Surg, plan for discharge to [facility] tomorrow Code: DNR/DNI (2) Cerebral palsy: Mr. Aceves is a 74 year old man here because his home health services lapsed today and his admission plan to [facility] fell through Placement Patient not safe at home secondary to ambulatory dysfunction from deconditioning and cerebral palsy Will need likely SNF/Rehab placement as his home services have stopped Case management consulted DMII Placed on BSG checks and sliding scale insulin A1C ordered F/E/N: DMII Diet DVT PPx: Lovenox Dispo: Admit to Obs pending placement (3) T2DM (type 2 diabetes mellitus): Admission and Anticipated Discharge Date Admission Date: May 09, 2020 Supervising Physician Co-Signing Physician Notes Resident Physician Supervision Note: I independently interviewed and examined the patient and verified the miller history and physical, reviewed labs and image studies, discussed the case with the resident Dr. Rodgers and agree with the findings and care plan. Subjective Patient evaluated at the bedside. No new concerns at this point. Review of Systems Constitutional: no fever, no chills, no body aches, no fatigue and no weakness Eyes: no worsening vision Respiratory: no cough, no dyspnea, no dyspnea on exertion and no pain on inspiration Cardiovascular: no chest pain, no dyspnea on exertion and no palpitations Gastrointestinal: no abdominal pain, no nausea, no vomiting, no constipation and no diarrhea/loose stools Genitourinary: no dysuria Physical Exam Constitutional: WD/WN, vitals as above + well hydrated, cooperative and comfortable; no acute distress and no altered mental status Eyes: PERRL, conjunctivae normal, anicteric sclerae normal visual gonzales by confrontation and + anicteric sclerae ENMT: external ear and nose normal, oropharynx normal Neck: normal visual inspection and trachea midline Respiratory: normal respiratory effort, lungs clear to auscultation no respiratory distress Cardiovascular: RRR, no murmur, no edema Rate/Rhythm: regular rate and regular rhythm Gastrointestinal (Abdomen): normal bowel sounds, soft, nontender, no hepatosplenomegaly Musculoskeletal: Head/Neck/Chest: normocephalic and head atraumatic Skin: no rashes, warm and dry Neurologic: awake; not confused Speech / Cognition: normal speech Psychiatric: A+Ox3, euthymic affect Results & Data Results & Data ([facility]) Vital Signs (Past 12 Hours) Vital Signs Temp Pulse Resp BP Pulse Ox 05/12/20 00:02 36.3 C L 65 18 157/79 H 91 Resident Activity Tracking Resident Involvement: Resident Care Provided Care Provided: Adult Hospital Medicine (1) T2DM (type 2 diabetes mellitus) Diabetes mellitus complication detail: with peripheral angiopathy without gangrene Diabetes mellitus complication status: with circulatory complication Diabetes mellitus vermin exterminator insulin use: without vermin exterminator use Qualified Code(s): E11.51 - Type 2 diabetes mellitus 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
[2020-05-12] MEDS: ENOXAPARIN INJ 40 MG/0.4 ML SYR SQ SCH (08:57)
[2020-05-12] MEDS: INSULIN ASPART 100 UNITS/ML 3 ML PEN SC SCH ×4 (08:58→22:13)
--- NOTE | 2020-05-13 07:05 | Discharge Summary ---
Date of Service May 13, 2020 Admission HPI Per Admitting Provider Get Donovan is a 74 year old man with cerebral palsy who is here today looking for placement. Mr. Aceves had a hip fracture last year and has been getting physical therapy and home health services ever since. Today his home health services have lapsed and he was under the impression from his lining caser that he would be going to [facility] but because he could not get placement should come to the ED to organize transport to [facility]. Unfortunately when the ED here contacted [facility] they had no record or bed reserved for him. He has no current complaints other than the fact that without his home services he cannot manage at home. He denies all acute symptoms on review of systems. Does not take any medications and is unable to tell me any diseases that he has other than cerebral palsy. ON presentation to ED patient is doing well, vital signs slightly hypertensive but patient is upset. Labwork significant for significant hyperglycemia >250. Not on any home diabetes regimen. Admission Exam Per Admitting Provider Constitutional: + well hydrated, cooperative and comfortable; no acute distress and no altered mental status Eyes: PERRL, conjunctivae normal, anicteric sclerae ENMT: external ear and nose normal, oropharynx normal Respiratory: normal respiratory effort, lungs clear to auscultation Cardiovascular: RRR, no murmur, no edema Gastrointestinal (Abdomen): normal bowel sounds, soft, nontender, no hepatosplenomegaly Musculoskeletal: Lower limbs weak, cachectivc appearing strength 4/5 b/l l ower extremities able to lift only against gravity Skin: no rashes, warm and dry Principal Diagnosis Ambulatory Dysfunction Discharge Exam Constitutional WD/WN, vitals as above + well hydrated, cooperative and comfortable; no acute distress and no altered mental status Eyes PERRL, conjunctivae normal, anicteric sclerae normal visual gonzales by confrontation and + anicteric sclerae ENMT external ear and nose normal, oropharynx normal Neck normal visual inspection and trachea midline Respiratory normal respiratory effort, lungs clear to auscultation no respiratory distress Cardiovascular RRR, no murmur, no edema Rate/Rhythm: regular rate and regular rhythm Gastrointestinal (Abdomen) normal bowel sounds, soft, nontender, no hepatosplenomegaly Musculoskeletal Head/Neck/Chest: normocephalic and head atraumatic Skin no rashes, warm and dry Neurologic awake; not confused Speech / Cognition: normal speech Psychiatric A+Ox3, euthymic affect Discharge Data Allergies Allergy/AdvReac Type Severity Reaction Status Date / Time No Known Allergies Allergy Unverified 05/07/20 00:30 Consultations 05/06/20 23:29 ED Decision to Admit Stat Diabetes Follow up Diabetes Follow-up Needed for Newly Diagnosed Diabetes Hospital Course (1) Ambulatory dysfunction: Mr. Aceves is a 74 year old man presenting initially due to his home health services lapsing on day of admission and his plan to [facility] falling through. Due to patients ambulatory dysfunction requires inpatient stay while outpatient services vs. [facility] placement are requested. Ambulatory Dysfunction -Patient unsafe for return home without home services secondary to ambulatory dysfunction from deconditioning and history of Cerebral palsy. -Requires SNF/Rehab services until home services are resumed -Case management consulted, plan for discharge to [facility] today -PT/OT while inpatient. -COVID-19 test negative, requested by [facility] prior to discharge. DMII -Patient with history of DMII, however, not on outpatient pharmacotherapy -He notes that "I've been told I have diabetes and also that I haven't." -HgbA1C 8.6 this admission -Covered patient with Basal and SSI while inpatient -Would recommend follow up with outpatient PCP in regards to furthering targeting glucose management and control. -Would recommend starting initially with Metformin 500mg QD and increase over several weeks to minimize gastrointestinal side effects should pharmacotherapy by the patient be desired. -Renal function on admission GFR 79, Cr 0.94 (2) Cerebral palsy: (3) T2DM (type 2 diabetes mellitus): Total Time Total Time Spent Total Time Spent (In Minutes): see attending attestation Discharge Plan Discharge Items Patient Disposition: Transfer [facility] Reason For Visit: FAILURE TO THRIVE Discharge Diagnosis: Ambulatory Dysfunction Activity: Resume your previous activity Non-emergency contact: Primary Care Provider Call non-emergency contact if: you have any medication questions Follow-up/Referrals: Yousif Fried M.D. [Primary Care Provider] - Diet: Carb Consistent or DM2 Addtl Attending Provider Instructions: Mr. Aceves is a 74 year old man presenting initially due to his home health services lapsing on day of admission and his plan to [facility] falling through. Due to patients ambulatory dysfunction requires inpatient stay while outpatient services vs. [facility] placement are requested. Ambulatory Dysfunction -Patient unsafe for return home without home services secondary to ambulatory dysfunction from deconditioning and history of Cerebral palsy. -Requires SNF/Rehab services until home services are resumed -Case management consulted, plan for discharge to [facility] today -PT/OT while inpatient. -COVID-19 test negative, requested by [facility] prior to discharge. DMII -Patient with history of DMII, however, not on outpatient pharmacotherapy -He notes that "I've been told I have diabetes and also that I haven't." -HgbA1C 8.6 this admission -Covered patient with Basal and SSI while inpatient -Would recommend follow up with outpatient PCP in regards to furthering targeting glucose management and control. -Would recommend starting initially with Metformin 500mg QD and increase over several weeks to minimize gastrointestinal side effects should pharmacotherapy by the patient be desired. -Renal function on admission GFR 79, Cr 0.94 Dispo:DC to [facility] Code: DNR/DNI Pending Studies at Discharge: No Stand-Alone Forms: My [facility] triptap Skilled Items Patient informed of condition?: Yes DNR: Yes Discharge Level of Care: Skilled Communicable Disease: No Discharge Prognosis: Stable Lines: None Urinary Catheter: No Medications and DC Order Prescriptions: No Action No Known Home Medications RF: 0 Discharge Orders: Discharge Order (Routine); Ordered 05/13/20 Ordered By: Reinaldo Andre/Other Patient Handouts: High Blood Sugar (Hyperglycemia), Hypoglycemia (Low Blood Sugar), Managing Type 2 Diabetes, 5 Steps for Eating Healthier, A1C Admission Data Admit Date/Time: 05/09/20 15:47 Attending Provider: Romy Wiley Admit Provider: Kameron Rios Primary Care Provider: Yousif Fried Other Providers: Victor Manuel Nagy ; [facility], Other Interventions: Discharge Summary Assessment (RN) Last Done: 05/13/20 11:03 Supervising Physician Co-Signing Physician Notes Resident Physician Supervision Note: I independently interviewed and examined the patient and verified the miller history and physical, reviewed labs and image studies, discussed the case with the resident Dr. Rodgers and agree with the findings and care plan. Resident Activity Tracking Resident Involvement: Resident Care Provided Care Provided: Adult Hospital Medicine
[2020-05-13] MEDS: ENOXAPARIN INJ 40 MG/0.4 ML SYR SQ SCH (09:12)
[2020-05-13] MEDS: INSULIN ASPART 100 UNITS/ML 3 ML PEN SC SCH ×2 (09:13→12:54)
== END 2020-05-13 13:03 ==
LOC: 3W 21:31 → ED 21:31 → SUATTDRO 05-07 00:11 → 3W 05-07 01:24

== ENCOUNTER 2020-10-28 15:48 | Inpatient (IN) ==
--- NOTE | 2020-10-28 16:05 | Emergency Department Note ---
Impression & Plan Weakness ED Provider Note NAME: DULCE CANELA AGE: 74 SEX: M : 1945 ARRIVES VIA: Ambulance INFORMANT: Patient, EMS personnel ED PROVIDER(S): Jluis Medrano DO CHIEF COMPLAINT: Unable to be at home HPI: The patient is a 74-year-old male who has a history of cerebral palsy who presented to the emergency department by ambulance. The patient states that he has visiting nurses at stay with him throughout the day. Normally they help him get out of bed take his medications and get his food. The patient states that the visiting nurses did not come to the house today. The backup nurse was called and was also unable to go to his house. He called 911 today because he could not stay at home alone. The patient himself denies having any falls. He denies having any headache or chest pain. He denies having any fever or recent illnesses. The patient denies having any recent exposure to COVID-19. The patient arrived via BLS. ROS: See above HPI for pertinent positives & negatives. A total of 10 systems reviewed and were otherwise negative. PAST MEDICAL HISTORY: See Below PAST SURGICAL HISTORY: See Below FAMILY HISTORY: See Below SOCIAL HISTORY: See Below HOME MEDICATIONS: See Below ALLERGIES: See Below VITALS: See Below PHYSICAL EXAMINATION: GENERAL: Patient is awake and alert. The patient is nonanxious appearing. EYES: The conjunctivae are clear. The pupils are round and reactive. EARS, NOSE, MOUTH AND THROAT: The nose is without any evidence of any deformity. NECK: The neck is nontender and supple. RESPIRATORY: Normal respiratory effort is noted there is no evidence of wheezing rhonchi or rales CARDIOVASCULAR: Regular rate and rhythm noted there no murmurs rubs or gallops normal S1 normal S2. GASTROINTESTINAL: The abdomen is soft. Abdomen is nontender. MUSCULOSKELETAL/EXTREMITIES: There is no evidence of gross deformity full range of motion is noted in the hips and shoulders. SKIN: Skin is warm and dry. NEUROLOGIC: Patient is awake alert and oriented x3. MEDICAL DECISION MAKING: The patient is a 74-year-old male who presented to the emergency department for an evaluation of generalized symptoms. The patient has a history of cerebral palsy normally he cannot get out of bed on his own. He has visiting nursing t hat comes throughout the day and helps him with his activities of daily living. They were unable to come this morning because of illness and the backup nurse was also unable to come and help him. For this reason he called 911. The patient was evaluated by myself. He was given something to eat. [facility] at this time would not be likely. They will evaluate the patient in the emergency department for further inpatient management and possible placement or even a better home plan. Triage Nursing notes reviewed. Prior medical records reviewed Vital Signs: reviewed and remarkable for no significant abnormalities Differential diagnosis: Infection, dehydration, metabolic abnormality, hypo/hyperglycemia, electrolyte disturbance, anemia, hypoxia, cardiac sources, intracerebral event, toxicologic, neurologic, as well as other pathologies. ER treatment provided: See below Diagnostics interpreted by me: ECG: none Laboratory studies: As stated above and show below. Imaging studies: See below Consultation(s): I discussed this case with Dr. De La Fuente who [facility]. Past Med/Surg History Medical History (Updated 10/28/20 @ 17:59 by Jluis Medrano DO) Cerebral palsy History of tobacco abuse Peripheral vascular disease b/l SFA > 70%, follows Dr. Bowman, not surgical candidate at this point T2DM (type 2 diabetes mellitus) Surgical History History of surgery on extremity history of multiple lower extremity surgerys due to Cerebral palsy Family History Other Family history non-contributory Social History Smoking Status: Former smoker Cigarettes Per Day: 0; Second Hand Exposure: No; Hx Alcohol Use: No Hx Substance Use: No Preferred Language: Wolof Communication Ability: Effective Director Mortgage Required: No Beliefs That Will Affect Care: None marital status: Single Current Living Situation: Alone Current Living Situation Comment: with paid caregivers current occupational status: retired How many Children do You have: 0 Feels Safe at Home: Yes Assistive Devices: None Allergies Allergies Allergy/AdvReac Type Severity Reaction Status Date / Time No Known Allergies Allergy Verified 10/28/20 17:00 Home Meds Home Medications Medication Instructions Recorded Confirmed No Known Home Medications 03/19/20 05/07/20 glucosamine-chondroitin [Osteo 2 tab PO DAILY 10/28/20 10/28/20 Bi-Flex] ibuprofen [Advil] 400 mg PO DIRECTED PRN 10/28/20 10/28/20 magnesium oxide 400 mg PO DAILY 10/28/20 10/28/20 Results & Data (ED) Vital Signs Vital Signs - 24 hr 10/28/20 15:58 Temperature 37.2 C Temperature Source Oral Pulse Rate 78 Respiratory Rate 16 Respiratory Effort / Characteristics Non-Labored Spontaneous Respiratory Depth Normal Blood Pressure 140/88 Blood Pressure Mean 105 Pulse Oximetry 92 Oxygen Delivery Method Room Air Sepsis Recent Fever Within 48 Hours No Sepsis New/Unexplained Change in Mental Status No Sepsis Action Taken by Nursing No Action Required Home Medications Current Medication List: was personally reviewed by me Laboratory Data Attestation: I reviewed the patient's lab results. Result diagrams: 10/28/20 16:27 10/28/20 16:27 Lab Results 10/28/20 10/28/20 Range/Units 16:27 16:27 WBC 4.28 L (4.8-10.8) K/uL RBC 4.90 (4.7-6.1) M/uL Hgb 15.4 (14.0-18.0) g/dL Hct 45.4 (42-52) % MCV 92.7 (80-100) fL MCH 31.4 (25-34) pg MCHC 33.9 (32-36) g/dL RDW Std Deviation 52.0 H (36.4-46.3) fL RDW Coeff of Suraj 15.3 H (11.5-14.5) % Plt Count 183 (130-400) K/uL MPV 10.2 (7.4-10.4) fL Immature Gran % (Auto) 0.2 % Neut % (Auto) 64.5 % Lymph % (Auto) 14.7 % [place] % (Auto) 19.9 % Eos % (Auto) 0.5 % Baso % (Auto) 0.2 % Neut # (Auto) 2.76 (1.4-6.5) K/uL Lymph # (Auto) 0.63 L (1.2-3.4) K/uL [place] # (Auto) 0.85 H (0.11-0.59) K/uL Eos # (Auto) 0.02 (0-0.5) K/uL Baso # (Auto) 0.01 (0-0.2) K/uL Immature Gran # (Auto) 0.01 (0.00-0.02) K/uL Sodium 140 (136-145) mmol/L Potassium 3.8 (3.5-5.1) mmol/L Chloride 110 H (98-107) mmol/L Carbon Dioxide 24 (21-32) mmol/L Anion Gap 6.0 (3-11) BUN 15 (7-18) mg/dl Creatinine 0.80 (0.6-1.4) mg/dl Est Cr Clr Drug Dosing 81.6 ml/min Est GFR ( Amer) 101.3 ml/min Est GFR (Non-Af Amer) 87.4 ml/min BUN/Creatinine Ratio 18.7 (10-20) Glucose 154 H (70-99) mg/dl Calcium 8.5 (8.5-10.1) mg/dl Magnesium 2.1 (1.8-2.4) mg/dl Total Bilirubin 0.6 (0.2-1) mg/dl AST 15 (15-37) U/L ALT 17 (12-78) U/L Alkaline Phosphatase 136 H (45-117) U/L Total Protein 6.9 (6.4-8.2) gm/dl Albumin 3.5 (3.4-5.0) gm/dl Globulin 3.4 (2.5-4.0) gm/dl Albumin/Globulin Ratio 1.0 (0.9-2) TSH 1.020 (0.300-4.500) uIu/ml Discharge Plan Visit Data Chief Complaint: Referred by Doctor Stated Complaint: DID NOT WANT TO BE HOME ALONE ED Provider: Jluis Medrano Discharge Problem: Weakness Patient Disposition: Being Evaluated by Hospitalist Condition: Good Forms Stand Alone Forms: My M-DAQ Prescriptions Prescriptions: No Action No Known Home Medications RF: 0 ibuprofen [Advil] 200 mg Tablet 400 mg PO DIRECTED PRN (Reason: Pain) RF: 0 glucosamine-chondroitin [Osteo Bi-Flex] 250-200 mg Tablet 2 tab PO DAILY RF: 0 magnesium oxide 400 mg magnesium Tablet 400 mg PO DAILY RF: 0 Referrals Referrals: PCP,NO [Primary Care Provider] -
[2020-10-28] MEDS ORDERED: SODIUM CHLORIDE 0.9% 500 ML IV SCH (16:15)
[2020-10-28 16:47] LABS: Basophils # (auto) 0.01 K/uL (0-0.2); Basophils % (auto) 0.2 %; Eosinophils # (auto) 0.02 K/uL (0-0.5); Eosinophils % (auto) 0.5 %; Hematocrit (blood only) 45.4 % (42-52); Hemoglobin 15.4 g/dL (14.0-18.0); Immature Granulocytes # (auto) 0.01 K/uL (0.00-0.02); Immature Granulocytes % (auto) 0.2 %; Lymphocytes # (auto) 0.63 K/uL (1.2-3.4); Lymphocytes % (auto) 14.7 %; Mean Corpuscular Hemoglobin 31.4 pg (25-34); Mean Corpuscular Hgb Conc 33.9 g/dL (32-36); Mean Corpuscular Volume 92.7 fL (80-100); Mean Platelet Volume 10.2 fL (7.4-10.4); Monocytes # (auto) 0.85 K/uL (0.11-0.59); Monocytes % (auto) 19.9 %; Neutrophils # (auto) 2.76 K/uL (1.4-6.5); Neutrophils % (auto) 64.5 %; Platelet Count 183 K/uL (130-400); RDW Coefficient of Variation 15.3 % (11.5-14.5); White Blood Count 4.28 K/uL (4.8-10.8)
[2020-10-28 17:07] LABS: Albumin Level 3.5 gm/dl (3.4-5.0); BUN Creatinine Ratio 18.7 (10-20); Calcium 8.5 mg/dl (8.5-10.1); Creatinine Clr Calc Pharmacy 81.6 ml/min; Est GFR (African American) 101.3 ml/min; Est GFR (Non-African American) 87.4 ml/min; Magnesium 2.1 mg/dl (1.8-2.4); Potassium 3.8 mmol/L (3.5-5.1)
--- NOTE | 2020-10-28 17:16 | History & Physical Report ---
Date of Service October 28, 2020 Assessment & Plan (1) Ambulatory dysfunction: Dysfunction/cerebral palsy/worsened by history of closed left femoral fracture- Requires assistance to get in and out of bed, and help with food and ADLs. We will consult physical therapy and Occupational Therapy director of convention services to coordinate with office of aging ongoing care. Anticipate transfer to inpatient rehab sometime next week Present on Admission?: Yes (2) Cerebral palsy: See above Present on Admission?: Yes (3) History of tobacco abuse: Cessation counseling Present on Admission?: Yes (4) Peripheral vascular disease: No acute issues Present on Admission?: Yes History of Present Illness Chief Complaint: The patient presents to the emergency department due to ambulatory dysfunction and inability to care for himself at home Primary Care Provider: NO PCP The patient is a 74-year-old male with a past medical including cerebral palsy, ambulatory dysfunction, agitation, closed left subtrochanteric femur fracture, mild renal insufficiency, acute respiratory failure with hypoxia, right lower extremity cellulitis, tobacco abuse, diabetes mellitus type 2 and PAD. The patient reports that he typically has visiting nurses stay with him throughout the day, and they help him get out of bed and take his medications and food. The patient reports that the visiting nurses did not come to his house today, and his backup nurse was called and was unable to go to his house as well. He called 911, and was brought to the emergency department due to inability stay alone at home. The patient denies any recent travels, or any sick exposures, including to [place] [id number]. While in the emergency department, case liner spoke with the office of aging, who are aware of the patient's situation. The plan will be to admit the patient today, Saturday, and will need to see over the weekend, and then will go to inpatient rehab sometime next week Allergies Allergy/AdvReac Type Severity Reaction Status Date / Time No Known Allergies Allergy Verified 10/28/20 17:00 Home Medications Medication Instructions Recorded Confirmed Type No Known Home Medications 03/19/20 05/07/20 History glucosamine-chondroitin [Osteo 2 tab PO DAILY 10/28/20 10/28/20 History Bi-Flex] ibuprofen [Advil] 400 mg PO DIRECTED PRN 10/28/20 10/28/20 History magnesium oxide 400 mg PO DAILY 10/28/20 10/28/20 History Past Med/Surg History Medical History Cerebral palsy History of tobacco abuse Peripheral vascular disease b/l SFA > 70%, follows Dr. Bowman, not surgical candidate at this point T2DM (type 2 diabetes mellitus) Surgical History History of surgery on extremity history of multiple lower extremity surgerys due to Cerebral palsy Family History Other Family history non-contributory Social History Smoking Status: Former smoker Cigarettes Per Day: 0; Second Hand Exposure: No; Hx Alcohol Use: No Hx Substance Use: No Preferred Language: Kiswahili Communication Ability: Effective Rn Field Case Manager Required: No Beliefs That Will Affect Care: None marital status: Single Current Living Situation: Alone Current Living Situation Comment: with paid caregivers current occupational status: retired How many Children do You have: 0 Feels Safe at Home: Yes Assistive Devices: None Review of Systems Review of Systems: The patient denies chest pain, palpitations, shortness of breath, dyspnea on exertion, cough, lower extremity swelling, sore throat, fevers, chills, sweats, weight change, fatigue, nausea, vomiting, diarrhea , constipation, abdominal pain, pelvic pain, blood in urine or stool, dysuria, urinary frequency or urgency, lightheadedness, dizziness, headache, memory loss, loss of consciousness, rash, abnormal bruising or bleeding, back or neck pain, or night sweats. The review of systems is otherwise negative other than for that already noted above, and at least 10 systems have been reviewed. Physical Exam Physical Exam: The patient is awake, alert and oriented 3, well developed and well nourished, normocephalic and atraumatic, lying in bed and in no acute distress. HEENT--PERRL, EOMI, mucous membranes and oropharynx dry. Neck--supple. No JVD. No bruits. Thyroid normal, trachea midline, no adenopathy. Heart--normal S1 and S2. No murmurs, rubs or gallops. Lungs--clear bilaterally, no respiratory distress, no accessory muscle use. Abdomen--normal bowel sounds and soft. Nontender. Nondistended. Extremities--no cyanosis or clubbing. No edema. There are good distal pulses b/l. Dermatologic--normal skin turgor, normal color, no abnormal lymph nodes, no r lita. Neurologic--cranial nerves II through XII grossly intact. Rheumatologic--limited by cerebral palsy Psychiatric--normal affect. Results & Data Results & Data ([facility]) Vital Signs (Past 12 Hours) Vital Signs Temp Pulse Resp BP Pulse Ox 10/28/20 15:58 99.0 F 78 16 140/88 92 Laboratory Results Laboratory Results WBC 4.28 K/uL (4.8-10.8) L 10/28/20 16:27 RBC 4.90 M/uL (4.7-6.1) 10/28/20 16:27 Hgb 15.4 g/dL (14.0-18.0) 10/28/20 16:27 Hct 45.4 % (42-52) 10/28/20 16:27 MCV 92.7 fL (80-100) 10/28/20 16:27 MCH 31.4 pg (25-34) 10/28/20 16:27 MCHC 33.9 g/dL (32-36) 10/28/20 16:27 RDW Std Deviation 52.0 fL (36.4-46.3) H 10/28/20 16:27 RDW Coeff of Suraj 15.3 % (11.5-14.5) H 10/28/20 16:27 Plt Count 183 K/uL (130-400) 10/28/20 16:27 MPV 10.2 fL (7.4-10.4) 10/28/20 16:27 Immature Gran % (Auto) 0.2 % 10/28/20 16:27 Neut % (Auto) 64.5 % 10/28/20 16:27 Lymph % (Auto) 14.7 % 10/28/20 16:27 [place] % (Auto) 19.9 % 10/28/20 16:27 Eos % (Auto) 0.5 % 10/28/20 16:27 Baso % (Auto) 0.2 % 10/28/20 16:27 Neut # (Auto) 2.76 K/uL (1.4-6.5) 10/28/20 16:27 Lymph # (Auto) 0.63 K/uL (1.2-3.4) L 10/28/20 16:27 [place] # (Auto) 0.85 K/uL (0.11-0.59) H 10/28/20 16:27 Eos # (Auto) 0.02 K/uL (0-0.5) 10/28/20 16:27 Baso # (Auto) 0.01 K/uL (0-0.2) 10/28/20 16:27 Immature Gran # (Auto) 0.01 K/uL (0.00-0.02) 10/28/20 16:27 Sodium 140 mmol/L (136-145) 10/28/20 16:27 Potassium 3.8 mmol/L (3.5-5.1) 10/28/20 16:27 Chloride 110 mmol/L (98-107) H 10/28/20 16:27 Carbon Dioxide 24 mmol/L (21-32) 10/28/20 16:27 Anion Gap 6.0 (3-11) 10/28/20 16:27 BUN 15 mg/dl (7-18) 10/28/20 16:27 Creatinine 0.80 mg/dl (0.6-1.4) 10/28/20 16:27 Est Cr Clr Drug Dosing 81.6 ml/min 10/28/20 16:27 Est GFR ( Amer) 101.3 ml/min 10/28/20 16:27 Est GFR (Non-Af Amer) 87.4 ml/min 10/28/20 16:27 BUN/Creatinine Ratio 18.7 (10-20) 10/28/20 16:27 Glucose 154 mg/dl (70-99) H 10/28/20 16:27 Calcium 8.5 mg/dl (8.5-10.1) 10/28/20 16:27 Magnesium 2.1 mg/dl (1.8-2.4) 10/28/20 16:27 Total Bilirubin 0.6 mg/dl (0.2-1) 10/28/20 16:27 AST 15 U/L (15-37) 10/28/20 16:27 ALT 17 U/L (12-78) 10/28/20 16:27 Alkaline Phosphatase 136 U/L (45-117) H 10/28/20 16:27 Total Protein 6.9 gm/dl (6.4-8.2) 10/28/20 16:27 Albumin 3.5 gm/dl (3.4-5.0) 10/28/20 16:27 Globulin 3.4 gm/dl (2.5-4.0) 10/28/20 16:27 Albumin/Globulin Ratio 1.0 (0.9-2) 10/28/20 16:27 TSH 1.020 uIu/ml (0.300-4.500) 10/28/20 16:27 Code Status & VTE Plan Code Status Full code VTE Prophylaxis Plan VTE Prophylaxis will be ordered: Yes PG Care Time/CCT Total # of Minutes Spent Total Time Spent with Patient: Total time spent is greater than 50% in coordination of care (as documented) at patient's floor/unit and/or counseling patient: Coding Level of Care Code 46020 OBS Care - Level 3 Diagnoses Ambulatory dysfunction R26.2 Cerebral palsy G80.8 Cerebral palsy type: other type History of tobacco abuse Z87.891 Peripheral vascular disease I73.9 (1) Cerebral palsy Cerebral palsy type: other type Qualified Code(s): G80.8 - Other cerebral palsy
[2020-10-28 17:18] LABS: Bilirubin,Total 0.6 mg/dl (0.2-1); Globulin 3.4 gm/dl (2.5-4.0); Thyroid Stimulating Hormone 1.02 uIu/ml (0.300-4.500); Total Protein 6.9 gm/dl (6.4-8.2)
[2020-10-28 18:21] LABS: Appearance Urine Cloudy (Clear); Bacteria Urine Automated 4+ (Negative); Bilirubin Urine Negative (Negative); Blood Urine Negative (Negative); Color Urine Dark Yellow; Epithelial Cell Urine Auto 20-30 /lpf (0-5); Glucose Urine UA Trace (Negative); Ketones Urine Trace (Negative); Leukocyte Esterase Urine 2+ (Negative); Nitrite Urine Positive (Negative); RBC Urine Automated 0-4 /hpf (0-4); Specific Gravity Urine 1.024 (1.000-1.030); Urobilinogen Urine Negative (Negative); WBC Urine Automated >30 /hpf (0-5); pH Urine 7.5 (4.5-7.5)
[2020-10-28 18:24] LABS: Cast Urine Automated >30 /lpf (0-5); Protein Urine 1+ (Negative)
[2020-10-28] MEDS ORDERED: ONDANSETRON INJ 2 MG/ML 2 ML VIAL IV PRN (21:27)
[2020-10-28] MEDS ORDERED: ACETAMINOPHEN 325 MG TAB PO PRN (21:27)
[2020-10-28] MEDS: ENOXAPARIN INJ 30 MG/0.3 ML SYR SQ SCH (22:12)
[2020-10-29] MEDS ORDERED: REMDESIVIR 200 MG in SODIUM CHLORIDE 0.9% 210 ML IV ONE (10:00)
[2020-10-29] MEDS: cefTRIAXone SODIUM 2,000 MG in DEXTROSE 5% 50 ML IV SCH (10:45)
[2020-10-29] MEDS: dexAMETHasone 6 MG in SYRINGE 0 ML IV SCH (10:45)
--- NOTE | 2020-10-29 11:32 | XRay Report ---
XR chest 1V portable HISTORY: Covid positive. Shortness of breath. COMPARISON: Chest 08/19/2018. FINDINGS: No pneumothorax. No pleural effusions. The heart remains enlarged. There is a large hiatus hernia, unchanged. Focal hazy density of the right midlung zone which may represent a developing diane l pneumonia. The left lung appears clear. A few bibasilar linear densities favor subsegmental atelect asis. IMPRESSION: 1. Focal hazy density at the right midlung zone likely representing a developing viral pneumonia. 2. Stable cardiomegaly. 3. Large hiatus hernia, unchanged. ACT 112: Negative or not required by law. Electronically signed by: Ted Locke M.D. 10/29/2020 11:31 AM
[2020-10-29] MEDS: SODIUM CHLORIDE 0.9% 10ML FLUSH IV SCH (14:01)
--- NOTE | 2020-10-29 19:35 | Hospitalist Progress Note ---
Date of Service October 29, 2020 Assessment & Plan (1) COVID-19: Patient is Covid positive state. Patient is hypoxic. He is low-grade temperature. His chest x-ray is rotated significantly difficult to see if there is infiltrates CXR IMPRESSION: 1. Focal hazy density at the right midlung zone likely representing a developing viral pneumonia. 2. Stable cardiomegaly. 3. Large hiatus hernia, unchanged. Patient will begin remdesivir as he is early in his illness he is also start on dexamethasone supplemental oxygen as offered (2) UTI (urinary tract infection): Negative urinary tract infection present on admission may be also source of his fever is on ceftriaxone (3) Ambulatory dysfunction: Dysfunction/cerebral palsy/worsened by history of closed left femoral fracture- Requires assistance to get in and out of bed, and help with food and ADLs. We will consult physical therapy and Occupational Therapy surgical services asst to coordinate with office of aging ongoing care. Anticipate transfer to inpatient rehab sometime next week (4) Cerebral palsy: See above (5) History of tobacco abuse: Cessation counseling (6) Peripheral vascular disease: No acute issues Admission and Anticipated Discharge Date Admission Date: October 28, 2020 Results & Data Results & Data ([facility]) Vital Signs (Past 12 Hours) Vital Signs Temp Pulse Resp BP Pulse Ox 10/29/20 08:45 99.7 F H 81 18 151/81 H 93 PG Care Time/CCT Total # of Minutes Spent Total Time Spent with Patient: Total time spent is greater than 50% in coordination of care (as documented) at patient's floor/unit and/or counseling patient: Coding Level of Care Code 69190 Subseq Hosp Care Lvl 3 Diagnoses COVID-19 U07.1 UTI (urinary tract infection) N39.0 Ambulatory dysfunction R26.2 Cerebral palsy G80.8 Cerebral palsy type: other type History of tobacco abuse Z87.891 Peripheral vascular disease I73.9 (1) Cerebral palsy Cerebral palsy type: other type Qualified Code(s): G80.8 - Other cerebral palsy
[2020-10-29] MEDS: ENOXAPARIN INJ 30 MG/0.3 ML SYR SQ SCH (22:50)
[2020-10-30] MEDS: cefTRIAXone SODIUM 2,000 MG in DEXTROSE 5% 50 ML IV SCH (08:55)
[2020-10-30] MEDS: dexAMETHasone 6 MG in SYRINGE 0 ML IV SCH (10:07)
[2020-10-30] MEDS: REMDESIVIR 100 MG in SODIUM CHLORIDE 0.9% 230 ML IV SCH (12:41)
[2020-10-30] MEDS: SODIUM CHLORIDE 0.9% 10ML FLUSH IV SCH (14:02)
--- NOTE | 2020-10-30 14:13 | CT Scan Report ---
CT chest diagnostic wo con CLINICAL HISTORY: eval for covid COMPARISON STUDY: August 19, 2018 CT DOSE: 623.97 mGy.cm TECHNIQUE: CT of the thorax was performed from the thoracic inlet to the lung bases. Images are revi ewed in the axial, sagittal, and coronal planes. IV contrast was not administered for this examinatio n. A dose lowering technique was utilized adhering to the principles of ALARA. FINDINGS: Thyroid: Is not well seen. Thoracic aorta: The thoracic aorta is normal in course and caliber, noting standard 3 vessel arch jadon ti. Heart: The heart is normal in size and configuration, without pericardial effusion. Lungs and pleural spaces: Trachea and the right bronchial tree is patent. This study is acquired during expiratory phase. Compl ete collapse of the left lower lobe bronchus is seen. Evaluation of lung parenchyma is limited due to significant respiratory motion artifact. Interval development of 4.1 x 3.3 cm groundglass lesion within right upper lobe which shows patent in ternal air bronchograms is seen. Compressive atelectasis within bilateral lower lobes due to large hiatal hernia are again seen. No pleural effusion demonstrated. Mediastinum: There is no mediastinal lymphadenopathy. Irina: Poorly evaluated due to lack of IV contrast. Axilla: Clear. Upper abdomen: Stable 2.2 cm hypoattenuating lesion within segment 1 of the liver since 2019, statis tically most likely represent cysts or hemangioma. Large hiatal hernia which contains most of the stomach is again seen. Skeletal structures: Multilevel degenerative changes of the spine. Evaluation is limited due to subop timal positioning of the patient during exam. IMPRESSION: 1. Interval development of large groundglass opacity within the right upper lobe. Single groundglass lesion is not classic presentation of COVID and differential diagnosis besides infectious/inflammato ry etiology could include malignancy such as pulmonary adenocarcinoma or metastasis. Short-term follo w-up in 4-6 weeks is recommended to document resolution. 2. Complete collapse of the left lower lobe bronchus during expiratory phase might represent broncho malacia. 3. Large hiatal hernia and hypoattenuating liver lesions are stable since prior. ACT 112: Positive. There are findings on this exam that require communication between the performing entity and the patient following Patient Test Result Information Act ([place] Act 112) guidelines. The above report was generated using voice recognition software. It may contain grammatical, syntax o r spelling errors. Electronically signed by: Jennifer Fernandez DO 10/30/2020 2:11 PM
--- NOTE | 2020-10-30 18:34 | Hospitalist Progress Note ---
Date of Service October 30, 2020 Assessment & Plan (1) COVID-19: Patient is Covid positive state. Patient is hypoxic. He is low-grade temperature. His chest x-ray is rotated significantly difficult to see if there is infiltrates CXR IMPRESSION: 1. Focal hazy density at the right midlung zone likely representing a developing viral pneumonia. 2. Stable cardiomegaly. 3. Large hiatus hernia, unchanged. Ct chest 10/30/20 IMPRESSION: 1. Interval development of large groundglass opacity within the right upper lobe. Single groundglass lesion is not classic presentation of COVID and differential diagnosis besides infectious/inflammatory etiology could include malignancy such as pulmonary adenocarcinoma or metastasis. Short-term follow-up in 4-6 weeks is recommended to document resolution. 2. Complete collapse of the left lower lobe bronchus during expiratory phase might represent bronchomalacia. 3. Large hiatal hernia and hypoattenuating liver lesions are stable since prior. this Ct is not clear cut, hypoxia has been stable, may consider truncating Remdesivir treatment ? will need follow up CT neck lung nodule program due to the atypical nature of this infiltrate Patient also will begin on azithromycin for atypical coverage in addition to the ceftriaxone Began remdesivir plus dexamethasone supplemental oxygen as offered reportedly oxygen supplementation is higher than he typically would need (2) UTI (urinary tract infection): Negative urinary tract infection present on admission may be also source of his fever is on ceftriaxone (3) Ambulatory dysfunction: Dysfunction/cerebral palsy/worsened by history of closed left femoral fracture- Requires assistance to get in and out of bed, and help with food and ADLs. We will consult physical therapy and Occupational Therapy financial services specialist to coordinate with office of aging ongoing care. Anticipate transfer to inpatient rehab sometime next week (4) Cerebral palsy: See above (5) History of tobacco abuse: Cessation counseling (6) Peripheral vascular disease: No acute issues (7) DVT prophylaxis: Patient on typical dose enoxaparin. Patient disposition is questionable as the reason he came in was an inability to care for himself at home Admission and Anticipated Discharge Date Admission Date: October 30, 2020 Subjective Pt is not convinced that he has Covid, the CT chest is not typical of covid, pt maybe just progressed to needing chronic oxygen, CT maybe concerning for other nefarious causes Review of Systems Review of Systems: Mild distress and fatigue no headache, no visual changes no speech or swallowing issues no chest pain, pressure or palpitations Patient has some shortness of breath and nonproductive coughing no abdominal pain, nausea or vomiting, diarrhea or constipation no dysuria, hematuria or frequency no focal joint pain or swelling no back pain, CVA tenderness or radicular pain no bruising, bleeding or rashes Locally weak and challenged physically no complaints of anxiety or depression.. Physical Exam Physical Exam: The patient appeared chronically ill Vital signs as documented. Head exam is normocephalic atraumatic Neck is without JVD, thyromegaly, or carotid bruits. Lungs are minutes but no focal losses throughout no egophony no wheezes Cardiac exam, Rhythm is regular.. No murmurs, rubs or gallops. Abdominal exam reveals normal bowel sounds, soft non tender, no masses Extremities are nonedematous and both pedal pulses are present Neurologic exam is alert and oriented, reportedly has mental impairment however seems fairly intact to me. No focal loss of strength or sensation overall just generally feels weak Skin is without bruises or rashes Psychologically is without concerns for anxiety or depression Results & Data Results & Data ([facility]) Vital Signs (Past 12 Hours) Vital Signs Temp Pulse Resp BP Pulse Ox 10/30/20 17:58 97.3 F L 61 20 137/74 96 10/30/20 10:08 97.7 F 98 10/30/20 08:40 67 20 167/80 H 92 PG Care Time/CCT Total # of Minutes Spent Total Time Spent with Patient: Total time spent is greater than 50% in coordination of care (as documented) at patient's floor/unit and/or counseling patient: Coding Level of Care Code 66168 Subseq Hosp Care Lvl 2 Diagnoses COVID-19 U07.1 UTI (urinary tract infection) N39.0 Ambulatory dysfunction R26.2 Cerebral palsy G80.8 Cerebral palsy type: other type History of tobacco abuse Z87.891 Peripheral vascular disease I73.9 DVT prophylaxis Z29.9 (1) Cerebral palsy Cerebral palsy type: other type Qualified Code(s): G80.8 - Other cerebral palsy
[2020-10-30] MEDS ORDERED: AZITHROMYCIN 250 MG TAB PO ONE (18:35)
[2020-10-30] MEDS: ENOXAPARIN INJ 30 MG/0.3 ML SYR SQ SCH (21:28)
[2020-10-31] MEDS: cefTRIAXone SODIUM 2,000 MG in DEXTROSE 5% 50 ML IV SCH (08:06)
[2020-10-31] MEDS: AZITHROMYCIN 250 MG TAB PO SCH (08:07)
[2020-10-31] MEDS: dexAMETHasone 6 MG in SYRINGE 0 ML IV SCH (08:07)
[2020-10-31] MEDS ORDERED: PHARMACY GLYCEMIC MGMT CONSULT PRN (08:57)
[2020-10-31] MEDS ORDERED: DEXTROSE 50% 50 ML SYRINGE IV PRN (09:00)
[2020-10-31] MEDS ORDERED: CARBOHYDRATES FOR HYPOGLYCEMIA PO PRN (09:00)
[2020-10-31] MEDS ORDERED: GLUCAGON FOR INJ 1 MG VIAL IM PRN (09:00)
[2020-10-31] MEDS ORDERED: GLUCOSE 40% GEL 15 GM TUBE PO PRN (09:00)
[2020-10-31] MEDS ORDERED: GLUCOSE 10 TABS/TUBE PO PRN (09:00)
[2020-10-31 09:14] LABS: Eosinophils # (auto) 0.04 K/uL (0-0.5); Hematocrit (blood only) 43.1 % (42-52); Hemoglobin 14.7 g/dL (14.0-18.0); Immature Granulocytes # (auto) 0.01 K/uL (0.00-0.02); Immature Granulocytes % (auto) 0.2 %; Lymphocytes % (auto) 22.3 %; Mean Corpuscular Hemoglobin 30.7 pg (25-34); Mean Corpuscular Hgb Conc 34.1 g/dL (32-36); Mean Platelet Volume 10.2 fL (7.4-10.4); Monocytes # (auto) 0.59 K/uL (0.11-0.59); Monocytes % (auto) 14.6 %; Neutrophils # (auto) 2.49 K/uL (1.4-6.5); Neutrophils % (auto) 61.9 %; Platelet Count 150 K/uL (130-400); RDW Coefficient of Variation 14.5 % (11.5-14.5); RDW Standard Deviation 47.8 fL (36.4-46.3); Red Blood Count 4.79 M/uL (4.7-6.1); White Blood Count 4.03 K/uL (4.8-10.8)
[2020-10-31 09:31] LABS: BUN Creatinine Ratio 26.3 (10-20); C Reactive Protein 1.31 mg/dl (0-0.29); Calcium 8.7 mg/dl (8.5-10.1); Creatinine Clr Calc Pharmacy 89.2 ml/min; Est GFR (African American) 105.2 ml/min; Est GFR (Non-African American) 90.7 ml/min; Potassium 3.7 mmol/L (3.5-5.1)
[2020-10-31 09:41] LABS: Estimated Average Glucose 183 mg/dl
[2020-10-31] MEDS: REMDESIVIR 100 MG in SODIUM CHLORIDE 0.9% 230 ML IV SCH (12:35)
[2020-10-31] MEDS: SODIUM CHLORIDE 0.9% 10ML FLUSH IV SCH (12:38)
[2020-10-31] MEDS: INSULIN ASPART 100 UNITS/ML 3 ML PEN SC SCH ×3 (12:44→21:53)
[2020-10-31] MEDS ORDERED: INSULIN HUMAN NPH SC ONE (13:30)
[2020-10-31] MEDS ORDERED: INSULIN HUMAN REGULAR PER UNIT 6 UNITS in SYRINGE 5.94 ML IV ONE (13:30)
--- NOTE | 2020-10-31 13:51 | Pharmacy Report ---
Pharmacy Glycemic Short Note 2 - Date of Service October 31, 2020 - Glycemic Short BSG Results (Last 24 hours): 10/31/20 10/31/20 10/31/20 08:59 12:29 12:31 Glucose 153 H POC Glucose 418 H* 373 H* OUTPATIENT ANTIDIABETIC REGIMEN: * N/A * HbA1c: 8% (10/31/20) ASSESSMENT: * RF is a 74 year old male patient with COVID-19 pneumonia * Admitted on 10/28/20 due to ambulatory dysfunction and inability to care for self at home (patient has cerebral palsy) * Patient has history of type 2 DM, but does not take any antidiabetic medications as an outpatient * Pharmacy was consulted for glycemic management this morning, as patient had been receiving IV steroids and did not have Accuchecks ordered * Fasting BSG of 153 mg/dL this morning * Lunch BSG of 373 mg/dL * Will give one-time IV insulin bolus and NPH dose now * BSGs have likely been elevated for duration of admission, but no labs/Accuchecks to confirm * Continues on dexamethasone 6 mg IV daily - will schedule NPH with AM dose of dexamethasone PLAN FOR INPATIENT GLYCEMIC CONTROL: * Basal insulin * NPH 25 units SC x 1 (~0.3 unit/kg) to cover IV dexamethasone * Reassess in AM * Bolus insulin * NovoLog per scale ACHS or Q6hrs while NPO * Goal Range: Low 110 mg/dL - High 140 mg/dL * Correction Factor: 20 mg/dL/unit * Nutritional / Prandial insulin per carb ratio of 1 unit per 7 grams CHO consumed * 00,04 checks with same parameters PLAN FOR DISCHARGE: * tbd
--- NOTE | 2020-10-31 17:31 | Hospitalist Progress Note ---
Date of Service October 31, 2020 Assessment & Plan (1) Hypoxia: Wean O2 > 88%, does not appear to need O2 while I was in the room. Multifactorial secondary to lung mass, hiatal hernia +/- tracheomalacia (2) COVID-19: SARS-CoV-2 PCR positive. O2 sats < 94% therefore will continue on dexamethasone although possible secondary to lung mass, hiatal hernia +/- tracheomalacia in addition. Stop remdesivir given questionable diagnosis and limited benefit of this regardless. Continue on isolation precautions (3) PNA (pneumonia): Procalcitonin negative on AM labs however CT chest appearance more typical for bacterial PNA than COVID therefore being treated with ceftriaxone and azithromycin Will treat with short course 5 days of antibiotics, can be switched to oral cefdinir on discharge. (4) UTI (urinary tract infection): Possible urinary tract infection present on admission may be also source of his fever Continue ceftriaxone. (5) Ambulatory dysfunction: Dysfunction/cerebral palsy/worsened by history of closed left femoral fracture- Requires assistance to get in and out of bed, and help with food and ADLs. We will consult physical therapy and Occupational Therapy environmental services supervisor to coordinate with office of aging ongoing care. Anticipate transfer to inpatient rehab sometime this week (6) Cerebral palsy: See above (7) History of tobacco abuse: Cessation counseling (8) Peripheral vascular disease: b/l SFA > 70%, follows Dr. Bowman Start ASA on discharge No acute issues (9) T2DM (type 2 diabetes mellitus): HbA1c 8.0. Hyperglycemia secondary to steroid use. Will consult pharmacy for glycemic control. He was placed stop Metformin after last admission but reports losing his primary care physician therefore was not taking this. (10) DVT prophylaxis: Lovenox PT/OT case management to determine disposition, if O2 can be weaned he would be medically stable for discharge. Admission and Anticipated Discharge Date Admission Date: October 30, 2020 Anticipated date of discharge: 11/01/20 Subjective Reports feeling at baseline. No cough, shortness of breath, fever, chills. He feels that his hypoxia is longstanding although was not requiring oxygen during his hospitalization in April 2020. Review of Systems Review of Systems: All systems reviewed & are unremarkable except as noted in HPI & below Physical Exam Constitutional: WD/WN, vitals as above Eyes: + anicteric sclerae; normal pupil size Respiratory: normal respiratory effort, lungs clear to auscultation + prolonged expiratory phase Cardiovascular: RRR, no murmur, no edema Gastrointestinal (Abdomen): normal bowel sounds, soft, nontender, no hepatosplenomegaly Skin: no rashes, warm and dry Neurologic: + focal motor deficit (severe weakness of b/l LE, equal) and awake; not confused Speech / Cognition: normal speech Motor/Sensory: no tremor and no pronator drift Psychiatric: A+Ox3, euthymic affect Results & Data Results & Data ([facility]) Vital Signs (Past 12 Hours) Vital Signs Temp Pulse Resp BP Pulse Ox 10/31/20 15:51 36.5 C 76 18 143/70 H 96 10/31/20 08:05 36.8 C 52 L 16 109/66 95 PG Care Time/CCT Total # of Minutes Spent Total Time Spent with Patient: Total time spent is greater than 50% in coordination of care (as documented) at patient's floor/unit and/or counseling patient: Coding Level of Care Code 15582 Subseq Hosp Care Lvl 2 Diagnoses Hypoxia R09.02 COVID-19 U07.1 PNA (pneumonia) J18.9 Laterality: right Lung location: upper lobe of lung Pneumonia type: due to unspecified organism UTI (urinary tract infection) N39.0 Ambulatory dysfunction R26.2 Cerebral palsy G80.8 Cerebral palsy type: other type History of tobacco abuse Z87.891 Peripheral vascular disease I73.9 T2DM (type 2 diabetes mellitus) E11.51 Diabetes mellitus complication detail: with peripheral angiopathy without gangrene Diabetes mellitus complication status: with circulatory complication Diabetes mellitus retirement insulin use: without petroleum terminal plant operator use DVT prophylaxis Z29.9 (1) T2DM (type 2 diabetes mellitus) Diabetes mellitus complication detail: with peripheral angiopathy without gangrene Diabetes mellitus complication status: with circulatory complication Diabetes mellitus retirement insulin use: without petroleum terminal plant operator use Qualified Code(s): E11.51 - Type 2 diabetes mellitus 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 (3) PNA (pneumonia) Laterality: right Lung location: upper lobe of lung Pneumonia type: due to unspecified organism Qualified Code(s): J18.9 - Pneumonia, unspecified organism
[2020-10-31] MEDS: ENOXAPARIN INJ 40 MG/0.4 ML SYR SQ SCH (22:32)
[2020-11-01] MEDS: INSULIN ASPART 100 UNITS/ML 3 ML PEN SC SCH ×7 (01:44→21:44)
--- NOTE | 2020-11-01 08:41 | Pharmacy Report ---
Pharmacy Glycemic Short Note 2 - Date of Service November 01, 2020 - Glycemic Short BSG Results (Last 24 hours): 10/31/20 10/31/20 10/31/20 08:59 12:29 12:31 Glucose 153 H POC Glucose 418 H* 373 H* 10/31/20 10/31/20 11/01/20 16:48 21:51 01:31 Glucose POC Glucose 255 H 209 H 100 H 11/01/20 11/01/20 04:12 08:11 Glucose POC Glucose 129 H 105 H OUTPATIENT ANTIDIABETIC REGIMEN: * N/A * HbA1c: 8% (10/31/20) ASSESSMENT: 11/01 * BSGs trended down throughout the day yesterday, 373, 255, 209, 100 mg/dL * NPH not given until lunchtime * Received 67 units of insulin (25 units of NPH, 36 units of bolus, and 6 units of IV insulin) * Continues on dexamethasone 6 mg IV daily - will schedule NPH to be given with steroid * Fasting BSG of 105 mg/dL this morning * Lunch BSG of 285 mg/dL - will increase NPH again tomorrow and further tighten Novolog 10/31: * RF is a 74 year old male patient with COVID-19 pneumonia * Admitted on 10/28/20 due to ambulatory dysfunction and inability to care for self at home (patient has cerebral palsy) * Patient has history of type 2 DM, but does not take any antidiabetic medications as an outpatient * Pharmacy was consulted for glycemic management this morning, as patient had been receiving IV steroids and did not have Accuchecks ordered * Fasting BSG of 153 mg/dL this morning * Lunch BSG of 373 mg/dL * Will give one-time IV insulin bolus and NPH dose now * BSGs have likely been elevated for duration of admission, but no labs/Accuchecks to confirm * Continues on dexamethasone 6 mg IV daily - will schedule NPH with AM dose of dexamethasone PLAN FOR INPATIENT GLYCEMIC CONTROL: * Basal insulin * NPH 30 units SC x 1 (~0.35 unit/kg) to cover IV dexamethasone * NPH 35 units SC daily starting tomorrow * Bolus insulin * NovoLog per scale ACHS or Q6hrs while NPO * Goal Range: Low 110 mg/dL - High 140 mg/dL * Correction Factor: 20 mg/dL/unit * Nutritional / Prandial insulin per carb ratio of 1 unit per 5 grams CHO consumed PLAN FOR DISCHARGE: * HbA1c of 8% may be reasonable for patient based on age and comorbidities * If tighter glycemic control is desired, suggest initiating metformin XR 500 mg PO daily with evening meal * Typically the XR formulation of metformin is better tolerated than the immediate release formulation. Continue to titrate metformin dosing upwards as recommended. Dosage increases should be made in increments of 500 mg weekly, up to 2,000 mg/day PO, given in divided doses. * Metformin is effective and safe, is inexpensive, and may reduce risk of cardiovascular events and * B12 supplementation may be necessary with medical terminologist metformin use
[2020-11-01] MEDS: dexAMETHasone 6 MG in SYRINGE 0 ML IV SCH (08:59)
[2020-11-01] MEDS: cefTRIAXone SODIUM 2,000 MG in DEXTROSE 5% 50 ML IV SCH (08:59)
[2020-11-01] MEDS ORDERED: INSULIN HUMAN NPH SC SCH ×2 (09:00)
[2020-11-01] MEDS: AZITHROMYCIN 250 MG TAB PO SCH (09:46)
--- NOTE | 2020-11-01 14:53 | Hospitalist Progress Note ---
Date of Service November 01, 2020 Assessment & Plan (1) Hypoxia: Wean O2 > 88%, does not appear to need O2 while I was in the room. Multifactorial secondary to lung mass, hiatal hernia +/- tracheomalacia (2) COVID-19: SARS-CoV-2 PCR positive. O2 sats < 94% therefore will continue on dexamethasone although possible secondary to lung mass, hiatal hernia +/- tracheomalacia in addition. Stopped remdesivir given questionable diagnosis and limited benefit of this regardless. Continue on isolation precautions (3) PNA (pneumonia): Procalcitonin negative on AM labs however CT chest appearance more typical for bacterial PNA than COVID therefore being treated with ceftriaxone and azithromycin Will treat with short course 5 days of antibiotics, can be switched to oral cefdinir on discharge. (4) UTI (urinary tract infection): Possible urinary tract infection present on admission may be also source of his fever Continue ceftriaxone. (5) Ambulatory dysfunction: Dysfunction/cerebral palsy/worsened by history of closed left femoral fracture- Requires assistance to get in and out of bed, and help with food and ADLs. We will consult physical therapy and Occupational Therapy family services assistant to coordinate with office of aging ongoing care. Patient declines inpatient rehabilitation. (6) Cerebral palsy: See above (7) History of tobacco abuse: Cessation counseling (8) Peripheral vascular disease: b/l SFA > 70%, follows Dr. Bowman Start ASA on discharge No acute issues (9) T2DM (type 2 diabetes mellitus): HbA1c 8.0. Hyperglycemia secondary to steroid use. Appreciate pharmacy glycemic management with basal bolus insulin. He was placed stop Metformin after last admission but reports losing his primary care physician therefore was not taking this. (10) DVT prophylaxis: Lovenox PT/OT case management to determine disposition, if O2 can be weaned (keep O2 sats > 88%) he would be medically stable for discharge. Admission and Anticipated Discharge Date Admission Date: October 30, 2020 Subjective Continues to feel at baseline. No cough, shortness of breath, fever, chills. O2 sats occasionally dip < 90% on room air. Review of Systems Review of Systems: All systems reviewed & are unremarkable except as noted in HPI & below Physical Exam Constitutional: WD/WN, vitals as above Eyes: + anicteric sclerae; normal pupil size Respiratory: normal respiratory effort, lungs clear to auscultation + prolonged expiratory phase Cardiovascular: RRR, no murmur, no edema Gastrointestinal (Abdomen): normal bowel sounds, soft, nontender, no hepatosplenomegaly Skin: no rashes, warm and dry Neurologic: + focal motor deficit (severe weakness of b/l LE, equal) and awake; not confused Speech / Cognition: normal speech Motor/Sensory: no tremor and no pronator drift Psychiatric: A+Ox3, euthymic affect Results & Data Results & Data ([facility]) Vital Signs (Past 12 Hours) Vital Signs Temp Pulse Resp BP Pulse Ox 11/01/20 08:15 36.4 C L 53 L 16 138/78 91 11/01/20 04:39 47 L 91 11/01/20 04:37 89 L PG Care Time/CCT Total # of Minutes Spent Total Time Spent with Patient: Total time spent is greater than 50% in coordination of care (as documented) at patient's floor/unit and/or counseling patient: Coding Level of Care Code 48005 Subseq Hosp Care Lvl 2 Diagnoses Hypoxia R09.02 COVID-19 U07.1 PNA (pneumonia) J18.9 Laterality: right Lung location: upper lobe of lung Pneumonia type: due to unspecified organism UTI (urinary tract infection) N39.0 Ambulatory dysfunction R26.2 Cerebral palsy G80.8 Cerebral palsy type: other type History of tobacco abuse Z87.891 Peripheral vascular disease I73.9 T2DM (type 2 diabetes mellitus) E11.51 Diabetes mellitus complication detail: with peripheral angiopathy without gangrene Diabetes mellitus complication status: with circulatory complication Diabetes mellitus intermediate insulin use: without intermediate use DVT prophylaxis Z29.9 (1) T2DM (type 2 diabetes mellitus) Diabetes mellitus complication detail: with peripheral angiopathy without gangrene Diabetes mellitus complication status: with circulatory complication Diabetes mellitus intermediate insulin use: without intermediate use Qualified Code(s): E11.51 - Type 2 diabetes mellitus 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 (3) PNA (pneumonia) Laterality: right Lung location: upper lobe of lung Pneumonia type: due to unspecified organism Qualified Code(s): J18.9 - Pneumonia, unspecified organism
[2020-11-01] MEDS: ENOXAPARIN INJ 40 MG/0.4 ML SYR SQ SCH (21:45)
[2020-11-02] MEDS ORDERED: INSULIN HUMAN NPH SC SCH (09:00)
[2020-11-02 09:27] LABS: Eosinophils # (auto) 0.05 K/uL (0-0.5); Hematocrit (blood only) 44.8 % (42-52); Hemoglobin 15.8 g/dL (14.0-18.0); Immature Granulocytes # (auto) 0.02 K/uL (0.00-0.02); Immature Granulocytes % (auto) 0.4 %; Lymphocytes # (auto) 1.53 K/uL (1.2-3.4); Lymphocytes % (auto) 30.6 %; Mean Corpuscular Hemoglobin 31.5 pg (25-34); Mean Corpuscular Hgb Conc 35.3 g/dL (32-36); Mean Corpuscular Volume 89.4 fL (80-100); Mean Platelet Volume 10.4 fL (7.4-10.4); Monocytes # (auto) 0.53 K/uL (0.11-0.59); Monocytes % (auto) 10.6 %; Neutrophils # (auto) 2.87 K/uL (1.4-6.5); Neutrophils % (auto) 57.4 %; Platelet Count 184 K/uL (130-400); RDW Coefficient of Variation 14.4 % (11.5-14.5); RDW Standard Deviation 47.3 fL (36.4-46.3); Red Blood Count 5.01 M/uL (4.7-6.1)
[2020-11-02] MEDS: AZITHROMYCIN 250 MG TAB PO SCH (09:31)
[2020-11-02] MEDS: dexAMETHasone 6 MG in SYRINGE 0 ML IV SCH (09:31)
[2020-11-02] MEDS: cefTRIAXone SODIUM 2,000 MG in DEXTROSE 5% 50 ML IV SCH (09:37)
[2020-11-02] MEDS: INSULIN ASPART 100 UNITS/ML 3 ML PEN SC SCH ×4 (09:48→21:44)
[2020-11-02 09:52] LABS: BUN Creatinine Ratio 27.1 (10-20); C Reactive Protein 0.8 mg/dl (0-0.29); Creatinine Clr Calc Pharmacy 78.4 ml/min; Est GFR (African American) 99.8 ml/min; Est GFR (Non-African American) 86.1 ml/min; Potassium 3.5 mmol/L (3.5-5.1)
--- NOTE | 2020-11-02 10:50 | XRay Report ---
XR chest 1V portable HISTORY: hypoxia COMPARISON: Chest 10/29/2020. FINDINGS: No change in the focal hazy density within the right midlung zone. The left lung appears cl ear. The heart remains moderately enlarged. No pleural effusions. No pneumothorax. No evidence for pu lmonary edema. There is a large hiatus hernia. IMPRESSION: 1. No change in the focal hazy density within the right midlung zone. This favors a pneumonia. [facility] chest x-ray follow-up recommended to ensure resolution. 2. No change in the cardiomegaly and hiatus hernia. ACT 112: Negative or not required by law. Electronically signed by: Ted Locke M.D. 11/02/2020 10:49 AM
--- NOTE | 2020-11-02 11:14 | Pharmacy Report ---
Pharmacy Glycemic Short Note 2 - Date of Service November 02, 2020 - Glycemic Short BSG Results (Last 24 hours): 11/01/20 11/01/20 11/01/20 12:13 17:22 21:42 Glucose POC Glucose 285 H 244 H 205 H 11/02/20 11/02/20 08:42 09:05 Glucose 142 H POC Glucose 138 H OUTPATIENT ANTIDIABETIC REGIMEN: * N/A * HbA1c: 8% (10/31/20) ASSESSMENT: 11/02 * 78 units SQ insulin administered over last 24 hrs while tolerating diet * Fasting BSG at goal yesterday, however post-prandial hyperglycemia observed. Small increase in NPH planned today given fasting BSG at goal yesterday. Novolog CF and CR will be adjusted to allow for larger doses with meals. HS Novolog dose will remain the same as it is likely smaller doses will be required at that time due to wearing off of insulin resistance overnight w/ once daily admin of dexamethasone in the morning. 11/01 * BSGs trended down throughout the day yesterday, 373, 255, 209, 100 mg/dL * NPH not given until lunchtime * Received 67 units of insulin (25 units of NPH, 36 units of bolus, and 6 units of IV insulin) * Continues on dexamethasone 6 mg IV daily - will schedule NPH to be given with steroid * Fasting BSG of 105 mg/dL this morning * Lunch BSG of 285 mg/dL - will increase NPH again tomorrow and further tighten Novolog 10/31: * RF is a 74 year old male patient with COVID-19 pneumonia * Admitted on 10/28/20 due to ambulatory dysfunction and inability to care for self at home (patient has cerebral palsy) * Patient has history of type 2 DM, but does not take any antidiabetic medications as an outpatient * Pharmacy was consulted for glycemic management this morning, as patient had been receiving IV steroids and did not have Accuchecks ordered * Fasting BSG of 153 mg/dL this morning * Lunch BSG of 373 mg/dL * Will give one-time IV insulin bolus and NPH dose now * BSGs have likely been elevated for duration of admission, but no labs/Accuchecks to confirm * Continues on dexamethasone 6 mg IV daily - will schedule NPH with AM dose of dexamethasone PLAN FOR INPATIENT GLYCEMIC CONTROL: * Basal insulin * NPH 35 units SC daily - given at the same time the IV dexamethasone is administered in the AM * Bolus insulin * NovoLog per scale ACHS or Q6hrs while NPO * Goal Range: Low 110 mg/dL - High 140 mg/dL * Correction Factor: 18 mg/dL/unit * Nutritional / Prandial insulin per carb ratio of 1 unit per 4 grams CHO consumed PLAN FOR DISCHARGE: * HbA1c of 8% may be reasonable for patient based on age and comorbidities * If tighter glycemic control is desired, suggest initiating metformin XR 500 mg PO daily with evening meal * Typically the XR formulation of metformin is better tolerated than the immediate release formulation. Continue to titrate metformin dosing upwards as recommended. Dosage increases should be made in increments of 500 mg weekly, up to 2,000 mg/day PO, given in divided doses. * Metformin is effective and safe, is inexpensive, and may reduce risk of cardiovascular events and * B12 supplementation may be necessary with [facility] metformin use
--- NOTE | 2020-11-02 16:25 | Hospitalist Progress Note ---
Date of Service November 02, 2020 Assessment & Plan (1) Hypoxia: Wean O2 > 88%, does not appear to need O2 while I was in the room. Multifactorial secondary to lung mass, hiatal hernia +/- tracheomalacia (2) COVID-19: SARS-CoV-2 PCR positive. O2 sats appear improved today therefore discontinued dexamethasone. Stopped remdesivir given questionable diagnosis and limited benefit of this regardless. Continue on isolation precautions (3) PNA (pneumonia): Procalcitonin negative on AM labs however CT chest appearance more typical for bacterial PNA than COVID therefore being treated with ceftriaxone and azithromycin Will treat with short course 5 days of antibiotics, can be switched to oral cefdinir on discharge. (4) UTI (urinary tract infection): Possible urinary tract infection present on admission may be also source of his fever Continue ceftriaxone. (5) Ambulatory dysfunction: Dysfunction/cerebral palsy/worsened by history of closed left femoral fracture- Requires assistance to get in and out of bed, and help with food and ADLs. We will consult physical therapy and Occupational Therapy client services account manager to coordinate with office of aging ongoing care. Patient declines inpatient rehabilitation. (6) Cerebral palsy: See above (7) History of tobacco abuse: Cessation counseling (8) Peripheral vascular disease: b/l SFA > 70%, follows Dr. Bowman Start ASA on discharge No acute issues (9) T2DM (type 2 diabetes mellitus): HbA1c 8.0. Hyperglycemia secondary to steroid use. Appreciate pharmacy glycemic management with basal bolus insulin. He was placed stop Metformin after last admission but reports losing his primary care physician therefore was not taking this. (10) DVT prophylaxis: Lovenox PT/OT case management to determine disposition, if O2 can be weaned (keep O2 sats > 88%) he would be medically stable for discharge. Overnight pulse Ox to determine home O2 tonight. Admission and Anticipated Discharge Date Admission Date: October 30, 2020 Subjective Continues to feel at baseline. No cough, shortness of breath, fever, chills. O2 sats occasionally dip < 90% on room air. No acute events overnight. No significant change from prior day. Review of Systems Review of Systems: All systems reviewed & are unremarkable except as noted in HPI & below Physical Exam Constitutional: WD/WN, vitals as above Eyes: + anicteric sclerae; normal pupil size Respiratory: normal respiratory effort, lungs clear to auscultation + prolonged expiratory phase Cardiovascular: RRR, no murmur, no edema Gastrointestinal (Abdomen): normal bowel sounds, soft, nontender, no hepatosplenomegaly Skin: no rashes, warm and dry Neurologic: + focal motor deficit (severe weakness of b/l LE, equal) and awake; not confused Speech / Cognition: normal speech Motor/Sensory: no tremor and no pronator drift Psychiatric: A+Ox3, euthymic affect Results & Data Results & Data ([facility]) Vital Signs (Past 12 Hours) Vital Signs Temp Pulse Resp BP Pulse Ox 11/02/20 08:58 36.5 C 55 L 16 143/76 H 95 PG Care Time/CCT Total # of Minutes Spent Total Time Spent with Patient: Total time spent is greater than 50% in coordination of care (as documented) at patient's floor/unit and/or counseling patient: Coding Level of Care Code 91593 Subseq Hosp Care Lvl 2 Diagnoses Hypoxia R09.02 COVID-19 U07.1 PNA (pneumonia) J18.9 Laterality: right Lung location: upper lobe of lung Pneumonia type: due to unspecified organism UTI (urinary tract infection) N39.0 Ambulatory dysfunction R26.2 Cerebral palsy G80.8 Cerebral palsy type: other type History of tobacco abuse Z87.891 Peripheral vascular disease I73.9 T2DM (type 2 diabetes mellitus) E11.51 Diabetes mellitus complication detail: with peripheral angiopathy without gangrene Diabetes mellitus complication status: with circulatory complication Diabetes mellitus fdc insulin use: without fdc use DVT prophylaxis Z29.9 (1) T2DM (type 2 diabetes mellitus) Diabetes mellitus complication detail: with peripheral angiopathy without gangrene Diabetes mellitus complication status: with circulatory complication Diabetes mellitus fdc insulin use: without intermodal owner operator truck driver use Qualified Code(s): E11.51 - Type 2 diabetes mellitus 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 (3) PNA (pneumonia) Laterality: right Lung location: upper lobe of lung Pneumonia type: due to unspecified organism Qualified Code(s): J18.9 - Pneumonia, unspecified organism
[2020-11-02] MEDS: ENOXAPARIN INJ 40 MG/0.4 ML SYR SQ SCH (21:44)
[2020-11-03] MEDS: AZITHROMYCIN 250 MG TAB PO SCH (09:07)
--- NOTE | 2020-11-03 09:14 | Pharmacy Report ---
Pharmacy Glycemic Short Note 2 - Date of Service November 03, 2020 - Glycemic Short BSG Results (Last 24 hours): 11/02/20 11/02/20 11/02/20 09:05 12:37 17:39 Glucose 142 H POC Glucose 185 H 173 H 11/02/20 11/03/20 21:40 09:02 Glucose POC Glucose 164 H 123 H OUTPATIENT ANTIDIABETIC REGIMEN: * N/A * HbA1c: 8% (10/31/20) ASSESSMENT: 11/03 * BSGs improved yesterday, 138, 185, 173, and 164 mg/dL * Received 35 units of NPH to cover dexamethasone 6 mg IV x 1 * Dexamethasone is now discontinued so will discontinue NPH and utilize ~0.2 unit/kg Lantus and loosen Novolog parameters 11/02 * 78 units SQ insulin administered over last 24 hrs while tolerating diet * Fasting BSG at goal yesterday, however post-prandial hyperglycemia observed. Small increase in NPH planned today given fasting BSG at goal yesterday. Novolog CF and CR will be adjusted to allow for larger doses with meals. HS Novolog dose will remain the same as it is likely smaller doses will be required at that time due to wearing off of insulin resistance overnight w/ once daily admin of dexamethasone in the morning. 11/01 * BSGs trended down throughout the day yesterday, 373, 255, 209, 100 mg/dL * NPH not given until lunchtime * Received 67 units of insulin (25 units of NPH, 36 units of bolus, and 6 units of IV insulin) * Continues on dexamethasone 6 mg IV daily - will schedule NPH to be given with steroid * Fasting BSG of 105 mg/dL this morning * Lunch BSG of 285 mg/dL - will increase NPH again tomorrow and further tighten Novolog 10/31: * RF is a 74 year old male patient with COVID-19 pneumonia * Admitted on 10/28/20 due to ambulatory dysfunction and inability to care for self at home (patient has cerebral palsy) * Patient has history of type 2 DM, but does not take any antidiabetic medications as an outpatient * Pharmacy was consulted for glycemic management this morning, as patient had been receiving IV steroids and did not have Accuchecks ordered * Fasting BSG of 153 mg/dL this morning * Lunch BSG of 373 mg/dL * Will give one-time IV insulin bolus and NPH dose now * BSGs have likely been elevated for duration of admission, but no labs/Accuchecks to confirm * Continues on dexamethasone 6 mg IV daily - will schedule NPH with AM dose of dexamethasone PLAN FOR INPATIENT GLYCEMIC CONTROL: * Basal insulin * Discontinue NPH * Lantus 15 units SC daily (~0.2 unit/kg) * Bolus insulin * NovoLog per scale ACHS or Q6hrs while NPO * Goal Range: Low 110 mg/dL - High 140 mg/dL * Correction Factor: 20 mg/dL/unit * Nutritional / Prandial insulin per carb ratio of 1 unit per 6 grams CHO consumed PLAN FOR DISCHARGE: * HbA1c of 8% may be reasonable for patient based on age and comorbidities * If tighter glycemic control is desired, suggest initiating metformin XR 500 mg PO daily with evening meal * Typically the XR formulation of metformin is better tolerated than the immediate release formulation. Continue to titrate metformin dosing upwards as recommended. Dosage increases should be made in increments of 500 mg weekly, up to 2,000 mg/day PO, given in divided doses. * Metformin is effective and safe, is inexpensive, and may reduce risk of cardiovascular events and * B12 supplementation may be necessary with [facility] metformin use
[2020-11-03] MEDS: INSULIN ASPART 100 UNITS/ML 3 ML PEN SC SCH ×4 (09:36→22:09)
[2020-11-03] MEDS: INSULIN GLARGINE SOLOSTAR 100 UNITS/ML 3 ML PEN SC SCH (10:00)
[2020-11-03] MEDS: cefTRIAXone SODIUM 2,000 MG in DEXTROSE 5% 50 ML IV SCH (10:09)
--- NOTE | 2020-11-03 11:47 | Hospitalist Progress Note ---
Date of Service November 03, 2020 Assessment & Plan (1) Hypoxia: Wean O2 > 88%, does not appear to need O2 while I was in the room. Multifactorial secondary to lung mass, hiatal hernia, COVID-19, possible pneumonia. (2) COVID-19: SARS-CoV-2 PCR positive. CRP decreasing. O2 sats appear improved therefore discontinued dexamethasone 11/02. Stopped remdesivir given questionable diagnosis and limited benefit of this regardless. Continue on isolation precautions (3) PNA (pneumonia): Procalcitonin negative on AM labs however CT chest appearance more typical for bacterial PNA than COVID therefore being treated with ceftriaxone and azithromycin Will treat with short course 5 days of antibiotics. Finished today. (4) UTI (urinary tract infection): Possible urinary tract infection present on admission may be also source of his fever Finished ceftriaxone today (5 days) (5) Ambulatory dysfunction: Dysfunction/cerebral palsy/worsened by history of closed left femoral fracture- Requires assistance to get in and out of bed, and help with food and ADLs. We will consult physical therapy and Occupational Therapy billing services manager to coordinate with office of aging ongoing care. Patient declines inpatient rehabilitation. (6) Cerebral palsy: See above (7) History of tobacco abuse: Cessation counseling (8) Peripheral vascular disease: b/l SFA > 70%, follows Dr. Bowman Start ASA on discharge No acute issues (9) T2DM (type 2 diabetes mellitus): HbA1c 8.0. Hyperglycemia secondary to steroid use. Appreciate pharmacy glycemic management with basal bolus insulin. He was placed stop Metformin after last admission but reports losing his primary care physician therefore was not taking this. (10) DVT prophylaxis: Lovenox PT/OT case management to determine disposition - planning on [facility] Patient is medically stable for discharge - will need O2 overnight on discharge. Admission and Anticipated Discharge Date Admission Date: October 30, 2020 Subjective Continues to feel at baseline. No cough, shortness of breath, fever, chills. O2 sats occasionally dip < 90% on room air. No acute events overnight. No significant change from prior day. Overnight pulse ox mainly in the high 80s. Review of Systems Review of Systems: All systems reviewed & are unremarkable except as noted in HPI & below Physical Exam Constitutional: WD/WN, vitals as above Eyes: + anicteric sclerae; normal pupil size Respiratory: normal respiratory effort, lungs clear to auscultation + prolonged expiratory phase Cardiovascular: RRR, no murmur, no edema Gastrointestinal (Abdomen): normal bowel sounds, soft, nontender, no hepatosplenomegaly Skin: no rashes, warm and dry Neurologic: + focal motor deficit (severe weakness of b/l LE, equal) and awake; not confused Speech / Cognition: normal speech Motor/Sensory: no tremor and no pronator drift Psychiatric: A+Ox3, euthymic affect Results & Data Results & Data ([facility]) Vital Signs (Past 12 Hours) Vital Signs Temp Pulse Pulse Resp BP Pulse Ox Pulse Ox 11/03/20 09:00 36.5 C 55 L 18 175/76 H 95 11/03/20 03:29 51 L 89 L PG Care Time/CCT Total # of Minutes Spent Total Time Spent with Patient: Total time spent is greater than 50% in coordination of care (as documented) at patient's floor/unit and/or counseling patient: Coding Level of Care Code 67584 Subseq Hosp Care Lvl 1 Diagnoses Hypoxia R09.02 COVID-19 U07.1 PNA (pneumonia) J18.9 Laterality: right Lung location: upper lobe of lung Pneumonia type: due to unspecified organism UTI (urinary tract infection) N39.0 Ambulatory dysfunction R26.2 Cerebral palsy G80.8 Cerebral palsy type: other type History of tobacco abuse Z87.891 Peripheral vascular disease I73.9 T2DM (type 2 diabetes mellitus) E11.51 Diabetes mellitus complication detail: with peripheral angiopathy without gangrene Diabetes mellitus complication status: with circulatory complication Diabetes mellitus long term care social worker insulin use: without long term care social worker use DVT prophylaxis Z29.9 (1) T2DM (type 2 diabetes mellitus) Diabetes mellitus complication detail: with peripheral angiopathy without gangrene Diabetes mellitus complication status: with circulatory complication Diabetes mellitus long term care social worker insulin use: without detention use Qualified Code(s): E11.51 - Type 2 diabetes mellitus 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 (3) PNA (pneumonia) Laterality: right Lung location: upper lobe of lung Pneumonia type: due to unspecified organism Qualified Code(s): J18.9 - Pneumonia, unspecified organism
[2020-11-03] MEDS ORDERED: hydrALAZINE HCL 20 MG/ML VIAL IV PRN (20:52)
[2020-11-03] MEDS: ENOXAPARIN INJ 40 MG/0.4 ML SYR SQ SCH (22:10)
--- NOTE | 2020-11-04 09:12 | Pharmacy Report ---
Pharmacy Glycemic Short Note 2 - Date of Service November 04, 2020 - Glycemic Short BSG Results (Last 24 hours): 11/03/20 11/03/20 11/03/20 12:11 17:43 22:02 POC Glucose 187 H 135 H 175 H 11/04/20 07:58 POC Glucose 114 H OUTPATIENT ANTIDIABETIC REGIMEN: * N/A * HbA1c: 8% (10/31/20) ASSESSMENT: 11/04 * BSGs yesterday of 123, 187, 135, and 175 mg/dL * Will tighten carb ratio today * Fasting BSG of 114 mg/dL - continue Lantus 15 units SC daily * Antibiotics and IV dexamethasone discontinued yesterday 11/03 * BSGs improved yesterday, 138, 185, 173, and 164 mg/dL * Received 35 units of NPH to cover dexamethasone 6 mg IV x 1 * Dexamethasone is now discontinued so will discontinue NPH and utilize ~0.2 unit/kg Lantus and loosen Novolog parameters 10/31: * RF is a 74 year old male patient with COVID-19 pneumonia * Admitted on 10/28/20 due to ambulatory dysfunction and inability to care for self at home (patient has cerebral palsy) * Patient has history of type 2 DM, but does not take any antidiabetic medicati ons as an outpatient * Pharmacy was consulted for glycemic management this morning, as patient had been receiving IV steroids and did not have Accuchecks ordered * Fasting BSG of 153 mg/dL this morning * Lunch BSG of 373 mg/dL * Will give one-time IV insulin bolus and NPH dose now * BSGs have likely been elevated for duration of admission, but no labs/Accuchecks to confirm * Continues on dexamethasone 6 mg IV daily - will schedule NPH with AM dose of dexamethasone PLAN FOR INPATIENT GLYCEMIC CONTROL: * Basal insulin - continue * Lantus 15 units SC daily (~0.2 unit/kg) * Bolus insulin - tighten carb ratio * NovoLog per scale ACHS or Q6hrs while NPO * Goal Range: Low 110 mg/dL - High 140 mg/dL * Correction Factor: 20 mg/dL/unit * Nutritional / Prandial insulin per carb ratio of 1 unit per 5 grams CHO consumed PLAN FOR DISCHARGE: * HbA1c of 8% may be reasonable for patient based on age and comorbidities * If tighter glycemic control is desired, suggest initiating metformin XR 500 mg PO daily with evening meal * Typically the XR formulation of metformin is better tolerated than the immediate release formulation. Continue to titrate metformin dosing upwards as recommended. Dosage increases should be made in increments of 500 mg weekly, up to 2,000 mg/day PO, given in divided doses. * Metformin is effective and safe, is inexpensive, and may reduce risk of cardiovascular events and * B12 supplementation may be necessary with long winder tender metformin use
[2020-11-04] MEDS: INSULIN GLARGINE SOLOSTAR 100 UNITS/ML 3 ML PEN SC SCH (09:34)
[2020-11-04] MEDS: INSULIN ASPART 100 UNITS/ML 3 ML PEN SC SCH ×4 (09:34→20:57)
--- NOTE | 2020-11-04 16:45 | Hospitalist Progress Note ---
Date of Service November 04, 2020 Assessment & Plan (1) Hypoxia: Wean O2 > 88% Multifactorial secondary to lung mass, hiatal hernia, COVID-19, possible pneumonia. (2) COVID-19: SARS-CoV-2 PCR positive. CRP decreasing. O2 sats appear improved therefore discontinued dexamethasone 11/02. Stopped remdesivir given questionable diagnosis and limited benefit of this regardless. Continue on isolation precautions (3) PNA (pneumonia): Procalcitonin negative on AM labs however CT chest appearance more typical for bacterial PNA than COVID therefore being treated with ceftriaxone and azithromycin Will treat with short course 5 days of antibiotics. Finished 11/03. (4) UTI (urinary tract infection): Possible urinary tract infection present on admission may be also source o f his fever Finished ceftriaxone today (5 days) (5) Ambulatory dysfunction: Dysfunction/cerebral palsy/worsened by history of closed left femoral fracture- Requires assistance to get in and out of bed, and help with food and ADLs. A/W placement decision (6) Cerebral palsy: See above (7) History of tobacco abuse: Cessation counseling (8) Peripheral vascular disease: b/l SFA > 70%, follows Dr. Colby Tavares ASA on discharge No acute issues (9) T2DM (type 2 diabetes mellitus): HbA1c 8.0. Hyperglycemia secondary to steroid use. Appreciate pharmacy glycemic management with basal bolus insulin. He was placed stop Metformin after last admission but reports losing his primary care physician therefore was not taking this. (10) DVT prophylaxis: Lovenox PT/OT case management to determine disposition - planning on [facility] if insurance authorization goes through. Patient is medically stable for discharge - overnight O2 shows he requires O2 at night. Admission and Anticipated Discharge Date Admission Date: October 30, 2020 Subjective No acute questions or concerns. Continues to feel at baseline. Unable to be discharged home due to unable to set up an of care is initial insurance authorization rejected from [facility]. Awaiting placement decision at this time. Review of Systems Review of Systems: All systems reviewed & are unremarkable except as noted in HPI & below Physical Exam Constitutional: WD/WN, vitals as above Eyes: + anicteric sclerae; normal pupil size Respiratory: normal respiratory effort, lungs clear to auscultation + prolonged expiratory phase Cardiovascular: RRR, no murmur, no edema Gastrointestinal (Abdomen): normal bowel sounds, soft, nontender, no hepatosplenomegaly Skin: no rashes, warm and dry Neurologic: + focal motor deficit (severe weakness of b/l LE, equal) and awake; not confused Speech / Cognition: normal speech Motor/Sensory: no tremor and no pronator drift Psychiatric: A+Ox3, euthymic affect Results & Data Results & Data ([facility]) Vital Signs (Past 12 Hours) Vital Signs Temp Pulse Resp BP Pulse Ox 11/04/20 15:32 37.2 C 69 22 115/71 91 11/04/20 08:00 36.5 C 59 L 22 129/75 90 PG Care Time/CCT Total # of Minutes Spent Total Time Spent with Patient: Total time spent is greater than 50% in coordination of care (as documented) at patient's floor/unit and/or counseling patient: Coding Level of Care Code 09533 Subseq Hosp Care Lvl 1 Diagnoses Hypoxia R09.02 COVID-19 U07.1 PNA (pneumonia) J18.9 Laterality: right Lung location: upper lobe of lung Pneumonia type: due to unspecified organism UTI (urinary tract infection) N39.0 Ambulatory dysfunction R26.2 Cerebral palsy G80.8 Cerebral palsy type: other type History of tobacco abuse Z87.891 Peripheral vascular disease I73.9 T2DM (type 2 diabetes mellitus) E11.51 Diabetes mellitus complication detail: with peripheral angiopathy without gangrene Diabetes mellitus complication status: with circulatory complication Diabetes mellitus [facility] insulin use: without [facility] use DVT prophylaxis Z29.9 (1) T2DM (type 2 diabetes mellitus) Diabetes mellitus complication detail: with peripheral angiopathy without gangrene Diabetes mellitus complication status: with circulatory complication Diabetes mellitus [facility] insulin use: without continuous churn buttermaker use Qualified Code(s): E11.51 - Type 2 diabetes mellitus 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 (3) PNA (pneumonia) Laterality: right Lung location: upper lobe of lung Pneumonia type: due to unspecified organism Qualified Code(s): J18.9 - Pneumonia, unspecified organism
[2020-11-04] MEDS: ENOXAPARIN INJ 40 MG/0.4 ML SYR SQ SCH (21:22)
[2020-11-05] MEDS: INSULIN ASPART 100 UNITS/ML 3 ML PEN SC SCH ×4 (09:30→21:54)
[2020-11-05] MEDS: INSULIN GLARGINE SOLOSTAR 100 UNITS/ML 3 ML PEN SC SCH (09:30)
[2020-11-05] MEDS: ENOXAPARIN INJ 40 MG/0.4 ML SYR SQ SCH (22:18)
--- NOTE | 2020-11-06 08:26 | Hospitalist Progress Note ---
Date of Service November 05, 2020 Assessment & Plan (1) Hypoxia: Wean O2 > 88% Multifactorial secondary to lung mass, hiatal hernia, COVID-19, possible pneumonia. (2) COVID-19: SARS-CoV-2 PCR positive. CRP decreasing. O2 sats appear improved therefore discontinued dexamethasone 11/02. Stopped remdesivir given questionable diagnosis and limited benefit of this regardless. Continue on isolation precautions (3) PNA (pneumonia): Procalcitonin negative on AM labs however CT chest appearance more typical for bacterial PNA than COVID therefore being treated with ceftriaxone and azithromycin Will treat with short course 5 days of antibiotics. Finished 11/03. (4) UTI (urinary tract infection): Possible urinary tract infection present on admission may be also source o f his fever Finished ceftriaxone today (5 days) (5) Ambulatory dysfunction: Dysfunction/cerebral palsy/worsened by history of closed left femoral fracture- Requires assistance to get in and out of bed, and help with food and ADLs. A/W placement decision (6) Cerebral palsy: See above (7) History of tobacco abuse: Cessation counseling (8) Peripheral vascular disease: b/l SFA > 70%, follows Dr. Colby Tavares ASA on discharge No acute issues (9) T2DM (type 2 diabetes mellitus): HbA1c 8.0. Hyperglycemia secondary to steroid use. Appreciate pharmacy glycemic management with basal bolus insulin. He was placed stop Metformin after last admission but reports losing his primary care physician therefore was not taking this. (10) DVT prophylaxis: Lovenox PT/OT case management to determine disposition - planning on [facility] if insurance authorization goes through. Patient is medically stable for discharge - overnight O2 shows he requires O2 at night. Admission and Anticipated Discharge Date Admission Date: October 30, 2020 Subjective No acute questions or concerns. Continues to feel at baseline. Unable to be discharged home due to unable to set up an of care is initial insurance authorization rejected from [facility]. Awaiting placement decision at this time. Review of Systems Review of Systems: All systems reviewed & are unremarkable except as noted in HPI & below Physical Exam Constitutional: WD/WN, vitals as above Respiratory: normal respiratory effort, lungs clear to auscultation + prolonged expiratory phase Cardiovascular: RRR, no murmur, no edema Gastrointestinal (Abdomen): normal bowel sounds, soft, nontender, no hepatosplenomegaly Skin: no rashes, warm and dry Neurologic: + focal motor deficit (severe weakness of b/l LE, equal) and awake; not confused Speech / Cognition: normal speech Motor/Sensory: no tremor and no pronator drift Psychiatric: A+Ox3, euthymic affect Results & Data Results & Data ([facility]) Vital Signs (Past 12 Hours) Vital Signs Temp Pulse Resp BP Pulse Ox Pulse Ox 11/05/20 23:45 95 11/05/20 21:40 36.9 C 65 18 131/61 91 PG Care Time/CCT Total # of Minutes Spent Total Time Spent with Patient: Total time spent is greater than 50% in coordination of care (as documented) at patient's floor/unit and/or counseling patient: Coding Level of Care Code 53417 Subseq Hosp Care Lvl 1 Diagnoses Hypoxia R09.02 COVID-19 U07.1 PNA (pneumonia) J18.9 Pneumonia type: due to unspecified organism Laterality: right Lung location: upper lobe of lung UTI (urinary tract infection) N39.0 Ambulatory dysfunction R26.2 Cerebral palsy G80.8 Cerebral palsy type: other type History of tobacco abuse Z87.891 Peripheral vascular disease I73.9 T2DM (type 2 diabetes mellitus) E11.51 Diabetes mellitus correction insulin use: without correction use Diabetes mellitus complication status: with circulatory complication Diabetes mellitus complication detail: with peripheral angiopathy without gangrene DVT prophylaxis Z29.9 (1) PNA (pneumonia) Pneumonia type: due to unspecified organism Laterality: right Lung location: upper lobe of lung Qualified Code(s): J18.9 - Pneumonia, unspecified organism (2) Cerebral palsy Cerebral palsy type: other type Qualified Code(s): G80.8 - Other cerebral palsy (3) T2DM (type 2 diabetes mellitus) 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
--- NOTE | 2020-11-06 08:58 | Hospitalist Progress Note ---
Date of Service November 06, 2020 Assessment & Plan (1) Hypoxia: Wean O2 > 88% Multifactorial secondary to lung mass, hiatal hernia, COVID-19, possible bacterial pneumonia. (2) COVID-19: SARS-CoV-2 PCR positive. CRP decreasing. O2 sats appeared improved therefore discontinued dexamethasone 11/02. Continue on isolation precautions (day 10 today) (3) PNA (pneumonia): Procalcitonin negative on AM labs however CT chest appearance more typical for bacterial PNA than COVID therefore being treated with ceftriaxone and azithromycin Will treat with short course 5 days of antibiotics. Finished 11/03. (4) UTI (urinary tract infection): Possible urinary tract infection present on admission may be also source of his fever Urine culture positive for Proteus Finished ceftriaxone 11/03 (5 days) (5) Ambulatory dysfunction: Dysfunction/cerebral palsy/worsened by history of closed left femoral fracture- Requires assistance to get in and out of bed, and help with food and ADLs. A/W placement decision (6) Cerebral palsy: See above (7) History of tobacco abuse: Cessation counseling (8) Peripheral vascular disease: b/l SFA > 70%, follows Dr. Bowman Start aspirin 81mg PO daily No acute issues (9) T2DM (type 2 diabetes mellitus): HbA1c 8.0. Hyperglycemia secondary to steroid use. Appreciate pharmacy glycemic management with basal bolus insulin. He was placed stop Metformin after last admission but reports losing his primary care physician therefore was not taking this. (10) DVT prophylaxis: Lovenox PT/OT case management to determine disposition - respite care vs. home with home health if able to provide enough carers. Patient is medically stable for discharge - overnight O2 shows he requires O2 at night. Admission and Anticipated Discharge Date Admission Date: October 30, 2020 Subjective No acute questions or concerns. Continues to feel at baseline. O2 sats stable. Patient putting on his O2 only to stop alarm of continuous O2 sats when it dips below 88%. Unable to be discharged home due to unable to set up an of care is initial insurance authorization rejected from [facility]. Awaiting placement decision at this time. Review of Systems Review of Systems: All systems reviewed & are unremarkable except as noted in HPI & below Physical Exam Constitutional: WD/WN, vitals as above Eyes: + anicteric sclerae; normal pupil size Respiratory: normal respiratory effort, lungs clear to auscultation + prolonged expiratory phase Cardiovascular: RRR, no murmur, no edema Gastrointestinal (Abdomen): normal bowel sounds, soft, nontender, no hepatosplenomegaly Skin: no rashes, warm and dry Neurologic: + focal motor deficit (severe weakness of b/l LE, equal) and awake; not confused Speech / Cognition: normal speech Motor/Sensory: no tremor and no pronator drift Psychiatric: A+Ox3, euthymic affect Results & Data Results & Data ([facility]) Vital Signs (Past 12 Hours) Vital Signs Temp Pulse Resp BP Pulse Ox Pulse Ox 11/05/20 23:45 95 11/05/20 21:40 36.9 C 65 18 131/61 91 PG Care Time/CCT Total # of Minutes Spent Total Time Spent with Patient: Total time spent is greater than 50% in coordination of care (as documented) at patient's floor/unit and/or counseling patient: Coding Level of Care Code 68195 Subseq Hosp Care Lvl 1 Diagnoses Hypoxia R09.02 COVID-19 U07.1 PNA (pneumonia) J18.9 Laterality: right Lung location: upper lobe of lung Pneumonia type: due to unspecified organism UTI (urinary tract infection) N39.0 Ambulatory dysfunction R26.2 Cerebral palsy G80.8 Cerebral palsy type: other type History of tobacco abuse Z87.891 Peripheral vascular disease I73.9 T2DM (type 2 diabetes mellitus) E11.51 Diabetes mellitus complication detail: with peripheral angiopathy without gangrene Diabetes mellitus complication status: with circulatory complication 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 DVT prophylaxis Z29.9 (1) T2DM (type 2 diabetes mellitus) Diabetes mellitus complication detail: with peripheral angiopathy without gangrene Diabetes mellitus complication status: with circulatory complication Diabetes mellitus residential insulin use: without terminal carman use Qualified Code(s): E11.51 - Type 2 diabetes mellitus 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 (3) PNA (pneumonia) Laterality: right Lung location: upper lobe of lung Pneumonia type: due to unspecified organism Qualified Code(s): J18.9 - Pneumonia, unspecified organism
--- NOTE | 2020-11-06 09:23 | Pharmacy Report ---
Pharmacy Glycemic Short Note 2 - Date of Service November 06, 2020 - Glycemic Short BSG Results (Last 24 hours): 11/05/20 11/05/20 11/05/20 13:04 17:33 21:38 POC Glucose 153 H 128 H 183 H OUTPATIENT ANTIDIABETIC REGIMEN: * N/A * HbA1c: 8% (10/31/20) ASSESSMENT: 11/06 * Pt has received 51 units of insulin over the past 24hrs * 15 units of basal with Lantus * 36 units of bolus with NovoLog * BSGs [phone] mg/dl * BSGs adequately controlled with current insulin orders. No changes needed at this time. 11/04 * BSGs yesterday of 123, 187, 135, and 175 mg/dL * Will tighten carb ratio today * Fasting BSG of 114 mg/dL - continue Lantus 15 units SC daily * Antibiotics and IV dexamethasone discontinued yesterday 11/03 * BSGs improved yesterday, 138, 185, 173, and 164 mg/dL * Received 35 units of NPH to cover dexamethasone 6 mg IV x 1 * Dexamethasone is now discontinued so will discontinue NPH and utilize ~0.2 unit/kg Lantus and loosen Novolog parameters 10/31: * RF is a 74 year old male patient with COVID-19 pneumonia * Admitted on 10/28/20 due to ambulatory dysfunction and inability to care for self at home (patient has cerebral palsy) * Patient has history of type 2 DM, but does not take any antidiabetic medicat ions as an outpatient * Pharmacy was consulted for glycemic management this morning, as patient had been receiving IV steroids and did not have Accuchecks ordered * Fasting BSG of 153 mg/dL this morning * Lunch BSG of 373 mg/dL * Will give one-time IV insulin bolus and NPH dose now * BSGs have likely been elevated for duration of admission, but no labs/Accuchecks to confirm * Continues on dexamethasone 6 mg IV daily - will schedule NPH with AM dose of dexamethasone PLAN FOR INPATIENT GLYCEMIC CONTROL: * Basal insulin - continue * Lantus 15 units SC daily (~0.2 unit/kg) * Bolus insulin * NovoLog per scale ACHS or Q6hrs while NPO * Goal Range: Low 110 mg/dL - High 140 mg/dL * Correction Factor: 25 mg/dL/unit * Nutritional / Prandial insulin per carb ratio of 1 unit per 4 grams CHO consumed PLAN FOR DISCHARGE: * HbA1c of 8% may be reasonable for patient based on age and comorbidities * If tighter glycemic control is desired, suggest initiating metformin XR 500 mg PO daily with evening meal * Typically the XR formulation of metformin is better tolerated than the immediate release formulation. Continue to titrate metformin dosing upwards as recommended. Dosage increases should be made in increments of 500 mg weekly, up to 2,000 mg/day PO, given in divided doses. * Metformin is effective and safe, is inexpensive, and may reduce risk of cardiovascular events and * B12 supplementation may be necessary with rn long term care metformin use
[2020-11-06 09:27] LABS: Basophils # (auto) 0.01 K/uL (0-0.2); Basophils % (auto) 0.1 %; Eosinophils # (auto) 0.14 K/uL (0-0.5); Eosinophils % (auto) 1.9 %; Hematocrit (blood only) 44.2 % (42-52); Immature Granulocytes # (auto) 0.08 K/uL (0.00-0.02); Immature Granulocytes % (auto) 1.1 %; Lymphocytes # (auto) 1.27 K/uL (1.2-3.4); Lymphocytes % (auto) 16.9 %; Mean Corpuscular Hemoglobin 30.9 pg (25-34); Mean Corpuscular Hgb Conc 33.9 g/dL (32-36); Mean Corpuscular Volume 90.9 fL (80-100); Mean Platelet Volume 10.1 fL (7.4-10.4); Monocytes # (auto) 0.84 K/uL (0.11-0.59); Monocytes % (auto) 11.2 %; Neutrophils # (auto) 5.18 K/uL (1.4-6.5); Neutrophils % (auto) 68.8 %; Platelet Count 210 K/uL (130-400); RDW Coefficient of Variation 14.8 % (11.5-14.5); RDW Standard Deviation 49.4 fL (36.4-46.3); Red Blood Count 4.86 M/uL (4.7-6.1); White Blood Count 7.52 K/uL (4.8-10.8)
[2020-11-06] MEDS: INSULIN ASPART 100 UNITS/ML 3 ML PEN SC SCH ×4 (09:29→22:31)
[2020-11-06] MEDS: INSULIN GLARGINE SOLOSTAR 100 UNITS/ML 3 ML PEN SC SCH (09:30)
[2020-11-06 09:44] LABS: BUN Creatinine Ratio 21.1 (10-20); C Reactive Protein 2.69 mg/dl (0-0.29); Calcium 8.8 mg/dl (8.5-10.1); Creatinine Clr Calc Pharmacy 77.5 ml/min; Est GFR (African American) 99.3 ml/min; Est GFR (Non-African American) 85.7 ml/min; Potassium 3.9 mmol/L (3.5-5.1)
[2020-11-06] MEDS ORDERED: INSULIN GLARGINE SOLOSTAR 100 UNITS/ML 3 ML PEN SC ONE (13:30)
[2020-11-06] MEDS: ENOXAPARIN INJ 40 MG/0.4 ML SYR SQ SCH (20:39)
[2020-11-07] MEDS: ASPIRIN 81 MG ECTAB PO SCH (08:57)
[2020-11-07] MEDS ORDERED: INSULIN GLARGINE SOLOSTAR 100 UNITS/ML 3 ML PEN SC SCH (09:00)
[2020-11-07] MEDS: INSULIN ASPART 100 UNITS/ML 3 ML PEN SC SCH ×4 (09:11→21:19)
--- NOTE | 2020-11-07 09:26 | Hospitalist Progress Note ---
Date of Service November 07, 2020 Assessment & Plan (1) COVID-19: Admitted 10/28 for ambulatory dysfunction, agitation and inability to care for himself at home SARS-CoV-2 PCR positive Initially did not need any supplemental oxygen had been afebrile without elevation WBC however shortly after being admitted he developed a low-grade temperature hypoxia and worsening findings on chest x-ray suspicious for a bacterial pneumonia rather than a Covid pneumonia Given dexamethasone for total 4 days was discontinued 11/02 due to concerns for tracheomalacia and stable oxygen needs at that time? CT of the chest appearance more typical for bacterial pneumonia Covid --patient completed a course 5-day antibiotics with ceftriaxone and azithromycin, completed on 11/03 Continues to be on isolation, today is day 10 and could potentially be removed off isolation tomorrow CRP elevated 2.69 on 11/06, decreased to 2.35 on repeat --was 1.31/0.8 on admission O2 saturations have been fluctuating on 2 to 4 L and were reported at 91% on room air this morning however nursing replaced oxygen sensor and stated patient required up to 4 L to maintain saturations 92%. During my conversation with patient he remained in the 96 to 97% range I will asked nursing to wean as tolerated. Conversation was had regarding oxygen at discharge and patient states that he has had oxygen in the past and has extended back as he refuses to wear it and does not feel short of breath at this time --> Does have a history of tobacco use and suspected COPD however no formal diagnosis and is not on any medications at home for this Wean oxygen as tolerated Added incentive spirometer, flutter valve nebs prn Repeat CXR in AM Discussed with case management and patient is to go to [facility] and have respite care approved by insurance once paperwork is completed. CM following Overnight O2 shows he REQUIRES O2 at night. (2) PNA (pneumonia): Procalcitonin negative on AM labs however CT chest appearance more typical for bacterial PNA than COVID Rocephin and azithromycin as above Also with large hiatal hernia on imaging, ?aspiration ?need for continued coverage Has been afebrile, no WBC Wean O2 as tolerated. Two stop prior to discharge if home with caregivers vs respite. Overnight oxygen with need for supplemental oxygen however patient likely will continue to refuse this as he has in the past (3) Hypoxia: Wean O2 > 88% Multifactorial secondary to lung mass, hiatal hernia, COVID-19, possible bacterial pneumonia. *CT of the chest from 10/30 with interval development of large ground-glass opacity within the right upper lobe. Single groundglass lesion was not possible additional: Differential diagnosis besides infectious/inflammatory etiology could include malignancy such as pulmonary adenocarcinoma or metastasis. Short-term follow-up in 4-6 weeks is recommended to document resolution --> Discussed with pulm revenue liaison, rec repeat CT 6 weeks outpatient (4) UTI (urinary tract infection): Possible urinary tract infection present on admission may be also source of his fever Urine culture positive for Proteus Finished ceftriaxone 11/03 (5 days) (5) Ambulatory dysfunction: Dysfunction/cerebral palsy/worsened by history of closed left femoral fracture- Requires assistance to get in and out of bed, and help with food and ADLs. A/W placement decision (6) Cerebral palsy: See above (7) History of tobacco abuse: Cessation counseling (8) Peripheral vascular disease: b/l SFA > 70%, follows Dr. Bowman Start aspirin 81mg PO daily No acute issues (9) T2DM (type 2 diabetes mellitus): HbA1c 8.0. Hyperglycemia secondary to steroid use during admission Appreciate pharmacy glycemic management with basal bolus insulin. * Pt has received 68 units of insulin over the past 24hrs * 20 units of basal with Lantus * 48 units of bolus with NovoLog * BSGs [phone] mg/dl * Fasting BSG elevated yesterday so increased Lantus by 20%. Continue current regimen. * Postprandial BSGs elevated; tighten CR. He was placed stop Metformin after last admission but reports losing his primary care physician therefore was not taking this. --> rec starting again at d/c with Metformin XR 500mg daily with evening meal (10) DVT prophylaxis: Lovenox Hiatal Hernia -- large, noted on CT chest. Will start PPI daily. Aspiration precautions PT/OT case management to determine disposition - respite care vs. home with home health if able to provide enough carers. Respite care through [facility] at discharge planned x 14 days once paperwork completed. CM following Continued inpatient stay Discharge when bed available/paperwork completed Admission and Anticipated Discharge Date Admission Date: October 30, 2020 Supervising Physician Co-Signing Physician Notes PA Supervision Note: I did not personally see or examine the patient today, but I verified all miller points of MARLENE Mahan's assessment and plan with the following exceptions/additions: None Subjective Patient evaluated this afternoon. Awaiting to be helped onto the bedpan to have a bowel movement. He places the oxymask on when it alarms but denies shortness of breath or cough. Discussed with RN and new oxygen probe placed and patient required up to 4L this morning to maintain O2 sat 92% however by this afternoon was in the 96-97% on the same and will ask nursing to titrate as tolerated. Patient states he's had oxygen at home in the past but does not plan on using this and he denies symptoms. Discussed low oxygen saturation and complications/tissue injury and we will attempt to wean as possible but he may require this at discharge. Will need continued discussion as patient states he doesn't really believe that he has contracted COVID as he has "no symptoms" despite hypoxia, prior low grade temp and supplemental oxygen needed as discussed. Review of Systems Review of Systems: All systems reviewed & are unremarkable except as noted in HPI & below Physical Exam Constitutional: WD/WN, vitals as above Eyes: + anicteric sclerae; normal pupil size ENMT: Ears: no hearing impairment Neck: trachea midline Respiratory: normal respiratory effort, lungs clear to auscultation + prolonged expiratory phase Cardiovascular: RRR, no murmur, no edema Gastrointestinal (Abdomen): normal bowel sounds, soft, nontender, no hepatosplenomegaly Musculoskeletal: Head/Neck/Chest: normocephalic and head atraumatic Skin: no rashes, warm and dry Neurologic: + focal motor deficit (severe weakness of b/l LE, equal) and awake; not confused Speech / Cognition: normal speech Motor/Sensory: no tremor and no pronator drift Psychiatric: A+Ox3, euthymic affect Results & Data Results & Data ([place]) Vital Signs (Past 12 Hours) Vital Signs Temp Pulse Resp BP Pulse Ox Pulse Ox 11/06/20 23:15 36.6 C 70 14 139/77 91 11/06/20 21:30 95 Laboratory Results 11/07/20 11/07/20 11/07/20 Range/Units 12:47 09:12 09:12 WBC 10.66 (4.8-10.8) K/uL RBC 4.88 (4.7-6.1) M/uL Hgb 15.4 (14.0-18.0) g/dL Hct 44.9 (42-52) % MCV 92.0 (80-100) fL MCH 31.6 (25-34) pg MCHC 34.3 (32-36) g/dL RDW Std Deviation 50.0 H (36.4-46.3) fL RDW Coeff of Suraj 14.9 H (11.5-14.5) % Plt Count 229 (130-400) K/uL MPV 9.9 (7.4-10.4) fL Sodium 139 (136-145) mmol/L Potassium 4.1 (3.5-5.1) mmol/L Chloride 109 H (98-107) mmol/L Carbon Dioxide 22 (21-32) mmol/L Anion Gap 8.0 (3-11) BUN 18 (7-18) mg/dl Creatinine 0.77 (0.6-1.4) mg/dl Est Cr Clr Drug Dosing 84.5 ml/min Est GFR ( Amer) 102.9 ml/min Est GFR (Non-Af Amer) 88.8 ml/min BUN/Creatinine Ratio 24.1 H (10-20) Glucose 129 H (70-99) mg/dl POC Glucose 167 H (70-99) mg/dl Calcium 8.5 (8.5-10.1) mg/dl C-Reactive Protein 2.35 H (0-0.29) mg/dl 11/07/20 11/06/20 11/06/20 Range/Units 08:50 22:29 17:41 WBC (4.8-10.8) K/uL RBC (4.7-6.1) M/uL Hgb (14.0-18.0) g/dL Hct (42-52) % MCV (80-100) fL MCH (25-34) pg MCHC (32-36) g/dL RDW Std Deviation (36.4-46.3) fL RDW Coeff of Suraj (11.5-14.5) % Plt Count (130-400) K/uL MPV (7.4-10.4) fL Sodium (136-145) mmol/L Potassium (3.5-5.1) mmol/L Chloride (98-107) mmol/L Carbon Dioxide (21-32) mmol/L Anion Gap (3-11) BUN (7-18) mg/dl Creatinine (0.6-1.4) mg/dl Est Cr Clr Drug Dosing ml/min Est GFR ( Amer) ml/min Est GFR (Non-Af Amer) ml/min BUN/Creatinine Ratio (10-20) Glucose (70-99) mg/dl POC Glucose 120 H 249 H 133 H (70-99) mg/dl Calcium (8.5-10.1) mg/dl C-Reactive Protein (0-0.29) mg/dl PG Care Time/CCT Total # of Minutes Spent Total Time Spent with Patient: Total time spent is greater than 50% in coordination of care (as documented) at patient's floor/unit and/or counseling patient: Coding Level of Care Code 69425 Subseq Hosp Care Lvl 3 Diagnoses COVID-19 U07.1 PNA (pneumonia) J18.9 Laterality: right Lung location: upper lobe of lung Pneumonia type: due to unspecified organism Hypoxia R09.02 UTI (urinary tract infection) N39.0 Ambulatory dysfunction R26.2 Cerebral palsy G80.8 Cerebral palsy type: other type History of tobacco abuse Z87.891 Peripheral vascular disease I73.9 T2DM (type 2 diabetes mellitus) E11.51 Diabetes mellitus complication detail: with peripheral angiopathy without gangrene Diabetes mellitus complication status: with circulatory complication 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 DVT prophylaxis Z29.9 (1) T2DM (type 2 diabetes mellitus) Diabetes mellitus complication detail: with peripheral angiopathy without gangrene Diabetes mellitus complication status: with circulatory complication Diabetes mellitus fdc insulin use: without fdc use Qualified Code(s): E11.51 - Type 2 diabetes mellitus 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 (3) PNA (pneumonia) Laterality: right Lung location: upper lobe of lung Pneumonia type: due to unspecified organism Qualified Code(s): J18.9 - Pneumonia, unspecified organism
[2020-11-07 09:48] LABS: BUN Creatinine Ratio 24.1 (10-20); Calcium 8.5 mg/dl (8.5-10.1); Creatinine Clr Calc Pharmacy 84.5 ml/min; Est GFR (African American) 102.9 ml/min; Est GFR (Non-African American) 88.8 ml/min; Potassium 4.1 mmol/L (3.5-5.1)
[2020-11-07 09:49] LABS: C Reactive Protein 2.35 mg/dl (0-0.29)
[2020-11-07 09:56] LABS: Hematocrit (blood only) 44.9 % (42-52); Hemoglobin 15.4 g/dL (14.0-18.0); Mean Corpuscular Hemoglobin 31.6 pg (25-34); Mean Corpuscular Hgb Conc 34.3 g/dL (32-36); Mean Platelet Volume 9.9 fL (7.4-10.4); Platelet Count 229 K/uL (130-400); RDW Coefficient of Variation 14.9 % (11.5-14.5); Red Blood Count 4.88 M/uL (4.7-6.1); White Blood Count 10.66 K/uL (4.8-10.8)
--- NOTE | 2020-11-07 12:02 | Pharmacy Report ---
Pharmacy Glycemic Short Note 2 - Date of Service November 07, 2020 - Glycemic Short BSG Results (Last 24 hours): 11/06/20 11/06/20 11/06/20 12:42 17:41 22:29 Glucose POC Glucose 218 H 133 H 249 H 11/07/20 11/07/20 08:50 09:12 Glucose 129 H POC Glucose 120 H OUTPATIENT ANTIDIABETIC REGIMEN: * N/A * HbA1c: 8% (10/31/20) ASSESSMENT: 11/07/20 * Pt has received 68 units of insulin over the past 24hrs * 20 units of basal with Lantus * 48 units of bolus with NovoLog * BSGs [phone] mg/dl * Fasting BSG elevated yesterday so increased Lantus by 20%. Continue current regimen. * Postprandial BSGs elevated; tighten CR. 11/06 * Pt has received 51 units of insulin over the past 24hrs * 15 units of basal with Lantus * 36 units of bolus with NovoLog * BSGs [phone] mg/dl * BSGs adequately controlled with current insulin orders. No changes needed at this time. 11/04 * BSGs yesterday of 123, 187, 135, and 175 mg/dL * Will tighten carb ratio today * Fasting BSG of 114 mg/dL - continue Lantus 15 units SC daily * Antibiotics and IV dexamethasone discontinued yesterday PLAN FOR INPATIENT GLYCEMIC CONTROL: * Basal insulin - increased * Lantus 20 units SC daily (~0.22 unit/kg) * Bolus insulin * NovoLog per scale ACHS or Q6hrs while NPO * Goal Range: Low 110 mg/dL - High 140 mg/dL * Correction Factor: 25 mg/dL/unit * Nutritional / Prandial insulin per carb ratio of 1 unit per 3 grams CHO consumed PLAN FOR DISCHARGE: * HbA1c of 8% may be reasonable for patient based on age and comorbidities * If tighter glycemic control is desired, suggest initiating metformin XR 500 mg PO daily with evening meal * Typically the XR formulation of metformin is better tolerated than the imme diate release formulation. Continue to titrate metformin dosing upwards as recommended. Dosage increases should be made in increments of 500 mg weekly, up to 2,000 mg/day PO, given in divided doses. 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
[2020-11-07] MEDS ORDERED: ALBUT/IPRATROP 3MG/0.5MG NEB 3 ML VIAL NEB PRN (17:04)
[2020-11-07] MEDS: PANTOprazole 40 MG TAB PO SCH (18:18)
[2020-11-07] MEDS: ENOXAPARIN INJ 40 MG/0.4 ML SYR SQ SCH (21:20)
[2020-11-08 07:49] LABS: Hematocrit (blood only) 42.8 % (42-52); Hemoglobin 14.4 g/dL (14.0-18.0); Mean Corpuscular Hemoglobin 30.6 pg (25-34); Mean Corpuscular Hgb Conc 33.6 g/dL (32-36); Mean Corpuscular Volume 91.1 fL (80-100); Platelet Count 206 K/uL (130-400); RDW Coefficient of Variation 14.7 % (11.5-14.5); RDW Standard Deviation 49.5 fL (36.4-46.3); White Blood Count 7.44 K/uL (4.8-10.8)
[2020-11-08 08:17] LABS: BUN Creatinine Ratio 25.7 (10-20); Calcium 8.7 mg/dl (8.5-10.1); Creatinine Clr Calc Pharmacy 82.4 ml/min; Est GFR (African American) 101.8 ml/min; Est GFR (Non-African American) 87.8 ml/min
[2020-11-08] MEDS: ASPIRIN 81 MG ECTAB PO SCH (08:53)
[2020-11-08] MEDS: PANTOprazole 40 MG TAB PO SCH (08:53)
--- NOTE | 2020-11-08 09:12 | XRay Report ---
XR chest 1V portable CLINICAL HISTORY: follow up COMPARISON STUDY: November 02, 2020 FINDINGS: No pneumothorax. No pleural effusion. Redemonstration of hazy opacity within right mid lung, which is not significantly changed since prior . Interval prominence of dense left retrocardiac opacity which could represent infiltrative lesion/pneu monia or atelectasis. Cardiomediastinal silhouette remains mildly enlarged. No significant pulmonary vascular congestion.. Redemonstration of the retrocardiac opacity likely rep resenting hiatal hernia. Osseous structures: Degenerative changes of the spine. IMPRESSION: 1. Stable focal hazy opacity at the right lung which were better evaluated on recent CT of the chest performed on October 30, 2020. 2. Left retrocardiac opacity could represent atelectasis or infiltrative process/pneumonia. 3. Cardiomegaly. 4. Hiatal hernia. ACT 112: Negative or not required by law. The above report was generated using voice recognition software. It may contain grammatical, syntax o r spelling errors. Electronically signed by: Jennifer Fernandez DO 11/08/2020 9:10 AM
--- NOTE | 2020-11-08 09:25 | Hospitalist Progress Note ---
Date of Service November 08, 2020 Assessment & Plan (1) COVID-19: Admitted 10/28 for ambulatory dysfunction, agitation and inability to care for himself at home SARS-CoV-2 PCR positive Initially did not need any supplemental oxygen had been afebrile without elevation WBC however shortly after being admitted he developed a low-grade temperature hypoxia and worsening findings on chest x-ray suspicious for a bacterial pneumonia rather than a Covid pneumonia Given dexamethasone for total 4 days was discontinued 11/02 due to concerns for tracheomalacia and stable oxygen needs at that time? CT of the chest appearance more typical for bacterial pneumonia Covid --patient completed a course 5-day antibiotics with ceftriaxone and azithromycin, completed on 11/03 CRP elevated 2.69 on 11/06, decreased to 2.35 on repeat --was 1.31/0.8 on admission O2 saturations have been fluctuating on 2 to 4 L and were reported at 91% on room air morning 11/07 however nursing replaced oxygen sensor and stated patient required up to 4 L to maintain saturations 92%. During my conversation with patient he remained in the 96 to 97% range I will asked nursing to wean as tolerated. Conversation was had regarding oxygen at discharge and patient states that he has had oxygen in the past and has extended back as he refuses to wear it and does not feel short of breath at this time. Has been 88-90% consistently on room air at home without symptoms. --> Does have a history of tobacco use and suspected COPD however no formal diagnosis and is not on any medications at home for this Added incentive spirometer, flutter valve on 11/07 -- continue nebs prn -- has not needed Repeat CXR: * 1. Stable focal hazy opacity at the right lung which were better evaluated on recent CT of the chest performed on October 30, 2020. * 2. Left retrocardiac opacity could represent atelectasis or infiltrative process/pneumonia. * 3. Cardiomegaly. * 4. Hiatal hernia. No shortness of breath, stable on room air. Lungs clear on examination. currently 93% on RA but ranging 94-96% during encounter Discussed with infection control -- will d/c isolation precautions at this time Discussed with case management and patient is to go to [facility] and have respite care approved by insurance once paperwork is completed. CM following Overnight O2 shows he REQUIRES O2 at night. (2) PNA (pneumonia): Procalcitonin negative on AM labs however CT chest appearance more typical for bacterial PNA than COVID Rocephin and azithromycin as above completed 5 day course Also with large hiatal hernia on imaging Has been afebrile, WBC 7.4k (no L shift) Wean O2 as tolerated -- on RA as above Two step prior to discharge if home with caregivers vs respite. Overnight oxygen with need for supplemental oxygen however patient likely will continue to refuse this as he has in the past Should have CXR followed to resolution of infiltrate in 3-4 weeks-but also needs repeat CT Chest as below in 4-6 weeks (3) Hypoxia: Wean O2 > 88% Multifactorial secondary to lung mass, hiatal hernia, COVID-19, possible bacterial pneumonia. *CT of the chest from 10/30 with interval development of large ground-glass opacity within the right upper lobe. Single groundglass lesion was not possible additional: Differential diagnosis besides infectious/inflammatory etiology could include malignancy such as pulmonary adenocarcinoma or metastasis. Short-term follow-up in 4-6 weeks is recommended to document resolution --> Discussed with pulm supervisor concrete block plant, rec repeat CT 6 weeks outpatient (4) UTI (urinary tract infection): Possible urinary tract infection present on admission may be also source of his fever Urine culture positive for Proteus Finished ceftriaxone 11/03 (5 days) (5) Ambulatory dysfunction: Dysfunction/cerebral palsy/worsened by history of closed left femoral fracture- Requires assistance to get in and out of bed, and help with food and ADLs. A/W placement decision (6) Cerebral palsy: See above (7) History of tobacco abuse: Cessation counseling (8) Peripheral vascular disease: b/l SFA > 70%, follows Dr. Bowman Started aspirin 81mg PO daily -- continue at discharge No acute issues (9) T2DM (type 2 diabetes mellitus): HbA1c 8.0. Hyperglycemia secondary to steroid use during admission Appreciate pharmacy glycemic management with basal bolus insulin. Tightened CR yesterday BSG improved -- continue to monitor He was placed stop Metformin after last admission but reports losing his primary care physician therefore was not taking this. --> rec starting again at d/c with Metformin XR 500mg daily with evening meal (10) DVT prophylaxis: Lovenox --?consider Xarelto at discharge for prevention Hiatal Hernia -- large, noted on CT chest. Started Protonix 40mg daily - consider continued use at discharge Aspiration precautions PT/OT case management to determine disposition - respite care vs. home with home health if able to provide enough carers. Respite care through [facility] at discharge planned x 14 days once paperwork completed -- can take a few days CM following Admission and Anticipated Discharge Date Admission Date: October 30, 2020 Supervising Physician Co-Signing Physician Notes PA Supervision Note: I did not personally see or examine the patient today, but I verified all miller points of MARLENE Mahan's assessment and plan with the following exceptions/additions: None Subjective Patient evaluated this afternoon. Feeling well. No shortness of breath, cough, sputum production. Utilizing incentive spirometer and flutter valve. No fever, chills, chest pain. Maintaining 93% on room air but during encounter had been fluctuating between 94-96%. No pain. Discussed [facility] when paperwork completed. Patient agreeable. Understands necessity until able to arrange more caregivers at home. Questions/concerns addressed. Discussed with infection control and will d/c isolation precautions at this time. Review of Systems Review of Systems: All systems reviewed & are unremarkable except as noted in HPI & below Physical Exam Constitutional: WD/WN, vitals as above Eyes: + anicteric sclerae; normal pupil size ENMT: Ears: no hearing impairment Neck: trachea midline Respiratory: normal respiratory effort, lungs clear to auscultation + prolonged expiratory phase Cardiovascular: RRR, no murmur, no edema Gastrointestinal (Abdomen): normal bowel sounds, soft, nontender, no hepatosplenomegaly Musculoskeletal: Head/Neck/Chest: normocephalic and head atraumatic Skin: no rashes, warm and dry Neurologic: + focal motor deficit (severe weakness of b/l LE, equal) and awake; not confused Speech / Cognition: normal speech Motor/Sensory: no tremor and no pronator drift Psychiatric: A+Ox3, euthymic affect Results & Data Results & Data ([facility]) Vital Signs (Past 12 Hours) Vital Signs Temp Pulse Resp BP Pulse Ox 11/08/20 07:56 36.8 C 65 16 141/72 H 93 Laboratory Results 11/08/20 11/08/20 11/08/20 Range/Units 07:52 07:33 07:33 WBC 7.44 (4.8-10.8) K/uL RBC 4.70 (4.7-6.1) M/uL Hgb 14.4 (14.0-18.0) g/dL Hct 42.8 (42-52) % MCV 91.1 (80-100) fL MCH 30.6 (25-34) pg MCHC 33.6 (32-36) g/dL RDW Std Deviation 49.5 H (36.4-46.3) fL RDW Coeff of Suraj 14.7 H (11.5-14.5) % Plt Count 206 (130-400) K/uL MPV 10.0 (7.4-10.4) fL Sodium 139 (136-145) mmol/L Potassium 4.0 (3.5-5.1) mmol/L Chloride 108 H (98-107) mmol/L Carbon Dioxide 23 (21-32) mmol/L Anion Gap 8.0 (3-11) BUN 20 H (7-18) mg/dl Creatinine 0.79 (0.6-1.4) mg/dl Est Cr Clr Drug Dosing 82.4 ml/min Est GFR ( Amer) 101.8 ml/min Est GFR (Non-Af Amer) 87.8 ml/min BUN/Creatinine Ratio 25.7 H (10-20) Glucose 123 H (70-99) mg/dl POC Glucose 121 H (70-99) mg/dl Calcium 8.7 (8.5-10.1) mg/dl C-Reactive Protein (0-0.29) mg/dl 11/07/20 11/07/20 11/07/20 Range/Units 21:07 17:23 12:47 WBC (4.8-10.8) K/uL RBC (4.7-6.1) M/uL Hgb (14.0-18.0) g/dL Hct (42-52) % MCV (80-100) fL MCH (25-34) pg MCHC (32-36) g/dL RDW Std Deviation (36.4-46.3) fL RDW Coeff of Suraj (11.5-14.5) % Plt Count (130-400) K/uL MPV (7.4-10.4) fL Sodium (136-145) mmol/L Potassium (3.5-5.1) mmol/L Chloride (98-107) mmol/L Carbon Dioxide (21-32) mmol/L Anion Gap (3-11) BUN (7-18) mg/dl Creatinine (0.6-1.4) mg/dl Est Cr Clr Drug Dosing ml/min Est GFR ( Amer) ml/min Est GFR (Non-Af Amer) ml/min BUN/Creatinine Ratio (10-20) Glucose (70-99) mg/dl POC Glucose 128 H 138 H 167 H (70-99) mg/dl Calcium (8.5-10.1) mg/dl C-Reactive Protein (0-0.29) mg/dl 11/07/20 11/07/20 Range/Units 09:12 09:12 WBC 10.66 (4.8-10.8) K/uL RBC 4.88 (4.7-6.1) M/uL Hgb 15.4 (14.0-18.0) g/dL Hct 44.9 (42-52) % MCV 92.0 (80-100) fL MCH 31.6 (25-34) pg MCHC 34.3 (32-36) g/dL RDW Std Deviation 50.0 H (36.4-46.3) fL RDW Coeff of Suraj 14.9 H (11.5-14.5) % Plt Count 229 (130-400) K/uL MPV 9.9 (7.4-10.4) fL Sodium 139 (136-145) mmol/L Potassium 4.1 (3.5-5.1) mmol/L Chloride 109 H (98-107) mmol/L Carbon Dioxide 22 (21-32) mmol/L Anion Gap 8.0 (3-11) BUN 18 (7-18) mg/dl Creatinine 0.77 (0.6-1.4) mg/dl Est Cr Clr Drug Dosing 84.5 ml/min Est GFR ( Amer) 102.9 ml/min Est GFR (Non-Af Amer) 88.8 ml/min BUN/Creatinine Ratio 24.1 H (10-20) Glucose 129 H (70-99) mg/dl POC Glucose (70-99) mg/dl Calcium 8.5 (8.5-10.1) mg/dl C-Reactive Protein 2.35 H (0-0.29) mg/dl PG Care Time/CCT Total # of Minutes Spent Total Time Spent with Patient: Total time spent is greater than 50% in coordination of care (as documented) at patient's floor/unit and/or counseling patient: Coding Level of Care Code 30188 Subseq Hosp Care Lvl 3 Diagnoses COVID-19 U07.1 PNA (pneumonia) J18.9 Laterality: right Lung location: upper lobe of lung Pneumonia type: due to unspecified organism Hypoxia R09.02 UTI (urinary tract infection) N39.0 Ambulatory dysfunction R26.2 Cerebral palsy G80.8 Cerebral palsy type: other type History of tobacco abuse Z87.891 Peripheral vascular disease I73.9 T2DM (type 2 diabetes mellitus) E11.51 Diabetes mellitus complication detail: with peripheral angiopathy without gangrene Diabetes mellitus complication status: with circulatory complication Diabetes mellitus exterminator helper termite insulin use: without exterminator helper termite use DVT prophylaxis Z29.9 (1) T2DM (type 2 diabetes mellitus) Diabetes mellitus complication detail: with peripheral angiopathy without gangrene Diabetes mellitus complication status: with circulatory complication Diabetes mellitus senior living insulin use: without exterminator helper termite use Qualified Code(s): E11.51 - Type 2 diabetes mellitus 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 (3) PNA (pneumonia) Laterality: right Lung location: upper lobe of lung Pneumonia type: due to unspecified organism Qualified Code(s): J18.9 - Pneumonia, unspecified organism
[2020-11-08] MEDS: INSULIN GLARGINE SOLOSTAR 100 UNITS/ML 3 ML PEN SC SCH (09:40)
[2020-11-08] MEDS: INSULIN ASPART 100 UNITS/ML 3 ML PEN SC SCH ×4 (09:40→21:17)
[2020-11-08] MEDS: ENOXAPARIN INJ 40 MG/0.4 ML SYR SQ SCH (21:17)
--- NOTE | 2020-11-09 08:37 | Hospitalist Progress Note ---
Date of Service November 09, 2020 Assessment & Plan (1) COVID-19: Admitted 10/28 for ambulatory dysfunction, agitation and inability to care for himself at home SARS-CoV-2 PCR positive Initially did not need any supplemental oxygen had been afebrile without elevation WBC however shortly after being admitted he developed a low-grade temperature hypoxia and worsening findings on chest x-ray suspicious for a bacterial pneumonia rather than a Covid pneumonia Given dexamethasone for total 4 days was discontinued 11/02 due to concerns for tracheomalacia and stable oxygen needs at that time? CT of the chest appearance more typical for bacterial pneumonia Covid --patient completed a course 5-day antibiotics with ceftriaxone and azithromycin, completed on 11/03 CRP elevated 2.69 on 11/06, decreased to 2.35 on repeat --was 1.31/0.8 on admission O2 saturations have been fluctuating on 2 to 4 L and were reported at 91% on room air morning 11/07 however nursing replaced oxygen sensor and stated patient required up to 4 L to maintain saturations 92%. During my conversation with patient he remained in the 96 to 97% range I will asked nursing to wean as tolerated. Conversation was had regarding oxygen at discharge and patient states that he has had oxygen in the past and has extended back as he refuses to wear it and does not feel short of breath at this time. Has been 88-90% consistently on room air at home without symptoms. --> Does have a history of tobacco use and suspected COPD however no formal diagnosis and is not on any medications at home for this Added incentive spirometer, flutter valve on 11/07 -- continue nebs prn -- has not needed Repeat CXR: * 1. Stable focal hazy opacity at the right lung which were better evaluated on recent CT of the chest performed on October 30, 2020. * 2. Left retrocardiac opacity could represent atelectasis or infiltrative process/pneumonia. * 3. Cardiomegaly. * 4. Hiatal hernia. No shortness of breath, stable on room air. Lungs clear on examination. currently 91% on RA but ranging 94-96% during encounter Discussed with infection control -- d/c'd isolation precautions at this time Discussed with case management and patient is to go to [facility] and have respite care approved by insurance once paperwork is completed. CM following Overnight O2 shows he REQUIRES O2 at night however patient ADAMANTLY REFUSING TO HAVE REPEAT STUDY. DISCUSSED RISKS AND POSSIBLE UNDERLYING HINA ON TOP OF RECENT PNEUMONIA. HE STATED HE UNDERSTANDS CONVERSATION AND RISKS BUT HE WILL STILL NOT AGREE TO REPEAT STUDY OR THE USE OF OXYGEN AT DISCHARGE. HE IS ALERT, ORIENTED, AND ABLE TO MAKE HIS OWN DECISIONS AT THIS TIME AND WILL RESPECT HIS DECLINATION BUT CONTINUE CONVERSATIONS DAILY TO SEE IF HE WOULD CHANGE HIS MIND (2) PNA (pneumonia): Procalcitonin negative on AM labs however CT chest appearance more typical for bacterial PNA than COVID Rocephin and azithromycin as above completed 5 day course Also with large hiatal hernia on imaging Has been afebrile, WBC 7.4k (no L shift) Wean O2 as tolerated -- on RA as above Two step prior to discharge if home with caregivers vs respite. Overnight oxygen with need for supplemental oxygen however patient likely will continue to refuse this as he has in the past Should have CXR followed to resolution of infiltrate in 3-4 weeks-but also needs repeat CT Chest as below in 4-6 weeks (3) Hypoxia: Wean O2 > 88% Multifactorial secondary to lung mass, hiatal hernia, COVID-19, possible bacterial pneumonia. *CT of the chest from 10/30 with interval development of large ground-glass opacity within the right upper lobe. Single groundglass lesion was not possible additional: Differential diagnosis besides infectious/inflammatory etiology could include malignancy such as pulmonary adenocarcinoma or metastasis. Short-term follow-up in 4-6 weeks is recommended to document resolution --> Discussed with pulm store loss prevention manager, rec repeat CT 6 weeks outpatient (4) UTI (urinary tract infection): Possible urinary tract infection present on admission may be also source of his fever Urine culture positive for Proteus Finished ceftriaxone 11/03 (5 days) (5) Ambulatory dysfunction: Dysfunction/cerebral palsy/worsened by history of closed left femoral fracture- Requires assistance to get in and out of bed, and help with food and ADLs. A/W placement decision (6) Cerebral palsy: See above (7) History of tobacco abuse: Cessation counseling (8) Peripheral vascular disease: b/l SFA > 70%, follows Dr. Bowman Started aspirin 81mg PO daily -- continue at discharge No acute issues (9) T2DM (type 2 diabetes mellitus): HbA1c 8.0. Hyperglycemia secondary to steroid use during admission Appreciate pharmacy glycemic management with basal bolus insulin. Tightened CR yesterday BSG improved -- continue to monitor He was placed stop Metformin after last admission but reports losing his primary care physician therefore was not taking this. --> rec starting again at d/c with Metformin XR 500mg daily with evening meal PATIENT REFUSES INSULIN AT D/C HOWEVER IS VERY INTERESTED IN METFORMIN AND AGREEABLE TO INCREASE/TITRATION NEEDED TO GAIN BETTER CONTROL (10) DVT prophylaxis: Lovenox --?consider Xarelto at discharge for prevention Hiatal Hernia -- large, noted on CT chest. Started Protonix 40mg daily - consider continued use at discharge Aspiration precautions PT/OT case management to determine disposition - respite care vs. home with home health if able to provide enough carers. Respite care through [facility] at discharge planned x 14 days once paperwork completed -- can take a few days CM following WILL NEED NEW PCP Admission and Anticipated Discharge Date Admission Date: October 30, 2020 Supervising Physician Co-Signing Physician Notes PA Supervision Note: I did not personally see or examine the patient today, but I verified all miller points of MARLENE Mahan's assessment and plan with the following exceptions/additions: None Subjective Patient evaluated this afternoon. Feeling well. Breathing stable. Occassional chronic cough but none reported currently. Denies shortness of breath. ADamant about not repeating overnight pulse ox study despite lengthy discussion regarding even possible underlying sleep apnea as he admits to snoring as well. Discouraged last time at [facility] but hopeful waiver care set up sooner than later. He did not care for one aide "Ceci Gan" if they could avoid her if possible. He is craving sausage and cambodian toast for breakfast and discussed making special exception for breakfast and will cover with insulin. Very happy with that offering and will call kitchen to give preference for breakfast. He states he will NOT use insulin at discharge but has no problem with the metformin and asked about the dosing for that and we discussed starting at 500 and can increase as tolerated. His PCP he believes was fired and that's why he wasn't able to get in for follow up. Will need to look into new PCP for him at discharge through the [place] office that he had been going to. Review of Systems Review of Systems: All systems reviewed & are unremarkable except as noted in HPI & below Physical Exam Constitutional: WD/WN, vitals as above Eyes: + anicteric sclerae; normal pupil size ENMT: Ears: no hearing impairment Neck: trachea midline Respiratory: normal respiratory effort, lungs clear to auscultation + prolonged expiratory phase Cardiovascular: RRR, no murmur, no edema Gastrointestinal (Abdomen): normal bowel sounds, soft, nontender, no hepatosplenomegaly Musculoskeletal: Head/Neck/Chest: normocephalic and head atraumatic Skin: no rashes, warm and dry Neurologic: + focal motor deficit (severe weakness of b/l LE, equal) and awake; not confused Speech / Cognition: normal speech Motor/Sensory: no tremor and no pronator drift Psychiatric: A+Ox3, euthymic affect Results & Data Results & Data ([facility]) Vital Signs (Past 12 Hours) Vital Signs Temp Pulse Resp BP Pulse Ox 11/08/20 23:47 36.6 C 62 18 133/68 93 Laboratory Results 11/09/20 11/08/20 11/08/20 Range/Units 08:16 20:24 17:12 POC Glucose 139 H 205 H 137 H (70-99) mg/dl Procalcitonin (0-0.5) ng/ml 11/08/20 11/08/20 Range/Units 12:01 09:49 POC Glucose 144 H (70-99) mg/dl Procalcitonin < 0.05 (0-0.5) ng/ml Diagnostic Findings 11/09/20 11/09/20 11/09/20 Range/Units 17:19 12:12 08:46 WBC (4.8-10.8) K/uL RBC (4.7-6.1) M/uL Hgb (14.0-18.0) g/dL Hct (42-52) % MCV (80-100) fL MCH (25-34) pg MCHC (32-36) g/dL RDW Std Deviation (36.4-46.3) fL RDW Coeff of Suraj (11.5-14.5) % Plt Count (130-400) K/uL MPV (7.4-10.4) fL Immature Gran % (Auto) % Neut % (Auto) % Lymph % (Auto) % Hood % (Auto) % Eos % (Auto) % Baso % (Auto) % Neut # (Auto) (1.4-6.5) K/uL Lymph # (Auto) (1.2-3.4) K/uL Hood # (Auto) (0.11-0.59) K/uL Eos # (Auto) (0-0.5) K/uL Baso # (Auto) (0-0.2) K/uL Immature Gran # (Auto) (0.00-0.02) K/uL Sodium 140 (136-145) mmol/L Potassium 3.9 (3.5-5.1) mmol/L Chloride 111 H (98-107) mmol/L Carbon Dioxide 22 (21-32) mmol/L Anion Gap 7.0 (3-11) BUN 23 H (7-18) mg/dl Creatinine 0.81 (0.6-1.4) mg/dl Est Cr Clr Drug Dosing 80.4 ml/min Est GFR ( Amer) 100.8 ml/min Est GFR (Non-Af Amer) 86.9 ml/min BUN/Creatinine Ratio 27.9 H (10-20) Glucose 130 H (70-99) mg/dl POC Glucose 110 H 173 H (70-99) mg/dl Calcium 8.4 L (8.5-10.1) mg/dl C-Reactive Protein 2.31 H (0-0.29) mg/dl 11/09/20 11/09/20 11/08/20 Range/Units 08:46 08:16 20:24 WBC 7.30 (4.8-10.8) K/uL RBC 4.60 L (4.7-6.1) M/uL Hgb 14.6 (14.0-18.0) g/dL Hct 42.7 (42-52) % MCV 92.8 (80-100) fL MCH 31.7 (25-34) pg MCHC 34.2 (32-36) g/dL RDW Std Deviation 49.7 H (36.4-46.3) fL RDW Coeff of Suraj 14.7 H (11.5-14.5) % Plt Count 226 (130-400) K/uL MPV 10.3 (7.4-10.4) fL Immature Gran % (Auto) 0.4 % Neut % (Auto) 73.0 % Lymph % (Auto) 14.5 % Hood % (Auto) 10.5 % Eos % (Auto) 1.5 % Baso % (Auto) 0.1 % Neut # (Auto) 5.32 (1.4-6.5) K/uL Lymph # (Auto) 1.06 L (1.2-3.4) K/uL Hood # (Auto) 0.77 H (0.11-0.59) K/uL Eos # (Auto) 0.11 (0-0.5) K/uL Baso # (Auto) 0.01 (0-0.2) K/uL Immature Gran # (Auto) 0.03 H (0.00-0.02) K/uL Sodium (136-145) mmol/L Potassium (3.5-5.1) mmol/L Chloride (98-107) mmol/L Carbon Dioxide (21-32) mmol/L Anion Gap (3-11) BUN (7-18) mg/dl Creatinine (0.6-1.4) mg/dl Est Cr Clr Drug Dosing ml/min Est GFR ( Amer) ml/min Est GFR (Non-Af Amer) ml/min BUN/Creatinine Ratio (10-20) Glucose (70-99) mg/dl POC Glucose 139 H 205 H (70-99) mg/dl Calcium (8.5-10.1) mg/dl C-Reactive Protein (0-0.29) mg/dl PG Care Time/CCT Total # of Minutes Spent Total Time Spent with Patient: Total time spent is greater than 50% in coordination of care (as documented) at patient's floor/unit and/or counseling patient: Coding Level of Care Code 39276 Subseq Hosp Care Lvl 2 Diagnoses COVID-19 U07.1 PNA (pneumonia) J18.9 Laterality: right Lung location: upper lobe of lung Pneumonia type: due to unspecified organism Hypoxia R09.02 UTI (urinary tract infection) N39.0 Ambulatory dysfunction R26.2 Cerebral palsy G80.8 Cerebral palsy type: other type History of tobacco abuse Z87.891 Peripheral vascular disease I73.9 T2DM (type 2 diabetes mellitus) E11.51 Diabetes mellitus complication detail: with peripheral angiopathy without gangrene Diabetes mellitus complication status: with circulatory complication Diabetes mellitus halfway insulin use: without exterminator termite use DVT prophylaxis Z29.9 (1) T2DM (type 2 diabetes mellitus) Diabetes mellitus complication detail: with peripheral angiopathy without gangrene Diabetes mellitus complication status: with circulatory complication Diabetes mellitus halfway insulin use: without exterminator termite use Qualified Code(s): E11.51 - Type 2 diabetes mellitus 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 (3) PNA (pneumonia) Laterality: right Lung location: upper lobe of lung Pneumonia type: due to unspecified organism Qualified Code(s): J18.9 - Pneumonia, unspecified organism
[2020-11-09] MEDS: ASPIRIN 81 MG ECTAB PO SCH (08:45)
[2020-11-09] MEDS: PANTOprazole 40 MG TAB PO SCH (08:45)
[2020-11-09 09:04] LABS: Basophils # (auto) 0.01 K/uL (0-0.2); Basophils % (auto) 0.1 %; Eosinophils # (auto) 0.11 K/uL (0-0.5); Eosinophils % (auto) 1.5 %; Hematocrit (blood only) 42.7 % (42-52); Hemoglobin 14.6 g/dL (14.0-18.0); Immature Granulocytes # (auto) 0.03 K/uL (0.00-0.02); Immature Granulocytes % (auto) 0.4 %; Lymphocytes # (auto) 1.06 K/uL (1.2-3.4); Lymphocytes % (auto) 14.5 %; Mean Corpuscular Hemoglobin 31.7 pg (25-34); Mean Corpuscular Hgb Conc 34.2 g/dL (32-36); Mean Corpuscular Volume 92.8 fL (80-100); Mean Platelet Volume 10.3 fL (7.4-10.4); Monocytes # (auto) 0.77 K/uL (0.11-0.59); Monocytes % (auto) 10.5 %; Neutrophils # (auto) 5.32 K/uL (1.4-6.5); Platelet Count 226 K/uL (130-400); RDW Coefficient of Variation 14.7 % (11.5-14.5); RDW Standard Deviation 49.7 fL (36.4-46.3)
[2020-11-09 09:22] LABS: BUN Creatinine Ratio 27.9 (10-20); C Reactive Protein 2.31 mg/dl (0-0.29); Calcium 8.4 mg/dl (8.5-10.1); Creatinine Clr Calc Pharmacy 80.4 ml/min; Est GFR (African American) 100.8 ml/min; Est GFR (Non-African American) 86.9 ml/min; Potassium 3.9 mmol/L (3.5-5.1)
[2020-11-09] MEDS: INSULIN ASPART 100 UNITS/ML 3 ML PEN SC SCH ×4 (09:45→20:44)
[2020-11-09] MEDS: INSULIN GLARGINE SOLOSTAR 100 UNITS/ML 3 ML PEN SC SCH (09:48)
--- NOTE | 2020-11-09 10:53 | Pharmacy Report ---
Pharmacy Glycemic Short Note 2 - Date of Service November 09, 2020 - Glycemic Short BSG Results (Last 24 hours): 11/08/20 11/08/20 11/08/20 12:01 17:12 20:24 Glucose POC Glucose 144 H 137 H 205 H 11/09/20 11/09/20 08:16 08:46 Glucose 130 H POC Glucose 139 H OUTPATIENT ANTIDIABETIC REGIMEN: * N/A * HbA1c: 8% (10/31/20) ASSESSMENT: 11/09/20: * BSGs very well controlled on current regimen. Evening BSG was slightly elevated last evening, but that appears to be due to patient refusal of novolog at dinner. Continue current regimen. * Patient received 43 units insulin yesterday, 18 basal, 25 bolus. 11/07/20 * Pt has received 68 units of insulin over the past 24hrs * 20 units of basal with Lantus * 48 units of bolus with NovoLog * BSGs [phone] mg/dl * Fasting BSG elevated yesterday so increased Lantus by 20%. Continue current regimen. * Postprandial BSGs elevated; tighten CR. 11/06 * Pt has received 51 units of insulin over the past 24hrs * 15 units of basal with Lantus * 36 units of bolus with NovoLog * BSGs [phone] mg/dl * BSGs adequately controlled with current insulin orders. No changes needed at this time. 11/04 * BSGs yesterday of 123, 187, 135, and 175 mg/dL * Will tighten carb ratio today * Fasting BSG of 114 mg/dL - continue Lantus 15 units SC daily * Antibiotics and IV dexamethasone discontinued yesterday PLAN FOR INPATIENT GLYCEMIC CONTROL: * Basal insulin - increased * Lantus 15, 18, 20 units SC daily-scale per BSG see MAR for details * Bolus insulin * NovoLog per scale ACHS or Q6hrs while NPO * Goal Range: Low 110 mg/dL - High 140 mg/dL * Correction Factor: 25 mg/dL/unit * Nutritional / Prandial insulin per carb ratio of 1 unit per 3 grams CHO consumed PLAN FOR DISCHARGE: * HbA1c of 8% may be reasonable for patient based on age and comorbidities * If tighter glycemic control is desired, suggest initiating metformin XR 500 mg PO daily with evening meal * Typically the XR formulation of metformin is better tolerated than the immediate release formulation. Continue to titrate metformin dosing upwards as recommended. Dosage increases should be made in increments of 500 mg weekly, up to 2,000 mg/day PO, given in divided doses. 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
[2020-11-09] MEDS: ENOXAPARIN INJ 40 MG/0.4 ML SYR SQ SCH (20:59)
[2020-11-10 07:45] LABS: Eosinophils # (auto) 0.11 K/uL (0-0.5); Eosinophils % (auto) 1.6 %; Hematocrit (blood only) 42.8 % (42-52); Hemoglobin 14.5 g/dL (14.0-18.0); Immature Granulocytes # (auto) 0.02 K/uL (0.00-0.02); Immature Granulocytes % (auto) 0.3 %; Lymphocytes # (auto) 1.16 K/uL (1.2-3.4); Lymphocytes % (auto) 16.8 %; Mean Corpuscular Hemoglobin 30.9 pg (25-34); Mean Corpuscular Hgb Conc 33.9 g/dL (32-36); Mean Corpuscular Volume 91.1 fL (80-100); Mean Platelet Volume 10.1 fL (7.4-10.4); Monocytes # (auto) 0.68 K/uL (0.11-0.59); Monocytes % (auto) 9.9 %; Neutrophils # (auto) 4.92 K/uL (1.4-6.5); Neutrophils % (auto) 71.4 %; Platelet Count 216 K/uL (130-400); RDW Coefficient of Variation 14.5 % (11.5-14.5); RDW Standard Deviation 48.8 fL (36.4-46.3); White Blood Count 6.89 K/uL (4.8-10.8)
[2020-11-10] MEDS: PANTOprazole 40 MG TAB PO SCH (07:51)
[2020-11-10] MEDS: ASPIRIN 81 MG ECTAB PO SCH (07:51)
[2020-11-10 08:02] LABS: BUN Creatinine Ratio 27.5 (10-20); Calcium 8.8 mg/dl (8.5-10.1); Creatinine Clr Calc Pharmacy 81.4 ml/min; Est GFR (African American) 101.3 ml/min; Est GFR (Non-African American) 87.4 ml/min; Potassium 3.9 mmol/L (3.5-5.1)
--- NOTE | 2020-11-10 08:35 | Hospitalist Progress Note ---
Date of Service November 10, 2020 Assessment & Plan (1) COVID-19: Admitted 10/28 for ambulatory dysfunction, agitation and inability to care for himself at home SARS-CoV-2 PCR positive Initially did not need any supplemental oxygen had been afebrile without elevation WBC however shortly after being admitted he developed a low-grade temperature hypoxia and worsening findings on chest x-ray suspicious for a bacterial pneumonia rather than a Covid pneumonia Given dexamethasone for total 4 days was discontinued 11/02 due to concerns for tracheomalacia and stable oxygen needs at that time? CT of the chest appearance more typical for bacterial pneumonia Covid --patient completed a course 5-day antibiotics with ceftriaxone and azithromycin, completed on 11/03 CRP elevated 2.69 on 11/06, decreased to 2.35 on repeat --was 1.31/0.8 on admission O2 saturations have been fluctuating on 2 to 4 L and were reported at 91% on room air morning 11/07 however nursing replaced oxygen sensor and stated patient required up to 4 L to maintain saturations 92%. During my conversation with patient he remained in the 96 to 97% range I will asked nursing to wean as tolerated. Conversation was had regarding oxygen at discharge and patient states that he has had oxygen in the past and has extended back as he refuses to wear it and does not feel short of breath at this time. Has been 88-90% consistently on room air at home without symptoms. --> Does have a history of tobacco use and suspected COPD however no formal diagnosis and is not on any medications at home for this Added incentive spirometer, flutter valve on 11/07 -- continue nebs prn -- has not needed Repeat CXR: * 1. Stable focal hazy opacity at the right lung which were better evaluated on recent CT of the chest performed on October 30, 2020. * 2. Left retrocardiac opacity could represent atelectasis or infiltrative process/pneumonia. * 3. Cardiomegaly. * 4. Hiatal hernia. No shortness of breath, stable on room air. Lungs clear on examination. currently 91% on RA but ranging 94-96% during encounter Discussed with infection control -- d/c'd isolation precautions at this time Discussed with case management and patient is to go to [facility] and have respite care approved by insurance once paperwork is completed. CM following Overnight O2 shows he REQUIRES O2 at night however patient ADAMANTLY REFUSING TO HAVE REPEAT STUDY. DISCUSSED RISKS AND POSSIBLE UNDERLYING HINA ON TOP OF RECENT PNEUMONIA. HE STATED HE UNDERSTANDS CONVERSATION AND RISKS BUT HE WILL STILL NOT AGREE TO REPEAT STUDY OR THE USE OF OXYGEN AT DISCHARGE. HE IS ALERT, ORIENTED, AND ABLE TO MAKE HIS OWN DECISIONS AT THIS TIME AND WILL RESPECT HIS DECLINATION BUT CONTINUE CONVERSATIONS DAILY TO SEE IF HE WOULD CHANGE HIS MIND -- continues to declined overnight O2. Maintaining o2 sat 90-95%. Lungs CTAB, no cough, sputum production reported Still awaiting respite paperwork for [facility], hopefully by tomorrow? (2) PNA (pneumonia): Procalcitonin negative on AM labs however CT chest appearance more typical for bacterial PNA than COVID Rocephin and azithromycin as above completed 5 day course Also with large hiatal hernia on imaging Has been afebrile On RA as above Two step prior to discharge if home with caregivers vs respite recommended Overnight oxygen with need for supplemental oxygen however patient likely will continue to refuse this as he has in the past Should have CXR followed to resolution of infiltrate in 3-4 weeks-but also needs repeat CT Chest as below in 4-6 weeks (3) Hypoxia: Wean O2 > 88% Multifactorial secondary to lung mass, hiatal hernia, COVID-19, possible bacterial pneumonia. *CT of the chest from 10/30 with interval development of large ground-glass opacity within the right upper lobe. Single groundglass lesion was not possible additional: Differential diagnosis besides infectious/inflammatory etiology could include malignancy such as pulmonary adenocarcinoma or metastasis. Short-term follow-up in 4-6 weeks is recommended to document resolution --> Discussed with pulm balcony worker, rec repeat CT 6 weeks outpatient (4) UTI (urinary tract infection): Possible urinary tract infection present on admission may be also source of his fever Urine culture positive for Proteus Finished ceftriaxone 11/03 (5 days) (5) Ambulatory dysfunction: Dysfunction/cerebral palsy/worsened by history of closed left femoral fracture- Requires assistance to get in and out of bed, and help with food and ADLs. A/W placement decision (6) Cerebral palsy: See above (7) History of tobacco abuse: Cessation counseling (8) Peripheral vascular disease: b/l SFA > 70%, follows Dr. Bowman Started aspirin 81mg PO daily -- continue at discharge No acute issues (9) T2DM (type 2 diabetes mellitus): HbA1c 8.0. Hyperglycemia secondary to steroid use during admission Appreciate pharmacy glycemic management with basal bolus insulin. BSG controlled -- continue to monitor He was placed stop Metformin after last admission but reports losing his primary care physician therefore was not taking this. --> rec starting again at d/c with Metformin XR 500mg daily with evening meal PATIENT REFUSES INSULIN AT D/C HOWEVER IS VERY INTERESTED IN METFORMIN AND AGREEABLE TO INCREASE/TITRATION NEEDED TO GAIN BETTER CONTROL (10) DVT prophylaxis: Lovenox --?consider Xarelto at discharge for prevention Hiatal Hernia -- large, noted on CT chest. --Started Protonix 40mg daily - consider continued use at discharge --Aspiration precautions PT/OT case management to determine disposition - respite care vs. home with home health if able to provide enough carers. Respite care through [facility] at discharge planned x 14 days once paperwork completed -- can take a few days, hopefully by tomorrow CM following -- WILL NEED NEW PCP Admission and Anticipated Discharge Date Admission Date: October 30, 2020 Supervising Physician Co-Signing Physician Notes PA Supervision Note: I did not personally see or examine the patient today, but I verified all miller points of MARLENE Mahan's assessment and plan with the following exceptions/additions: None Subjective Patient evaluated this afternoon. Happy, pleasant and joking. Feels good, had his breakfast of nepali toast and sausage like he craved. BSGs acceptable. Still awaiting [facility] for respite care. Denies shortness of breath. Still not wanting supplemental oxygen. Has been 90- 95% on room air. Loves the phones in the rooms and wants one for home as "you can bang em off anything and they don't break". NO fever, chills, chest pain, cough, sputum production, abdominal pain, nausea or vomiting. Review of Systems Review of Systems: All systems reviewed & are unremarkable except as noted in HPI & below Physical Exam Constitutional: WD/WN, vitals as above Eyes: + anicteric sclerae; normal pupil size ENMT: Ears: no hearing impairment Neck: trachea midline Respiratory: normal respiratory effort, lungs clear to auscultation Cardiovascular: RRR, no murmur, no edema Gastrointestinal (Abdomen): normal bowel sounds, soft, nontender, no hepatosplenomegaly Musculoskeletal: Head/Neck/Chest: normocephalic and head atraumatic Skin: no rashes, warm and dry Neurologic: + focal motor deficit (severe weakness of b/l LE, equal) and awake; not confused Speech / Cognition: normal speech Motor/Sensory: no tremor and no pronator drift Psychiatric: A+Ox3, euthymic affect Results & Data Results & Data ([facility]) Vital Signs (Past 12 Hours) Vital Signs Temp Pulse Resp BP Pulse Ox 11/10/20 06:48 36.8 C 67 18 111/66 90 11/09/20 23:59 36.8 C 61 18 116/61 95 Laboratory Results 11/10/20 11/10/20 11/10/20 Range/Units 08:07 07:33 07:33 WBC 6.89 (4.8-10.8) K/uL RBC 4.70 (4.7-6.1) M/uL Hgb 14.5 (14.0-18.0) g/dL Hct 42.8 (42-52) % MCV 91.1 (80-100) fL MCH 30.9 (25-34) pg MCHC 33.9 (32-36) g/dL RDW Std Deviation 48.8 H (36.4-46.3) fL RDW Coeff of Suraj 14.5 (11.5-14.5) % Plt Count 216 (130-400) K/uL MPV 10.1 (7.4-10.4) fL Immature Gran % (Auto) 0.3 % Neut % (Auto) 71.4 % Lymph % (Auto) 16.8 % Rhea % (Auto) 9.9 % Eos % (Auto) 1.6 % Baso % (Auto) 0.0 % Neut # (Auto) 4.92 (1.4-6.5) K/uL Lymph # (Auto) 1.16 L (1.2-3.4) K/uL Rhea # (Auto) 0.68 H (0.11-0.59) K/uL Eos # (Auto) 0.11 (0-0.5) K/uL Baso # (Auto) 0.00 (0-0.2) K/uL Immature Gran # (Auto) 0.02 (0.00-0.02) K/uL Sodium 140 (136-145) mmol/L Potassium 3.9 (3.5-5.1) mmol/L Chloride 109 H (98-107) mmol/L Carbon Dioxide 23 (21-32) mmol/L Anion Gap 7.0 (3-11) BUN 22 H (7-18) mg/dl Creatinine 0.80 (0.6-1.4) mg/dl Est Cr Clr Drug Dosing 81.4 ml/min Est GFR ( Amer) 101.3 ml/min Est GFR (Non-Af Amer) 87.4 ml/min BUN/Creatinine Ratio 27.5 H (10-20) Glucose 110 H (70-99) mg/dl POC Glucose 115 H (70-99) mg/dl Calcium 8.8 (8.5-10.1) mg/dl C-Reactive Protein (0-0.29) mg/dl 11/09/20 11/09/20 11/09/20 Range/Units 20:34 17:19 12:12 WBC (4.8-10.8) K/uL RBC (4.7-6.1) M/uL Hgb (14.0-18.0) g/dL Hct (42-52) % MCV (80-100) fL MCH (25-34) pg MCHC (32-36) g/dL RDW Std Deviation (36.4-46.3) fL RDW Coeff of Suraj (11.5-14.5) % Plt Count (130-400) K/uL MPV (7.4-10.4) fL Immature Gran % (Auto) % Neut % (Auto) % Lymph % (Auto) % Rhea % (Auto) % Eos % (Auto) % Baso % (Auto) % Neut # (Auto) (1.4-6.5) K/uL Lymph # (Auto) (1.2-3.4) K/uL Rhea # (Auto) (0.11-0.59) K/uL Eos # (Auto) (0-0.5) K/uL Baso # (Auto) (0-0.2) K/uL Immature Gran # (Auto) (0.00-0.02) K/uL Sodium (136-145) mmol/L Potassium (3.5-5.1) mmol/L Chloride (98-107) mmol/L Carbon Dioxide (21-32) mmol/L Anion Gap (3-11) BUN (7-18) mg/dl Creatinine (0.6-1.4) mg/dl Est Cr Clr Drug Dosing ml/min Est GFR ( Amer) ml/min Est GFR (Non-Af Amer) ml/min BUN/Creatinine Ratio (10-20) Glucose (70-99) mg/dl POC Glucose 132 H 110 H 173 H (70-99) mg/dl Calcium (8.5-10.1) mg/dl C-Reactive Protein (0-0.29) mg/dl 11/09/20 11/09/20 Range/Units 08:46 08:46 WBC 7.30 (4.8-10.8) K/uL RBC 4.60 L (4.7-6.1) M/uL Hgb 14.6 (14.0-18.0) g/dL Hct 42.7 (42-52) % MCV 92.8 (80-100) fL MCH 31.7 (25-34) pg MCHC 34.2 (32-36) g/dL RDW Std Deviation 49.7 H (36.4-46.3) fL RDW Coeff of Suraj 14.7 H (11.5-14.5) % Plt Count 226 (130-400) K/uL MPV 10.3 (7.4-10.4) fL Immature Gran % (Auto) 0.4 % Neut % (Auto) 73.0 % Lymph % (Auto) 14.5 % Rhea % (Auto) 10.5 % Eos % (Auto) 1.5 % Baso % (Auto) 0.1 % Neut # (Auto) 5.32 (1.4-6.5) K/uL Lymph # (Auto) 1.06 L (1.2-3.4) K/uL Rhea # (Auto) 0.77 H (0.11-0.59) K/uL Eos # (Auto) 0.11 (0-0.5) K/uL Baso # (Auto) 0.01 (0-0.2) K/uL Immature Gran # (Auto) 0.03 H (0.00-0.02) K/uL Sodium 140 (136-145) mmol/L Potassium 3.9 (3.5-5.1) mmol/L Chloride 111 H (98-107) mmol/L Carbon Dioxide 22 (21-32) mmol/L Anion Gap 7.0 (3-11) BUN 23 H (7-18) mg/dl Creatinine 0.81 (0.6-1.4) mg/dl Est Cr Clr Drug Dosing 80.4 ml/min Est GFR ( Amer) 100.8 ml/min Est GFR (Non-Af Amer) 86.9 ml/min BUN/Creatinine Ratio 27.9 H (10-20) Glucose 130 H (70-99) mg/dl POC Glucose (70-99) mg/dl Calcium 8.4 L (8.5-10.1) mg/dl C-Reactive Protein 2.31 H (0-0.29) mg/dl PG Care Time/CCT Total # of Minutes Spent Total Time Spent with Patient: Total time spent is greater than 50% in coordination of care (as documented) at patient's floor/unit and/or counseling patient: Coding Level of Care Code 02204 Subseq Hosp Care Lvl 2 Diagnoses COVID-19 U07.1 PNA (pneumonia) J18.9 Laterality: right Lung location: upper lobe of lung Pneumonia type: due to unspecified organism Hypoxia R09.02 UTI (urinary tract infection) N39.0 Ambulatory dysfunction R26.2 Cerebral palsy G80.8 Cerebral palsy type: other type History of tobacco abuse Z87.891 Peripheral vascular disease I73.9 T2DM (type 2 diabetes mellitus) E11.51 Diabetes mellitus complication detail: with peripheral angiopathy without gangrene Diabetes mellitus complication status: with circulatory complication Diabetes mellitus termination clerk insulin use: without termination clerk use DVT prophylaxis Z29.9 (1) T2DM (type 2 diabetes mellitus) Diabetes mellitus complication detail: with peripheral angiopathy without gangrene Diabetes mellitus complication status: with circulatory complication Diabetes mellitus usp insulin use: without usp use Qualified Code(s): E11.51 - Type 2 diabetes mellitus with diabetic peripheral angiopathy w ithout gangrene (2) Cerebral palsy Cerebral palsy type: other type Qualified Code(s): G80.8 - Other cerebral palsy (3) PNA (pneumonia) Laterality: right Lung location: upper lobe of lung Pneumonia type: due to unspecified organism Qualified Code(s): J18.9 - Pneumonia, unspecified organism
[2020-11-10] MEDS: INSULIN GLARGINE SOLOSTAR 100 UNITS/ML 3 ML PEN SC SCH (08:43)
[2020-11-10] MEDS: INSULIN ASPART 100 UNITS/ML 3 ML PEN SC SCH ×4 (08:44→21:11)
[2020-11-10] MEDS: ENOXAPARIN INJ 40 MG/0.4 ML SYR SQ SCH (21:11)
[2020-11-11] MEDS: ASPIRIN 81 MG ECTAB PO SCH (07:49)
[2020-11-11] MEDS: PANTOprazole 40 MG TAB PO SCH (07:50)
[2020-11-11] MEDS: INSULIN ASPART 100 UNITS/ML 3 ML PEN SC SCH ×4 (08:41→21:52)
[2020-11-11] MEDS: INSULIN GLARGINE SOLOSTAR 100 UNITS/ML 3 ML PEN SC SCH (08:41)
--- NOTE | 2020-11-11 09:08 | Pharmacy Report ---
Pharmacy Glycemic Short Note 2 - Date of Service November 11, 2020 - Glycemic Short BSG Results (Last 24 hours): 11/10/20 11/10/20 11/10/20 12:28 17:16 20:43 POC Glucose 110 H 107 H 139 H 11/11/20 08:27 POC Glucose 108 H OUTPATIENT ANTIDIABETIC REGIMEN: * N/A * HbA1c: 8% (10/31/20) ASSESSMENT: 11/11 * Pt has received 56 units of insulin over the past 24hrs * 18 units of basal with Lantus * 38 units of bolus with NovoLog * BSGs [phone] mg/dl * All BSGs in goal range with current orders. * AM fasting BSG is trending downwards 139--> 115-->108 today. Lantus will be decreased accordingly per BSG Lantus scale. * No changes needed today. 11/09/20: * BSGs very well controlled on current regimen. Evening BSG was slightly elevated last evening, but that appears to be due to patient refusal of novolog at dinner. Continue current regimen. * Patient received 43 units insulin yesterday, 18 basal, 25 bolus. 11/07/20 * Pt has received 68 units of insulin over the past 24hrs * 20 units of basal with Lantus * 48 units of bolus with NovoLog * BSGs [phone] mg/dl * Fasting BSG elevated yesterday so increased Lantus by 20%. Continue current regimen. * Postprandial BSGs elevated; tighten CR. 11/06 * Pt has received 51 units of insulin over the past 24hrs * 15 units of basal with Lantus * 36 units of bolus with NovoLog * BSGs [phone] mg/dl * BSGs adequately controlled with current insulin orders. No changes needed at this time. 11/04 * BSGs yesterday of 123, 187, 135, and 175 mg/dL * Will tighten carb ratio today * Fasting BSG of 114 mg/dL - continue Lantus 15 units SC daily * Antibiotics and IV dexamethasone discontinued yesterday PLAN FOR INPATIENT GLYCEMIC CONTROL: * Basal insulin - pt will receive decreased dose of 15 units this AM * Lantus 15, 18, 20 units SC daily-scale per BSG see MAR for details * Bolus insulin * NovoLog per scale ACHS or Q6hrs while NPO * Goal Range: Low 110 mg/dL - High 140 mg/dL * Correction Factor: 25 mg/dL/unit * Nutritional / Prandial insulin per carb ratio of 1 unit per 3 grams CHO consumed PLAN FOR DISCHARGE: * HbA1c of 8% may be reasonable for patient based on age and comorbidities * If tighter glycemic control is desired, suggest initiating metformin XR 500 mg PO daily with evening meal * Typically the XR formulation of metformin is better tolerated than the immediate release formulation. Continue to titrate metformin dosing upwards as recommended. Dosage increases should be made in increments of 500 mg weekly, up to 2,000 mg/day PO, given in divided doses. * Metformin is effective and safe, is inexpensive, and may reduce risk of cardiovascular events and * B12 supplementation may be necessary with supervisor intermediates metformin use
--- NOTE | 2020-11-11 09:12 | Hospitalist Progress Note ---
Date of Service November 11, 2020 Assessment & Plan (1) COVID-19: Admitted 10/28 for ambulatory dysfunction, agitation and inability to care for himself at home SARS-CoV-2 PCR positive Initially did not need any supplemental oxygen had been afebrile without elevation WBC however shortly after being admitted he developed a low-grade temperature hypoxia and worsening findings on chest x-ray suspicious for a bacterial pneumonia rather than a Covid pneumonia Given dexamethasone for total 4 days was discontinued 11/02 due to concerns for tracheomalacia and stable oxygen needs at that time? CT of the chest appearance more typical for bacterial pneumonia Covid --patient completed a course 5-day antibiotics with ceftriaxone and azithromycin, completed on 11/03 CRP elevated 2.69 on 11/06, decreased to 2.35 on repeat --was 1.31/0.8 on admission O2 saturations have been fluctuating on 2 to 4 L and were reported at 91% on room air morning 11/07 however nursing replaced oxygen sensor and stated patient required up to 4 L to maintain saturations 92%. During my conversation with patient he remained in the 96 to 97% range I will asked nursing to wean as tolerated. Conversation was had regarding oxygen at discharge and patient states that he has had oxygen in the past and has extended back as he refuses to wear it and does not feel short of breath at this time. Has been 88-90% consistently on room air at home without symptoms. --> Does have a history of tobacco use and suspected COPD however no formal diagnosis and is not on any medications at home for this Added incentive spirometer, flutter valve on 11/07 -- continue nebs prn -- has not needed Repeat CXR: * 1. Stable focal hazy opacity at the right lung which were better evaluated on recent CT of the chest performed on October 30, 2020. * 2. Left retrocardiac opacity could represent atelectasis or infiltrative process/pneumonia. * 3. Cardiomegaly. * 4. Hiatal hernia. No shortness of breath, stable on room air. Lungs clear on examination. currently 92% on RA Discussed with infection control -- d/c'd isolation precautions at this time Discussed with case management and patient is to go to [facility] and have respite care approved by insurance once paperwork is completed. CM following Overnight O2 shows he REQUIRES O2 at night however patient ADAMANTLY REFUSING TO HAVE REPEAT STUDY. DISCUSSED RISKS AND POSSIBLE UNDERLYING HINA ON TOP OF RECENT PNEUMONIA. HE STATED HE UNDERSTANDS CONVERSATION AND RISKS BUT HE WILL STILL NOT AGREE TO REPEAT STUDY OR THE USE OF OXYGEN AT DISCHARGE. HE IS ALERT, ORIENTED, AND ABLE TO MAKE HIS OWN DECISIONS AT THIS TIME AND WILL RESPECT HIS DECLINATION BUT CONTINUE CONVERSATIONS DAILY TO SEE IF HE WOULD CHANGE HIS MIND -- continues to declined overnight O2. Maintaining o2 sat 90-95%. Lungs CTAB, no cough, sputum production reported Still awaiting respite paperwork for [facility], hopefully by tomorrow? --> [facility] to be able to take whenever over the weekend once this is approved (2) PNA (pneumonia): Procalcitonin negative on AM labs however CT chest appearance more typical for bacterial PNA than COVID Rocephin and azithromycin as above completed 5 day course Also with large hiatal hernia on imaging Has been afebrile On RA as above Two step prior to discharge if home with caregivers vs respite recommended Overnight oxygen with need for supplemental oxygen however patient likely will continue to refuse this as he has in the past Should have CXR followed to resolution of infiltrate in 3-4 weeks-but also needs repeat CT Chest as below in 4-6 weeks (3) Hypoxia: Wean O2 > 88% Multifactorial secondary to lung mass, hiatal hernia, COVID-19, possible bacterial pneumonia. *CT of the chest from 10/30 with interval development of large ground-glass opacity within the right upper lobe. Single groundglass lesion was not possible additional: Differential diagnosis besides infectious/inflammatory etiology could include malignancy such as pulmonary adenocarcinoma or metastasis. Short-term follow-up in 4-6 weeks is recommended to document resolution --> Discussed with pulm call center support consultant, rec repeat CT 6 weeks outpatient (4) UTI (urinary tract infection): Possible urinary tract infection present on admission may be also source of his fever Urine culture positive for Proteus Finished ceftriaxone 11/03 (5 days) (5) Ambulatory dysfunction: Dysfunction/cerebral palsy/worsened by history of closed left femoral fracture- Requires assistance to get in and out of bed, and help with food and ADLs. A/W placement decision (6) Cerebral palsy: See above (7) History of tobacco abuse: Cessation counseling (8) Peripheral vascular disease: b/l SFA > 70%, follows Dr. Bowman Started aspirin 81mg PO daily -- continue at discharge No acute issues (9) T2DM (type 2 diabetes mellitus): HbA1c 8.0. Hyperglycemia secondary to steroid use during admission Appreciate pharmacy glycemic management with basal bolus insulin. BSG controlled -- continue to monitor He was placed stop Metformin after last admission but reports losing his primary care physician therefore was not taking this. --> rec starting again at d/c with Metformin XR 500mg daily with evening meal PATIENT REFUSES INSULIN AT D/C HOWEVER IS VERY INTERESTED IN METFORMIN AND A GREEABLE TO INCREASE/TITRATION NEEDED TO GAIN BETTER CONTROL (10) DVT prophylaxis: Lovenox --?consider Xarelto at discharge for prevention Hiatal Hernia -- large, noted on CT chest. --Started Protonix 40mg daily - consider continued use at discharge --Aspiration precautions PT/OT case management to determine disposition - respite care vs. home with home health if able to provide enough carers. Respite care through [facility] at discharge planned x 14 days once paperwork completed -- can take a few days, hopefully by tomorrow CM following -- WILL NEED NEW PCP Admission and Anticipated Discharge Date Admission Date: October 30, 2020 Supervising Physician Co-Signing Physician Notes PA Supervision Note: I did not personally see or examine the patient today, but I verified all miller points of MARLENE Mahan's assessment and plan with the following exceptions/additions: None Subjective Patient evaluated this afternoon. Resting comfortably in bed. No shortness of breath, cough or sputum production reported. States improved strength compared to admission. Awaiting to hear back about respite care still. He does have one request to avoid further lab draws unless needed -- agreed. No other symptoms/complaints at this time. Review of Systems Review of Systems: All systems reviewed & are unremarkable except as noted in HPI & below Physical Exam Physical Exam: Well nourished, well developed, laying in bed. NAD Moist mm trachea midline, without deviation Lungs: CTAB, no w/c/r Cardiac: RRR, no m/r/g, pulses palpable bilaterally Moves all extremities Skin cool, dry Results & Data Results & Data ([facility]) Vital Signs (Past 12 Hours) Vital Signs Temp Pulse Resp BP Pulse Ox 11/11/20 07:17 36.4 C L 61 16 135/69 91 11/10/20 22:12 36.6 C 59 L 16 119/72 91 Laboratory Results 11/11/20 11/10/20 11/10/20 Range/Units 08:27 20:43 17:16 POC Glucose 108 H 139 H 107 H (70-99) mg/dl 11/10/20 Range/Units 12:28 POC Glucose 110 H (70-99) mg/dl PG Care Time/CCT Total # of Minutes Spent Total Time Spent with Patient: Total time spent is greater than 50% in coordination of care (as documented) at patient's floor/unit and/or counseling patient: Coding Level of Care Code 54305 Subseq Hosp Care Lvl 1 Diagnoses COVID-19 U07.1 PNA (pneumonia) J18.9 Laterality: right Lung location: upper lobe of lung Pneumonia type: due to unspecified organism Hypoxia R09.02 UTI (urinary tract infection) N39.0 Ambulatory dysfunction R26.2 Cerebral palsy G80.8 Cerebral palsy type: other type History of tobacco abuse Z87.891 Peripheral vascular disease I73.9 T2DM (type 2 diabetes mellitus) E11.51 Diabetes mellitus complication detail: with peripheral angiopathy without gangrene Diabetes mellitus complication status: with circulatory complication Diabetes mellitus long wall mining machine tender insulin use: without penitentiary use DVT prophylaxis Z29.9 (1) T2DM (type 2 diabetes mellitus) Diabetes mellitus complication detail: with peripheral angiopathy without gangrene Diabetes mellitus complication status: with circulatory complication Diabetes mellitus long wall mining machine tender insulin use: without long wall mining machine tender use Qualified Code(s): E11.51 - Type 2 diabetes mellitus 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 (3) PNA (pneumonia) Laterality: right Lung location: upper lobe of lung Pneumonia type: due to unspecified organism Qualified Code(s): J18.9 - Pneumonia, unspecified organism
[2020-11-11 10:07] LABS: BUN Creatinine Ratio 25.6 (10-20); Calcium 8.7 mg/dl (8.5-10.1); Creatinine Clr Calc Pharmacy 77.5 ml/min; Est GFR (African American) 99.3 ml/min; Est GFR (Non-African American) 85.7 ml/min; Potassium 3.6 mmol/L (3.5-5.1)
[2020-11-11] MEDS: ENOXAPARIN INJ 40 MG/0.4 ML SYR SQ SCH (21:52)
[2020-11-12] MEDS: ASPIRIN 81 MG ECTAB PO SCH (09:00)
[2020-11-12] MEDS ORDERED: INSULIN GLARGINE SOLOSTAR 100 UNITS/ML 3 ML PEN SC SCH (09:00)
[2020-11-12] MEDS: INSULIN GLARGINE SOLOSTAR 100 UNITS/ML 3 ML PEN SC SCH (09:00)
[2020-11-12] MEDS: INSULIN ASPART 100 UNITS/ML 3 ML PEN SC SCH ×4 (09:04→20:33)
--- NOTE | 2020-11-12 16:19 | Hospitalist Progress Note ---
Date of Service November 12, 2020 Assessment & Plan (1) COVID-19: Admitted 10/28 for ambulatory dysfunction, agitation and inability to care for himself at home SARS-CoV-2 PCR positive Initially did not need any supplemental oxygen had been afebrile without elevation WBC however shortly after being admitted he developed a low-grade temperature hypoxia and worsening findings on chest x-ray suspicious for a bacterial pneumonia rather than a Covid pneumonia Given dexamethasone for total 4 days was discontinued 11/02 due to concerns for tracheomalacia and stable oxygen needs at that time? CT of the chest appearance more typical for bacterial pneumonia Covid --patient completed a course 5-day antibiotics with ceftriaxone and azithromycin, completed on 11/03 CRP elevated 2.69 on 11/06, decreased to 2.35 on repeat --was 1.31/0.8 on admission O2 saturations have been fluctuating on 2 to 4 L and were reported at 91% on room air morning 11/07 however nursing replaced oxygen sensor and stated patient required up to 4 L to maintain saturations 92%. During my conversation with patient he remained in the 96 to 97% range I will asked nursing to wean as tolerated. Conversation was had regarding oxygen at discharge and patient states that he has had oxygen in the past and has extended back as he refuses to wear it and does not feel short of breath at this time. Has been 88-90% consistently on room air at home without symptoms. --> Does have a history of tobacco use and suspected COPD however no formal diagnosis and is not on any medications at home for this Added incentive spirometer, flutter valve on 11/07 -- continue nebs prn -- has not needed Repeat CXR: * 1. Stable focal hazy opacity at the right lung which were better evaluated on recent CT of the chest performed on October 30, 2020. * 2. Left retrocardiac opacity could represent atelectasis or infiltrative process/pneumonia. * 3. Cardiomegaly. * 4. Hiatal hernia. No shortness of breath, stable on room air. Lungs clear on examination. currently 92% on RA Discussed with infection control -- d/c'd isolation precautions at this time Discussed with case management and patient is to go to [facility] and have respite care approved by insurance once paperwork is completed. CM following Overnight O2 shows he REQUIRES O2 at night however patient ADAMANTLY REFUSING TO HAVE REPEAT STUDY. DISCUSSED RISKS AND POSSIBLE UNDERLYING HINA ON TOP OF RECENT PNEUMONIA. HE STATED HE UNDERSTANDS CONVERSATION AND RISKS BUT HE WILL STILL NOT AGREE TO REPEAT STUDY OR THE USE OF OXYGEN AT DISCHARGE. HE IS ALERT, ORIENTED, AND ABLE TO MAKE HIS OWN DECISIONS AT THIS TIME AND WILL RESPECT HIS DECLINATION BUT CONTINUE CONVERSATIONS DAILY TO SEE IF HE WOULD CHANGE HIS MIND -- continues to declined overnight O2. Maintaining o2 sat 93-98%. Lungs CTAB, no cough, sputum production reported Still awaiting respite paperwork for [facility], hopefully by tomorrow? --> [facility] to be able to take whenever over the weekend once this is approved (2) PNA (pneumonia): Procalcitonin negative on AM labs however CT chest appearance more typical for bacterial PNA than COVID Rocephin and azithromycin as above completed 5 day course Also with large hiatal hernia on imaging Has been afebrile On RA as above Two step prior to discharge if home with caregivers vs respite recommended Overnight oxygen with need for supplemental oxygen however patient likely will continue to refuse this as he has in the past Should have CXR followed to resolution of infiltrate in 3-4 weeks-but also needs repeat CT Chest as below in 4-6 weeks (3) Hypoxia: Wean O2 > 88% Multifactorial secondary to lung mass, hiatal hernia, COVID-19, possible bacterial pneumonia. *CT of the chest from 10/30 with interval development of large ground-glass opacity within the right upper lobe. Single groundglass lesion was not possible additional: Differential diagnosis besides infectious/inflammatory etiology could include malignancy such as pulmonary adenocarcinoma or metastasis. Short-term follow-up in 4-6 weeks is recommended to document resolution --> Discussed with pulm application operations engineer, rec repeat CT 6 weeks outpatient (4) UTI (urinary tract infection): Possible urinary tract infection present on admission may be also source of his fever Urine culture positive for Proteus Finished ceftriaxone 11/03 (5 days) (5) Ambulatory dysfunction: Dysfunction/cerebral palsy/worsened by history of closed left femoral fracture- Requires assistance to get in and out of bed, and help with food and ADLs. A/W placement decision (6) Cerebral palsy: See above (7) History of tobacco abuse: Cessation counseling (8) Peripheral vascular disease: b/l SFA > 70%, follows Dr. Bowman Started aspirin 81mg PO daily -- continue at discharge No acute issues (9) T2DM (type 2 diabetes mellitus): HbA1c 8.0. Hyperglycemia secondary to steroid use during admission Appreciate pharmacy glycemic management with basal bolus insulin. BSG controlled -- continue to monitor He was placed stop Metformin after last admission but reports losing his primary care physician therefore was not taking this. --> rec starting again at d/c with Metformin XR 500mg daily with evening meal PATIENT REFUSES INSULIN AT D/C HOWEVER IS VERY INTERESTED IN METFORMIN AND A GREEABLE TO INCREASE/TITRATION NEEDED TO GAIN BETTER CONTROL (10) DVT prophylaxis: Lovenox while inpatient--?consider Xarelto at discharge for prevention however has never had DVT in past, remains on ASA daily Hiatal Hernia -- large, noted on CT chest. --Started Protonix 40mg daily - would continue at discharge --Aspiration precautions PT/OT case management to determine disposition - respite care vs. home with home health if able to provide enough carers. Respite care through [facility] at discharge planned x 14 days once paperwork completed -- can take a few days, hopefully by tomorrow CM following -- WILL NEED NEW PCP Admission and Anticipated Discharge Date Admission Date: October 30, 2020 Supervising Physician Co-Signing Physician Notes PA Supervision Note: I did not personally see or examine the patient today, but I verified all miller points of MARLENE Mahan's assessment and plan with the following exceptions/additions: None Subjective Patient evaluated this afternoon. No complaints. Eating/drinking no issues. Questions regarding aspirin and his injection -- discussed for DVT prophylaxis. Pt agreeable to continue. Still awaiting placement approval. No cp, shortness of breath, abdominal pain, nausea, vomiting or dysuria.. Review of Systems Review of Systems: All systems reviewed & are unremarkable except as noted in HPI & below Physical Exam Physical Exam: Well nourished, well developed, laying in bed. NAD Moist mm trachea midline, without deviation Lungs: CTAB, no w/c/r Cardiac: RRR, no m/r/g, pulses palpable bilaterally Moves all extremities Skin cool, dry Results & Data Results & Data ([facility]) Vital Signs (Past 12 Hours) Vital Signs Temp Pulse Resp BP BP Pulse Ox 11/12/20 14:21 36.5 C 58 L 16 124/63 93 11/12/20 07:08 37.0 C 72 18 131/76 98 PG Care Time/CCT Total # of Minutes Spent Total Time Spent with Patient: Total time spent is greater than 50% in coord ination of care (as documented) at patient's floor/unit and/or counseling patient: Coding Level of Care Code 35783 Subseq Hosp Care Lvl 1 Diagnoses COVID-19 U07.1 PNA (pneumonia) J18.9 Laterality: right Lung location: upper lobe of lung Pneumonia type: due to unspecified organism Hypoxia R09.02 UTI (urinary tract infection) N39.0 Ambulatory dysfunction R26.2 Cerebral palsy G80.8 Cerebral palsy type: other type History of tobacco abuse Z87.891 Peripheral vascular disease I73.9 T2DM (type 2 diabetes mellitus) E11.51 Diabetes mellitus complication detail: with peripheral angiopathy without gangrene Diabetes mellitus complication status: with circulatory complication Diabetes mellitus termite treater helper insulin use: without termite treater helper use DVT prophylaxis Z29.9 (1) T2DM (type 2 diabetes mellitus) Diabetes mellitus complication detail: with peripheral angiopathy without gangrene Diabetes mellitus complication status: with circulatory complication Diabetes mellitus termite treater helper insulin use: without residential use Qualified Code(s): E11.51 - Type 2 diabetes mellitus 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 (3) PNA (pneumonia) Laterality: right Lung location: upper lobe of lung Pneumonia type: due to unspecified organism Qualified Code(s): J18.9 - Pneumonia, unspecified organism
[2020-11-12] MEDS: ENOXAPARIN INJ 40 MG/0.4 ML SYR SQ SCH (22:10)
--- NOTE | 2020-11-13 08:04 | Hospitalist Progress Note ---
Date of Service November 13, 2020 Assessment & Plan (1) COVID-19: Admitted 10/28 for ambulatory dysfunction, agitation and inability to care for himself at home SARS-CoV-2 PCR positive Initially did not need any supplemental oxygen had been afebrile without elevation WBC however shortly after being admitted he developed a low-grade temperature hypoxia and worsening findings on chest x-ray suspicious for a bacterial pneumonia rather than a Covid pneumonia Given dexamethasone for total 4 days was discontinued 11/02 due to concerns for tracheomalacia and stable oxygen needs at that time? CT of the chest appearance more typical for bacterial pneumonia Covid --patient completed a course 5-day antibiotics with ceftriaxone and azithromycin, completed on 11/03 CRP elevated 2.69 on 11/06, decreased to 2.35 on repeat --was 1.31/0.8 on admission O2 saturations have been fluctuating on 2 to 4 L and were reported at 91% on room air morning 11/07 however nursing replaced oxygen sensor and stated patient required up to 4 L to maintain saturations 92%. During my conversation with patient he remained in the 96 to 97% range I will asked nursing to wean as tolerated. Conversation was had regarding oxygen at discharge and patient states that he has had oxygen in the past and has extended back as he refuses to wear it and does not feel short of breath at this time. Has been 88-90% consistently on room air at home without symptoms. --> Does have a history of tobacco use and suspected COPD however no formal diagnosis and is not on any medications at home for this Added incentive spirometer, flutter valve on 11/07 -- continue nebs prn -- has not needed Repeat CXR: * 1. Stable focal hazy opacity at the right lung which were better evaluated on recent CT of the chest performed on October 30, 2020. * 2. Left retrocardiac opacity could represent atelectasis or infiltrative process/pneumonia. * 3. Cardiomegaly. * 4. Hiatal hernia. No shortness of breath, stable on room air. Lungs clear on examination. currently 92% on RA Discussed with infection control -- d/c'd isolation precautions at this time Discussed with case management and patient is to go to [facility] and have respite care approved by insurance once paperwork is completed. CM following Overnight O2 shows he REQUIRES O2 at night however patient ADAMANTLY REFUSING TO HAVE REPEAT STUDY. DISCUSSED RISKS AND POSSIBLE UNDERLYING HINA ON TOP OF RECENT PNEUMONIA. HE STATED HE UNDERSTANDS CONVERSATION AND RISKS BUT HE WILL STILL NOT AGREE TO REPEAT STUDY OR THE USE OF OXYGEN AT DISCHARGE. HE IS ALERT, ORIENTED, AND ABLE TO MAKE HIS OWN DECISIONS AT THIS TIME AND WILL RESPECT HIS DECLINATION BUT CONTINUE CONVERSATIONS DAILY TO SEE IF HE WOULD CHANGE HIS MIND -- continues to declined overnight O2. Maintaining o2 sat 93-98%. Lungs CTAB, no cough, sputum production reported Still awaiting respite paperwork for [facility], hopefully by tomorrow when office opened again. erosion control coordinator unavailable through the weekend? --> [facility] to be able to take whenever over the weekend once this is approved (2) PNA (pneumonia): Procalcitonin negative on AM labs however CT chest appearance more typical for bacterial PNA than COVID Rocephin and azithromycin as above completed 5 day course Also with large hiatal hernia on imaging Has been afebrile On RA as above Two step prior to discharge if home with caregivers vs respite recommended Overnight oxygen with need for supplemental oxygen however patient likely will continue to refuse this as he has in the past Should have CXR followed to resolution of infiltrate in 3-4 weeks-but also needs repeat CT Chest as below in 4-6 weeks (3) Hypoxia: Wean O2 > 88% Multifactorial secondary to lung mass, hiatal hernia, COVID-19, possible bacterial pneumonia. *CT of the chest from 10/30 with interval development of large ground-glass opacity within the right upper lobe. Single groundglass lesion was not possible additional: Differential diagnosis besides infectious/inflammatory etiology could include malignancy such as pulmonary adenocarcinoma or metastasis. Short-term follow-up in 4-6 weeks is recommended to document resolution --> Discussed with pulm battery container inspector, rec repeat CT 6 weeks outpatient (4) UTI (urinary tract infection): Possible urinary tract infection present on admission may be also source of his fever Urine culture positive for Proteus Finished ceftriaxone 11/03 (5 days) (5) Ambulatory dysfunction: Dysfunction/cerebral palsy/worsened by history of closed left femoral fracture- Requires assistance to get in and out of bed, and help with food and ADLs. A/W placement decision (6) Cerebral palsy: See above (7) History of tobacco abuse: Cessation counseling (8) Peripheral vascular disease: b/l SFA > 70%, follows Dr. Bowman Started aspirin 81mg PO daily -- continue at discharge No acute issues (9) T2DM (type 2 diabetes mellitus): HbA1c 8.0. Hyperglycemia secondary to steroid use during admission Appreciate pharmacy glycemic management with basal bolus insulin. BSG controlled, no changes made for today -- continue to monitor He was placed stop Metformin after last admission but reports losing his primary care physician therefore was not taking this. --> rec starting again at d/c with Metformin XR 500mg daily with evening meal PATIENT REFUSES INSULIN AT D/C HOWEVER IS VERY INTERESTED IN METFORMIN AND AGREEABLE TO INCREASE/TITRATION NEEDED TO GAIN BETTER CONTROL (10) DVT prophylaxis: Lovenox while inpatient--?consider Xarelto at discharge for prevention however has never had DVT in past, remains on ASA daily Hiatal Hernia -- large, noted on CT chest. --Started Protonix 40mg daily - would continue at discharge --Aspiration precautions PT/OT case management to determine disposition - respite care vs. home with home health if able to provide enough carers while awaiting respite care given it has been almost a week of waiting Respite care through [facility] at discharge planned x 14 days once paperwork completed -- can take a few days, hopefully by tomorrow CM following -- WILL NEED NEW PCP Admission and Anticipated Discharge Date Admission Date: October 30, 2020 Supervising Physician Co-Signing Physician Notes PA Supervision Note: I did not personally see or examine the patient today, but I verified all miller points of MALRENE Mahan's assessment and plan with the following exceptions/additions: None Subjective No issues/complains. Continues to await placement. No cp/sob or other issues. Questions/concerns addressed at this time. Review of Systems Review of Systems: All systems reviewed & are unremarkable except as noted in HPI & below Physical Exam Physical Exam: Well nourished, well developed, laying in bed. NAD Moist mm trachea midline, without deviation Lungs: CTAB, no w/c/r Cardiac: RRR, no m/r/g, pulses palpable bilaterally Moves all extremities Skin cool, dry Results & Data Results & Data ([facility]) Vital Signs (Past 12 Hours) Vital Signs Temp Pulse Resp BP Pulse Ox 11/13/20 07:12 36.6 C 62 18 125/64 93 11/12/20 23:42 36.4 C L 59 L 18 144/65 H 93 Laboratory Results 11/12/20 11/12/20 11/12/20 Range/Units 20:29 17:25 12:15 POC Glucose 153 H 135 H 173 H (70-99) mg/dl 11/12/20 Range/Units 08:22 POC Glucose 106 H (70-99) mg/dl PG Care Time/CCT Total # of Minutes Spent Total Time Spent with Patient: Total time spent is greater than 50% in coordination of care (as documented) at patient's floor/unit and/or counseling patient: Coding Level of Care Code 40186 Subseq Hosp Care Lvl 1 Diagnoses COVID-19 U07.1 PNA (pneumonia) J18.9 Laterality: right Lung location: upper lobe of lung Pneumonia type: due to unspecified organism Hypoxia R09.02 UTI (urinary tract infection) N39.0 Ambulatory dysfunction R26.2 Cerebral palsy G80.8 Cerebral palsy type: other type History of tobacco abuse Z87.891 Peripheral vascular disease I73.9 T2DM (type 2 diabetes mellitus) E11.51 Diabetes mellitus complication detail: with peripheral angiopathy without gangrene Diabetes mellitus complication status: with circulatory complication Diabetes mellitus long wall mining machine helper insulin use: without long wall mining machine helper use DVT prophylaxis Z29.9 (1) T2DM (type 2 diabetes mellitus) Diabetes mellitus complication detail: with peripheral angiopathy without gangrene Diabetes mellitus complication status: with circulatory complication Diabetes mellitus long wall mining machine helper insulin use: without long wall mining machine helper use Qualified Code(s): E11.51 - Type 2 diabetes mellitus 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 (3) PNA (pneumonia) Laterality: right Lung location: upper lobe of lung Pneumonia type: due to unspecified organism Qualified Code(s): J18.9 - Pneumonia, unspecified organism
[2020-11-13] MEDS: ASPIRIN 81 MG ECTAB PO SCH (09:35)
[2020-11-13] MEDS: INSULIN GLARGINE SOLOSTAR 100 UNITS/ML 3 ML PEN SC SCH (09:36)
[2020-11-13] MEDS: INSULIN ASPART 100 UNITS/ML 3 ML PEN SC SCH ×4 (09:37→21:08)
--- NOTE | 2020-11-13 10:40 | Pharmacy Report ---
Pharmacy Glycemic Short Note 2 - Date of Service November 13, 2020 - Glycemic Short BSG Results (Last 24 hours): 11/12/20 11/12/20 11/12/20 12:15 17:25 20:29 POC Glucose 173 H 135 H 153 H 11/13/20 08:21 POC Glucose 105 H OUTPATIENT ANTIDIABETIC REGIMEN: * N/A * HbA1c: 8% (10/31/20) ASSESSMENT: 11/13: * Get received a total of 65 units of insulin over the last 24 hours * 15 units basal + 50 units bolus * BSGs were well controlled: [id number] mg/dL * AM fasting BSGs have stabilized with 15 units of Lantus so will continue with this * No changed to regimen needed over the past 72 hours. 11/11: * Pt has received 56 units of insulin over the past 24hrs * 18 units of basal with Lantus * 38 units of bolus with NovoLog * BSGs [phone] mg/dl * All BSGs in goal range with current orders. * AM fasting BSG is trending downwards 139--> 115-->108 today. Lantus will be decreased accordingly per BSG Lantus scale. * No changes needed today. PLAN FOR INPATIENT GLYCEMIC CONTROL: * Basal insulin * Lantus 15 units SC daily * Bolus insulin * NovoLog per scale ACHS or Q6hrs while NPO * Goal Range: Low 110 mg/dL - High 140 mg/dL * Correction Factor: 25 mg/dL/unit * Nutritional / Prandial insulin per carb ratio of 1 unit per 4 grams CHO consumed PLAN FOR DISCHARGE: * HbA1c of 8% may be reasonable for patient based on age and comorbidities * If tighter glycemic control is desired, suggest initiating metformin XR 500 mg PO daily with evening meal * Typically the XR formulation of metformin is better tolerated than the immediate release formulation. Continue to titrate metformin dosing upwards as recommended. Dosage increases should be made in increments of 500 mg weekly, up to 2,000 mg/day PO, given in divided doses. * Metformin is effective and safe, is inexpensive, and may reduce risk of cardiovascular events and * B12 supplementation may be necessary with retirement metformin use
[2020-11-13] MEDS: ENOXAPARIN INJ 40 MG/0.4 ML SYR SQ SCH (21:09)
[2020-11-14] MEDS: ASPIRIN 81 MG ECTAB PO SCH (08:56)
[2020-11-14] MEDS: INSULIN ASPART 100 UNITS/ML 3 ML PEN SC SCH ×2 (08:57→12:25)
[2020-11-14] MEDS ORDERED: INSULIN GLARGINE SOLOSTAR 100 UNITS/ML 3 ML PEN SC SCH (09:00)
--- NOTE | 2020-11-14 15:29 | Discharge Summary ---
Date of Service November 14, 2020 Admission HPI Per Admitting Provider The patient is a 74-year-old male with a past medical including cerebral palsy, ambulatory dysfunction, agitation, closed left subtrochanteric femur fracture, mild renal insufficiency, acute respiratory failure with hypoxia, right lower extremity cellulitis, tobacco abuse, diabetes mellitus type 2 and PAD. The patient reports that he typically has visiting nurses stay with him throughout the day, and they help him get out of bed and take his medications and food. The patient reports that the visiting nurses did not come to his house today, and his backup nurse was called and was unable to go to his house as well. He called 911, and was brought to the emergency department due to inability stay alone at home. The patient denies any recent travels, or any sick exposures, including to COVID-19. While in the emergency department, case manager spoke with the office of aging, who are aware of the patient's situation. The plan will be to admit the patient today, Saturday, and will need to see over the weeken d, and then will go to inpatient rehab sometime next week Principal Diagnosis weakness Discharge Exam gen aao pleasant nad heent nc at mmm breathing unlabored no accessory muscles skin no rashes no pallor or icterus Discharge Data Allergies Allergy/AdvReac Type Severity Reaction Status Date / Time No Known Allergies Allergy Verified 10/28/20 17:00 Consultations 10/28/20 17:00 ED Decision to Admit Stat 10/30/20 18:35 Consult Lung Nodule Program Routine Ordered Studies 10/30/20 07:58 CT chest diagnostic wo con Routine Hospital Course (1) COVID-19: Admitted 10/28 for ambulatory dysfunction, agitation and inability to care for himself at home SARS-CoV-2 PCR positive Initially did not need any supplemental oxygen had been afebrile without elevation WBC however shortly after being admitted he developed a low-grade temperature hypoxia and worsening findings on chest x-ray suspicious for a bacterial pneumonia rather than a Covid pneumonia Given dexamethasone for total 4 days was discontinued 11/02 due to concerns for tracheomalacia and stable oxygen needs at that time? CT of the chest appearance more typical for bacterial pneumonia Covid --patient completed a course 5-day antibiotics with ceftriaxone and azithromycin, completed on 11/03 CRP elevated 2.69 on 11/06, decreased to 2.35 on repeat --was 1.31/0.8 on admission O2 saturations have been fluctuating on 2 to 4 L and were reported at 91% on room air morning 11/07 however nursing replaced oxygen sensor and stated patient required up to 4 L to maintain saturations 92%. During my conversation with patient he remained in the 96 to 97% range I will asked nursing to wean as tolerated. Conversation was had regarding oxygen at discharge and patient states that he has had oxygen in the past and has extended back as he refuses to wear it and does not feel short of breath at this time. Has been 88-90% consistently on room air at home without symptoms. --> Does have a history of tobacco use and suspected COPD however no formal diagnosis and is not on any medications at home for this Added incentive spirometer, flutter valve on 11/07 -- continue nebs prn -- has not needed Repeat CXR: * 1. Stable focal hazy opacity at the right lung which were better evaluated on recent CT of the chest performed on October 30, 2020. * 2. Left retrocardiac opacity could represent atelectasis or infiltrative process/pneumonia. * 3. Cardiomegaly. * 4. Hiatal hernia. No shortness of breath, stable on room air. Lungs clear on examination. currently 92% on RA Discussed with infection control -- d/c'd isolation precautions at this time Discussed with case management and patient is to go to [facility] and have respite care approved by insurance once paperwork is completed. CM following Overnight O2 shows he REQUIRES O2 at night however patient ADAMANTLY REFUSING TO HAVE REPEAT STUDY. DISCUSSED RISKS AND POSSIBLE UNDERLYING HINA ON TOP OF RECENT PNEUMONIA. HE STATED HE UNDERSTANDS CONVERSATION AND RISKS BUT HE WILL STILL NOT AGREE TO REPEAT STUDY OR THE USE OF OXYGEN AT DISCHARGE. HE IS ALERT, ORIENTED, AND ABLE TO MAKE HIS OWN DECISIONS AT THIS TIME AND WILL RESPECT HIS DECLINATION BUT CONTINUE CONVERSATIONS DAILY TO SEE IF HE WOULD CHANGE HIS MIND -- continues to declined overnight O2. Maintaining o2 sat 93-98%. Lungs CTAB, no cough, sputum production reported Still awaiting respite paperwork for [facility], hopefully by tomorrow when office opened again. hospice office coordinator unavailable through the weekend? --> [facility] to be able to take whenever over the weekend once this is approved (2) PNA (pneumonia): Procalcitonin negative on AM labs however CT chest appearance more typical for bacterial PNA than COVID Rocephin and azithromycin as above completed 5 day course Also with large hiatal hernia on imaging Has been afebrile On RA as above Two step prior to discharge if home with caregivers vs respite recommended Overnight oxygen with need for supplemental oxygen however patient likely will continue to refuse this as he has in the past Should have CXR followed to resolution of infiltrate in 3-4 weeks-but also needs repeat CT Chest as below in 4-6 weeks (3) Hypoxia: Wean O2 > 88% Multifactorial secondary to lung mass, hiatal hernia, COVID-19, possible bacterial pneumonia. *CT of the chest from 10/30 with interval development of large ground-glass opacity within the right upper lobe. Single groundglass lesion was not possible additional: Differential diagnosis besides infectious/inflammatory etiology could include malignancy such as pulmonary adenocarcinoma or metastasis. Short-term follow-up in 4-6 weeks is recommended to document resolution --> Discussed with pulm wagon driver salesperson, rec repeat CT 6 weeks outpatient (4) UTI (urinary tract infection): Possible urinary tract infection present on admission may be also source of his fever Urine culture positive for Proteus Finished ceftriaxone 11/03 (5 days) (5) Ambulatory dysfunction: Dysfunction/cerebral palsy/worsened by history of closed left femoral fracture- Requires assistance to get in and out of bed, and help with food and ADLs. A/W placement decision (6) Cerebral palsy: See above (7) History of tobacco abuse: Cessation counseling (8) Peripheral vascular disease: b/l SFA > 70%, follows Dr. Bowman Started aspirin 81mg PO daily -- continue at discharge No acute issues (9) T2DM (type 2 diabetes mellitus): HbA1c 8.0. Hyperglycemia secondary to steroid use during admission Appreciate pharmacy glycemic management with basal bolus insulin. BSG controlled, no changes made for today -- continue to monitor He was placed stop Metformin after last admission but reports losing his primary care physician therefore was not taking this. --> rec starting again at d/c with Metformin XR 500mg daily with evening meal PATIENT REFUSES INSULIN AT D/C HOWEVER IS VERY INTERESTED IN METFORMIN AND AGREEABLE TO INCREASE/TITRATION NEEDED TO GAIN BETTER CONTROL (10) DVT prophylaxis: Lovenox while inpatient--?consider Xarelto at discharge for prevention however has never had DVT in past, remains on ASA daily Hiatal Hernia -- large, noted on CT chest. --Started Protonix 40mg daily - would continue at discharge --Aspiration precautions PT/OT case management to determine disposition - respite care vs. home with home health if able to provide enough carers while awaiting respite care given it has been almost a week of waiting Respite care through [facility] at discharge planned x 14 days once paperwork completed -- can take a few days, hopefully by tomorrow CM following -- WILL NEED NEW PCP Total Time Total Time Spent Total Time Spent (In Minutes): <30 Discharge Plan Discharge Items Patient Disposition: [facility] Reason For Visit: AMBULATORY DYSFUNCTION Discharge Diagnosis: COVID-19 pneumonia, long since resolved. weakness Condition on Discharge: Good Activity: Resume your previous activity Non-emergency contact: Primary Care Provider Call non-emergency contact if: you have any medication questions Follow-up/Referrals: PCP,NO [Primary Care Provider] - Diet: Carb Consistent or DM2 Addtl Attending Provider Instructions: see attached discharge summary Pending Studies at Discharge: No Stand-Alone Forms: My [facility] [employer] Skilled Items Patient informed of condition?: Yes DNR: No Discharge Level of Care: Skilled Communicable Disease: No Discharge Prognosis: Stable Lines: None Urinary Catheter: No Medications and DC Order Prescriptions: New aspirin 81 mg Tablet,Delayed Release (Dr/Ec) 81 mg PO QAM Qty: 30 RF: 0 Lantus Solostar U-100 Insulin 100 unit/mL (3 mL) Insulin Pen 15 unit SC QAM Qty: 1 RF: 0 Continued glucosamine-chondroitin [Osteo Bi-Flex] 250-200 mg Tablet 2 tab PO DAILY RF: 0 magnesium oxide 400 mg magnesium Tablet 400 mg PO DAILY RF: 0 Discontinued ibuprofen [Advil] 200 mg Tablet 400 mg PO DIRECTED PRN (Reason: Pain) RF: 0 No Action No Known Home Medications RF: 0 Discharge Orders: Discharge Order (Routine); Ordered 11/14/20 Ordered By: Ankit Darnell Admission Data Admit Date/Time: 10/30/20 09:24 Attending Provider: Ankit Darnell Admit Provider: Victor Manuel Nagy Primary Care Provider: PCP,NO Other Providers: Victor Manuel Nagy ; [facility], ; [facility] ; [facility] ; [facility] Coding Level of Care Code D/C Day Management <30 mins Diagnoses COVID-19 U07.1 PNA (pneumonia) J18.9 Pneumonia type: due to unspecified organism Laterality: right Lung location: upper lobe of lung Hypoxia R09.02 UTI (urinary tract infection) N39.0 Ambulatory dysfunction R26.2 Cerebral palsy G80.8 Cerebral palsy type: other type History of tobacco abuse Z87.891 Peripheral vascular disease I73.9 T2DM (type 2 diabetes mellitus) E11.51 Diabetes mellitus tank terminal gauger insulin use: without alf use Diabetes mellitus complication status: with circulatory complication Diabetes mellitus complication detail: with peripheral angiopathy without gangrene DVT prophylaxis Z29.9
--- NOTE | 2020-11-17 09:32 | Coding Query ---
CODING QUERY To promote full compliance with coding requirements relating to patient care, provider participation is requested in all cases of intensivist uncertainty. Please assist us with the question(s) below: Coding Question(s): The Discharge Summary documents, regarding Pneumonia, "COVID-19: Admitted 10/28 for ambulatory dysfunction, agitation and inability to care for himself at home SARS-CoV-2 PCR positive Initially did not need any supplemental oxygen had been afebrile without elevation WBC however shortly after being admitted he developed a low-grade temperature hypoxia and worsening findings on chest x-ray suspicious for a bacterial pneumonia rather than a Covid pneumonia", and, " PNA (pneumonia): Procalcitonin negative on AM labs however CT chest appearance more typical for bacterial PNA than COVID Rocephin and azithromycin as above completed 5 day course", and, "Hypoxia: Wean O2 > 88% Multifactorial secondary to lung mass, hiatal hernia, COVID-19, possible bacterial pneumonia.", then down lower under Discharge Plan, there is documentation of, "Discharge Diagnosis: COVID-19 pneumonia, long since resolved". Please clarify below, to be sure of Pneumonia coding and poa status for the Inpatient admission. (z ) Patient was treated/monitored for both Covid Pneumonia and Bacterial Pneumonia. Please Specify below for Inpatient poa status: ( x ) Present on Admission ( ) Not Present on Admission ( ) Undetermined ( ) Patient was treated/monitored for Bacterial Pneumonia, the Covid Pneumonia was Ruled-Out. Please Specify below for Inpatient poa status: ( ) Present on Admission ( ) Not Present on Admission ( ) Undetermined ( ) Other: Please Specify Physician's Response(s): Thank you Bree Morris Principal Diagnosis: "that condition established after study, to be chiefly responsible for occasioning the admission of the patient to the hospital for care." Co-Existing Principal Diagnosis: "when two or more diagnoses equally meet the criteria for principal diagnosis as determined by the circumstances of admission, diagnostic work up, and/or therapy provided, and the Alphabetic Index, Tabular List, or another coding guideline does not provide sequencing direction, any one of the diagnoses may be sequenced first." "When the physician has documented what appears to be a current diagnosis in the body of the record, but has not included the diagnosis in the final diagnostic statement, the physician should be asked whether the diagnosis should be added." (Source Coding [facility] 2 QTR90. p3-4) [facility]
== END 2020-11-14 16:30 | DRG 177 ==
LOC: 3W 15:48 → ED 15:48 → SUATTDRO 17:13 → 3W 20:40 → SUATTDRO 10-30 09:24 → 3W 11-08 18:41